=== PATIENT | female | born 1930 | race Caucasian/White ===

== ENCOUNTER → 2016-09-05 | Emergency (ER) | payer OTHER ==
[~2016-09-05] MED LIST: ACETAMINOPHEN 325 MG TABLET (FP) ONE; ACETAMINOPHEN 325 MG TABLET (FP) PO ONE; ACETAMINOPHEN 650 MG/20.3 ML ORAL SOLUTION (CUPS) ONE
[2016-09-05 19:20] VITALS: BMI 24.0
--- NOTE | 2016-09-05 19:20 | PDOC ---
Rapid Medical Evaluation Time Seen by Provider: 09/05/16 19:15 Medical Evaluation: Allergies Allergy/AdvReac Type Severity Reaction Status Date / Time No Known Allergies Allergy Verified 05/02/13 07:08 09/05/16 19:15 RME Note: I have performed a brief, in-person evaluation of this patient . This patient presents with CC: left occiput headache x 3 days 02/09; no NV; no vision changes; hx htn; cancer tonsils; hx brain tumor x 2years Pertinent PE findings are: VSS I have ordered: nothing The patient will proceed to ED for further evaluation. JR
--- NOTE | 2016-09-05 20:00 | PDOC ---
History of Present Illness - General History Source: Patient, Family Exam Limitations: No Limitations - History of Present Illness Initial Comments: 09/05/16 20:09 Patient is a 86 year old female with significant past medical history of pituitary tumor, tonsillar ca, hypertension and hyperlipidemia who presents to the ED with left sided [place] for 3 days. She reports the left sided [place] intermittent throbbing in nature Patient notes that she took advil this AM for her headache. She notes that she is compliant with her medication. 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 She denies fever, chills, cp, SOB, nausea or vomiting. No recent travel or recent sick contact. PCP - Dr. Rai <Do Curiel - Last Filed: 09/05/16 20:09> - General History Source: Patient <Kuldeep Jo - Last Filed: 09/05/16 22:07> - General Chief Complaint: Headache Stated Complaint: HEADACHE/PAIN IN BACK OF THE HEAD Time Seen by Provider: 09/05/16 19:15 Past History <Do Curiel - Last Filed: 09/05/16 20:09> - Past Medical History Cancer: Yes (tonsil ca) HTN: Yes Hypercholesterolemia: Yes Other medical history: dysphagia, brain tumor - Immunization History Immunization Up to Date: Yes - Psycho/Social/Smoking Cessation Hx Suicidal Ideation: No Smoking Status: No Smoking History: Never smoked Number of Cigarettes Smoked Daily: 0 Hx Alcohol Use: No Drug/Substance Use Hx: No <Kuldeep Jo - Last Filed: 09/05/16 22:07> - Past Medical History Allergies/Adverse Reactions: Allergies Allergy/AdvReac Type Severity Reaction Status Date / Time No Known Allergies Allergy Verified 09/05/16 19:16 Home Medications: Ambulatory Orders Metformin Xr [Glucophage Xr -] 500 mg PO DAILY@0700 02/08/13 Metoprolol Succinate [Toprol XL -] 50 mg PO DAILY 02/08/13 Mirtazapine [Remeron -] 15 mg PO DAILY 02/08/13 Pantoprazole Sodium [Protonix] 40 mg PO DAILY 02/08/13 Simvastatin [Zocor -] 20 mg PO HS 02/08/13 Clindamycin [Cleocin -] 150 mg PO BID #14 capsule 05/02/13 Review of Systems - Review of Systems Able to Perform ROS?: Yes Comments:: 09/05/16 20:09 CONSTITUTIONAL: Absent: fever, chills, diaphoresis, generalized weakness, malaise, loss of appetite HEENT: Absent: rhinorrhea, nasal congestion, throat pain, throat swelling, difficulty swallowing, mouth swelling, ear pain, eye pain, visual Changes CARDIOVASCULAR: Absent: chest pain, syncope, palpitations, irregular heart rate, lightheadedness , peripheral edema RESPIRATORY: Absent: cough, shortness of breath, dyspnea with exertion, orthopnea, wheezing, stridor, hemoptysis GASTROINTESTINAL: Absent: abdominal pain, abdominal distension, nausea, vomiting, diarrhea, constipation, melena, hematochezia GENITOURINARY: Absent: dysuria, frequency, urgency, hesitancy, hematuria, flank pain, genital pain MUSCULOSKELETAL: Absent: myalgia, arthralgia, joint swelling SKIN: Absent: rash, itching, pallor HEMATOLOGIC/IMMUNOLOGIC: Absent: easy bleeding, easy bruising, lymphadenopathy, frequent infections ENDOCRINE: Absent: unexplained weight gain, unexplained weight loss, heat intolerance, cold intolerance NEUROLOGIC: Present: headache Absent: focal weakness or paresthesias, dizziness, unsteady gait, seizure, mental status changes, bladder or bowel incontinence PSYCHIATRIC: Absent: anxiety, depression, suicidal or homicidal ideation, hallucinations. <Do Curiel - Last Filed: 09/05/16 20:09> *Physical Exam - Vital Signs Last Vital Signs Temp Pulse Resp BP Pulse Ox 97.8 F 97 H 20 151/75 97 09/05/16 19:16 09/05/16 19:16 09/05/16 19:16 09/05/16 19:16 09/05/16 19:16 - Physical Exam Comments: 09/05/16 20:12 GENERAL: Well developed, well nourished. Awake and alert. In no acute distress. HEENT: Normocephalic, atraumatic. PERRLA, EOMI. No conjunctival pallor. Sclerae are non -icteric. Moist mucous membranes. Oropharynx is clear. NECK: Supple. Full ROM. No JVD. Carotid pulses 2+ and symmetric, without bruits. No thyromegaly. No lymphadenopathy. CARDIOVASCULAR: Regular rate and rhythm. No murmurs, rubs, or gallops. Distal pulses are 2+ and symmetric. PULMONARY: No evidence of respiratory distress. Lungs clear to auscultation bilaterally. No wheezing, rales or rhonchi. ABDOMINAL: Soft. Non-tender. Non-distended. No rebound or guarding. No organomegaly. Normoactive bowel sounds. MUSCULOSKELETAL Normal range of motion at all joints. No bony deformities or tenderness. No CVA tenderness. EXTREMITIES: No cyanosis. No clubbing. No edema. No calf tenderness. SKIN: Warm and dry. Normal capillary refill. No rashes. No jaundice. NEUROLOGICAL: Alert, awake, appropriate. Cranial nerves 2-12 intact. No deficits to light touch and temperature in face, upper extremities and lower extremities. No motor deficits in the in face, upper extremities and lower extremities. Normoreflexic in the upper and lower extremities. Normal speech. Toes are downgoing bilaterally. PSYCHIATRIC: Cooperative. Good eye contact. Appropriate mood and affect. <Do Curiel - Last Filed: 09/05/16 20:09> - Vital Signs Last Vital Signs Temp Pulse Resp BP Pulse Ox 97.8 F 97 H 20 151/75 97 09/05/16 19:16 09/05/16 19:16 09/05/16 19:16 09/05/16 19:16 09/05/16 19:16 <Kuldeep Jo - Last Filed: 09/05/16 22:07> Medical Decision Making - Medical Decision Making 09/05/16 22:02 Dr. Jo: The scribe's documentation has been prepared under my direction and personally reviewed by me in its entirery. I confirm that the note above accurately reflects all work, treatment, procedures, and medical decision making performed by me. Patient's CAT SCAN DONE TODAY shows the same finds as MRI done on 04/10/15. Pt is neuroligicall intact. Headache improved with Tylenol. Pt family advised too follow up with her neurologist if symptoms become worse. <Kuldeep Jo - Last Filed: 09/05/16 22:07> *DC/Admit/Observation/Transfer - Attestations Scribe Attestion: 09/05/16 20:12 Documentation prepared by AIDEN Negro, acting as medical cash poster for Kuldeep Jo MD/DO. <Do Curiel - Last Filed: 09/05/16 20:09> - Discharge Dispostion Admit: No <Kuldeep Jo - Last Filed: 09/05/16 22:07> Diagnosis at time of Disposition: Intracranial tumor Headache Qualifiers: Headache type: unspecified Headache chronicity pattern: unspecified pattern Intractability: not intractable Qualified Code(s): R51 - Headache - Discharge Dispostion Disposition: HOME Condition at time of disposition: Stable - Referrals Referrals: Gisela Rai MD [Primary Care Provider] - - Patient Instructions Printed Discharge Instructions: DI for Headache, DI for Brain Tumor and Brain Cancer Additional Instructions: Please follow up with your neurologist as soon as possible. Return if any problems.
[2016-09-05 22:29] VITALS: BP 138/64; PULSE 70; TEMP 98.1
== END | disposition home or self-care (01) ==
LOC: JER 19:09
DX: D49.9 Neoplasm of unspecified behavior of unspecified site (principal); R13.10 Dysphagia, unspecified; I10 Essential (primary) hypertension; E78.00 Pure hypercholesterolemia, unspecified; Z85.89 Personal history of malignant neoplasm of other organs and systems
CPT/HCPCS: 70450-TC; 99281-25

== ENCOUNTER 2017-03-21 14:52 | Inpatient (IN) | payer OTHER ==
[2017-03-21] MEDS ORDERED: ONDANSETRON 4 MG/2 ML VIAL IVPB ONE (15:14)
[2017-03-21] MEDS ORDERED: SODIUM CHLORIDE 500 ML IV STA (15:14)
--- NOTE | 2017-03-21 15:27 | PDOC ---
History of Present Illness <Charlotte Zamora - Last Filed: 03/21/17 19:02> - General History Source: Patient, Family, Friend Exam Limitations: Clinical Condition, Language Barrier - History of Present Illness Initial Comments: 03/21/17 15:18 Patient is an 86F with history of benign pituitary mass, tonsilar cancers s/p resection (about 30 years ago), HTN and HLD here today complaining of upper abdominal pain with associated weakness, diarrhea, nausea and vomiting. Patient history is limited by her condition and mostly provided by her sister and friend , who report that she's had several episodes of vomiting starting about three hours ago. The patient denies blood in the vomit, blood in the stool, coffee ground emesis and melena. The patient denies chest pain, shortness of breath, dysuria, and frequency. The patient denies fevers and chills. The patient denies any sick contacts. <Mike Sierra - Last Filed: 03/21/17 19:10> - General Chief Complaint: Nausea/Vomiting Stated Complaint: NAUSEA WEAKNESS Time Seen by Provider: 03/21/17 15:00 Past History <Charlotte Zamora - Last Filed: 03/21/17 19:02> - Past Medical History Cancer: Yes (tonsil ca) HTN: Yes Hypercholesterolemia: Yes - Immunization History Immunization Up to Date: Yes - Suicide/Smoking/Psychosocial Hx Smoking Status: No Smoking History: Never smoked Number of Cigarettes Smoked Daily: 0 Hx Alcohol Use: No Drug/Substance Use Hx: No <Mike Sierra - Last Filed: 03/21/17 19:10> - Past Medical History Allergies/Adverse Reactions: Allergies Allergy/AdvReac Type Severity Reaction Status Date / Time No Known Allergies Allergy Verified 03/21/17 15:05 Home Medications: Ambulatory Orders Metformin Xr [Glucophage Xr -] 500 mg PO DAILY@0700 02/08/13 Metoprolol Succinate [Toprol XL -] 50 mg PO DAILY 02/08/13 Pantoprazole Sodium [Protonix] 40 mg PO DAILY 02/08/13 Simvastatin [Zocor -] 20 mg PO HS 02/08/13 Cabergoline [Dostinex -] 0.5 mg PO BID 03/21/17 [place]-3/Dha/Epa/Fish Oil [[place] 3 500 Softgel] 1 each PO DAILY 03/21/17 Review of Systems - Review of Systems Comments:: 03/21/17 15:27 GENERAL/CONSTITUTIONAL: No fever or chills. Positive for weakness. HEAD, EYES, EARS, NOSE AND THROAT: No change in vision. No sore throat. CARDIOVASCULAR: No chest pain or shortness of breath RESPIRATORY: No cough, wheezing, or hemoptysis. GASTROINTESTINAL: Positive for nausea, vomiting and diarrhea GENITOURINARY: No dysuria, frequency, or change in urination. MUSCULOSKELETAL: No joint or muscle swelling or pain. SKIN: No rash NEUROLOGIC: No headache, loss of consciousness, or change in strength/sensation. HEMATOLOGIC/LYMPHATIC: No anemia, easy bleeding, or history of blood clots. ALLERGIC/IMMUNOLOGIC: No hives or skin allergy. <Mike Sierra - Last Filed: 03/21/17 19:10> *Physical Exam - Vital Signs Last Vital Signs Temp Pulse Resp BP Pulse Ox 97.7 F 56 L 18 178/61 100 03/21/17 15:05 03/21/17 15:05 03/21/17 15:05 03/21/17 15:05 03/21/17 15:05 <Charlotte Zamora - Last Filed: 03/21/17 19:02> - Vital Signs Last Vital Signs Temp Pulse Resp BP Pulse Ox 97.7 F 56 L 18 178/61 100 03/21/17 15:05 03/21/17 15:05 03/21/17 15:05 03/21/17 15:05 03/21/17 15:05 - Physical Exam Comments: 03/21/17 15:30 GENERAL: Awake, alert, confused, in moderate distress HEAD: No signs of trauma, normocephalic, atraumatic EYES: PERRLA, EOMI, sclera anicteric, conjunctiva clear ENT: Auricles normal inspection, hearing grossly normal, nares patent, oropharynx clear without exudates. Dry mucosa LUNGS: No distress, speaks full sentences, clear to auscultation bilaterally HEART: Regular rate and rhythm, normal S1 and S2, no murmurs, rubs or gallops, peripheral pulses normal and equal bilaterally. ABDOMEN: Soft, nontender, normoactive bowel sounds. No guarding, no rebound. No masses EXTREMITIES: Normal inspection, Normal range of motion, no edema. No clubbing or cyanosis. NEUROLOGICAL: Cranial nerves II through XII grossly intact. Normal speech, no focal sensorimotor deficits SKIN: Warm, Dry, no rashes or lesions noted. <Mike Sierra - Last Filed: 03/21/17 19:10> ED Treatment Course - LABORATORY CBC & Chemistry Diagram: 03/21/17 15:25 03/21/17 15:27 - ADDITIONAL ORDERS Additional order review: Laboratory Results 03/21/17 03/21/17 03/21/17 18:26 15:27 15:27 Sodium Potassium Chloride Carbon Dioxide Anion Gap BUN Creatinine Creat Clearance w eGFR Random Glucose Lactic Acid 1.0 Calcium Total Bilirubin AST ALT Alkaline Phosphatase Creatine Kinase 91 Troponin I < 0.02 Total Protein Albumin Lipase Urine Color Straw Urine Appearance Clear Urine pH 7.0 D Urine Protein Negative Urine Glucose (UA) Negative Urine Ketones Trace H Urine Blood Negative Urine Nitrite Negative Urine Bilirubin Negative Urine Urobilinogen Negative Urine RBC 2 Urine WBC 5 Ur Epithelial Cells Rare Urine Mucus Rare 03/21/17 15:27 Sodium 140 Potassium 4.5 Chloride 104 Carbon Dioxide 26 Anion Gap 10 BUN 22 H Creatinine 0.8 Creat Clearance w eGFR > 60 Random Glucose 117 H D Lactic Acid Calcium 9.2 Total Bilirubin 0.4 AST 14 L D ALT 18 Alkaline Phosphatase 72 Creatine Kinase Troponin I Total Protein 7.8 Albumin 4.1 Lipase 105 Urine Color Urine Appearance Urine pH Urine Protein Urine Glucose (UA) Urine Ketones Urine Blood Urine Nitrite Urine Bilirubin Urine Urobilinogen Urine RBC Urine WBC Ur Epithelial Cells Urine Mucus 03/21/17 15:25 RBC 4.32 MCV 86.9 MCHC 33.4 RDW 15.1 MPV 7.4 L Neutrophils % 85.2 H Lymphocytes % 8.3 D Monocytes % 5.4 Eosinophils % 0.8 Basophils % 0.3 - Medications Given in the ED: ED Medications Discontinued Medications Generic Name Dose Route Start Last Admin Trade Name Freq PRN Reason Stop Dose Admin Sodium Chloride 500 mls @ 500 mls/hr 03/21/17 15:14 03/21/17 15:50 Normal Saline - IV 03/21/17 16:13 500 mls/hr ASDIR STA Administration Ondansetron HCl 4 mg 03/21/17 15:14 03/21/17 15:50 Zofran Injection IVPB 03/21/17 15:15 4 mg ONCE ONE Administration <NoahCharlotte A - Last Filed: 03/21/17 19:02> - LABORATORY CBC & Chemistry Diagram: 03/21/17 15:25 03/21/17 15:27 - RADIOLOGY Radiology Studies Ordered: Category Date Time Status HEAD CT WITHOUT CONTRAST [CT] Stat CT Scan 03/21/17 15:17 Ordered <Mike Sierra - Last Filed: 03/21/17 19:10> Medical Decision Making - Medical Decision Making 03/21/17 19:[address] Rai. [phone]. <NoahCharlotte A - Last Filed: 03/21/17 19:02> - Medical Decision Making 03/21/17 15:32 86F with history of pituitary brain mass, distant tonsillar cancer, htn, hld and hypothyroidism here today complaining of upper abdominal pain, nausea, and vomiting. Bradycardic to 56, hypertensive to 178/61, vital signs otherwise normal and stable. Differential diagnosis is broad, and includes: dehydration, acs, arrhythmia, gastroenteritis 03/21/17 16:03 ECG shows sinus bradycardia with 1st degree AV block, rate 52, ST inversions in II, III, aVF, V1-V6, no st elevations. Most recent prior ECG from 2010 shows no t-wave inversions and no av block. 03/21/17 16:21 Laboratory Tests 03/21/17 03/21/17 03/21/17 15:25 15:27 15:27 WBC 8.9 D Hgb 12.6 Hct 37.6 Plt Count 229 Neutrophils % 85.2 H Anion Gap 10 BUN 22 H Creatinine 0.8 Creat Clearance w eGFR > 60 Troponin I < 0.02 CBC normal, kidney function normal, trop neg. 03/21/17 16:56 CT shows pituitary macroadenoma, stable, and no acute changes. 03/21/17 17:30 CXR shows no free air under diaphram, patient's belly pain has worsened and she has had another episode of vomiting. Will evaluate with CT abdomen. 03/21/17 19:09 Mukesh consulted, accepted admission to med/surg inpatient. <Mike Sierra - Last Filed: 03/21/17 19:10> *DC/Admit/Observation/Transfer <Charlotte Zamora - Last Filed: 03/21/17 19:02> - Discharge Dispostion Admit: Yes <Mike Sierra - Last Filed: 03/21/17 19:10> Diagnosis at time of Disposition: Abdominal pain - Discharge Dispostion Condition at time of disposition: Stable - Referrals Referrals: Sarah Mujica MD [Primary Care Provider] -
[2017-03-21 15:42] LABS: BASOPHIL 0.3 % (0-2.0); EOSINOPHIL 0.8 % (0-4.5); MCH 29.1 pg (25.7-33.7); MCHC 33.4 g/dl (32.0-36.0); MEAN CELL VOLUME 86.9 fl (80-96); MEAN PLT VOLUME 7.4 fl (7.5-11.1); NEUTROPHILS 85.2 % (42.8-82.8); PLATELET COUNT 229 K/MM3 (134-434); RDW 15.1 % (11.6-15.6); WHITE BLOOD COUNT 8.9 K/mm3 (4.0-10.0)
[2017-03-21] MEDS ORDERED: ONDANSETRON 4 MG/2 ML VIAL ONE (15:45)
[2017-03-21 16:06] LABS: ALBUMIN 4.1 g/dl (3.4-5.0); ANION GAP 10 (8-16); BILIRUBIN,TOTAL 0.4 mg/dL (0.2-1.0); CALCIUM 9.2 mg/dL (8.5-10.1); CO2 26 mmol/L (21-32); CREATININE 0.8 mg/dL (0.55-1.02); GLUCOSE,RANDOM 117 mg/dL (74-106); SGOT/AST 14 U/L (15-37); SGPT/ALT 18 U/L (12-78); TOT PROT 7.8 g/dl (6.4-8.2)
[2017-03-21 16:07] LABS: ALK PHOS 72 U/L (45-117)
[2017-03-21 16:09] LABS: CPK 91 IU/L (26-192); TROPONIN I < 0.02 ng/ml (0.00-0.05)
[2017-03-21 18:45] LABS: URINE APPEARANCE CLEAR; URINE BILIRUBIN NEGATIVE (NEGATIVE); URINE BLOOD NEGATIVE (NEGATIVE); URINE COLOR STRAW; URINE GLUCOSE (UA) NEGATIVE (NEGATIVE); URINE KETONE TRACE (NEGATIVE); URINE LEUK ESTERASE TRACE (NEGATIVE); URINE NITRITE NEGATIVE (NEGATIVE); URINE PROTEIN NEGATIVE (NEGATIVE); URINE UROBILINOGEN NEGATIVE mg/dL (0.2-1.0)
[2017-03-21 18:51] LABS: URINE MUCUS RARE; URINE RBC 2 /hpf (0-3); URINE WBC 5 /hpf (3-5)
--- NOTE | 2017-03-21 19:10 | PDOC ---
Attending Attestation - HPI HPI: 03/21/17 19:10 86 y/o F with a PMHx of benign pituitary mass, tonsillar cancer s/p resection ( about 30 years ago), HTN and HLD presents to the ED with upper abdominal pain today. Sister and friend reports patient experienced associated weakness, nausea , vomiting, and diarrhea. Denies sick contacts. Patient denies complaints, but is a poor historian. Denies blood in stool or vomit. Denies chest pain, SOB. Denies fever, chills. - Medical Decision Making 03/21/17 19:10 Documentation prepared by Charlotte Zamora, acting as medical engineer for Yamilex Piper MD. <Charlotte Zamora - Last Filed: 03/21/17 19:10> - Resident Resident Name: Mike Sierra - ED Attending Attestation I have performed the following: I have examined & evaluated the patient, The case was reviewed & discussed with the resident, I agree w/resident's findings & plan, Exceptions are as noted - Physicial Exam PE: GENERAL: Awake, alert, and fully oriented, in no acute distress HEAD: No signs of trauma EYES: PERRLA, EOMI, sclera anicteric, conjunctiva clear ENT: Auricles normal inspection, hearing grossly normal, nares patent, oropharynx clear without exudates. Moist mucosa NECK: Normal ROM, supple, no lymphadenopathy, JVD, or masses LUNGS: Breath sounds equal, clear to auscultation bilaterally. No wheezes, and no crackles HEART: Regular rate and rhythm, normal S1 and S2, no murmurs, rubs or gallops ABDOMEN: Soft, diffusely tender, normoactive bowel sounds. No guarding, no rebound. No masses EXTREMITIES: Normal range of motion, no edema. No clubbing or cyanosis. No cords, erythema, or tenderness NEUROLOGICAL: Cranial nerves II through XII grossly intact. Normal speech, normal gait SKIN: Warm, Dry, normal turgor, no rashes or lesions noted. - Medical Decision Making Patient is awake, ill-appearing but nontoxic. Abd diffusely tender. Will obtain CT a/p to further evaluate. <Yamilex Piper - Last Filed: 03/24/17 10:30>
[2017-03-21] MEDS ORDERED: METOPROLOL SUCCINATE 25 MG TAB.SR.24H (FP) PO ONE (19:11)
[2017-03-21] MEDS ORDERED: ACETAMINOPHEN 1000 MG/100 ML VIAL (NON FORMULARY) IVPB PRN (19:11)
[2017-03-21] MEDS ORDERED: morphine CARPU-JECT 4 MG/1 ML DISP.SYRIN IVPUSH PRN (19:11)
[2017-03-21] MEDS ORDERED: ONDANSETRON 4 MG/2 ML VIAL IVPUSH PRN (19:11)
[2017-03-21] MEDS: SODIUM CHLORIDE 1,000 ML IV SCH ×2 (19:20→22:30)
[2017-03-21] MEDS ORDERED: PANTOPRAZOLE SODIUM 100 ML IVPB ONE (19:41)
[2017-03-21] MEDS: PANTOPRAZOLE SODIUM 40 MG in SODIUM CHLORIDE 100 ML IVPB SCH (19:47)
--- NOTE | 2017-03-21 20:11 | EKG ---
Test Reason : Blood Pressure : / mmHG Vent. Rate : 052 BPM Atrial Rate : 052 BPM P-R Int : 224 ms QRS Dur : 098 ms QT Int : 504 ms P-R-T Axes : 034 000 -40 degrees QTc Int : 468 ms SINUS BRADYCARDIA WITH 1ST DEGREE A-V BLOCK COMPARED TO 2010 CLINICAL CORRELATION AND FOLLOW UP TRACING IS RECOMMENDED Confirmed by SHAGGY FRAZIER MD ([id number] on 03/21/2017 8:10:56 PM Referred By: Confirmed By:SHAGGY FRAZIER MD
[2017-03-21] MEDS ORDERED: METOPROLOL SUCCINATE 50 MG TAB.SR.24H (FP) ONE (20:28)
--- NOTE | 2017-03-21 21:23 | CONSULT ---
Consult Consult Specialty:: General Surgery Referred by:: Dr. Mayorga Reason for Consultation:: possible SBO - History of Present Illness Chief Complaint: abdominal pain, N/V, diarrhea History of Present Illness: 86yoF with h/o tonsillar CA s/p radiation therapy only, HTN, HLD, pituitary macroadenoma (benign), possible hypothyroidism, s/p bilateral cataract surgery, no history of abdominal problems or surgery, presents with nausea beginning around noon today while at the store, associated with dizziness, "feeling terrible," then abdominal (epigastric) pain relieved by nausea and vomiting, diarrhea (multiple episodes) and diaphoresis. She blends all her food at home because of her trouble swallowing since XRT. She had cereal for breakfast and blended vegetables for dinner last night. She describes chronic sleep difficulties and takes Advil PM at night sometimes for back/shoulder pain and for help with sleeping. She needs to sleep fairly upright with pillows as well. In the ER, she was afebrile, with normal wbc and normal labs though slightly dehydrated; EKG with sinus bradycardia, T-wave inversions and 1st degree AV block. She had one episode of emesis in ER after moving around for a test, but has no nausea or pain anymore. CT showed a single loop of mildly dilated SB in the pelvis, no free air or fluid, diverticulosis, normal appendix. Patient is admitted to medicine; surgery is consulted to evaluate for possible obstruction. She has not voided since the CT scan and does feel like she needs to go, especially with palpation of her lower abdomen/pelvis. 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 ? thinks she takes med, not 100% certain) - Past Surgical History Past Surgical History: Yes: Cataract Removal (bilateral) - Alcohol/Substance Use Hx Alcohol Use: No History of Substance Use: reports: None - Smoking History Smoking history: Never smoked Have you smoked in the past 12 months: No Aproximately how many cigarettes per day: 0 - Social History Usual Living Arrangement: Alone ADL: Independent Home Medications - Allergies Allergies/Adverse Reactions: Allergies Allergy/AdvReac Type Severity Reaction Status Date / Time No Known Allergies Allergy Verified 03/21/17 15:05 - Home Medications Home Medications: Ambulatory Orders Metformin Xr [Glucophage Xr -] 500 mg PO DAILY@0700 02/08/13 Metoprolol Succinate [Toprol XL -] 50 mg PO DAILY 02/08/13 Pantoprazole Sodium [Protonix] 40 mg PO DAILY 02/08/13 Simvastatin [Zocor -] 20 mg PO HS 02/08/13 Cabergoline [Dostinex -] 0.5 mg PO BID 03/21/17 [place]-3/Dha/Epa/Fish Oil [[place] 3 500 Softgel] 1 each PO DAILY 03/21/17 Home Medications (free text): possibly thyroid medication Family Disease History - Family Disease History Family History: Unremarkable Review of Systems - Review of Systems Constitutional: reports: Diaphoresis (earlier today with hpi), Loss of Appetite (poor appetite in general) Eyes: reports: Blurred Vision, Recent Change in Vision (difficulty reading is getting worse), Other (uses reading glasses) HENT: reports: Difficult Swallowing (eats only pureed/blended food), Hearing Loss (bilateral hearing aids, but doesn't always use them). denies: Throat Pain Neck: denies: Swollen Glands, Tenderness Cardiovascular: denies: Chest Pain, Palpitations Respiratory: denies: Cough, SOB Gastrointestinal: reports: Abdominal Pain (with hpi only), Diarrhea (with hpi), Nausea (with hpi), Vomiting (with hpi). denies: Constipation, Melena, Rectal Bleeding, Vomiting Blood Genitourinary: denies: Burning, Dysuria Musculoskeletal: reports: Back Pain, Joint Pain (shoulders) Integumentary: denies: Change in Color, Rash Neurological: reports: Dizziness (with hpi). denies: Syncope Psychiatric: reports: Altered Sleep Pattern (chronic sleep issues - uses Advil PM), Depression (sometimes - not clinical/no meds) Physical Exam Vital Signs: Vital Signs Temperature 97.7 F 03/21/17 15:05 Pulse Rate 64 03/21/17 20:35 Respiratory Rate 20 03/21/17 20:35 Blood Pressure 147/60 03/21/17 20:35 O2 Sat by Pulse Oximetry (%) 94 L 03/21/17 20:35 Constitutional: Yes: Well Nourished, No Distress, Calm Eyes: Yes: Conjunctiva Clear, EOM Intact HENT: Yes: Atraumatic, Normocephalic, Other (limited mouth opening, affected speech without dentures and s/p XRT) Neck: Yes: Supple, Trachea Midline Cardiovascular: Yes: Bradycardia. No: Pulse Irregular Respiratory: Yes: Regular, CTA Bilaterally Gastrointestinal: Yes: Normal Bowel Sounds, Soft. No: Distention, Tenderness ...Rectal Exam: Yes: Deferred Renal/: Yes: Bladder Distention. No: CVA Tenderness - Left, CVA Tenderness - Right Musculoskeletal: No: Joint Stiffness, Joint Swelling Extremities: No: Cool, Cyanosis Edema: No Peripheral Pulses WNL: Yes Integumentary: Yes: Erythema (perioral). No: Rash Neurological: Yes: Alert, Oriented Psychiatric: Yes: Alert, Oriented Labs: CBCD WBC 8.9 K/mm3 (4.0-10.0) D 03/21/17 15:25 RBC 4.32 M/mm3 (3.60-5.2) 03/21/17 15:25 Hgb 12.6 GM/dL (10.7-15.3) 03/21/17 15:25 Hct 37.6 % (32.4-45.2) 03/21/17 15:25 MCV 86.9 fl (80-96) 03/21/17 15:25 MCHC 33.4 g/dl (32.0-36.0) 03/21/17 15:25 RDW 15.1 % (11.6-15.6) 03/21/17 15:25 Plt Count 229 K/MM3 (134-434) 03/21/17 15:25 MPV 7.4 fl (7.5-11.1) L 03/21/17 15:25 CMP Sodium 140 mmol/L (136-145) 03/21/17 15:27 Potassium 4.5 mmol/L (3.5-5.1) 03/21/17 15:27 Chloride 104 mmol/L (98-107) 03/21/17 15:27 Carbon Dioxide 26 mmol/L (21-32) 03/21/17 15:27 Anion Gap 10 (8-16) 03/21/17 15:27 BUN 22 mg/dL (7-18) H 03/21/17 15:27 Creatinine 0.8 mg/dL (0.55-1.02) 03/21/17 15:27 Creat Clearance w eGFR > 60 (>60) 03/21/17 15:27 Calcium 9.2 mg/dL (8.5-10.1) 03/21/17 15:27 Total Bilirubin 0.4 mg/dL (0.2-1.0) 03/21/17 15:27 AST 14 U/L (15-37) L D 03/21/17 15:27 ALT 18 U/L (12-78) 03/21/17 15:27 Alkaline Phosphatase 72 U/L (45-117) 03/21/17 15:27 Total Protein 7.8 g/dl (6.4-8.2) 03/21/17 15:27 Albumin 4.1 g/dl (3.4-5.0) 03/21/17 15:27 Imaging - Results Cat Scan: Report Reviewed (single mildly dilated SB loop in pelvis, no proximal distention, no free air or fluid; more likely incidental than ileus or early obstruction), Image Reviewed Problem List - Problems (1) Nausea and vomiting Assessment/Plan: Admitted to medicine SBO unlikely - gastroenteritis more likely Pt currently without N/V Zofran prn NPO/IVF Code(s): R11.2 - NAUSEA WITH VOMITING, UNSPECIFIED Qualifiers: Vomiting type: unspecified Vomiting Intractability: non-intractable Qualified Code(s): R11.2 - Nausea with vomiting, unspecified (2) Diarrhea Assessment/Plan: Possible gastroenteritis NPO/IVF Monitor for improvement Code(s): R19.7 - DIARRHEA, UNSPECIFIED Qualifiers: Diarrhea type: unspecified type Qualified Code(s): R19.7 - Diarrhea , unspecified (3) Abdominal pain Assessment/Plan: SBO unlikely Possible gastroenteritis Pt currently without pain or tenderness NPO/IVF May consider AXR pending clinical status tomorrow Tylenol (liquid or IV preferred to pills) prn, minimize narcotics as able Code(s): R10.9 - UNSPECIFIED ABDOMINAL PAIN Qualifiers: Abdominal location: epigastric Qualified Code(s): R10.13 - Epigastric pain (4) Pituitary macroadenoma Assessment/Plan: no change on CT - some impingement on optic chiasm - no acute issues Code(s): D35.2 - BENIGN NEOPLASM OF PITUITARY GLAND (5) History of cancer tonsil Assessment/Plan: s/p XRT chronic swallowing issues - pureed diet only when PO is resumed liquid over pills when able for PO meds no acute issues Code(s): Z85.818 - PRSNL HX OF MALIG NEOPLM OF SITE OF LIP, ORAL CAV, & PHARYNX (6) Hypertension Assessment/Plan: continue home meds Code(s): I10 - ESSENTIAL (PRIMARY) HYPERTENSION Qualifiers: Hypertension type: essential hypertension Qualified Code(s): I10 - Essential (primary) hypertension (7) Borderline diabetes Assessment/Plan: monitor glucose consider resuming metformin when PO resumes, 48+ hrs after CT Code(s): R73.03 - PREDIABETES
[2017-03-21 23:39] VITALS: BMI 22.7
[2017-03-22 08:22] LABS: MCHC 33.6 g/dl (32.0-36.0); MEAN CELL VOLUME 86.1 fl (80-96); MEAN PLT VOLUME 7.2 fl (7.5-11.1); PLATELET COUNT 209 K/MM3 (134-434); RDW 15.1 % (11.6-15.6)
--- NOTE | 2017-03-22 08:52 | HP ---
Admitting History and Physical - Admission History of Present Illness: 86F with history of benign pituitary mass, tonsilar cancers s/p resection ( about 30 years ago), HTN and HLD here today complaining of upper abdominal pain with associated weakness, diarrhea, nausea and vomiting. Patient history is limited by her condition and mostly provided by her sister and friend, who report that she's had several episodes of vomiting starting about three hours ago. The patient denies blood in the vomit, blood in the stool, coffee ground emesis and melena. The patient denies chest pain, shortness of breath, dysuria, and frequency. The patient denies fevers and chills. The patient denies any sick contacts. 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 ? thinks she takes med, not 100% certain) - Past Surgical History Past Surgical History: Yes: Cataract Removal (bilateral) - Smoking History Smoking history: Never smoked Have you smoked in the past 12 months: No Aproximately how many cigarettes per day: 0 - Alcohol/Substance Use Hx Alcohol Use: No History of Substance Use: reports: None - Social History ADL: Independent Home Medications - Allergies Allergies/Adverse Reactions: Allergies Allergy/AdvReac Type Severity Reaction Status Date / Time No Known Allergies Allergy Verified 03/21/17 15:05 - Home Medications Home Medications: Ambulatory Orders Metformin Xr [Glucophage Xr -] 500 mg PO DAILY@0700 02/08/13 Metoprolol Succinate [Toprol XL -] 50 mg PO DAILY 02/08/13 Pantoprazole Sodium [Protonix] 40 mg PO DAILY 02/08/13 Simvastatin [Zocor -] 20 mg PO HS 02/08/13 Cabergoline [Dostinex -] 0.5 mg PO BID 03/21/17 [place]-3/Dha/Epa/Fish Oil [[place] 3 500 Softgel] 1 each PO DAILY 03/21/17 Review of Systems - Review of Systems Cardiovascular: reports: No Symptoms Respiratory: reports: No Symptoms Gastrointestinal: reports: Abdominal Pain, Nausea, Vomiting Genitourinary: reports: No Symptoms Physical Examination Vital Signs: Vital Signs Temperature 98.3 F 03/22/17 06:00 Pulse Rate 54 L 03/22/17 06:00 Respiratory Rate 18 03/22/17 06:00 Blood Pressure 146/65 03/22/17 06:00 O2 Sat by Pulse Oximetry (%) 97 03/21/17 21:40 Cardiovascular: Yes: Regular Rate and Rhythm Respiratory: Yes: Regular, CTA Bilaterally Gastrointestinal: Yes: Normal Bowel Sounds, Soft. No: Tenderness Edema: No Labs: CBC, BMP 03/22/17 06:50 Imaging - Results Cat Scan: Report Reviewed Problem List - Problems (1) Abdominal pain Assessment/Plan: RESOLVED MAY HAVE BEEN AGE CLEAR LIQUIDS AND MONITOR IVF PPI Code(s): R10.9 - UNSPECIFIED ABDOMINAL PAIN Qualifiers: Abdominal location: epigastric Qualified Code(s): R10.13 - Epigastric pain (2) Diarrhea Assessment/Plan: ABOVE Code(s): R19.7 - DIARRHEA, UNSPECIFIED Qualifiers: Diarrhea type: unspecified type Qualified Code(s): R19.7 - Diarrhea , unspecified (3) Nausea and vomiting Assessment/Plan: ABOVE Code(s): R11.2 - NAUSEA WITH VOMITING, UNSPECIFIED Qualifiers: Vomiting type: unspecified Vomiting Intractability: non-intractable Qualified Code(s): R11.2 - Nausea with vomiting, unspecified (4) Diabetes Assessment/Plan: BGM Code(s): E11.9 - TYPE 2 DIABETES MELLITUS WITHOUT COMPLICATIONS
[2017-03-22 08:54] LABS: ALBUMIN 3.3 g/dl (3.4-5.0); ANION GAP 6 (8-16); BILIRUBIN,TOTAL 0.6 mg/dL (0.2-1.0); CALCIUM 8.3 mg/dL (8.5-10.1); CO2 26 mmol/L (21-32); CREATININE 0.7 mg/dL (0.55-1.02); GLUCOSE,RANDOM 70 mg/dL (74-106); SGOT/AST 15 U/L (15-37); SGPT/ALT 15 U/L (12-78); TOT PROT 6.4 g/dl (6.4-8.2)
[2017-03-22 08:55] LABS: ALK PHOS 62 U/L (45-117)
[2017-03-22 09:24] LABS: C-REACTIVE PROTEIN 1.1 MG/DL (0.00-0.3)
[2017-03-22] MEDS ORDERED: PT OWN MED DRAWER 7, Y5N ONE (10:26)
[2017-03-22] MEDS: PANTOPRAZOLE SODIUM 40 MG in SODIUM CHLORIDE 100 ML IVPB SCH (13:18)
--- NOTE | 2017-03-22 14:57 | PN ---
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, Physician Chief Complaint: epigastric pain, n/v, diarrhea History of Present Illness: Pt seen and examined sitting in chair, having liquids. Feels much better. No pain, no nausea or vomiting, no flatus or BM yet. Tolerating clears, "going slowly." She did not sleep well, though that is not unusual for her; she would like something to help. She has not needed pain medicine. - Current Medication List Current Medications: Active Medications Pantoprazole Sodium 40 mg/ (Sodium Chloride) 100 mls @ 200 mls/hr IVPB DAILY [facility] Last Admin: 03/22/17 13:18 Dose: 200 mls/hr Sodium Chloride (Normal Saline -) 1,000 mls @ 75 mls/hr IV ASDIR [facility] Last Admin: 03/21/17 22:30 Dose: 75 mls/hr Morphine Sulfate (Morphine Injection -) 4 mg IVPUSH Q4H PRN PRN Reason: PAIN Ondansetron HCl (Zofran Injection) 4 mg IVPUSH Q6H PRN PRN Reason: NAUSEA AND/OR VOMITING - Objective Vital Signs: Vital Signs Temperature 98.2 F 03/22/17 14:00 Pulse Rate 52 L 03/22/17 14:00 Respiratory Rate 17 03/22/17 14:00 Blood Pressure 148/58 03/22/17 14:00 O2 Sat by Pulse Oximetry (%) 96 03/22/17 09:00 Vital Signs Period Temp Pulse Resp BP Sys/Chandra Pulse Ox Last 24 Hr 97.7 F-98.6 F 52-64 15-20 123-178/57-66 94-100 Constitutional: Yes: Well Nourished, No Distress, Calm Eyes: Yes: Conjunctiva Clear, EOM Intact HENT: Yes: Other (mild perioral erythema s/p radiation; affected speech; edentulous) Cardiovascular: Yes: Bradycardia (mild). No: Pulse Irregular Respiratory: Yes: Regular, CTA Bilaterally Gastrointestinal: Yes: Normal Bowel Sounds, Soft. No: Distention, Tenderness Extremities: Yes: Other (nursing trying to replace left antecubital PIV). No: Cool, Cyanosis Neurological: Yes: Alert, Oriented Labs: CBC, BMP 03/22/17 06:50 03/22/17 07:00 Problem List - Problems (1) Nausea and vomiting Assessment/Plan: likely had gastroenteritis Pt currently without N/V or abdominal pain tolerating clears if doing well in am, will advance to pureed diet (as at home) no acute surgical issues Code(s): R11.2 - NAUSEA WITH VOMITING, UNSPECIFIED Qualifiers: Vomiting type: unspecified Vomiting Intractability: non-intractable Qualified Code(s): R11.2 - Nausea with vomiting, unspecified (2) Diarrhea Assessment/Plan: resolved, await resumption of bowel function Code(s): R19.7 - DIARRHEA, UNSPECIFIED Qualifiers: Diarrhea type: unspecified type Qualified Code(s): R19.7 - Diarrhea , unspecified (3) Abdominal pain Assessment/Plan: Resolved - pt currently without pain or tenderness Code(s): R10.9 - UNSPECIFIED ABDOMINAL PAIN Qualifiers: Abdominal location: epigastric Qualified Code(s): R10.13 - Epigastric pain (4) Pituitary macroadenoma Assessment/Plan: no change on CT - some impingement on optic chiasm - no acute issues Code(s): D35.2 - BENIGN NEOPLASM OF PITUITARY GLAND (5) History of cancer tonsil Assessment/Plan: s/p XRT chronic swallowing issues - pureed diet only when PO is resumed liquid over pills when able for PO meds no acute issues Code(s): Z85.818 - PRSNL HX OF MALIG NEOPLM OF SITE OF LIP, ORAL CAV, & PHARYNX (6) Hypertension Assessment/Plan: continue home meds Code(s): I10 - ESSENTIAL (PRIMARY) HYPERTENSION Qualifiers: Hypertension type: essential hypertension Qualified Code(s): I10 - Essential (primary) hypertension (7) Borderline diabetes Assessment/Plan: monitor glucose consider resuming metformin when PO resumes, 48+ hrs after CT Code(s): R73.03 - PREDIABETES
[2017-03-22] MEDS: SODIUM CHLORIDE 1,000 ML IV SCH (17:39)
--- NOTE | 2017-03-22 19:44 | CON.GI ---
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 She sees Dr Polanco on a regular basis. Now admitted with gastritis symptoms. She is feeling much better at this time. All symptoms on admission have resolved. She still works ( [employer]) and drives. She is a good historian. 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 ? thinks she takes med, not 100% certain) - Past Surgical History Past Surgical History: Yes: Cataract Removal (bilateral) - Alcohol/Substance Use Hx Alcohol Use: No History of Substance Use: reports: None - Smoking History Smoking history: Never smoked Have you smoked in the past 12 months: No Aproximately how many cigarettes per day: 0 - Social History Usual Living Arrangement: Alone ADL: Independent Home Medications - Allergies Allergies/Adverse Reactions: Allergies Allergy/AdvReac Type Severity Reaction Status Date / Time No Known Allergies Allergy Verified 03/21/17 15:05 - Home Medications Home Medications: Ambulatory Orders Metformin Xr [Glucophage Xr -] 500 mg PO DAILY@0700 02/08/13 Metoprolol Succinate [Toprol XL -] 50 mg PO DAILY 02/08/13 Pantoprazole Sodium [Protonix] 40 mg PO DAILY 02/08/13 Simvastatin [Zocor -] 20 mg PO HS 02/08/13 Cabergoline [Dostinex -] 0.5 mg PO BID 03/21/17 [place]-3/Dha/Epa/Fish Oil [[place] 3 500 Softgel] 1 each PO DAILY 03/21/17 Physical Exam-GI Vital Signs: Vital Signs Temperature 98.2 F 03/22/17 14:00 Pulse Rate 52 L 03/22/17 14:00 Respiratory Rate 17 03/22/17 14:00 Blood Pressure 148/58 03/22/17 14:00 O2 Sat by Pulse Oximetry (%) 96 03/22/17 09:00 Constitutional: Yes: Well Nourished, No Distress HENT: Yes: Other (nasal speech secondary to remote surgery) Neck: Yes: Supple Cardiovascular: Yes: Regular Rate and Rhythm Respiratory: Yes: CTA Bilaterally Gastrointestinal Inspection: Yes: WNL ...Auscultate: Yes: Normoactive Bowel Sounds ...Palpate: Yes: Soft. No: Tenderness Labs: CBC, BMP 03/22/17 06:50 03/22/17 07:00 Imaging - Results Cat Scan: Report Reviewed (negative for acute GI pathology) Assessment/Plan Gastroenteritis now resolved. Likely staph aureus as she feels left over beans caused the problem with symptoms starting 6-8 hours after eating left-over beans. Rec resume diet tomorrow and can d/c if tolerated
[2017-03-23] MEDS: SODIUM CHLORIDE 1,000 ML IV SCH (06:28)
[2017-03-23] MEDS ORDERED: PT OWN MED DRAWER 7, Y5N ONE (08:51)
[2017-03-23] MEDS: PANTOPRAZOLE SODIUM 40 MG in SODIUM CHLORIDE 100 ML IVPB SCH (09:00)
--- NOTE | 2017-03-23 09:22 | PN ---
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, Physician Chief Complaint: epigastric pain, n/v, diarrhea History of Present Illness: Pt seen and examined sitting in chair, having liquids. Had poor night's sleep, in part secondary to roommate and her usual shoulder discomfort. No abdominal pain, no nausea or vomiting; had flatus which relieved some gas/bloating, but no BM yet. Tolerating liquids, but complains that the jello and soup burn her throat; she would like oatmeal and regular Ensure (the Ensure clear burned as well). She feels ready to go home. - Current Medication List Current Medications: Active Medications Pantoprazole Sodium 40 mg/ (Sodium Chloride) 100 mls @ 200 mls/hr IVPB DAILY [facility] Last Admin: 03/23/17 09:00 Dose: 200 mls/hr Sodium Chloride (Normal Saline -) 1,000 mls @ 75 mls/hr IV ASDIR [facility] Last Admin: 03/23/17 06:28 Dose: 75 mls/hr Morphine Sulfate (Morphine Injection -) 4 mg IVPUSH Q4H PRN PRN Reason: PAIN Last Admin: 03/23/17 02:08 Dose: 4 mg Ondansetron HCl (Zofran Injection) 4 mg IVPUSH Q6H PRN PRN Reason: NAUSEA AND/OR VOMITING - Objective Vital Signs: Vital Signs Temperature 97.4 F L 03/23/17 06:00 Pulse Rate 48 L 03/23/17 06:00 Respiratory Rate 18 03/23/17 06:00 Blood Pressure 143/61 03/23/17 06:00 O2 Sat by Pulse Oximetry (%) 96 03/22/17 21:00 Constitutional: Yes: Well Nourished, No Distress, Calm HENT: Yes: Other (stable perioral erythema; affected speech from radiation pharyngitis) Gastrointestinal: Yes: Normal Bowel Sounds, Soft. No: Tenderness Extremities: No: Cold, Cyanosis Integumentary: Yes: Erythema (perioral (stable)). No: Rash Neurological: Yes: Alert, Oriented Labs: no new labs Problem List - Problems (1) Nausea and vomiting Assessment/Plan: likely had gastroenteritis Pt currently without N/V or abdominal pain tolerating liquids would advance to pureed diet (as at home) with oatmeal and regular Ensure no acute surgical issues Code(s): R11.2 - NAUSEA WITH VOMITING, UNSPECIFIED Qualifiers: Vomiting type: unspecified Vomiting Intractability: non-intractable Qualified Code(s): R11.2 - Nausea with vomiting, unspecified (2) Diarrhea Assessment/Plan: resolved, await resumption of bowel function Code(s): R19.7 - DIARRHEA, UNSPECIFIED Qualifiers: Diarrhea type: unspecified type Qualified Code(s): R19.7 - Diarrhea , unspecified (3) Pituitary macroadenoma Assessment/Plan: no change on CT - some impingement on optic chiasm - no acute issues Code(s): D35.2 - BENIGN NEOPLASM OF PITUITARY GLAND (4) History of cancer tonsil Assessment/Plan: s/p XRT chronic swallowing issues/radiation pharyngitis ok to resume home diet liquid over pills when able for PO meds no acute issues Code(s): Z85.818 - PRSNL HX OF MALIG NEOPLM OF SITE OF LIP, ORAL CAV, & PHARYNX (5) Hypertension Assessment/Plan: continue home meds Code(s): I10 - ESSENTIAL (PRIMARY) HYPERTENSION Qualifiers: Hypertension type: essential hypertension Qualified Code(s): I10 - Essential (primary) hypertension (6) Borderline diabetes Assessment/Plan: monitor glucose consider resuming metformin when indicated Code(s): R73.03 - PREDIABETES
--- NOTE | 2017-03-23 12:00 | PN ---
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, Physician Chief Complaint: patient tired did not sleep bc her roomate kept her awake has shoulder pain - Current Medication List Current Medications: Active Medications Pantoprazole Sodium 40 mg/ (Sodium Chloride) 100 mls @ 200 mls/hr IVPB DAILY [facility] Last Admin: 03/23/17 09:00 Dose: 200 mls/hr Sodium Chloride (Normal Saline -) 1,000 mls @ 75 mls/hr IV ASDIR [facility] Last Admin: 03/23/17 06:28 Dose: 75 mls/hr Morphine Sulfate (Morphine Injection -) 4 mg IVPUSH Q4H PRN PRN Reason: PAIN Last Admin: 03/23/17 02:08 Dose: 4 mg Ondansetron HCl (Zofran Injection) 4 mg IVPUSH Q6H PRN PRN Reason: NAUSEA AND/OR VOMITING - Objective Vital Signs: Vital Signs Temperature 97.8 F 03/23/17 09:48 Pulse Rate 53 L 03/23/17 09:48 Respiratory Rate 18 03/23/17 09:48 Blood Pressure 111/53 03/23/17 09:48 O2 Sat by Pulse Oximetry (%) 96 03/22/17 21:00 Constitutional: Yes: Calm, Thin Cardiovascular: Yes: Regular Rate and Rhythm, S1, S2 Respiratory: Yes: CTA Bilaterally Gastrointestinal: Yes: Normal Bowel Sounds, Soft Edema: No Neurological: Yes: Alert, Oriented Labs: CBC, BMP 03/22/17 06:50 03/22/17 07:00 Problem List - Problems (1) Abdominal pain Assessment/Plan: resolved Code(s): R10.9 - UNSPECIFIED ABDOMINAL PAIN Qualifiers: Abdominal location: epigastric Qualified Code(s): R10.13 - Epigastric pain (2) Nausea and vomiting Assessment/Plan: resovled maybe gastroenteritis Code(s): R11.2 - NAUSEA WITH VOMITING, UNSPECIFIED Qualifiers: Vomiting type: unspecified Vomiting Intractability: non-intractable Qualified Code(s): R11.2 - Nausea with vomiting, unspecified (3) Diabetes Assessment/Plan: metformin on hold for now and not to restart until monday given ct scan with contrast Code(s): E11.9 - TYPE 2 DIABETES MELLITUS WITHOUT COMPLICATIONS Qualifiers: Diabetes mellitus type: type 2 (4) History of cancer tonsil Assessment/Plan: s/p XRT chronic swallowing problems resume home diet purreed diet Code(s): Z85.818 - PRSNL HX OF MALIG NEOPLM OF SITE OF LIP, ORAL CAV, & PHARYNX (5) Pituitary macroadenoma Assessment/Plan: ct head done Code(s): D35.2 - BENIGN NEOPLASM OF PITUITARY GLAND
--- NOTE | 2017-03-23 12:06 | DS ---
Physical Examination Vital Signs: Vital Signs Temperature 97.8 F 03/23/17 09:48 Pulse Rate 53 L 03/23/17 09:48 Respiratory Rate 18 03/23/17 09:48 Blood Pressure 111/53 03/23/17 09:48 O2 Sat by Pulse Oximetry (%) 96 03/22/17 21:00 Constitutional: Yes: Calm, Thin Cardiovascular: Yes: Regular Rate and Rhythm, S1, S2 Respiratory: Yes: CTA Bilaterally Gastrointestinal: Yes: Normal Bowel Sounds, Soft Edema: No Neurological: Yes: Alert, Oriented Labs: CBC, BMP 03/22/17 06:50 03/22/17 07:00 Discharge Summary Reason For Visit: ABDOMINAL PAIN Current Active Problems Abdominal pain (Acute) Borderline diabetes (Acute) Diabetes (Acute) Diarrhea (Acute) History of cancer tonsil (Acute) Hypertension (Acute) Nausea and vomiting (Acute) Pituitary macroadenoma (Acute) Hospital Course: - Admission History of Present Illness: 86F with history of benign pituitary mass, tonsilar cancers s/p resection ( about 30 years ago), HTN and HLD here today complaining of upper abdominal pain with associated weakness, diarrhea, nausea and vomiting. Patient history is limited by her condition and mostly provided by her sister and friend, who report that she's had several episodes of vomiting starting about three hours ago. The patient denies blood in the vomit, blood in the stool, coffee ground emesis and melena. The patient denies chest pain, shortness of breath, dysuria, and frequency. The patient denies fevers and chills. The patient denies any sick contacts. 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 ? thinks she takes med, not 100% certain) - Past Surgical History Past Surgical History: Yes: Cataract Removal (bilateral) - Smoking History Smoking history: Never smoked Have you smoked in the past 12 months: No Aproximately how many cigarettes per day: 0 CT scan of head :no acute pathology pituatry macroadenoma as noted before ct abdomen fluid filled small loop of bowel in lateral pelvis seen by surgery abdominal pain and nausea vomitting resolved most likely AGE tolerated liquids ands restart home diet purreeed tonsilar cancer s/p XRT chronic swallowing problems DM hold metformin for another 2 days Condition: Stable - Instructions Referrals: Sarah Mujica MD [Primary Care Provider] - - Home Medications Comprehensive Discharge Medication List: Ambulatory Orders Metformin Xr [Glucophage Xr -] 500 mg PO DAILY@0700 02/08/13 Metoprolol Succinate [Toprol XL -] 50 mg PO DAILY 02/08/13 Pantoprazole Sodium [Protonix] 40 mg PO DAILY 02/08/13 Simvastatin [Zocor -] 20 mg PO HS 02/08/13 Cabergoline [Dostinex -] 0.5 mg PO BID 03/21/17 [place]-3/Dha/Epa/Fish Oil [[place] 3 500 Softgel] 1 each PO DAILY 03/21/17
[2017-03-23 14:18] VITALS: BP 125/56; PULSE 54; TEMP 98
== END 2017-03-23 02:30 | disposition home or self-care (01) | DRG 392 ==
LOC: JER 14:52 → JERBED 19:07 → J5S 21:24
PROVIDERS: ADMIT Family Medicine; ATTEND Family Medicine
DX: K52.9 Noninfective gastroenteritis and colitis, unspecified (principal); D35.2 Benign neoplasm of pituitary gland; I10 Essential (primary) hypertension; E78.5 Hyperlipidemia, unspecified; Z85.89 Personal history of malignant neoplasm of other organs and systems; E03.9 Hypothyroidism, unspecified; I44.0 Atrioventricular block, first degree; R73.03 Prediabetes; Z79.84 Long term (current) use of oral hypoglycemic drugs; R13.19 Other dysphagia
CPT/HCPCS: 36415; 70450-TC; 71010-TC; 74177-TC; 80053; 81003; 81015; 83605; 83690; 84484; 85025; 85027; 86140; 93005; 93010; 99283-25

== ENCOUNTER 2017-11-28 09:34 | Inpatient (IN) | payer OTHER ==
--- NOTE | 2017-11-28 09:45 | PDOC ---
History of Present Illness - General Chief Complaint: Lightheaded Stated Complaint: DIZZINESS Time Seen by Provider: 11/28/17 09:45 - History of Present Illness Initial Comments: 11/28/17 09:58 Ms. Perez is an 87 yo female w/ pmh of pituitary macroadenoma, tonsilar cancers s/p resection (distant), HTN, and HLD who represents from yesterday for evaluation of right sided pain after fall yesterday. Patient also reports new onset dizziness today in addition to her pain. She was evaluated with XR and found no acute fracture and was able to ambulate home previously, but today cannot walk by herself nor take any oral pain medication. The patient denies chest pain, shortness of breath, and headache. Denies fever, chills, nausea, vomit, diarrhea and constipation. Denies dysuria, frequency, urgency and hematuria. Allergies: NKDA Past History - Past Medical History Allergies/Adverse Reactions: Allergies Allergy/AdvReac Type Severity Reaction Status Date / Time No Known Allergies Allergy Verified 11/28/17 09:44 Home Medications: Ambulatory Orders Metoprolol Succinate [Toprol XL -] 50 mg PO DAILY 02/08/13 Cabergoline [Dostinex -] 0.5 mg PO MOFR 03/21/17 Famotidine [Pepcid] 20 mg PO DAILY PRN 11/27/17 Cancer: Yes (tonsil ca,30years ago) COPD: No HTN: Yes Hypercholesterolemia: Yes - Immunization History Immunization Up to Date: Yes - Suicide/Smoking/Psychosocial Hx Smoking Status: No Smoking History: Never smoked Have you smoked in the past 12 months: No Number of Cigarettes Smoked Daily: 0 Hx Alcohol Use: No Drug/Substance Use Hx: No Substance Use Type: None Review of Systems - Review of Systems Comments:: 11/28/17 10:17 GENERAL/CONSTITUTIONAL: No fever or chills. No weakness. HEAD, EYES, EARS, NOSE AND THROAT: No change in vision. No ear pain or discharge. No sore throat. CARDIOVASCULAR: No chest pain or shortness of breath RESPIRATORY: No cough, wheezing, or hemoptysis. GASTROINTESTINAL: No nausea, vomiting, diarrhea or constipation. GENITOURINARY: No dysuria, frequency, or change in urination. MUSCULOSKELETAL: +Right sided shoulder, chest, and hip pain. No joint or muscle swelling or pain. No neck or back pain. SKIN: No rash NEUROLOGIC: +Dizziness/light headedness today. No headache, vertigo, loss of consciousness, or change in strength/sensation. ENDOCRINE: No increased thirst. No abnormal weight change HEMATOLOGIC/LYMPHATIC: No anemia, easy bleeding, or history of blood clots. ALLERGIC/IMMUNOLOGIC: No hives or skin allergy. *Physical Exam - Physical Exam Comments: 11/28/17 10:17 GENERAL: Awake, alert, and fully oriented, in no acute distress HEAD: No signs of trauma, normocephalic, atraumatic EYES: PERRLA, EOMI, sclera anicteric, conjunctiva clear ENT: Auricles normal inspection, hearing grossly normal, nares patent, oropharynx clear without exudates. Moist mucosa NECK: Normal ROM, supple, no lymphadenopathy, JVD, or masses LUNGS: No distress, speaks full sentences, clear to auscultation bilaterally HEART: Regular rate and rhythm, normal S1 and S2, no murmurs, rubs or gallops, peripheral pulses normal and equal bilaterally. ABDOMEN: Soft, nontender, normoactive bowel sounds. No guarding, no rebound. No masses EXTREMITIES: +Patient ttp on R shoulder, right chest, and right hip. Will not allow testing for ROM. Unable to lift RLE. NEUROLOGICAL: Cranial nerves II through XII grossly intact. Normal speech, normal gait, no focal sensorimotor deficits SKIN: Warm, Dry, normal turgor, no rashes or lesions noted. ED Treatment Course - LABORATORY CBC & Chemistry Diagram: 11/28/17 10:09 11/28/17 10:09 Medical Decision Making - Medical Decision Making 11/28/17 14:06 Ms. Perez is an 87 yo female w/ pmh as described who presents for evaluation of difficulty ambulating post fall yesterday with dizziness. Additional Head/ neck/extremity CT and Chest/Shoulder XR ordered for further evaluation. Patient remains non-ambulatory at this time. Labs grossly-unconcerning as below. CT negative for acute process. 11/28/17 14:23 XR likewise unconcerning. Discussed with primary team who will admit for further observation and pain control. Laboratory Results - last 24 hr 11/28/17 11/28/17 11/28/17 10:09 10:09 11:09 WBC 7.8 RBC 4.30 Hgb 12.6 D Hct 38.1 MCV 88.6 MCH 29.4 MCHC 33.1 RDW 15.5 Plt Count 229 MPV 7.2 L Neutrophils % 85.9 H Lymphocytes % 6.7 L Monocytes % 6.1 Eosinophils % 0.9 Basophils % 0.4 Nucleated RBC % 0 Sodium 139 Potassium 5.1 Chloride 105 Carbon Dioxide 27 Anion Gap 7 L BUN 25 H Creatinine 1.0 Creat Clearance w eGFR 52.45 Random Glucose 107 H Calcium 8.5 Total Bilirubin 0.6 AST 21 ALT 16 Alkaline Phosphatase 67 Creatine Kinase 72 Troponin I < 0.02 Total Protein 7.5 Albumin 3.7 Urine Color Yellow Urine Appearance Clear Urine pH 7.0 Ur Specific [place] 1.020 Urine Protein Negative Urine Glucose (UA) Negative Urine Ketones Negative Urine Blood Negative Urine Nitrite Negative Urine Bilirubin Negative Urine Urobilinogen Negative Ur Leukocyte Esterase 1+ H Urine WBC (Auto) 9 Urine RBC (Auto) 1 Ur Epithelial Cells Rare Urine Mucus Rare *DC/Admit/Observation/Transfer Diagnosis at time of Disposition: Gait instability Contusion, hip Qualifiers: Encounter type: subsequent encounter Laterality: unspecified laterality Qualified Code(s): S70.00XD - Contusion of unspecified hip, subsequent encounter - Discharge Dispostion Decision to Admit order: Yes - Referrals Referrals: Gisela Rai MD [Primary Care Provider] - - Patient Instructions - Post Discharge Activity
--- NOTE | 2017-11-28 09:45 | PDOC ---
Attending Attestation - Resident Resident Name: Channing Mckenzie - HPI HPI: 11/28/17 10:37 Pt presents to the ED complaining of L hip pain and lightheadness after mechanical trip and fall. Patient was seen in the ED yesterday, had hip films that were negative and was discharged home. As per the patient and her friend, she has been completely unable to ambulate since the injury. Patient reports that she was completely independent and able to drive before yesterday. - Physicial Exam PE: 11/28/17 10:42 Agree with resident exam. Patient is alert and oriented and in no acute distress. L hip has no deformity but some tenderness. Patient is able to bend her knee to 90 degrees on the L, but does not have more ROM. - Medical Decision Making 11/28/17 10:44 Pt presents to the ED complaining of severe L hip pain and inability to ambulate. Xrays yesterday were negative. Will check CT pelvis to rule out occult fracture. If CT is negative, will give pain control and consider discharge if patient is able to ambulate. If patient is not able to ambulate, will admit to medicine for placement.
[2017-11-28] MEDS ORDERED: ACETAMINOPHEN 1000 MG/100 ML VIAL (NON FORMULARY) IVPB ONE (10:09)
[2017-11-28 10:38] LABS: BASO % 0.4 % (0-2.0); EOS % 0.9 % (0-4.5); HEMATOCRIT 38.1 % (32.4-45.2); HEMOGLOBIN 12.6 GM/dL (10.7-15.3); LYMPH % 6.7 % (8-40); MCH 29.4 pg (25.7-33.7); MCHC 33.1 g/dl (32.0-36.0); MEAN CELL VOLUME 88.6 fl (80-96); MEAN PLT VOLUME 7.2 fl (7.5-11.1); MONO % 6.1 % (3.8-10.2); NEUT % 85.9 % (42.8-82.8); PLATELET COUNT 229 K/MM3 (134-434); RDW 15.5 % (11.6-15.6); WHITE BLOOD COUNT 7.8 K/mm3 (4.0-10.0)
[2017-11-28] MEDS ORDERED: ACETAMINOPHEN INJECTION 100 ML IVPB ONE (10:50)
[2017-11-28 11:07] LABS: ALBUMIN 3.7 g/dl (3.4-5.0); ANION GAP 7 (8-16); BLOOD UREA NITROGEN 25 mg/dL (7-18); CALCIUM 8.5 mg/dL (8.5-10.1); CHLORIDE 105 mmol/L (98-107); CO2 27 mmol/L (21-32); GLUCOSE,RANDOM 107 mg/dL (74-106); SODIUM 139 mmol/L (136-145)
[2017-11-28 11:13] LABS: ALK PHOS 67 U/L (45-117); BILIRUBIN,TOTAL 0.6 mg/dL (0.2-1.0); SGPT/ALT 16 U/L (12-78); TOT PROT 7.5 g/dl (6.4-8.2)
[2017-11-28 11:35] LABS: URINE APPEARANCE CLEAR; URINE BILIRUBIN NEGATIVE (<2.0 mg/dL); URINE BLOOD NEGATIVE (NEGATIVE); URINE COLOR YELLOW; URINE GLUCOSE (UA) NEGATIVE (NEGATIVE); URINE KETONE NEGATIVE (NEGATIVE)
[2017-11-28 11:36] LABS: URINE NITRITE NEGATIVE (NEGATIVE); URINE PROTEIN NEGATIVE (NEGATIVE); URINE UROBILINOGEN NEGATIVE mg/dL (0.2-1.0)
[2017-11-28 11:38] LABS: URINE LEUK ESTERASE 1+ (NEGATIVE)
[2017-11-28 11:39] LABS: EPI CELLS RARE /HPF (FEW); URINE MUCUS RARE
[2017-11-28 12:05] LABS: POTASSIUM 5.1 mmol/L (3.5-5.1); SGOT/AST 21 U/L (15-37)
--- NOTE | 2017-11-28 14:45 | EKG ---
Test Reason : Blood Pressure : / mmHG Vent. Rate : 060 BPM Atrial Rate : 060 BPM P-R Int : 230 ms QRS Dur : 086 ms QT Int : 406 ms P-R-T Axes : 027 -07 041 degrees QTc Int : 406 ms SINUS RHYTHM WITH 1ST DEGREE A-V BLOCK NONSPECIFIC T WAVE ABNORMALITY ABNORMAL ECG WHEN COMPARED WITH ECG OF 27-NOV-2017 12:33, NO SIGNIFICANT CHANGE WAS FOUND Confirmed by MD Brien, Alex ([id number]) on 11/28/2017 2:44:55 PM Referred By: Confirmed By:Alex Tesfaye MD
[2017-11-28] MEDS ORDERED: morphine SULFATE 4 MG/ML VIAL IVPUSH PRN (16:04)
--- NOTE | 2017-11-28 16:06 | HP ---
Admitting History and Physical - Primary Care Physician PCP: Gisela Rai - Admission History of Present Illness: Ms. Perez is an 87 yo female w/ pmh of pituitary macroadenoma, tonsilar cancers s/p resection (distant), HTN, and HLD who represents from yesterday for evaluation of right sided pain after fall yesterday. Patient also reports new onset dizziness today in addition to her pain. She was evaluated with XR and found no acute fracture and was able to ambulate home previously, but today cannot walk by herself nor take any oral pain medication. 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 ? thinks she takes med, not 100% certain) - Past Surgical History Past Surgical History: Yes: Cataract Removal (bilateral) - Smoking History Smoking history: Never smoked Have you smoked in the past 12 months: No Aproximately how many cigarettes per day: 0 - Alcohol/Substance Use Hx Alcohol Use: No History of Substance Use: reports: None - Social History ADL: Independent Home Medications - Allergies Allergies/Adverse Reactions: Allergies Allergy/AdvReac Type Severity Reaction Status Date / Time No Known Allergies Allergy Verified 11/28/17 09:44 - Home Medications Home Medications: Ambulatory Orders Metoprolol Succinate [Toprol XL -] 50 mg PO DAILY 02/08/13 Cabergoline [Dostinex -] 0.5 mg PO MOFR 03/21/17 Famotidine [Pepcid] 20 mg PO DAILY PRN 11/27/17 Review of Systems - Review of Systems Musculoskeletal: reports: Other (right hip pain) Physical Examination Vital Signs: Vital Signs Temperature 97.9 F 11/28/17 09:55 Pulse Rate 58 L 11/28/17 15:12 Respiratory Rate 18 11/28/17 15:12 Blood Pressure 109/48 11/28/17 15:12 O2 Sat by Pulse Oximetry (%) 94 L 11/28/17 15:12 Constitutional: Yes: Calm Neck: Yes: Trachea Midline Cardiovascular: Yes: Regular Rate and Rhythm, S1, S2 Respiratory: Yes: CTA Bilaterally Gastrointestinal: Yes: Normal Bowel Sounds, Soft Extremities: Yes: Other (right hip tenderness) Edema: No Neurological: Yes: Alert, Oriented Labs: CBC, BMP 11/28/17 10:09 11/28/17 10:09 Imaging - Results Cat Scan: Report Reviewed (mild degenerative arthirits of the right hip) Assessment/Plan s/p fall unable to bear weight on right hip ct scan no fracture PMR and ortho eval pain control will need snf tonsillar cancer s/p resection can only have liquid diet milly rosalba eval heparin subq for dvt ppx
[2017-11-28] MEDS: HEPARIN NA (PORCINE) 5,000 UNITS/ML 1ML VIAL SQ SCH (21:18)
[2017-11-28 23:10] VITALS: BMI 24.0
[2017-11-29 07:23] LABS: BASO % 0.4 % (0-2.0); EOS % 3.4 % (0-4.5); HEMATOCRIT 36.6 % (32.4-45.2); HEMOGLOBIN 12.3 GM/dL (10.7-15.3); LYMPH % 16.9 % (8-40); MCH 29.4 pg (25.7-33.7); MCHC 33.5 g/dl (32.0-36.0); MEAN CELL VOLUME 87.7 fl (80-96); MEAN PLT VOLUME 7.1 fl (7.5-11.1); MONO % 8.8 % (3.8-10.2); NEUT % 70.5 % (42.8-82.8); PLATELET COUNT 210 K/MM3 (134-434); RBC 4.17 M/mm3 (3.60-5.2); RDW 15.8 % (11.6-15.6); WHITE BLOOD COUNT 6.3 K/mm3 (4.0-10.0)
[2017-11-29 07:58] LABS: ALBUMIN 3.4 g/dl (3.4-5.0); BLOOD UREA NITROGEN 22 mg/dL (7-18); CHLORIDE 105 mmol/L (98-107); PHOSPHOROUS 2.9 mg/dL (2.5-4.9); POTASSIUM 4.1 mmol/L (3.5-5.1); SGOT/AST 16 U/L (15-37); SODIUM 140 mmol/L (136-145)
[2017-11-29 08:01] LABS: ALK PHOS 64 U/L (45-117); ANION GAP 6 (8-16); BILIRUBIN,TOTAL 0.6 mg/dL (0.2-1.0); CALCIUM 8.2 mg/dL (8.5-10.1); CO2 29 mmol/L (21-32); CREATININE 0.9 mg/dL (0.55-1.02); GLUCOSE,RANDOM 73 mg/dL (74-106); MAGNESIUM 2.5 mg/dL (1.8-2.4); SGPT/ALT 14 U/L (12-78)
--- NOTE | 2017-11-29 08:50 | PN ---
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, Physician - Current Medication List Current Medications: Active Medications Heparin Sodium (Porcine) (Heparin -) 5,000 unit SQ BID JARET Last Admin: 11/28/17 21:18 Dose: 5,000 unit Morphine Sulfate (Morphine Sulfate) 1 mg IVPUSH Q4H PRN PRN Reason: PAIN LEVEL 7 - 10 Ranitidine HCl (Zantac Oral Solution -) 150 mg PO DAILY [facility] - Objective Vital Signs: Vital Signs Temperature 98.2 F 11/29/17 07:04 Pulse Rate 60 11/29/17 07:04 Respiratory Rate 20 11/29/17 07:04 Blood Pressure 155/75 11/29/17 07:04 O2 Sat by Pulse Oximetry (%) 97 11/29/17 06:00 Labs: CBC, BMP 11/29/17 06:00 11/29/17 06:00 Problem List - Problems (1) Hip pain Assessment/Plan: s/p fall unable to bear weight on right hip ct scan no fracture PMR and ortho eval pain control xray of ls and pelvis will need snf Code(s): M25.559 - PAIN IN UNSPECIFIED HIP (2) Gait instability Assessment/Plan: as above Code(s): R26.81 - UNSTEADINESS ON FEET (3) Diabetes Assessment/Plan: monitor Code(s): E11.9 - TYPE 2 DIABETES MELLITUS WITHOUT COMPLICATIONS Qualifiers: Diabetes mellitus type: type 2 (4) History of cancer tonsil Assessment/Plan: -swallow eval Code(s): Z85.818 - PRSNL HX OF MALIG NEOPLM OF SITE OF LIP, ORAL CAV, & PHARYNX (5) Pituitary macroadenoma Assessment/Plan: -endo Code(s): D35.2 - BENIGN NEOPLASM OF PITUITARY GLAND
--- NOTE | 2017-11-29 09:44 | CONSULT ---
Admitting History and Physical - Primary Care Physician PCP: Herminia White - Admission History of Present Illness: Per EMR: Ms. Perez is an 87 yo female w/ pmh of pituitary macroadenoma, tonsilar cancers s/p resection (distant), HTN, and HLD who represents from yesterday for evaluation of right sided pain after fall yesterday. Patient also reports new onset dizziness today in addition to her pain. She was evaluated with XR and found no acute fracture and was able to ambulate home previously, but today cannot walk by herself nor take any oral pain medication. patient says that she is not able to bear weight on her right leg also can only eat liquids and jello not solid food h/o tonsillar CA s/p radiation therapy many years ago Pt well known to me from MBS 2013 and 2017. There was increased severity of dysphagia from 2013 until 2017, with impaired transfer of pure and thick liquid as compared to the previous study. Patient did protect her airway well with self generation of multiple swallows, limited entry of contrast into the airway, and occasional brief cough and throat clear to clear penetrated food or liquid. 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 At that time it was recommended that she blenderize all of her food with added liquid to a thin liquid consistency in order to drink through a straw. She had been losing weight and was having a lot of trouble getting nutrition. It was suggested that she use dense, nutritional and caloric foods, possibly adding protein powder to the foods,and drinking supplements between meals. As recommended in 2014, it was recommended that she start swallowing therapy to improve laryngeal excursion and airway protection. additionally Therabite by [facility] was recommended to improve open mouth posture and reduce adverse affects of radiation and Trismus. It was suggested that she use Biotene products, for oral/ pharyngeal dryness. Unfortunately, the patient did not follow through with swallowing therapy or therabite and does not use Biotene, all of which would improve or at least help maintain function. She does, however, puree all food at home, which has improved PO intake and nutritional intake. 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 ? thinks she takes med, not 100% certain) - Past Surgical History Past Surgical History: Yes: Cataract Removal (bilateral) - Smoking History Smoking history: Never smoked Have you smoked in the past 12 months: No Aproximately how many cigarettes per day: 0 - Alcohol/Substance Use Hx Alcohol Use: No History of Substance Use: reports: None - Social History ADL: Independent History - Admission Reason For Visit: PAIN, UNSTEADY GAIT - Diagnostics X-ray: Report Reviewed CT Scan: Report Reviewed - General Mental Status: Alert and Oriented, Awake and Alert, Able to Follow Commands Attention: Intact Ability to Follow Directions: Excellent Head/Neck Control: WFL - Hearing Hearing: Functional Hearing: Impaired With Patient: No Speech Evaluation - Communication Primary Language: JAPANESE Oral Expression Ability: Yes: Mild Impairment - Speech Production Able to Make Needs Known: Yes: WNL Intelligibility: Yes: Mildly Impaired - Speech Characteristics Voice Loudness: Mildly Soft/Quiet Voice Pitch: Yes: Normal Voice Phonatory-based Quality: Yes: Normal Speech Pattern: Impaired Nasal Resonance: Hypernasal (Pt reports change in her speech over last year. I called Dr. Polanco's office. She was evaluated 08/2017 and tonsils are stable. No reoccurancwe of cancer identified.) Articulation: Yes: Precise Rate of Speech: Intact Voice, Other Observations: Yes: Disordered Intonation (Hypernasal sec h/o cancer of tonsils, RT, Trismus adversely affecting oral air flow.) - Language/Auditory Comprehension Follows: Yes: 2 Stage Simple Commands Observation: Able to respond to yes/no queries: Yes, Comprehends Conversational Speech: Yes - Language/Verbal Expression Able to Respond to Simple Queries: Yes: WNL Able to Communicate Wants and Needs: Yes: WNL Functional Communication Status: Yes: WNL - Swallow Evaluation/Bedside Assessment Current Nutritional Intake: Full Liquids Oral Secretions: Yes: WFL Dentition: Yes: Dental Appliance Upper, Dental Appliance Lower Facial Symmetry at Rest: Facial Droop Left Facial Movement: Controlled Jaw Position: Closed at Rest (Mod to Severe Trismus) Pucker Lips: Reduced ROM Smile: Reduced ROM Lingual Movement: Symmetric Labial Seal: WFL Chewing: Impaired Oral Prep Time: Increased A-P Transit: Impaired Coughing/Throat Clear: No Change in Voice: No Recommendations - Speech Evaluation, Impression/Plan Impression: Hypernasal sec h/o cancer of tonsils, RT, Trismus adversely affecting oral air flow. Last MBS 2017-At that time it was recommended that she blenderize all of her food with added liquid to a thin liquid consistency which she has been doing with improved nutritional intake. She reports that her swallowing has worsened. She denies recent [place]chitis/PNA. She reports that she needs to swallow carefully or she coughs and liquid comes out of her nose. She has never had swallowing tx which she would benefit from. - Disposition Discharge to: To be Determined (Swallow tx upon d/c) - Dysphagia Impressions/Plan Dysphagia Impressions: Mild Impairment, Moderate Impairment *Silent aspiration: cannot be R/O at bedside Recommendations: Modified Barium Swallow (Beneficial. Pt is deferring at this time) - Recommendations Diet Consistency: Dysphagia Pureed (thinned out with soup, ensure, milk, gravy) Medication Administration: Crushed with applesauce (in thin liquid) Liquids: Thin Liquids Supplement: Ensure
[2017-11-29] MEDS: RANITIDINE HCL 150 MG/10 ML UNIT-DOSE PO SCH (10:55)
[2017-11-29] MEDS: HEPARIN NA (PORCINE) 5,000 UNITS/ML 1ML VIAL SQ SCH ×2 (10:55→21:20)
[2017-11-29] MEDS: LIDOCAINE 5% TOPICAL PATCH TP SCH (13:31)
--- NOTE | 2017-11-29 15:18 | CON.ORTH ---
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 ? thinks she takes med, not 100% certain) - Past Surgical History Past Surgical History: Yes: Cataract Removal (bilateral) - Alcohol/Substance Use Hx Alcohol Use: No History of Substance Use: reports: None - Smoking History Smoking history: Never smoked Have you smoked in the past 12 months: No Aproximately how many cigarettes per day: 0 - Social History Usual Living Arrangement: Alone ADL: Independent Home Medications - Allergies Allergies/Adverse Reactions: Allergies Allergy/AdvReac Type Severity Reaction Status Date / Time No Known Allergies Allergy Verified 11/28/17 09:44 - Home Medications Home Medications: Ambulatory Orders Metoprolol Succinate [Toprol XL -] 50 mg PO DAILY 02/08/13 Cabergoline [Dostinex -] 0.5 mg PO MOFR 03/21/17 Famotidine [Pepcid] 20 mg PO DAILY PRN 11/27/17 Physical Exam for Ortho Vital Signs: Vital Signs Temperature 98.2 F 11/29/17 07:04 Pulse Rate 61 11/29/17 10:48 Respiratory Rate 20 11/29/17 10:48 Blood Pressure 132/75 11/29/17 10:48 O2 Sat by Pulse Oximetry (%) 95 11/29/17 14:00 Labs: CBC, BMP 11/29/17 06:00 11/29/17 06:00 - Lower Extremity Hip: Yes: Right, Pain, Other (equal limb lengths, no swelling/ecchymosis, + ttp over right GT, full rom of hip, nvi) Imaging - Results X-ray: Report Reviewed, Image Reviewed Cat Scan: Report Reviewed, Image Reviewed Assessment/Plan 87 yo female w/ pmh of pituitary macroadenoma, tonsilar cancers s/p resection ( distant), HTN, and HLD who represents from yesterday for evaluation of right sided pain after fall. Feeling better today, States that pain is more than 50% better. Denies any numbness or tingling. She was able to ambulate today with PT. a/p- right hip contusion/djd PT wbat pain control ok to d/c from ortho pov once medically stable d/w Dr. Basurto
[2017-11-29] MEDS: LIDOCAINE PATCH REMOVAL MC SCH (21:26)
--- NOTE | 2017-11-30 00:09 | CONSULT ---
Consult Consult Specialty:: endocrine Referred by:: dr.saba alves Reason for Consultation:: pituitary tumor - History of Present Illness Chief Complaint: dizzy and fell History of Present Illness: 87 yo female w/ pmh of pituitary macroadenoma, tonsilar cancers s/p resection ( distant), HTN, and HLD who was brought to ed for evaluation of right sided pain after fall yesterday. Patient also reports new onset dizziness today in addition to her pain. 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 ? thinks she takes med, not 100% certain) - Past Surgical History Past Surgical History: Yes: Cataract Removal (bilateral) - Alcohol/Substance Use Hx Alcohol Use: No History of Substance Use: reports: None - Smoking History Smoking history: Never smoked Have you smoked in the past 12 months: No Aproximately how many cigarettes per day: 0 - Social History Usual Living Arrangement: Alone ADL: Independent Home Medications - Allergies Allergies/Adverse Reactions: Allergies Allergy/AdvReac Type Severity Reaction Status Date / Time No Known Allergies Allergy Verified 11/28/17 09:44 - Home Medications Home Medications: Ambulatory Orders Metoprolol Succinate [Toprol XL -] 50 mg PO DAILY 02/08/13 Cabergoline [Dostinex -] 0.5 mg PO MOFR 03/21/17 Famotidine [Pepcid] 20 mg PO DAILY PRN 11/27/17 Review of Systems - Review of Systems Constitutional: reports: Lethargy, Unintentional Wgt. Loss, Weakness Eyes: reports: Blurred Vision HENT: reports: Difficult Swallowing, Mouth Swelling, Nasal Congestion, Throat Pain, Toothache, Ringing in Ears Neck: reports: Pain on Movement Cardiovascular: reports: No Symptoms Respiratory: reports: Exercise Intolerance, SOB on Exertion Gastrointestinal: reports: Bloating, Nausea Genitourinary: reports: No Symptoms Breasts: reports: No Symptoms Reported Musculoskeletal: reports: Muscle Pain, Muscle Cramps, Muscle Weakness Integumentary: reports: No Symptoms Neurological: reports: Dizziness, Weakness Endocrine: reports: No Symptoms Physical Exam Vital Signs: Vital Signs Temperature 98.6 F 11/29/17 15:23 Pulse Rate 67 11/29/17 15:23 Respiratory Rate 18 11/29/17 15:23 Blood Pressure 122/70 11/29/17 15:23 O2 Sat by Pulse Oximetry (%) 95 11/29/17 14:00 Constitutional: Yes: Anxious Eyes: Yes: EOM Intact HENT: Yes: Normocephalic Neck: Yes: Trachea Midline Cardiovascular: Yes: Regular Rate and Rhythm Respiratory: Yes: CTA Bilaterally Gastrointestinal: Yes: Normal Bowel Sounds ...Rectal Exam: Yes: Deferred Renal/: Yes: WNL Breast(s): Yes: WNL Musculoskeletal: Yes: Back Pain, Joint Stiffness, Joint Swelling, Muscle Pain, Muscle Weakness Extremities: Yes: Delayed Capillary Refill Edema: No Neurological: Yes: Alert, Oriented, Numbness, Weakness Labs: CBC, BMP 11/29/17 06:00 11/29/17 06:00 Problem List - Problems (1) Contusion, hip Code(s): S70.00XA - CONTUSION OF UNSPECIFIED HIP, INITIAL ENCOUNTER Qualifiers: Encounter type: subsequent encounter Laterality: unspecified laterality Qualified Code(s): S70.00XD - Contusion of unspecified hip, subsequent encounter (2) Gait instability Code(s): R26.81 - UNSTEADINESS ON FEET (3) Hip pain Code(s): M25.559 - PAIN IN UNSPECIFIED HIP (4) Abdominal pain Code(s): R10.9 - UNSPECIFIED ABDOMINAL PAIN Qualifiers: Abdominal location: epigastric Qualified Code(s): R10.13 - Epigastric pain (5) Borderline diabetes Code(s): R73.03 - PREDIABETES (6) Brain tumor Code(s): D49.6 - NEOPLASM OF UNSPECIFIED BEHAVIOR OF BRAIN (7) Diabetes Code(s): E11.9 - TYPE 2 DIABETES MELLITUS WITHOUT COMPLICATIONS Qualifiers: Diabetes mellitus type: type 2 Assessment/Plan Current Active Problems Contusion, hip (Acute) Gait instability (Acute) Hip pain (Acute) pituitary macroadenoma vertigo ballance difficulty diabetes mellitus Abnormal Lab Results 11/29/17 11/29/17 06:00 06:00 RDW 15.8 H MPV 7.1 L Anion Gap 6 L BUN 22 H Random Glucose 73 L Calcium 8.2 L Magnesium 2.5 H Laboratory Results - last 24 hr 11/29/17 11/29/17 06:00 06:00 WBC 6.3 RBC 4.17 Hgb 12.3 Hct 36.6 MCV 87.7 MCH 29.4 MCHC 33.5 RDW 15.8 H Plt Count 210 MPV 7.1 L Neutrophils % 70.5 Lymphocytes % 16.9 D Monocytes % 8.8 Eosinophils % 3.4 D Basophils % 0.4 Nucleated RBC % 0 Sodium 140 Potassium 4.1 Chloride 105 Carbon Dioxide 29 Anion Gap 6 L BUN 22 H Creatinine 0.9 Creat Clearance w eGFR 59.23 Random Glucose 73 L Calcium 8.2 L Phosphorus 2.9 Magnesium 2.5 H Total Bilirubin 0.6 AST 16 ALT 14 Alkaline Phosphatase 64 Total Protein 7.0 Albumin 3.4 Laboratory Tests 11/29/17 06:00 Sodium 140 Potassium 4.1 Chloride 105 Carbon Dioxide 29 Anion Gap 6 L BUN 22 H Creatinine 0.9 Creat Clearance w eGFR 59.23 Random Glucose 73 L Calcium 8.2 L plan: check prolactin check hba1c cabergoline .5mg biweekly bmd as outpatient
--- NOTE | 2017-11-30 09:33 | PN ---
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 (short form) - Note 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: Pt seen and examined. Pt doing very well, she is ambulating much better, much less pain with full weight bearing. B/L LE look great. Pt can be DC'd from an orthopedic pov
[2017-11-30] MEDS: RANITIDINE HCL 150 MG/10 ML UNIT-DOSE PO SCH (10:25)
[2017-11-30] MEDS: HEPARIN NA (PORCINE) 5,000 UNITS/ML 1ML VIAL SQ SCH ×2 (10:25→22:12)
[2017-11-30] MEDS: LIDOCAINE 5% TOPICAL PATCH TP SCH (10:25)
--- NOTE | 2017-11-30 11:28 | PN ---
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 Selected Entries 11/29/17 11/29/17 11/29/17 03:58 07:04 15:23 Breakfast 75% Lunch 75% Temperature 98.5 F 98.2 F 98.6 F 11/30/17 06:00 Breakfast Lunch Temperature 97.6 F - Recommendations Diet Consistency: Dysphagia Pureed (thinned out with soup, ensure, milk, gravy) Medication Administration: Crushed with applesauce (in thin liquid) Liquids: Thin Liquids Supplement: Ensure For STR for Dysphagia Rehabilitation.
--- NOTE | 2017-11-30 13:23 | PN ---
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, Physician Chief Complaint: patient is in chair today says she stil has right hip pain but it is much improved seen by milly schwab adjusted - Current Medication List Current Medications: Active Medications Docusate Sodium (Colace -) 300 mg PO HS [facility] Heparin Sodium (Porcine) (Heparin -) 5,000 unit SQ BID [facility] Last Admin: 11/30/17 10:25 Dose: 5,000 unit Lidocaine (Lidoderm Patch -) 1 patch TP DAILY [facility] Last Admin: 11/30/17 10:25 Dose: 1 patch Miscellaneous (Lidoderm Patch Removal) 1 each MC DAILY@2200 [facility] Last Admin: 11/29/17 21:26 Dose: 1 each Morphine Sulfate (Morphine Sulfate) 1 mg IVPUSH Q4H PRN PRN Reason: PAIN LEVEL 7 - 10 Ranitidine HCl (Zantac Oral Solution -) 150 mg PO DAILY [facility] Last Admin: 11/30/17 10:25 Dose: 150 mg - Objective Vital Signs: Vital Signs Temperature 97.6 F 11/30/17 06:00 Pulse Rate 72 11/30/17 06:00 Respiratory Rate 11/30/17 06:00 Blood Pressure 118/58 11/30/17 06:00 O2 Sat by Pulse Oximetry (%) 95 11/29/17 14:00 Constitutional: Yes: Calm Neck: Yes: Trachea Midline Cardiovascular: Yes: Regular Rate and Rhythm, S1, S2 Respiratory: Yes: CTA Bilaterally Gastrointestinal: Yes: Normal Bowel Sounds, Soft Edema: No Neurological: Yes: Alert, Oriented Labs: CBC, BMP 11/29/17 06:00 11/29/17 06:00 Problem List - Problems (1) Gait instability Assessment/Plan: PT/TO rehab placement on monday- seen by ortho - Code(s): R26.81 - UNSTEADINESS ON FEET (2) Hip pain Assessment/Plan: seen by ortho pain control Code(s): M25.559 - PAIN IN UNSPECIFIED HIP (3) Brain tumor Assessment/Plan: pitatury macroadenoma carbegoline 0.5 biweekly Code(s): D49.6 - NEOPLASM OF UNSPECIFIED BEHAVIOR OF BRAIN
[2017-11-30] MEDS ORDERED: ACETAMINOPHEN 325 MG TABLET (FP) PO PRN (13:27)
[2017-11-30] MEDS ORDERED: oxyCODONE HCL 5 MG TABLET PO PRN (13:28)
--- NOTE | 2017-11-30 16:02 | CONS ---
PHYSICAL MEDICINE AND REHABILITATION CONSULTATION DATE OF CONSULTATION: 11/30/2017 HISTORY OF PRESENT ILLNESS: The patient is an 87-year-old woman who was admitted after she fell and was unable to ambulate to [facility] on or about November 28, 2017. The patient suffered injury to her right hip, undergoing evaluation which included x-rays of the pelvis which showed minimal degenerative changes, but no fracture or underlying pathology; CT of the lower extremity, which also showed mild degenerative arthritis, but no dislocation or fracture. Patient did complain of more shoulder pain, although it sounds to be an old problem, and there was moderately severe degenerative arthritis in the right shoulder and probable rotator cuff tear. Other tests included cervical spine CAT scan, which showed no evidence of acute fracture with underlying spondylosis, multi-level canal and neuroforaminal narrowing, as well as a CT of the head, which showed no acute intracranial pathology. There was a macroadenoma noted and the patient apparently has a known pituitary macroadenoma, as well as tonsillar cancer status post resection possible radiation, also hypertension, and hyperlipidemia. The patient was seen by Speech Pathology and a modified-barium swallow was recommended. However, the patient has declined. She is on a dysphagia, pureed with medication crushed in applesauce, but thin liquids. Blood work showed a normal CBC on admission and followup study was normal with WBC of 6.3, hemoglobin 12.3, platelet count 210. Chemistry was also mainly within normal limits. She had an elevated BUN of 25 to a creatinine of 1.0. This slightly improved on followup study yesterday with a BUN 22, creatinine 0.9. Her magnesium was also slightly elevated at 2.1. Albumin the low side of normal at 3.4. Normal total protein. The patient was evaluated by Physical Therapy and was able to ambulate 45 feet with a rolling walker, contact guard, antalgic gait on the right on initial evaluation. In followup, today, she was able to ambulate 65 feet x2 with a rolling walker, contact guard of 1, antalgic gait on the right. The patient's [facility] plan [facility]. She does get a Lidoderm patch to the right hip, and is on Roxicodone, as well as subcutaneous heparin for DVT prophylaxis. REVIEW OF PAST MEDICAL AND SURGICAL HISTORY: As above. She has tonsillar cancer, status post resection, possibly radiation. Also, pituitary macroadenoma, hypertension, osteoarthritis of the shoulders. SOCIAL HISTORY: Lives alone. Pre-morbidly independent. Current function as above. REVIEW OF SYSTEMS: No headache. No lightheadedness or dizziness. No blurry vision, double vision. No nausea, vomiting. Again, she does have some difficulty with swallowing, as well as her speech, but this may be due to dentures. She has no bladder or bowel incontinence or retention. She has pain in both shoulders, as well as the right hip, but no numbness, tingling. No complaints of back pain. No radiating pain past the knee. She notes some swelling in her shoulder joints. No fever. No chills. No rash. No skin breakdown. No bruising. PHYSICAL EXAMINATION: General: On examination, the patient is an elderly woman who is seen lying in bed. She is awake, alert, and cooperative. She is in no acute distress. HEENT: She is normocephalic and atraumatic. Her extraocular muscles appear intact. She does have poor dentition, which makes her speech a little garbled at times, but she is easy to understand. She follows direction well. Neck: Supple with slightly diminished range of motion. Extremities: Without any pitting edema or calf tenderness. Skin: There is no bruising of the skin around the hip or in the shoulders. Neuromuscular: She is awake, alert, oriented x3. Cranial nerves 2 through 12 grossly intact. She has limited range in both of her shoulders, but at least 80 to 90 degrees of forward flexion. There are effusions in the right more than the left shoulder with crepitus. Good elbow flexion and elbow extension. 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 She has antigravity hip girdle strength on the right, but obviously painful. On the left, she has antigravity with at least 4 to 4+ out of 5 hip girdle strength, where the right side she cannot provide much resistance due to pain. Good knee flexion and extension. Good dorsiflexion and plantarflexion. Strength all 5/5. Normal sensation. Symmetric reflexes. Downgoing toes. OVERALL IMPRESSION: 1. Deficits in mobility, activities of daily living. 2. Right hip pain, status post fall, with negative CAT scan. Probable hip contusion. 3. Aggravation of underlying right more than left shoulder osteoarthritis with secondary adhesive capsulitis. 4. Elevated BUN to creatinine. 5. Underlying mild degenerative changes in the hip. 6. Dysphagia with a history of tonsillar cancer, status post resection and possibly radiation. 7. Hypermagnesemia. 8. Macroadenoma of the pituitary. 9. Elevated risk for DVT, due to immobility. 10. Increased risk for constipation, due to immobility and pain medication. 11. Increased risk for decubitus. PLAN/SUGGESTIONS: 1. Continue physical therapy at the bedside. Discuss with physical therapist. 2. Out of bed to chair. She was able to get out today. 3. I agree with subcutaneous heparin. 4. Skin precautions. 5. Continue pain medication. 6. Bowel regimen. 7. Agree with short-term rehab in a [facility] facility. 8. Continue dysphagia, pureed with medication crushed in applesauce, and follow up with Speech Pathology. Thank you very much for this consultation. YAMILET SIM M.D. [id number]
[2017-11-30] MEDS ORDERED: ACETAMINOPHEN 650 MG/20.3 ML ORAL SOLUTION (CUPS) PO PRN (19:17)
[2017-11-30] MEDS: DOCUSATE SODIUM 100 MG CAPSULE (FP) PO SCH (22:08)
[2017-11-30] MEDS: LIDOCAINE PATCH REMOVAL MC SCH (22:12)
--- NOTE | 2017-12-01 08:57 | PN ---
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, Physician - Current Medication List Current Medications: Active Medications Acetaminophen (Tylenol Oral Solution -) 650 mg PO Q4H PRN PRN Reason: PAIN LEVEL 4 - 6 Last Admin: 11/30/17 22:12 Dose: 650 mg Docusate Sodium (Colace -) 300 mg PO HS [facility] Last Admin: 11/30/17 22:08 Dose: 300 mg Heparin Sodium (Porcine) (Heparin -) 5,000 unit SQ BID [facility] Last Admin: 11/30/17 22:12 Dose: 5,000 unit Lidocaine (Lidoderm Patch -) 1 patch TP DAILY [facility] Last Admin: 11/30/17 10:25 Dose: 1 patch Miscellaneous (Lidoderm Patch Removal) 1 each MC DAILY@2200 [facility] Last Admin: 11/30/17 22:12 Dose: 1 each Oxycodone HCl (Roxicodone -) 5 mg PO Q6H PRN PRN Reason: PAIN LEVEL 7 - 10 Ranitidine HCl (Zantac Oral Solution -) 150 mg PO DAILY [facility] Last Admin: 11/30/17 10:25 Dose: 150 mg - Objective Vital Signs: Vital Signs Temperature 97.9 F 12/01/17 06:00 Pulse Rate 53 L 12/01/17 06:00 Respiratory Rate 18 12/01/17 06:00 Blood Pressure 140/59 12/01/17 06:00 O2 Sat by Pulse Oximetry (%) 95 11/30/17 22:00 Cardiovascular: Yes: Regular Rate and Rhythm Respiratory: Yes: Regular, CTA Bilaterally Gastrointestinal: Yes: Normal Bowel Sounds, Soft Labs: CBC, BMP 11/29/17 06:00 11/29/17 06:00 Problem List - Problems (1) Hip pain Assessment/Plan: s/p fall unable to bear weight on right hip ct scan no fracture PMR and ortho eval pain control xray of ls and pelvis will need snf Code(s): M25.559 - PAIN IN UNSPECIFIED HIP (2) Gait instability Assessment/Plan: as above Code(s): R26.81 - UNSTEADINESS ON FEET (3) Diabetes Assessment/Plan: monitor Code(s): E11.9 - TYPE 2 DIABETES MELLITUS WITHOUT COMPLICATIONS Qualifiers: Diabetes mellitus type: type 2 (4) History of cancer tonsil Assessment/Plan: -swallow eval Code(s): Z85.818 - PRSNL HX OF MALIG NEOPLM OF SITE OF LIP, ORAL CAV, & PHARYNX (5) Pituitary macroadenoma Assessment/Plan: -endo Code(s): D35.2 - BENIGN NEOPLASM OF PITUITARY GLAND
[2017-12-01] MEDS: HEPARIN NA (PORCINE) 5,000 UNITS/ML 1ML VIAL SQ SCH ×2 (11:19→21:28)
[2017-12-01] MEDS: LIDOCAINE 5% TOPICAL PATCH TP SCH (11:19)
[2017-12-01] MEDS: RANITIDINE HCL 150 MG/10 ML UNIT-DOSE PO SCH (11:20)
--- NOTE | 2017-12-01 12:30 | PN ---
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: Selected Entries 11/29/17 11/29/17 11/29/17 03:58 07:04 15:23 Breakfast 75% Lunch 75% Temperature 98.5 F 98.2 F 98.6 F 11/30/17 06:00 Breakfast Lunch Temperature 97.6 F Selected Entries 11/30/17 11/30/17 11/30/17 06:00 15:32 17:51 Breakfast 75% Lunch 75% Supper Temperature 97.6 F 98.4 F 98.2 F 11/30/17 12/01/17 12/01/17 22:31 01:00 06:00 Breakfast Lunch Supper 75% Temperature 98.0 F 97.9 F 12/01/17 09:25 Breakfast 50% Lunch Supper Temperature Diet Consistency: Dysphagia Pureed (thinned out with soup, ensure, milk, gravy) Medication Administration: Crushed with applesauce (in thin liquid) Liquids: Thin Liquids Supplement: Ensure Tolerating diet. Discussed thinning out puree to improve poserior oral transfer , as indicated. For STR for Dysphagia Rehabilitation.
[2017-12-01] MEDS: DOCUSATE SODIUM 100 MG CAPSULE (FP) PO SCH (21:28)
[2017-12-01] MEDS: LIDOCAINE PATCH REMOVAL MC SCH (21:34)
--- NOTE | 2017-12-02 08:04 | DS ---
Physical Examination Vital Signs: Vital Signs Temperature 98.5 F 12/02/17 06:00 Pulse Rate 64 12/02/17 06:00 Respiratory Rate 18 12/02/17 06:00 Blood Pressure 99/47 12/02/17 06:00 O2 Sat by Pulse Oximetry (%) 95 12/01/17 21:00 Cardiovascular: Yes: Regular Rate and Rhythm Respiratory: Yes: Regular, CTA Bilaterally Gastrointestinal: Yes: Normal Bowel Sounds, Soft Edema: No Labs: CBC, BMP 11/29/17 06:00 11/29/17 06:00 Discharge Summary Reason For Visit: PAIN, UNSTEADY GAIT Current Active Problems Contusion, hip (Acute) Gait instability (Acute) Hip pain (Acute) Hospital Course: 87 yo female w/ pmh of pituitary macroadenoma, tonsilar cancers s/p resection ( distant), HTN, and HLD who represents from yesterday for evaluation of right sided pain after fall yesterday. Patient also reports new onset dizziness today in addition to her pain. She was evaluated with XR and found no acute fracture and was able to ambulate home previously, but today cannot walk by herself nor take any oral pain medication. 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 ? thinks she takes med, not 100% certain) - Past Surgical History Past Surgical History: Yes: Cataract Removal (bilateral) Problems (1) Hip pain Assessment/Plan: s/p fall unable to bear weight on right hip ct scan no fracture PMR and ortho eval noted--pt--snf pain control xray of ls and pelvis-no fx will need snf Code(s): M25.559 - PAIN IN UNSPECIFIED HIP (2) Gait instability Assessment/Plan: as above Code(s): R26.81 - UNSTEADINESS ON FEET (3) Diabetes Assessment/Plan: monitor Code(s): E11.9 - TYPE 2 DIABETES MELLITUS WITHOUT COMPLICATIONS Qualifiers: Diabetes mellitus type: type 2 (4) History of cancer tonsil Assessment/Plan: -swallow eval Code(s): Z85.818 - PRSNL HX OF MALIG NEOPLM OF SITE OF LIP, ORAL CAV, & PHARYNX (5) Pituitary macroadenoma Assessment/Plan: -endo Code(s): D35.2 - BENIGN NEOPLASM OF PITUITARY GLAND Condition: Improved - Instructions Referrals: Gisela Rai MD [Primary Care Provider] - Disposition: RESIDENTIAL FACILITY - Home Medications Comprehensive Discharge Medication List: Ambulatory Orders Metoprolol Succinate [Toprol XL -] 50 mg PO DAILY 02/08/13 Acetaminophen [Tylenol .Regular Strength -] 650 mg PO Q4H PRN tablet 12/01/17 Docusate Sodium [Colace -] 300 mg PO HS capsule 12/01/17 Heparin - 5,000 unit SQ BID vial 12/01/17 Lidocaine 5% Patch [Lidoderm -] 1 patch TP DAILY patch 12/01/17 Ranitidine Oral Solution [Zantac Oral Solution -] 150 mg PO DAILY cup 12/01/17 oxyCODONE HCL [Roxicodone -] 5 mg PO Q6H PRN tablet MDD 4 12/01/17
[2017-12-02] MEDS: LIDOCAINE 5% TOPICAL PATCH TP SCH (09:53)
[2017-12-02] MEDS: RANITIDINE HCL 150 MG/10 ML UNIT-DOSE PO SCH (09:53)
[2017-12-02] MEDS: HEPARIN NA (PORCINE) 5,000 UNITS/ML 1ML VIAL SQ SCH (09:55)
[2017-12-02 13:23] VITALS: BP 108/51; PULSE 63; TEMP 98.2
== END 2017-12-02 14:00 | DRG 950 ==
LOC: JER 09:34 → JERBED 14:45 → J8W 20:28 → OBSVTOIN 11-29 08:50
PROVIDERS: ADMIT Family Medicine; ATTEND Family Medicine
DX: S70.01XD Contusion of right hip, subsequent encounter (principal); M16.11 Unilateral primary osteoarthritis, right hip; I10 Essential (primary) hypertension; E78.5 Hyperlipidemia, unspecified; R26.81 Unsteadiness on feet; Z85.818 Personal history of malignant neoplasm of other sites of lip, oral cavity, and pharynx; D35.2 Benign neoplasm of pituitary gland; W01.0XXA Fall on same level from slipping, tripping and stumbling without subsequent striking against object, initial encounter; Y93.89 Activity, other specified; Y92.098 Other place in other non-institutional residence as the place of occurrence of the external cause; Y99.8 Other external cause status; M75.02 Adhesive capsulitis of left shoulder; E83.41 Hypermagnesemia; E11.9 Type 2 diabetes mellitus without complications
CPT/HCPCS: 36415; 70450-TC; 71045-TC-FY; 72100-TC-FY; 72125-TC; 72170-TC-FY; 73030-TC-RT-FY; 73140-TC-LT-FY; 73523-TC-FY; 73552-TC-RT-FY; 73700-TC-RT; 80053; 81003; 81015; 82550; 83735; 84100; 84484; 85025; 87086; 87186; 93005; 93010; 97116-GP; 97161-GP; 99282-25; 99283-25; G0378; J0131; J1644

== ENCOUNTER 2018-02-05 07:59 | Inpatient (IN) | payer OTHER ==
--- NOTE | 2018-02-05 08:17 | PDOC ---
History of Present Illness - General Chief Complaint: SIRS, Suspected/Possible Stated Complaint: FEVER,WEAKNESS Time Seen by Provider: 02/05/18 08:16 - History of Present Illness Initial Comments: The patient is an 87F with a history of pituitary mass, resected tonsillar malignancy, T2DM, and HTN who presents with 4-5d of fevers/chills/cold sweats and several days of rash that started on her back and has now noticed on her her legs, arms, and chest. She reports fevers at home to the low 100s. She endorses possible mosquito bite but denies any outdoor activity, people around with similar symptoms, or changes in detergents/skin contacts. When asked about a demarcated lesion on her left scapular region, she did not know it was there. Additionally, there is a lesion on her right lateral lower leg that she states may have been there for 3-4 days. She denies pain with any of these lesions and only endorses pruritis. She denies having lesions like this before. In relation to PO intake, she has been having worsening PO tolerance and is now coughing intermittently with thin liquids. The patient denies aspiration. She endorses chronic decreased appetite. She reports Tmax to low 100s and took Tylenol at home for her symptoms. She also endorses chronic intermittent dizziness, weakness, and nausea attributed to her intracranial lesion and denies change in these symptoms. 02/05/18 08:49 Past History - Past Medical History Allergies/Adverse Reactions: Allergies Allergy/AdvReac Type Severity Reaction Status Date / Time No Known Allergies Allergy Verified 02/05/18 08:57 Home Medications: Ambulatory Orders Metoprolol Succinate [Toprol XL -] 50 mg PO DAILY 02/08/13 Acetaminophen [Tylenol .Regular Strength -] 650 mg PO Q4H PRN tablet 12/01/17 Ranitidine Oral Solution [Zantac Oral Solution -] 150 mg PO DAILY cup 12/01/17 oxyCODONE HCL [Roxicodone -] 5 mg PO Q6H PRN tablet MDD 4 12/01/17 Cancer: Yes (tonsil ca,30years ago) COPD: No HTN: Yes Hypercholesterolemia: Yes - Immunization History Immunization Up to Date: Yes - Suicide/Smoking/Psychosocial Hx Smoking Status: No Smoking History: Never smoked Have you smoked in the past 12 months: No Number of Cigarettes Smoked Daily: 0 Hx Alcohol Use: No Drug/Substance Use Hx: No Substance Use Type: None Review of Systems - Review of Systems Able to Perform ROS?: Yes Comments:: GENERAL/CONSTITUTIONAL: +subjective fevers/chills. +chronic weakness HEAD, EYES, EARS, NOSE AND THROAT: No change in vision. No ear pain or discharge. +chronic dysphagia CARDIOVASCULAR: No chest pain or shortness of breath RESPIRATORY: No cough, wheezing, or hemoptysis GASTROINTESTINAL: +chronic nausea. No. vomiting, diarrhea or constipation GENITOURINARY: No dysuria, frequency, or change in urination MUSCULOSKELETAL: No joint or muscle swelling or pain. No neck or back pain SKIN: +Back itching/rash with spread to chest and some lesions on all extremities; +lesion on RLE NEUROLOGIC: No headache, loss of consciousness. +intermittent BLE neuropathy ENDOCRINE: No increased thirst. No abnormal weight change HEMATOLOGIC/LYMPHATIC: No or history of blood clots 02/05/18 09:30 *Physical Exam - Physical Exam Comments: GENERAL: Awake, alert, and fully oriented, in no acute distress HEAD: No signs of trauma, normocephalic, atraumatic EYES: PERRL, EOMI, sclera anicteric, conjunctiva clear; arcus ENT: nares patent, oropharynx clear without exudates. Moist mucosa. Voice hoarse NECK: Normal ROM, supple LUNGS: No distress, speaks full sentences, clear to auscultation bilaterally HEART: Regular rate and rhythm, normal S1 and S2, no murmurs appreciated, peripheral pulses normal and equal bilaterally ABDOMEN: Soft, nontender, normoactive bowel sounds. No guarding, no rebound EXTREMITIES : Rash noted below, otherwise normal inspection, Normal range of motion, no edema NEUROLOGICAL: Cranial nerves II through XII grossly intact. No focal sensorimotor deficits SKIN: Left scapular outline, irregular lesion with central clearing; Right lower leg lateral lesion, approx 3cm x 3cm, erythematous, excoriated, indurated , without fluctuation or discharge. Diffuse rash, most dense in the upper back with some lesions on all extremities and upper chest 02/05/18 09:33 ED Treatment Course - LABORATORY CBC & Chemistry Diagram: 02/06/18 07:00 02/06/18 07:00 Medical Decision Making - Medical Decision Making The patient is an 87F with a history of pituitary mass, resected tonsillar malignancy, T2DM, and HTN who presents with 4-5d of fevers/chills/cold sweats and several days of rash that started on her back and has now noticed on her her legs, arms, and chest. ED Course CMP, CBC, UA, UCx, Lactate x2, Trop, Blood Cx, Coags ECG, CXR ECG with new T-wave inversions in V1-V5 since 11/28/2017 CXR without effusion or concern for PNA WBC without leukocytosis Trop I x1 negative 02/05/18 10:36 Plan for admission for observation for ACS and sepsis r/o and failure to thrive 02/05/18 10:43 *DC/Admit/Observation/Transfer Diagnosis at time of Disposition: ACS (acute coronary syndrome) Failure to thrive Qualifiers: Failure to thrive age range: in adult Qualified Code(s): R62.7 - Adult failure to thrive - Discharge Dispostion Condition at time of disposition: Guarded Decision to Admit order: Yes - Referrals - Patient Instructions - Post Discharge Activity
--- NOTE | 2018-02-05 08:41 | PDOC ---
Attending Attestation - HPI HPI: 02/05/18 09:22 The patient is a year old female, with a significant past medical history of vertigo, pituitary adenoma (inoperable), tonsillar cancers s/p resection (about 30 years ago), HTN and HLD, who presents to the emergency department with, several days of fever and chills. The patient endorses multiple days of a rash which is itchy and erythematous in nature. As per patients sister, she stayed at her home last night and she noticed the patient to be symptomatic. She reports a Tmax within the low 100s and she administered Tylenol. The sister also reports the patient experienced diarrhea yesterday. At baseline the patient is weak and has dysphagia due to her tonsillar mass (30 years). She denies recent headache or dizziness. She denies recent nausea, vomit or constipation. She denies recent dysuria, frequency, urgency or hematuria. She denies recent chest pain or shortness of breath. Allergies: NKA Social history: Nonsmoker. Denies EtOH use and recreational drug use. Primary Care Physician: Dr. Gisela Rai - Physicial Exam PE: 02/05/18 10:24 GENERAL: The patient is in no acute distress. HEAD: Normal with no signs of trauma. NECK: Normal range of motion, supple without lymphadenopathy, JVD, or masses. LUNGS: Breath sounds equal, clear to auscultation bilaterally. No wheezes, and no crackles. HEART:Regular rate and rhythm, normal S1 and S2 without murmur, rub or gallop. ABDOMEN: Soft, nontender, normoactive bowel sounds. No guarding, no rebound. No masses palpable. EXTREMITIES: Normal range of motion, no edema. No clubbing or cyanosis. No erythema, or tenderness. NEUROLOGICAL: Cranial nerves II through XII grossly intact. No focal neurological deficits. MUSCULOSKELETAL: Back non-tender to palpation, no CVA tenderness +SKIN: Erythematous macules throughout the back with a lesion above the left scapula 1cm in diameter with a central area, central ulceration and hyperpigmented outline. Erythematous lesion on the right lower extremity. Diffuse rash on the bilateral inner thighs. Warm, Dry. <Lissa Coronado - Last Filed: 02/05/18 15:09> - Resident Resident Name: Dean Santana - ED Attending Attestation I have performed the following: I have examined & evaluated the patient, The case was reviewed & discussed with the resident, I agree w/resident's findings & plan, Exceptions are as noted - Medical Decision Making 02/05/18 09:31 Laboratory Tests 02/05/18 09:10 Urine Blood 2+ H Urine Nitrite Negative Ur Leukocyte Esterase Negative EKG: Twelve-lead EKG was performed and reviewed by me. There is normal sinus rhythm with a normal rate of 72 bpm. The axis is normal. The intervals are abnormal - pr:206 ms, prolonged, QRS:90ms, QTc:473ms. There are no ST elevations, frequent PVCs, T wave inversions noted inferiorlaterally (not seen on EKG from October 2017 Laboratory Tests 02/05/18 02/05/18 02/05/18 09:10 09:30 09:30 WBC 4.0 Hgb 12.1 Hct 35.2 Plt Count 118 L D VBG pH POC VBG pCO2 BUN 26 H Creatinine 1.0 Troponin I Urine Blood 2+ H Urine Nitrite Negative Ur Leukocyte Esterase Negative Urine WBC (Auto) 1 Urine RBC (Auto) 2 02/05/18 02/05/18 09:30 09:31 WBC Hgb Hct Plt Count VBG pH 7.46 H POC VBG pCO2 31.3 L BUN Creatinine Troponin I < 0.02 Urine Blood Urine Nitrite Ur Leukocyte Esterase Urine WBC (Auto) Urine RBC (Auto) Pt unable to swallow even liquids at this point, repeatedly aspirates Unclear to me the etiology of this rash No fevers in the ER, per sister, pt had fever Call placed to PMD Will place on observation <Kira Lyon - Last Filed: 02/07/18 09:23> Heart Score/ECG Review #1 02/05/18 09:24 EKG performed at: 05 February 2018 at 9:15:03 Vent Rate 72 bpm IN interval 206 ms QRS duration 90 ms QT/QTc 432/473 ms P-R-T axes 36 -1 -29 Sinus rhythm with premature atrial complexes with aberrant conduction ST & T wave abnormality, consider anterolateral ischemia Prolonged QT Abnormal ECG <Lissa Coronado - Last Filed: 02/05/18 15:09> Attestations - Attestations 02/05/18 09:22 Documentation prepared by Lissa Coronado, acting as medical administrator for Kira Lyon MD. <Lissa Coronado - Last Filed: 02/05/18 15:09>
[2018-02-05 09:22] LABS: URINE APPEARANCE CLEAR; URINE BILIRUBIN NEGATIVE (<2.0 mg/dL); URINE COLOR YELLOW; URINE GLUCOSE (UA) NEGATIVE (NEGATIVE); URINE KETONE NEGATIVE (NEGATIVE); URINE LEUK ESTERASE NEGATIVE (NEGATIVE); URINE NITRITE NEGATIVE (NEGATIVE); URINE UROBILINOGEN NEGATIVE mg/dL (0.2-1.0)
[2018-02-05 09:27] LABS: URINE PROTEIN 1+ (NEGATIVE)
[2018-02-05 09:33] LABS: EPI CELLS RARE /HPF (FEW); URINE BACTERIA RARE /hpf (NONE SEEN); URINE MUCUS FEW
[2018-02-05 09:38] LABS: BASO % 0.3 % (0-2.0); HEMATOCRIT 35.2 % (32.4-45.2); HEMOGLOBIN 12.1 GM/dL (10.7-15.3); LYMPH % 16.9 % (8-40); MCH 29.8 pg (25.7-33.7); MCHC 34.4 g/dl (32.0-36.0); MEAN CELL VOLUME 86.6 fl (80-96); MEAN PLT VOLUME 7.2 fl (7.5-11.1); NEUT % 68.8 % (42.8-82.8); PLATELET COUNT 118 K/MM3 (134-434); RBC 4.06 M/mm3 (3.60-5.2); RDW 15.4 % (11.6-15.6)
[2018-02-05 09:41] LABS: VENOUS PC02 31.3 mmHg (38-52); VENOUS PH 7.46 (7.32-7.42); VENOUS PO2 77.5 mmHg (28-48)
[2018-02-05 09:52] LABS: INR 1.12 (0.83-1.09); PROTHROMBIN TIME (PATIENT) 12.6 SEC (9.7-13.0)
[2018-02-05 09:55] LABS: ACTIVATED PTT 26.6 SECONDS (25.2-36.5)
[2018-02-05 10:01] LABS: ALBUMIN 3.5 g/dl (3.4-5.0); ALK PHOS 70 U/L (45-117); ANION GAP 6 (8-16); BILIRUBIN,TOTAL 0.6 mg/dL (0.2-1.0); BLOOD UREA NITROGEN 26 mg/dL (7-18); CALCIUM 8.4 mg/dL (8.5-10.1); CHLORIDE 104 mmol/L (98-107); CO2 27 mmol/L (21-32); GLUCOSE,RANDOM 110 mg/dL (74-106); POTASSIUM 3.9 mmol/L (3.5-5.1); SGOT/AST 33 U/L (15-37); SGPT/ALT 29 U/L (12-78); SODIUM 137 mmol/L (136-145)
--- NOTE | 2018-02-05 11:35 | EKG ---
Test Reason : Blood Pressure : / mmHG Vent. Rate : 072 BPM Atrial Rate : 072 BPM P-R Int : 206 ms QRS Dur : 090 ms QT Int : 432 ms P-R-T Axes : 036 -01 -29 degrees QTc Int : 473 ms SINUS RHYTHM WITH PREMATURE VENTRICULAR COMPLEX PROLONGED QT ABNORMAL ECG WHEN COMPARED WITH ECG OF 28-NOV-2017 10:54, ABERRANT CONDUCTION IS NOW PRESENT T WAVE INVERSION NOW EVIDENT IN INFERIOR LEADS T WAVE INVERSION NOW EVIDENT IN ANTERIOR LEADS Confirmed by JENNA FIGUEROA MD ([id number]) on 02/05/2018 11:35:27 AM Referred By: Confirmed By:JENNA FIGUEROA MD
--- NOTE | 2018-02-05 14:29 | CON.CARD ---
Consult Consult Specialty:: Cardiology Referred by:: Dr Rai Reason for Consultation:: abnormal ECG - History of Present Illness Chief Complaint: fever and weakness History of Present Illness: The patient is an 87 year old woman with a history of pituitary mass, resected tonsillar malignancy, T2DM, and HTN who presents with 4-5d of fevers/chills/ cold sweats and several days of rash that started on her back and has now noticed on her her legs, arms, and chest. She reports fevers at home to the low 100s. Seen in ER noted with new T wave inversions in the inferolateral leads. No chest pain, sob, orthopnea, pnd or edema. She has chronic dizziness. No syncope. Exercise tolerance is poor. 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 ? thinks she takes med, not 100% certain) - Past Surgical History Past Surgical History: Yes: Cataract Removal (bilateral) - Alcohol/Substance Use Hx Alcohol Use: No History of Substance Use: reports: None - Smoking History Smoking history: Never smoked Have you smoked in the past 12 months: No Aproximately how many cigarettes per day: 0 - Social History Usual Living Arrangement: Alone ADL: Independent Home Medications - Allergies Allergies/Adverse Reactions: Allergies Allergy/AdvReac Type Severity Reaction Status Date / Time No Known Allergies Allergy Verified 02/05/18 08:57 - Home Medications Home Medications: Ambulatory Orders Metoprolol Succinate [Toprol XL -] 50 mg PO DAILY 02/08/13 Acetaminophen [Tylenol .Regular Strength -] 650 mg PO Q4H PRN tablet 12/01/17 Ranitidine Oral Solution [Zantac Oral Solution -] 150 mg PO DAILY cup 12/01/17 oxyCODONE HCL [Roxicodone -] 5 mg PO Q6H PRN tablet MDD 4 12/01/17 Review of Systems Unable to obtain ROS, reason: dementia Vital Signs: Vital Signs Temperature 98.4 F 02/05/18 08:55 Pulse Rate 68 02/05/18 10:52 Respiratory Rate 17 02/05/18 10:52 Blood Pressure 137/54 02/05/18 10:52 O2 Sat by Pulse Oximetry (%) 97 02/05/18 10:52 Constitutional: Yes: No Distress, Calm Eyes: Yes: Conjunctiva Clear, EOM Intact HENT: Yes: Normocephalic Neck: Yes: Trachea Midline Respiratory: Yes: CTA Bilaterally Gastrointestinal: Yes: Normal Bowel Sounds, Soft Renal/: Yes: WNL Cardiovascular: Yes: Regular Rate and Rhythm JVD: No Carotid Bruit: No PMI: Non-Displaced Heart Sounds: Yes: S1, S2 Musculoskeletal: Yes: WNL Extremities: Yes: WNL Edema: No Peripheral Pulses WNL: Yes - Other Data Labs, Other Data: CBC, BMP 02/05/18 09:30 02/05/18 09:30 INR, PTT INR 1.12 (0.83-1.09) H 02/05/18 09:30 Troponin, BNP 02/05/18 09:30 Troponin I < 0.02 Troponin, BNP 02/05/18 09:30 Troponin I < 0.02 Imaging - Results Chest X-ray: Report Reviewed EKG: Report Reviewed (nsr nssttw changes.) Problem List - Problems (1) Abnormal ECG Assessment/Plan: She is a very poor candidate for ischemia workup and has no symptoms at this time. Echo ordered. irvin is negative. Continue fever workup. Code(s): R94.31 - ABNORMAL ELECTROCARDIOGRAM [ECG] [EKG]
[2018-02-05] MEDS: ACETAMINOPHEN 325 MG TABLET (FP) PO PRN (20:01)
[2018-02-05] MEDS: HEPARIN NA (PORCINE) 5,000 UNITS/ML 1ML VIAL SQ SCH (21:39)
--- NOTE | 2018-02-06 08:13 | HP ---
Admitting History and Physical - Admission History of Present Illness: The patient is a 87 year old female, with a significant past medical history of vertigo, pituitary adenoma (inoperable), tonsillar cancers s/p resection (about 30 years ago), HTN and HLD, who presents to the emergency department with, several days of fever and chills. The patient endorses multiple days of a rash which is itchy and erythematous in nature. As per patients sister, she stayed at her home last night and she noticed the patient to be symptomatic. She reports a Tmax within the low 100s and she administered Tylenol. The sister also reports the patient experienced diarrhea yesterday. At baseline the patient is weak and has dysphagia due to her tonsillar mass (30 years). Patient c/o diaphoresis and weakness She denies recent headache or dizziness. She denies recent nausea, vomit or constipation. She denies recent dysuria, frequency, urgency or hematuria. She denies recent chest pain or shortness of breath. 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 ? thinks she takes med, not 100% certain) - Past Surgical History Past Surgical History: Yes: Cataract Removal (bilateral) - Smoking History Smoking history: Never smoked Have you smoked in the past 12 months: No Aproximately how many cigarettes per day: 0 - Alcohol/Substance Use Hx Alcohol Use: No History of Substance Use: reports: None - Social History ADL: Independent Home Medications - Allergies Allergies/Adverse Reactions: Allergies Allergy/AdvReac Type Severity Reaction Status Date / Time No Known Allergies Allergy Verified 02/05/18 08:57 - Home Medications Home Medications: Ambulatory Orders Metoprolol Succinate [Toprol XL -] 50 mg PO DAILY 02/08/13 Acetaminophen [Tylenol .Regular Strength -] 650 mg PO Q4H PRN tablet 12/01/17 Ranitidine Oral Solution [Zantac Oral Solution -] 150 mg PO DAILY cup 12/01/17 oxyCODONE HCL [Roxicodone -] 5 mg PO Q6H PRN tablet MDD 4 12/01/17 Review of Systems - Review of Systems Constitutional: reports: Chills, Diaphoresis, Fever Cardiovascular: denies: Chest Pain, Shortness of Breath Respiratory: reports: No Symptoms Gastrointestinal: reports: Diarrhea Genitourinary: reports: No Symptoms Neurological: reports: Weakness Physical Examination Vital Signs: Vital Signs Temperature 98.1 F 02/06/18 06:30 Pulse Rate 62 02/06/18 06:30 Respiratory Rate 20 02/06/18 06:30 Blood Pressure 139/59 02/06/18 06:30 O2 Sat by Pulse Oximetry (%) 97 02/05/18 22:10 Constitutional: Yes: Thin Cardiovascular: Yes: Regular Rate and Rhythm Respiratory: Yes: Regular, CTA Bilaterally Gastrointestinal: Yes: Normal Bowel Sounds, Soft Labs: CBC, BMP 02/05/18 09:30 02/05/18 09:30 Problem List - Problems (1) Diaphoresis Assessment/Plan: -r/o infectious etiology -cultures done -id consult -TFT Code(s): R61 - GENERALIZED HYPERHIDROSIS (2) Abnormal ECG Assessment/Plan: -Follow ce - -echo -cardio Code(s): R94.31 - ABNORMAL ELECTROCARDIOGRAM [ECG] [EKG] (3) Diarrhea Assessment/Plan: -resolved Code(s): R19.7 - DIARRHEA, UNSPECIFIED Qualifiers: Diarrhea type: unspecified type Qualified Code(s): R19.7 - Diarrhea, unspecified (4) History of cancer tonsil Code(s): Z85.818 - PRSNL HX OF MALIG NEOPLM OF SITE OF LIP, ORAL CAV, & PHARYNX
[2018-02-06 08:51] LABS: BASO % 0.4 % (0-2.0); EOS % 0.2 % (0-4.5); HEMATOCRIT 32.9 % (32.4-45.2); HEMOGLOBIN 11.3 GM/dL (10.7-15.3); LYMPH % 22.2 % (8-40); MCH 29.9 pg (25.7-33.7); MCHC 34.5 g/dl (32.0-36.0); MEAN CELL VOLUME 86.7 fl (80-96); MEAN PLT VOLUME 7.7 fl (7.5-11.1); MONO % 13.6 % (3.8-10.2); NEUT % 63.6 % (42.8-82.8); PLATELET COUNT 100 K/MM3 (134-434); RBC 3.79 M/mm3 (3.60-5.2); RDW 15.4 % (11.6-15.6); WHITE BLOOD COUNT 3.8 K/mm3 (4.0-10.0)
[2018-02-06 09:04] LABS: ALBUMIN 3.2 g/dl (3.4-5.0); ANION GAP 8 (8-16); BLOOD UREA NITROGEN 19 mg/dL (7-18); CALCIUM 8.1 mg/dL (8.5-10.1); CHLORIDE 104 mmol/L (98-107); CO2 26 mmol/L (21-32); CREATININE 0.8 mg/dL (0.55-1.02); GLUCOSE,RANDOM 67 mg/dL (74-106); POTASSIUM 3.7 mmol/L (3.5-5.1); SGOT/AST 31 U/L (15-37); SGPT/ALT 27 U/L (12-78); SODIUM 138 mmol/L (136-145)
[2018-02-06 09:08] LABS: ALK PHOS 70 U/L (45-117); BILIRUBIN,TOTAL 0.7 mg/dL (0.2-1.0); TOT PROT 6.4 g/dl (6.4-8.2)
[2018-02-06] MEDS: RANITIDINE HCL 150 MG/10 ML UNIT-DOSE PO SCH (09:37)
[2018-02-06] MEDS: HEPARIN NA (PORCINE) 5,000 UNITS/ML 1ML VIAL SQ SCH ×2 (09:37→21:32)
--- NOTE | 2018-02-06 11:43 | PN ---
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 (short form) - Note 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: ID CONSULT DICTATED Fever/ chills/ sweats Leukopenia/thrombpocytopenia ? viral illness ? Tick-related illness Await c/s Tick serologies Empiric ceftriaxone/ doxycycline
--- NOTE | 2018-02-06 11:51 | PN ---
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, Physician History of Present Illness: seen and examine today in [facility]. no overnight events. no new complaints. - Current Medication List Current Medications: Active Medications Acetaminophen (Tylenol -) 650 mg PO Q4H PRN PRN Reason: PAIN LEVEL 4 - 6 Last Admin: 02/05/18 20:01 Dose: 650 mg Heparin Sodium (Porcine) (Heparin -) 5,000 unit SQ BID [facility] Last Admin: 02/06/18 09:37 Dose: 5,000 unit Ceftriaxone Sodium (Ceftriaxone 2 Gm-D5w Bag) 2 gm in 50 mls @ 100 mls/hr IVPB DAILY [facility]; Protocol Doxycycline Hyclate 100 mg/ (Dextrose) 100 mls @ 100 mls/hr IVPB BID [facility] Metoprolol Succinate (Toprol Xl -) 50 mg PO DAILY [facility] Last Admin: 02/06/18 09:36 Dose: 50 mg Ranitidine HCl (Zantac Oral Solution -) 150 mg PO DAILY [facility] Last Admin: 02/06/18 09:37 Dose: 150 mg - Objective Vital Signs: Vital Signs Temperature 98.7 F 02/06/18 08:05 Pulse Rate 59 L 02/06/18 08:05 Respiratory Rate 18 02/06/18 08:05 Blood Pressure 118/59 02/06/18 08:05 O2 Sat by Pulse Oximetry (%) 97 02/05/18 22:10 Constitutional: Yes: Well Nourished, No Distress, Calm Eyes: Yes: Conjunctiva Clear, EOM Intact HENT: Yes: Atraumatic, Normocephalic Neck: Yes: Supple, Trachea Midline Cardiovascular: Yes: Regular Rate and Rhythm, S1, S2. No: Bradycardia, Tachycardia, Pulse Irregular, Bruit, JVD, Gallop, Murmur, Rub, S3, S4, Varicosities, Other Respiratory: Yes: Regular, CTA Bilaterally. No: Rales, Rhonchi, Wheezes Gastrointestinal: Yes: Normal Bowel Sounds, Soft. No: Distention, Tenderness Musculoskeletal: Yes: WNL Extremities: Yes: WNL Edema: No Peripheral Pulses WNL: Yes Peripheral Pulses: Left Doralis Pedis: 2+, Right Dorsalis Pedis: 2+ Integumentary: Yes: WNL Neurological: Yes: WNL, Alert, Oriented, Cran Nerves II-XII Intact ...Motor Strength: WNL Psychiatric: Yes: WNL, Alert, Oriented Labs: CBC, BMP 02/06/18 07:00 02/06/18 07:00 INR, PTT INR 1.12 (0.83-1.09) H 02/05/18 09:30 - ....Imaging Chest X-ray: Report Reviewed, Image Reviewed EKG: Report Reviewed, Image Reviewed Other: Report Reviewed, Image Reviewed Assessment/Plan 87 year old woman with a history of pituitary mass, resected tonsillar malignancy, T2DM, and HTN who presents with 4-5d of fevers/chills/cold sweats and several days of rash that started on her back and has now noticed on her her legs, arms, and chest. She reports fevers at home to the low 100s. Seen in ER noted with new T wave inversions in the inferolateral leads. No chest pain, sob, orthopnea, pnd or edema. She has chronic dizziness. No syncope. Exercise tolerance is poor. Abnormal EKG -unlikely ACS, no reported chest pain or sob -cardiac enzymes wnl -fup echo -would not pursue ischemic work up at this time -fever/rash work up in progress
[2018-02-06] MEDS ORDERED: DEXTROSE 5%-WATER 100 ML IVPB ONE (12:35)
[2018-02-06] MEDS: CEFTRIAXONE 2 GM in DEXTROSE 5%-WATER 100 ML IVPB SCH (12:48)
--- NOTE | 2018-02-06 13:05 | CONS ---
INFECTIOUS DISEASE CONSULTATION DATE OF CONSULTATION: DATE OF DICTATION: 02/06/2018 The patient is an 87-year-old [place] female who is evaluated for fever and rash. History was obtained from the patient as well as her sister who was present at the time of the examination. She reports that over the past 4 or 5 days she has had fevers, chills, and sweats. She had developed a rash on her back and her left lower extremity. She was taken to the emergency room where she was evaluated. She was admitted to the hospital where she was noted to have fever to 101.8. The sister reports that she recently was treated for a right ear infection which resolved. She denied any focal complaints. She denies any chest pain, shortness of breath, cough, sputum production. No vomiting, diarrhea, or dysuria. The patient spends time outdoors and may have been bitten by mosquitoes according to the sister. No known tick exposure. No recent travel. She denies any ill contacts. Patient has a history of a benign adenoma of the pituitary as well as a remote history of tonsillar malignancy treated with radiation therapy. She suffers from dysarthria and dysphagia as a result. PAST MEDICAL HISTORY: Also includes diabetes mellitus, hypertension. ALLERGIES: No known allergies. MEDICATIONS: Include Toprol, Tylenol, Zantac, oxycodone. SOCIAL HISTORY: She is originally from [place], came to the [facility] in [address]. She is a nonsmoker, nondrinker. No recent travel per sister. SYSTEMS REVIEW: Neurologic: No loss of consciousness, seizure activity, focal weakness. Cardiac: Negative chest pain or palpitations. Respiratory: Negative cough or sputum production. Gastrointestinal: Negative vomiting or diarrhea. Genitourinary: Negative for urinary tract infection. LABORATORY DATA: White count 3.8; neutrophils 63, lymphocytes 22, monocytes 13; hematocrit 32.9; platelet count 100. Urinalysis: White cells 1. Blood culture is pending. Chest x-ray: Negative for acute infiltrate. BUN 19, creatinine 0.8. Liver enzymes normal. PHYSICAL EXAMINATION: General: She is out of bed to chair. She is in no acute distress, not acutely toxic appearing. Vital Signs: Temperature 98.1; blood pressure 139/59; pulse 62, regular; respirations 20 per minute. HEENT: Sclerae are anicteric. Oropharynx negative. Unable to fully open mouth. Neck: Supple. Heart: Sounds S1, S2. Lungs: Clear. Abdomen: Soft, nontender. Extremities: Negative for edema. Skin: There is a blotchy rash present on the left flank area and left back, small annular lesions approximately 1 cm diameter. No vesicular or pustular lesions noted. There is a lesion on the right distal lower extremity, approximately 1-2 cm in diameter, erythematous suggestive of an insect bite. IMPRESSION: 1. Fever, chills, sweats; unclear source. 2. Leukopenia, thrombocytopenia; possible viral syndrome versus tick-related illness. 3. History of pituitary adenoma. 4. Status post tonsillar malignancy. Await cultures. Obtain Lyme titer, anaplasma PCR, babesia PCR, peripheral smear for babesia. Empiric antibiotic coverage with ceftriaxone and doxycycline for possible tick-related illness. Further recommendations pending cultures. Will follow. Thank you for the kind referral. XI KOHLI M.D. [id number]
[2018-02-06] MEDS: DOXYCYCLINE INJECTION 100 MG in DEXTROSE 5%-WATER - 100 ML IVPB SCH ×2 (13:18→21:32)
--- NOTE | 2018-02-06 15:47 | ECHO ---
Name: ROCAFORT, JOLIE Exam:Adult Echocardiogram Study Date: 02/06/2018 10:25 AM Age: 87 yrs Reason For Study: ABNORMAL ECG Height: 63 in Weight: 120 lb BSA: 1.6 m2 MMode/2D Measurements & Calculations IVSd: 0.97 cm Ao root diam: 2.6 cm LVIDd: 4.6 cm LA dimension: 4.8 cm LVIDs: 3.5 cm LVPWd: 0.98 cm EDV(Teich): 99.1 ml LAV (MOD-bp): 93.0 ml ESV(Teich): 49.9 ml TAPSE: 2.2 cm RV S Hans: 14.7 cm/sec Doppler Measurements & Calculations MV E max hans: 66.6 cm/sec MR max hans: 271.5 cm/sec MV A max hans: 85.8 cm/sec MR max P.5 mmHg MV E/A: 0.78 TR max hans: 216.7 cm/sec Med Peak E' Hans: 2.7 cm/sec TR max P.9 mmHg Med E/e': 24.9 Lat Peak E' Hans: 2.0 cm/sec Lat E/e': 32.9 Procedure A complete two-dimensional transthoracic echocardiogram was performed (2D, M-mode, Doppler and color flow Doppler). Left Ventricle The left ventricular size, thickness and function are normal. Ejection Fraction = 65%. The transmitra l spectral Doppler flow pattern is suggestive of impaired LV relaxation. Right Ventricle The right ventricle is normal in size and function. Atria The left atrium is moderately dilated. Borderline right atrial enlargement. Mitral Valve There is moderate mitral annular calcification. There is a trivial sized mobile calcific density on t he posterior MV leaflet. There is mild mitral regurgitation. Tricuspid Valve The tricuspid valve is not well visualized. There is mild tricuspid regurgitation. Right ventricular systolic pressure is 20 mmhg. Aortic Valve There is mild aortic valve thickening. No aortic regurgitation is present. Pulmonic Valve The pulmonic valve is not well seen, but is grossly normal. Great Vessels The aortic root is normal size. Normal aortic arch, descending and ascending aorta. Pericardium/Pleura There is no pericardial effusion. There is no pleural effusion. Interpretation Summary The left ventricular size, thickness and function are normal Ejection Fraction = 65%. The transmitral spectral Doppler flow pattern is suggestive of impaired LV relaxation. The right ventricle is normal in size and function. The left atrium is moderately dilated. Borderline right atrial enlargement. There is a trivial sized mobile calcific density on the posterior MV leaflet. There is moderate mitral annular calcification. There is mild mitral regurgitation. There is mild tricuspid regurgitation. Right ventricular systolic pressure is 20 mmhg. There is mild aortic valve thickening. MD Ryne Villela 02/06/2018 03:47 PM
--- NOTE | 2018-02-06 16:30 | CONSULT ---
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 ? thinks she takes med, not 100% certain) - Past Surgical History Past Surgical History: Yes: Cataract Removal (bilateral) - Alcohol/Substance Use Hx Alcohol Use: No History of Substance Use: reports: None - Smoking History Smoking history: Never smoked Have you smoked in the past 12 months: No Aproximately how many cigarettes per day: 0 - Social History Usual Living Arrangement: Alone ADL: Independent Home Medications - Allergies Allergies/Adverse Reactions: Allergies Allergy/AdvReac Type Severity Reaction Status Date / Time No Known Allergies Allergy Verified 02/05/18 08:57 - Home Medications Home Medications: Ambulatory Orders Metoprolol Succinate [Toprol XL -] 50 mg PO DAILY 02/08/13 Acetaminophen [Tylenol .Regular Strength -] 650 mg PO Q4H PRN tablet 12/01/17 Ranitidine Oral Solution [Zantac Oral Solution -] 150 mg PO DAILY cup 12/01/17 oxyCODONE HCL [Roxicodone -] 5 mg PO Q6H PRN tablet MDD 4 12/01/17 Physical Exam Vital Signs: Vital Signs Temperature 99.6 F 02/06/18 15:25 Pulse Rate 64 02/06/18 15:25 Respiratory Rate 18 02/06/18 15:25 Blood Pressure 102/53 02/06/18 15:25 O2 Sat by Pulse Oximetry (%) 97 02/05/18 22:10 Labs: CBC, BMP 02/06/18 07:00 02/06/18 07:00 Assessment/Plan Dermatology Consult Called to see patient for a rash on her back and legs. On exam the patient is in no acute distress and skin is not pruritic, she has faintly erythematous blanching macules on the back and very few scattered on thigh and ant neck . Overall the eruption is very faint and not symptomatic. She developed the eruption prior to developing a fever and weakness. the eruption is resolving and appears to have been a viral eruption. IN addition she has a pigmented lesion on the left scapular region which should be biopsied and treated as an outpatient . 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 Application of a mild cortisone will be sufficient for the full resolution of this eruption. patient is also being evaluated for Lyme DZ by infectious NUHA BARNETT
[2018-02-06] MEDS: TRIAMCINOLONE ACET 0.1% 60 ML LOTION TP SCH (17:31)
[2018-02-06] MEDS ORDERED: PT OWN MED DRAWER 7, Y5N ONE ×2 (17:41→20:52)
[2018-02-06] MEDS: ACETAMINOPHEN 325 MG TABLET (FP) PO PRN (18:57)
--- NOTE | 2018-02-07 08:52 | PN ---
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, Physician Chief Complaint: EVENTS AND NOTES REVIEWED NO ACUTE CHANGES COMFORTABLE EATING BREAKFAST - Current Medication List Current Medications: Active Medications Acetaminophen (Tylenol -) 650 mg PO Q4H PRN PRN Reason: PAIN LEVEL 4 - 6 Last Admin: 02/06/18 18:57 Dose: 650 mg Heparin Sodium (Porcine) (Heparin -) 5,000 unit SQ BID [facility] Last Admin: 02/06/18 21:32 Dose: 5,000 unit Ceftriaxone Sodium 2 gm/ (Dextrose) 100 mls @ 200 mls/hr IVPB DAILY [facility]; Protocol Last Admin: 02/06/18 12:48 Dose: 200 mls/hr Doxycycline Hyclate 100 mg/ (Dextrose) 100 mls @ 50 mls/hr IVPB BID [facility] Last Admin: 02/06/18 21:32 Dose: 50 mls/hr Metoprolol Succinate (Toprol Xl -) 50 mg PO DAILY [facility] Last Admin: 02/06/18 09:36 Dose: 50 mg Ranitidine HCl (Zantac Oral Solution -) 150 mg PO DAILY [facility] Last Admin: 02/06/18 09:37 Dose: 150 mg Triamcinolone Acetonide (Aristocort 0.1% Lotion -) 1 applic TP DAILY [facility] Last Admin: 02/06/18 17:31 Dose: 1 applic - Objective Vital Signs: Vital Signs Temperature 98.2 F 02/07/18 06:52 Pulse Rate 58 L 02/07/18 06:52 Respiratory Rate 20 02/07/18 06:52 Blood Pressure 148/62 02/07/18 06:52 O2 Sat by Pulse Oximetry (%) 97 02/06/18 21:00 Constitutional: Yes: No Distress Eyes: Yes: WNL HENT: Yes: WNL Neck: Yes: WNL Cardiovascular: Yes: WNL Respiratory: Yes: WNL Gastrointestinal: Yes: WNL Genitourinary: Yes: WNL Musculoskeletal: Yes: WNL Extremities: Yes: WNL Edema: No Peripheral Pulses WNL: Yes Integumentary: Yes: Erythema, Petechiae, Rash Wound/Incision: Yes: Clean/Dry Neurological: Yes: WNL ...Motor Strength: WNL Psychiatric: Yes: WNL Labs: CBC, BMP 02/06/18 07:00 02/06/18 07:00 INR, PTT INR 1.12 (0.83-1.09) H 02/05/18 09:30 Problem List - Problems (1) Rash and nonspecific skin eruption Code(s): R21 - RASH AND OTHER NONSPECIFIC SKIN ERUPTION (2) Hypertension Code(s): I10 - ESSENTIAL (PRIMARY) HYPERTENSION Qualifiers: Hypertension type: essential hypertension Qualified Code(s): I10 - Essential (primary) hypertension (3) Pituitary macroadenoma Code(s): D35.2 - BENIGN NEOPLASM OF PITUITARY GLAND Assessment/Plan DERMATOLOGY CONSULT APPRECIATED IV ABX CEFTRIAXONE CONT CULTURES NEGATIVE DC PLANNING TOMORROW
[2018-02-07] MEDS ORDERED: DEXTROSE 5%-WATER 100 ML IVPB ONE (10:27)
[2018-02-07] MEDS: RANITIDINE HCL 150 MG/10 ML UNIT-DOSE PO SCH (10:43)
[2018-02-07] MEDS: HEPARIN NA (PORCINE) 5,000 UNITS/ML 1ML VIAL SQ SCH ×2 (10:43→22:00)
[2018-02-07] MEDS: CEFTRIAXONE 2 GM in DEXTROSE 5%-WATER 100 ML IVPB SCH (10:43)
[2018-02-07] MEDS ORDERED: PT OWN MED DRAWER 7, Y5N ONE ×2 (11:55→23:08)
[2018-02-07] MEDS: TRIAMCINOLONE ACET 0.1% 60 ML LOTION TP SCH (11:57)
[2018-02-07] MEDS: DOXYCYCLINE INJECTION 100 MG in DEXTROSE 5%-WATER - 100 ML IVPB SCH ×2 (11:58→23:00)
--- NOTE | 2018-02-07 14:17 | PN ---
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, Physician History of Present Illness: seen and examined today in [facility]. c/o pain at IV site. no overnight events. no new complaints. - Current Medication List Current Medications: Active Medications Acetaminophen (Tylenol -) 650 mg PO Q4H PRN PRN Reason: PAIN LEVEL 4 - 6 Last Admin: 02/06/18 18:57 Dose: 650 mg Heparin Sodium (Porcine) (Heparin -) 5,000 unit SQ BID [facility] Last Admin: 02/07/18 10:43 Dose: 5,000 unit Ceftriaxone Sodium 2 gm/ (Dextrose) 100 mls @ 200 mls/hr IVPB DAILY [facility]; Protocol Last Admin: 02/07/18 10:43 Dose: 200 mls/hr Doxycycline Hyclate 100 mg/ (Dextrose) 100 mls @ 50 mls/hr IVPB BID [facility] Last Admin: 02/07/18 11:58 Dose: 50 mls/hr Metoprolol Succinate (Toprol Xl -) 50 mg PO DAILY [facility] Last Admin: 02/07/18 11:57 Dose: Not Given Ranitidine HCl (Zantac Oral Solution -) 150 mg PO DAILY [facility] Last Admin: 02/07/18 10:43 Dose: 150 mg Triamcinolone Acetonide (Aristocort 0.1% Lotion -) 1 applic TP DAILY [facility] Last Admin: 02/07/18 11:57 Dose: 1 applic - Objective Vital Signs: Vital Signs Temperature 97.4 F L 02/07/18 09:00 Pulse Rate 64 02/07/18 09:00 Respiratory Rate 18 02/07/18 09:00 Blood Pressure 108/56 02/07/18 09:00 O2 Sat by Pulse Oximetry (%) 97 02/06/18 21:00 Constitutional: Yes: Well Nourished, No Distress, Calm Eyes: Yes: WNL, Conjunctiva Clear, EOM Intact, PERRL HENT: Yes: Atraumatic, Normocephalic Neck: Yes: Supple, Trachea Midline Cardiovascular: Yes: Regular Rate and Rhythm, S1, S2. No: Bradycardia, Tachycardia, Pulse Irregular, Bruit, JVD, Gallop, Murmur, Rub, S3, S4, Varicosities Respiratory: Yes: Regular, CTA Bilaterally. No: Rales, Rhonchi, Wheezes Gastrointestinal: Yes: Normal Bowel Sounds, Soft. No: Distention, Tenderness Extremities: Yes: WNL Edema: No Peripheral Pulses WNL: Yes Peripheral Pulses: Left Doralis Pedis: 2+, Right Dorsalis Pedis: 2+ Integumentary: Yes: WNL Neurological: Yes: Alert, Oriented Psychiatric: Yes: Alert, Oriented Labs: CBC, BMP 02/06/18 07:00 02/06/18 07:00 INR, PTT INR 1.12 (0.83-1.09) H 02/05/18 09:30 - ....Imaging Chest X-ray: Report Reviewed, Image Reviewed EKG: Report Reviewed, Image Reviewed Other: Report Reviewed, Image Reviewed Assessment/Plan 87 year old woman with a history of pituitary mass, resected tonsillar malignancy, T2DM, and HTN who presents with 4-5d of fevers/chills/cold sweats and several days of rash that started on her back and has now noticed on her her legs, arms, and chest. She reports fevers at home to the low 100s. Seen in ER noted with new T wave inversions in the inferolateral leads. No chest pain, sob, orthopnea, pnd or edema. She has chronic dizziness. No syncope. Exercise tolerance is poor. Abnormal EKG -unlikely ACS, no reported chest pain or sob -cardiac enzymes wnl -ECHO 02/06/18 showed normal LV size and systolic function, impaired relaxation, moderate MAC, very small calcified mobile echodensity on posterior MV leaflet -Bcx wnl, being treated for viral vs tick borne illness -unlikely endocarditis -would not pursue ischemic work up at this time -fever/rash work up in progress -receiving Abx -no additional inpatient cardiac work up needed at this time Please call with any additional questions
[2018-02-07 16:08] VITALS: BMI 23.0
[2018-02-08 08:59] LABS: BASO % 0.5 % (0-2.0); EOS % 1.6 % (0-4.5); HEMATOCRIT 33.3 % (32.4-45.2); HEMOGLOBIN 11.3 GM/dL (10.7-15.3); LYMPH % 38.9 % (8-40); MCH 29.5 pg (25.7-33.7); MEAN CELL VOLUME 86.8 fl (80-96); MEAN PLT VOLUME 7.3 fl (7.5-11.1); PLATELET COUNT 160 K/MM3 (134-434); RBC 3.83 M/mm3 (3.60-5.2); RDW 15.4 % (11.6-15.6); WHITE BLOOD COUNT 4.2 K/mm3 (4.0-10.0)
[2018-02-08 09:31] LABS: ALBUMIN 3.7 g/dl (3.4-5.0); ANION GAP 11 (8-16); BILIRUBIN,TOTAL 0.4 mg/dL (0.2-1.0); BLOOD UREA NITROGEN 16 mg/dL (7-18); CALCIUM 8.6 mg/dL (8.5-10.1); CHLORIDE 107 mmol/L (98-107); CO2 24 mmol/L (21-32); CREATININE 0.8 mg/dL (0.55-1.02); GLUCOSE,RANDOM 78 mg/dL (74-106); POTASSIUM 4.2 mmol/L (3.5-5.1); SGOT/AST 36 U/L (15-37); SGPT/ALT 27 U/L (12-78); SODIUM 142 mmol/L (136-145); TOT PROT 7.5 g/dl (6.4-8.2)
[2018-02-08 09:32] LABS: ALK PHOS 76 U/L (45-117)
--- NOTE | 2018-02-08 09:58 | DS ---
Physical Examination Vital Signs: Vital Signs Temperature 98.1 F 02/08/18 06:52 Pulse Rate 58 L 02/08/18 06:52 Respiratory Rate 20 02/08/18 06:52 Blood Pressure 143/70 02/08/18 06:52 O2 Sat by Pulse Oximetry (%) 99 02/07/18 21:00 Constitutional: Yes: No Distress Eyes: Yes: WNL HENT: Yes: WNL Neck: Yes: WNL Cardiovascular: Yes: WNL Respiratory: Yes: WNL Gastrointestinal: Yes: WNL Renal/: Yes: WNL Musculoskeletal: Yes: WNL Extremities: Yes: WNL Edema: No Peripheral Pulses WNL: Yes Integumentary: Yes: WNL Wound/Incision: Yes: Clean/Dry Neurological: Yes: WNL ...Motor Strength: WNL Psychiatric: Yes: WNL Labs: CBC, BMP 02/08/18 08:30 02/08/18 08:30 Discharge Summary Reason For Visit: RASH IN ADULT; DYSPHAGIA Current Active Problems ACS (acute coronary syndrome) (Acute) Abnormal ECG (Acute) Diaphoresis (Acute) Failure to thrive (Acute) Rash and nonspecific skin eruption (Acute) Procedures: Principal: cultures/labs Hospital Course: admitted rash/systemic r/o sepsis vs viral contagium. cultures negative, dc home on doxycycline po and f/u titers with pmd in 2-3 days Condition: Improved - Instructions Diet, Activity, Other Instructions: low salt see dr kong in 2-3 days for serology follow up can stop doxycycline if serology negative Referrals: Gisela Kong MD [Primary Care Provider] - Disposition: HOME - Home Medications Comprehensive Discharge Medication List: Ambulatory Orders Metoprolol Succinate [Toprol XL -] 50 mg PO DAILY 02/08/13 Acetaminophen [Tylenol .Regular Strength -] 650 mg PO Q4H PRN tablet 12/01/17 Ranitidine Oral Solution [Zantac Oral Solution -] 150 mg PO DAILY cup 12/01/17 oxyCODONE HCL [Roxicodone -] 5 mg PO Q6H PRN tablet MDD 4 12/01/17 Doxycycline Hyclate [Vibramycin] 100 mg PO BID 21 Days #42 capsule 02/08/18 Triamcinolone 0.1% Lotion [Aristocort 0.1% Lotion -] 1 applic TP DAILY #90 lotion 02/08/18
[2018-02-08] MEDS ORDERED: DEXTROSE 5%-WATER 100 ML IVPB ONE (09:59)
[2018-02-08] MEDS: CEFTRIAXONE 2 GM in DEXTROSE 5%-WATER 100 ML IVPB SCH (10:07)
[2018-02-08] MEDS: TRIAMCINOLONE ACET 0.1% 60 ML LOTION TP SCH (10:08)
[2018-02-08] MEDS: DOXYCYCLINE INJECTION 100 MG in DEXTROSE 5%-WATER - 100 ML IVPB SCH (10:08)
[2018-02-08] MEDS: HEPARIN NA (PORCINE) 5,000 UNITS/ML 1ML VIAL SQ SCH (10:09)
[2018-02-08] MEDS: RANITIDINE HCL 150 MG/10 ML UNIT-DOSE PO SCH (10:10)
[2018-02-08 10:34] VITALS: BP 131/58; PULSE 57; TEMP 97.6
== END 2018-02-08 11:05 | disposition home or self-care (01) | DRG 607 ==
LOC: JER 07:59 → JERBED 10:15 → OBSVTOIN 15:05 → J8W 18:55
PROVIDERS: ADMIT Family Medicine; ATTEND Family Medicine
DX: R21 Rash and other nonspecific skin eruption (principal); E11.9 Type 2 diabetes mellitus without complications; I10 Essential (primary) hypertension; B34.9 Viral infection, unspecified; R62.7 Adult failure to thrive; E78.5 Hyperlipidemia, unspecified; D35.2 Benign neoplasm of pituitary gland; R61 Generalized hyperhidrosis; R19.7 Diarrhea, unspecified; Z85.818 Personal history of malignant neoplasm of other sites of lip, oral cavity, and pharynx; D69.6 Thrombocytopenia, unspecified
CPT/HCPCS: 36415; 71045-TC-FY; 80053; 81003; 81015; 82550; 82803; 82930; 83605; 84439; 84443; 84484; 85025; 85610; 85651; 85730; 86140; 86618; 87040; 87086; 87207; 93005; 93010; 93306-TC; 97116-GP; 97161-GP; 99284-25; G0378; J1644

== ENCOUNTER 2019-04-16 10:55 | Inpatient (IN) | payer OTHER ==
[2019-04-16] MEDS ORDERED: SODIUM CHLORIDE 500 ML IV STA (12:44)
--- NOTE | 2019-04-16 12:50 | PDOC ---
History of Present Illness - General Chief Complaint: Cold Symptoms Stated Complaint: DIZZINESS/ HEAD TUMOR Time Seen by Provider: 04/16/19 12:05 History Source: Patient, Family - History of Present Illness Initial Comments: 04/18/19 19:29 HPI: 89F PMH HTN, DM, ACS, unspecified brain tumor presenting with worsening dysphagia to liquids in the setting of 2 weeks of fevers/cough, increased dizziness, and generalized weakness. Patient was treated with liquid amoxicillin by PCP which resolved the fever. Productive cough remains. h/o chronic dysphagia on pureed diet 2/2 radiation therapy but has worsened since fever/cough/weakness started to the point that starts coughing immediately after having sips of Ensure. Pt states head "feels bigger." Denies recent fevers , sore throat, falls/trauma, cp/sob, n/v/d, new numbness/tingling (states existing chronic numbness of b/l le). Past History - Past Medical History Allergies/Adverse Reactions: Allergies Allergy/AdvReac Type Severity Reaction Status Date / Time No Known Allergies Allergy Verified 04/16/19 11:30 Home Medications: Ambulatory Orders NK [No Known Home Medication] 04/16/19 Cancer: Yes (tonsil ca,30years ago) COPD: No DVT: No HTN: Yes Hypercholesterolemia: Yes - Immunization History Immunization Up to Date: Yes - Psycho Social/Smoking Cessation Hx Smoking Status: No Smoking History: Never smoked Have you smoked in the past 12 months: No Number of Cigarettes Smoked Daily: 0 Hx Alcohol Use: No Drug/Substance Use Hx: No Substance Use Type: None Review of Systems - Review of Systems Able to Perform ROS?: Yes Comments:: 04/18/19 19:29 ROS: CONSTITUTIONAL: Endorses previous Fevers no current fevers, see hpi. Endorses generalized weakness. HEENT: Endorses dizziness and "head feeling big." Denies headache. RESP: Endorses cough. Denies SOB CARD: Denies chest pain, palpitations GI: Endorses failure to thrive, dysphagia, poor PO intake. Denies N / V / D, abdominal pain : Denies dysuria, hematuria, frequency NEURO: Denies falls, new numbness/tingling (endorses chronic numbness of b/l LE ) Is the patient limited Yemeni proficient: No *Physical Exam - Vital Signs Last Vital Signs Temp Pulse Resp BP Pulse Ox 98.5 F 65 18 107/43 L 94 L 04/16/19 11:26 04/16/19 11:26 04/16/19 11:26 04/16/19 11:26 04/16/19 11:26 - Physical Exam Comments: 04/18/19 19:30 PE: GEN: Cachetic, NAD. AAOx3 HEENT: NC/AT. No facial asymmetry. Limited ability to evaluate oropharynx (pt states jaw opening limited to scarring s/p radiation) Moist mucous membranes. Normal voice. Supple neck w/ FROM. Hard of hearing. CV: S1/S2, RRR, no m/r/g LUNG: Decreased b/l breaths sound - no wheezes, rales, rhonchi, crackles appreciated. Normal inspiratory effort on RA. GI: soft, ndnt, +BS, no guarding, no rebound. EXTREMITIES: No obvious deformities of all extremities. SKIN: warm, dry, normal turgor PSYCH: normal mood and affect NEURO: Moving all extremities well, ambulating well. ED Treatment Course - LABORATORY CBC & Chemistry Diagram: 04/17/19 07:16 04/17/19 07:16 Medical Decision Making - Medical Decision Making 04/16/19 12:30 89F presenting w/ failure to thrive and worsening dysphagia in setting of recent fevers/cough/dizziness/weakness. Failure to Thrive, cough - CBC, CMP - UA, UC - CXR, EKG - Fluids - Admit 04/16/19 13:59 - CBC reviewed, no leukocytosis or anemia - pending chem, rapid flu 04/16/19 14:53 flu neg chem reviewed: elevated BUN, K (slight hemolysis), and AST 04/16/19 16:[address] Rai office and provided extension, will receive callback 04/16/19 21:24 Admitted to Hospitalist team Discharge - Discharge Information Problems reviewed: Yes Clinical Impression/Diagnosis: Failure to thrive Qualifiers: Failure to thrive age range: in adult Qualified Code(s): R62.7 - Adult failure to thrive - Admission Yes - Follow up/Referral - Patient Discharge Instructions - Post Discharge Activity
[2019-04-16 13:35] LABS: BASO % 0.7 % (0-2.0); EOS % 2.7 % (0-4.5); HEMATOCRIT 37.8 % (32.4-45.2); HEMOGLOBIN 12.8 GM/dL (10.7-15.3); MCH 29.6 pg (25.7-33.7); MCHC 33.8 g/dl (32.0-36.0); MEAN CELL VOLUME 87.8 fl (80-96); MEAN PLT VOLUME 6.8 fl (7.5-11.1); MONO % 7.3 % (3.8-10.2); NEUT % 76.3 % (42.8-82.8); PLATELET COUNT 307 K/MM3 (134-434); RDW 14.4 % (11.6-15.6); WHITE BLOOD COUNT 7.6 K/mm3 (4.0-10.0)
--- NOTE | 2019-04-16 13:35 | PDOC ---
Documentation entered by Benjamin Rhoades SCRIBE, acting as scribe for Tank Awad MD. Tank Awad MD: This documentation has been prepared by the Jf camara Daniel, SCRIBE, under my direction and personally reviewed by me in its entirety. I confirm that the documentation accurately reflects all work, treatment, procedures, and medical decision making performed by me. Attending Attestation - Resident Resident Name: Jay Ricks - ED Attending Attestation I have performed the following: I have examined & evaluated the patient, The case was reviewed & discussed with the resident, I agree w/resident's findings & plan - HPI HPI: 04/16/19 12:48 The patient is an 89 year old female with a past medical history of HTN, diabetes, and chronic dysphagia here today for evaluation of cough and fever. The patient reports that 2 weeks ago she developed a cough, congestion, fever, headache, and generalized weakness. She states that she was given amoxicillin and her fever resolved. She also notes that since her cough started her dysphagia has worsened. Patient sister notes that the patient has not been as talkative or active as she usually is. Patient denies lightheadedness. Denies chills. Denies chest pain, shortness of breath. Denies nausea, vomiting, diarrhea, abdominal pain. Allergies: NKA PCP: Gisela Rai Neurologist: Jay Cherry - Physicial Exam PE: 04/16/19 13:17 GENERAL: The patient is awake, alert, and fully oriented, in no acute distress. HEAD: Normal with no signs of trauma. EYES: Pupils equal, round and reactive to light, extraocular movements intact, sclera anicteric, conjunctiva clear with no pallor. ENT: Ears normal, nares patent, oropharynx clear without exudates. Moist mucous membranes. NECK: Normal range of motion, supple without lymphadenopathy, JVD, or masses. LUNGS: +bibasilar crackles. Breath sounds equal. No wheezes. HEART: Regular rate and rhythm, normal S1 and S2 without murmur or rub. ABDOMEN: Soft/nontender/nondistended. BS wnl. No guarding or rebound. No palpable masses. No hepatosplenomegaly. EXTREMITIES: Normal range of motion, no edema. No clubbing or cyanosis. No cords, erythema, or tenderness. NEUROLOGICAL: Cranial nerves II through XII grossly intact. Normal speech, normal gait. PSYCH: Normal mood, normal affect. SKIN: Warm, Dry, normal turgor, no rashes or lesions noted. - Medical Decision Making 04/16/19 13:33 89-year-old female with history of brain CA, nasopharyngeal CA, recently diagnosed upper respiratory infection treated with antibiotics by her PCP brought in by sister for evaluation of progressive weakness, failure to thrive, decreased oral intake over the last week. Has been unable to follow-up with her PCP, has continued cough without measured fevers, increasing fatigue. Presentation most consistent with pneumonia versus dehydration, rule out endorgan injury. Labs, urinalysis EKG, chest x-ray IV fluid rehydration Reassess, likely admission Heart Score/ECG Review #1 ECG reviewed & interpreted by me at: 13:31 General ECG Interpretation: Sinus Rhythm, Normal Rate (59), Normal Intervals ( qtc 439), No acute ischemic changes (TWI I/AVL) Compared to previous ECG there are: Changes noted (c/w 02/17, I/AVL TWI new but V4-6 TWI resolved)
[2019-04-16 14:17] LABS: ALBUMIN 3.6 g/dl (3.4-5.0); BILIRUBIN,TOTAL 0.5 mg/dL (0.2-1); CALCIUM 8.9 mg/dL (8.5-10.1); CREATININE 1.1 mg/dL (0.55-1.3); POTASSIUM 5.6 mmol/L (3.5-5.1); TOT PROT 8.1 g/dl (6.4-8.2)
--- NOTE | 2019-04-16 15:43 | EKG ---
Test Reason : Blood Pressure : / mmHG Vent. Rate : 059 BPM Atrial Rate : 059 BPM P-R Int : 222 ms QRS Dur : 100 ms QT Int : 444 ms P-R-T Axes : 037 005 096 degrees QTc Int : 439 ms SINUS BRADYCARDIA WITH 1ST DEGREE A-V BLOCK ABNORMAL QRS-T ANGLE, CONSIDER PRIMARY T WAVE ABNORMALITY ABNORMAL ECG WHEN COMPARED WITH ECG OF 05-FEB-2018 09:15, T WAVE INVERSION NO LONGER EVIDENT IN INFERIOR LEADS T WAVE INVERSION LESS EVIDENT IN ANTEROLATERAL LEADS Confirmed by Wicho Arshad ([id number]) on 04/16/2019 3:43:08 PM Referred By: Confirmed By:Wicho Arshad
[2019-04-16 17:13] LABS: PH,URINE 5.5 (5.0-8.0); URINE APPEARANCE CLEAR; URINE BILIRUBIN NEGATIVE (NEGATIVE); URINE COLOR YELLOW; URINE GLUCOSE (UA) NEGATIVE (NEGATIVE); URINE KETONE NEGATIVE (NEGATIVE); URINE LEUK ESTERASE NEGATIVE (NEGATIVE); URINE NITRITE NEGATIVE (NEGATIVE); URINE PROTEIN NEGATIVE (NEGATIVE); URINE UROBILINOGEN 0.2 mg/dL (0.2-1.0)
--- NOTE | 2019-04-16 20:12 | HP ---
Admitting History and Physical - Primary Care Physician PCP: Gisela Rai - Admission Chief Complaint: Fever, Cough, Dizziness, Increased Dysphagia History of Present Illness: This is a 89 y/o woman with a PMHx of Tonsilar Ca (s/p RT, 30 yrs ago), Brain Tumor, HTN, HLD, Hearing Imparied. Who presents to the ED with fever, cough x 1 week, dizziness and increased dysphagia x today. Patient's sister was at bedside reports that the patient was at Urgent Care last week and was started on Amoxicillin now completed. The patient reports having generalized weakness and dizziness today. Patient denies SOB, ROBLES, CP, palpitations, AP, N/V/D, constipation, dysuria. Denies recent sick contacts or travel. 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 RESEARCH: Yes: Other (pituitary macroadenoma) Cardiovascular: Yes: HTN, Hyperlipdemia Heme/Onc: Yes: Cancer (TONSILAR CA--S/P RT Brain Ca) Musculoskeletal: Yes: Osteoarthritis (back, shoulders) ENT: Yes: Other (h/o tonsillar CA s/p radiation therapy only many years ago) Endocrine: Yes: Diabetes Mellitus (borderline, not on meds), Hypothyroidism ( not on meds) - Past Surgical History Past Surgical History: Yes: Cataract Removal (bilateral) - Smoking History Smoking history: Never smoked Have you smoked in the past 12 months: No Aproximately how many cigarettes per day: 0 - Alcohol/Substance Use Hx Alcohol Use: No History of Substance Use: reports: None - Social History ADL: Independent Home Medications - Allergies Allergies/Adverse Reactions: Allergies Allergy/AdvReac Type Severity Reaction Status Date / Time No Known Allergies Allergy Verified 04/16/19 11:30 - Home Medications Home Medications: Ambulatory Orders NK [No Known Home Medication] 04/16/19 Family Medical History Family History: Unable to Obtain Review of Systems - Review of Systems Constitutional: reports: Chills, Fever, Loss of Appetite, Weakness Eyes: reports: No Symptoms HENT: reports: Difficult Swallowing Neck: reports: No Symptoms Cardiovascular: reports: No Symptoms Respiratory: reports: Cough Gastrointestinal: reports: No Symptoms Genitourinary: reports: No Symptoms Breasts: reports: No Symptoms Reported Musculoskeletal: reports: No Symptoms Integumentary: reports: No Symptoms Neurological: reports: Dizziness Endocrine: reports: No Symptoms Hematology/Lymphatic: reports: No Symptoms Psychiatric: reports: No Symptoms Pain Intensity: 0 Physical Examination Vital Signs: Vital Signs Temperature 97.8 F 04/16/19 19:27 Pulse Rate 60 04/16/19 19:27 Respiratory Rate 18 04/16/19 19:27 Blood Pressure 149/64 04/16/19 19:27 O2 Sat by Pulse Oximetry (%) 96 04/16/19 19:27 Constitutional: Yes: No Distress, Calm, Thin Eyes: Yes: WNL, Conjunctiva Clear, EOM Intact, PERRL HENT: Yes: Atraumatic, Normocephalic, Other (white secretions to buccal aspect) Neck: Yes: WNL, Supple, Trachea Midline Cardiovascular: Yes: WNL, Regular Rate and Rhythm, S1, S2 Respiratory: Yes: Rhonchi (coarse) Gastrointestinal: Yes: WNL, Normal Bowel Sounds, Soft ...Rectal Exam: Yes: Deferred Renal/: Yes: WNL Breast(s): Yes: WNL Musculoskeletal: Yes: WNL Extremities: Yes: WNL Edema: No Peripheral Pulses WNL: Yes Neurological: Yes: WNL, Alert, Oriented, Cran Nerves II-XII Intact ...Motor Strength: WNL Psychiatric: Yes: WNL, Alert, Oriented Labs: CBC, BMP 04/16/19 13:15 04/16/19 13:15 Laboratory Results - last 24 hr 04/16/19 04/16/19 04/16/19 13:15 13:15 13:15 WBC 7.6 RBC 4.30 Hgb 12.8 Hct 37.8 MCV 87.8 MCH 29.6 MCHC 33.8 RDW 14.4 Plt Count 307 D MPV 6.8 L Absolute Neuts (auto) 5.8 Neutrophils % 76.3 D Lymphocytes % 13.0 D Monocytes % 7.3 Eosinophils % 2.7 Basophils % 0.7 Nucleated RBC % 0 Sodium 136 Potassium 5.6 H Chloride 102 Carbon Dioxide 27 Anion Gap 7 L BUN 21.0 H Creatinine 1.1 Est GFR (CKD-EPI)AfAm 51.55 Est GFR (CKD-EPI)NonAf 44.48 Random Glucose 84 Calcium 8.9 Total Bilirubin 0.5 AST 38 H ALT 18 Alkaline Phosphatase 74 Total Protein 8.1 Albumin 3.6 Urine Color Urine Appearance Urine pH Ur Specific [place] Urine Protein Urine Glucose (UA) Urine Ketones Urine Blood Urine Nitrite Urine Bilirubin Urine Urobilinogen Ur Leukocyte Esterase Influenza A (Rapid) Negative Influenza B (Rapid) Negative 04/16/19 16:50 WBC RBC Hgb Hct MCV MCH MCHC RDW Plt Count MPV Absolute Neuts (auto) Neutrophils % Lymphocytes % Monocytes % Eosinophils % Basophils % Nucleated RBC % Sodium Potassium Chloride Carbon Dioxide Anion Gap BUN Creatinine Est GFR (CKD-EPI)AfAm Est GFR (CKD-EPI)NonAf Random Glucose Calcium Total Bilirubin AST ALT Alkaline Phosphatase Total Protein Albumin Urine Color Yellow Urine Appearance Clear Urine pH 5.5 Ur Specific [place] 1.022 Urine Protein Negative Urine Glucose (UA) Negative Urine Ketones Negative Urine Blood Negative Urine Nitrite Negative Urine Bilirubin Negative Urine Urobilinogen 0.2 Ur Leukocyte Esterase Negative Influenza A (Rapid) Influenza B (Rapid) Intake & Output 04/13/19 04/14/19 04/15/19 04/16/19 23:59 23:59 23:59 23:59 Weight 56.699 kg Imaging - Results Chest X-ray: Report Reviewed, Image Reviewed EKG: Image Reviewed Problem List - Problems (1) Failure to thrive Code(s): [id number] - Qualifiers: Failure to thrive age range: in adult Qualified Code(s): R62.7 - Adult failure to thrive (2) Dysphagia Code(s): R13.10 - DYSPHAGIA, UNSPECIFIED (3) Brain tumor Code(s): D49.6 - NEOPLASM OF UNSPECIFIED BEHAVIOR OF BRAIN (4) Diabetes Code(s): E11.9 - TYPE 2 DIABETES MELLITUS WITHOUT COMPLICATIONS Qualifiers: Diabetes mellitus type: type 2 (5) History of cancer tonsil Code(s): Z85.818 - PRSNL HX OF MALIG NEOPLM OF SITE OF LIP, ORAL CAV, & PHARYNX (6) Hypertension Code(s): I10 - ESSENTIAL (PRIMARY) HYPERTENSION Qualifiers: Hypertension type: essential hypertension Qualified Code(s): I10 - Essential (primary) hypertension Assessment/Plan This is a 89 y/o woman with a PMHx of Tonsilar Ca (s/p RT), Brain Ca s/p RT, HTN , HLD, Dysphagia (Pureed Diet). Admitted to M/S for Failure to Thrive, Cough for further evaluation of their emergent condition. Plan: Admit Swallow Eval appreciated Aspiration Precautions Monitor CBC, BMP Monitor vitals Blood cultures-pending Urine Culture-pending FEN- NS@30ml/hr, replete lytes prn, Pureed Diet DVT ppx- SCDs, Heparin SQ Dispo: Requires Inpatient Care Visit type - Emergency Visit Emergency Visit: Yes ED Registration Date: 04/16/19 Care time: The patient presented to the Emergency Department on the above date and was hospitalized for further evaluation of their emergent condition. - New Patient This patient is new to me today: Yes Date on this admission: 04/16/19 - Critical Care Critical Care patient: No
[2019-04-16] MEDS ORDERED: SODIUM CHLORIDE 1,000 ML IV SCH (20:15)
[2019-04-16] MEDS ORDERED: ALBUTEROL SO4 0.083% IH SOL 2.5 MG/3 ML VIAL.NEB. NEB PRN (22:03)
[2019-04-16 22:17] LABS: BLOOD UREA NITROGEN 19.2 mg/dL (7-18); CALCIUM 8.6 mg/dL (8.5-10.1); CREATININE 0.9 mg/dL (0.55-1.3); POTASSIUM 4.2 mmol/L (3.5-5.1)
[2019-04-16] MEDS ORDERED: FLU VACCINE QUAD 60 MCG/0.5 ML (MDV 19-20) IM ONE (23:10)
[2019-04-16] MEDS: DEXTROSE 5%-NORMAL SALINE 1,000 ML IV SCH (23:39)
[2019-04-17 08:09] LABS: BASO % 0.7 % (0-2.0); EOS % 6.7 % (0-4.5); HEMATOCRIT 35.5 % (32.4-45.2); HEMOGLOBIN 11.8 GM/dL (10.7-15.3); LYMPH % 18.9 % (8-40); MCH 29.3 pg (25.7-33.7); MCHC 33.3 g/dl (32.0-36.0); MEAN PLT VOLUME 6.5 fl (7.5-11.1); MONO % 9.4 % (3.8-10.2); NEUT % 64.3 % (42.8-82.8); PLATELET COUNT 273 K/MM3 (134-434); RBC 4.03 M/mm3 (3.60-5.2); RDW 14.1 % (11.6-15.6); WHITE BLOOD COUNT 5.6 K/mm3 (4.0-10.0)
[2019-04-17 08:28] LABS: BLOOD UREA NITROGEN 17.1 mg/dL (7-18); CALCIUM 8.2 mg/dL (8.5-10.1); CREATININE 0.9 mg/dL (0.55-1.3); POTASSIUM 4.1 mmol/L (3.5-5.1)
--- NOTE | 2019-04-17 08:57 | PN ---
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, Physician - Current Medication List Current Medications: Active Medications Albuterol Sulfate (Ventolin 0.083% Nebulizer Soln -) 1 amp NEB Q6H PRN PRN Reason: SHORT OF BREATH/WHEEZING Guaifenesin (Robitussin -) 10 ml PO Q6H PRN PRN Reason: COUGH Heparin Sodium (Porcine) (Heparin -) 5,000 unit SQ BID JARET Dextrose/Sodium Chloride (D5-Ns -) 1,000 mls @ 30 mls/hr IV ASDIR JARET Last Admin: 04/16/19 23:39 Dose: 30 mls/hr Melatonin (Melatonin) 5 mg PO HS PRN PRN Reason: INSOMNIA - Objective Vital Signs: Vital Signs Temperature 97.3 F L 04/17/19 06:00 Pulse Rate 55 L 04/17/19 06:00 Respiratory Rate 18 04/17/19 06:00 Blood Pressure 134/74 04/17/19 06:00 O2 Sat by Pulse Oximetry (%) 94 L 04/16/19 19:59 Cardiovascular: Yes: Regular Rate and Rhythm Respiratory: Yes: Regular, CTA Bilaterally Gastrointestinal: Yes: Normal Bowel Sounds, Soft Labs: CBC, BMP 04/17/19 07:16 04/17/19 07:16 Problem List - Problems (1) Dysphagia Assessment/Plan: [facility] [place]NT CONSULT Code(s): R13.10 - DYSPHAGIA, UNSPECIFIED (2) Failure to thrive Assessment/Plan: IVF PENDING WORK UP LABS ORDERED Code(s): ZEH9196 - Qualifiers: Failure to thrive age range: in adult Qualified Code(s): R62.7 - Adult failure to thrive (3) History of cancer tonsil Assessment/Plan: ENT Code(s): Z85.818 - PRSNL HX OF MALIG NEOPLM OF SITE OF LIP, ORAL CAV, & PHARYNX
[2019-04-17] MEDS: HEPARIN NA (PORCINE) 5,000 UNITS/ML 1ML VIAL SQ SCH ×2 (11:06→21:40)
--- NOTE | 2019-04-17 11:46 | CONSULT ---
Admitting History and Physical - Primary Care Physician PCP: Gisela Rai - Admission History of Present Illness: 89 y/o woman with a PMHx of Tonsilar Ca (s/p RT), Brain Ca s/p RT, HTN, HLD, Dysphagia (Pureed Diet). Admitted to M/S for Failure to Thrive, Cough Selected Entries 04/16/19 04/16/19 04/16/19 11:26 16:14 19:27 Eating (Feeding ) Ability Temperature 98.5 F 98.4 F 97.8 F 04/16/19 04/17/19 04/17/19 19:59 02:05 06:00 Eating (Feeding Independent ) Ability Temperature 98 F 97.3 F L 97.3 F L Laboratory Tests 04/17/19 07:16 WBC 5.6 Puree/thin liquid. CXR-COPD. 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: Other (pituitary macroadenoma) Cardiovascular: Yes: HTN, Hyperlipdemia Heme/Onc: Yes: Cancer (TONSILAR CA--S/P RT Brain Ca) Musculoskeletal: Yes: Osteoarthritis (back, shoulders) ENT: Yes: Other (h/o tonsillar CA s/p radiation therapy only many years ago) Endocrine: Yes: Diabetes Mellitus (borderline, not on meds), Hypothyroidism ( not on meds) - Past Surgical History Past Surgical History: Yes: Cataract Removal (bilateral) - Smoking History Smoking history: Never smoked Have you smoked in the past 12 months: No Aproximately how many cigarettes per day: 0 - Alcohol/Substance Use Hx Alcohol Use: No History of Substance Use: reports: None - Social History ADL: Independent History - Admission Reason For Visit: FAILURE TO THRIVE - Diagnostics X-ray: Report Reviewed Modified Barium Swallow: Report Reviewed (last mbs 2017-Impaired oral pharyngeal transfer. Good airway protection. rec-blenderizing food, drink through straw.increased supplements, biotene for dry mouth. swallowing tx and therabite for trismus.) - General Mental Status: Alert and Oriented, Awake and Alert, Able to Follow Commands Attention: Intact Ability to Follow Directions: Excellent Head/Neck Control: WFL - Hearing Hearing: Impaired Hearing Aide: Yes With Patient: No Speech Evaluation - Communication Primary Language: TANZANIAN Secondary Language: PALESTINIAN Communication: Yes: Simple Responses Oral Expression Ability: Yes: Moderate Impairment, Severe Impairment - Speech Production Able to Make Needs Known: Yes: Moderately Impaired, Severely Impaired Intelligibility: Yes: Moderately Impaired, Severely Impaired - Speech Characteristics Voice Loudness: Mildly Soft/Quiet Voice Pitch: Yes: Normal Voice Phonatory-based Quality: Yes: Normal Speech Pattern: Impaired Speech Clarity: < 25% Nasal Resonance: Hypernasal Articulation: Yes: Precise - Language/Auditory Comprehension Follows: Yes: 2 Stage Simple Commands Observation: Comprehends Conversational Speech: Yes - Language/Verbal Expression Functional Communication Status: Yes: Moderately Impaired, Severely Impaired - Swallow Evaluation/Bedside Assessment Current Nutritional Intake: Dysphagia Pureed, Thin Liquids Oral Secretions: Yes: WFL Dentition: Yes: Adequate, Dental Appliance Upper (loose now, likely sec to weightloss) Facial Symmetry at Rest: Symmetrical Jaw Position: Closed at Rest, Other (Trismus since 2013) Lingual Movement: Symmetric Lingual Speed of Movement: Normal Lingual Movement Strgth Against Opposition: Normal Lingual Movement Characteristics: Normal Laryngeal Movement: Labored,delay initiation Rate of Intake: WFL Bolus Size: WFL Labial Seal: WFL A-P Transit: Impaired Timing of Swallow: Delayed Coughing/Throat Clear: Yes (cough on thin liquid) Recommendations - Speech Evaluation, Impression/Plan Impression: Responsive cough on thin liquid. r/o aspiration. Deterioration of swallowing function. Weight loss. Trismus, long standing since 2013. - Dysphagia Impressions/Plan Swallowing Skills: Impaired Dysphagia Impressions: Ongoing Evaluation, Suspect Aspiration *Silent aspiration: cannot be R/O at bedside Recommendations: MBS w Esophagus - Recommendations Diet Consistency: Dysphagia Pureed (thin out, drink via straw) Medication Administration: Crushed with applesauce Liquids: [place] Thick Supplement: Other (2cal hn)
[2019-04-17] MEDS ORDERED: FLU VACCINE QUAD 60 MCG/0.5 ML (MDV 19-20) IM ONE (12:00)
[2019-04-17 16:27] VITALS: BMI 21.2
--- NOTE | 2019-04-17 23:01 | CONSULT ---
Consult Consult Specialty:: endocrinology Referred by:: dr.iyad kong Reason for Consultation:: pituitary macro-adenoma - History of Present Illness Chief Complaint: weakness and difficulty swallowing History of Present Illness: 89 y/o woman with a PMHx of Pituitary Macroadenoma,with sella turcica invasion. Tonsilar Ca (s/p RT, 30 yrs ago), HTN, HLD, Hearing Imparied. Who presents with difficulty swallowing,weakness cough,trismus of the jaw.weight loss and recurrent aspiration of liquids upon attempts at swallowing. 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: Other (pituitary macroadenoma) Cardio/Vascular: Yes: HTN, Hyperlipdemia Musculoskeletal: Yes: Osteoarthritis (back, shoulders) ENT: Yes: Other (h/o tonsillar CA s/p radiation therapy only many years ago) Endocrine: Yes: Diabetes Mellitus (borderline, not on meds), Hypothyroidism ( not on meds) - Past Surgical History Past Surgical History: Yes: Cataract Removal (bilateral) - Alcohol/Substance Use Hx Alcohol Use: No History of Substance Use: reports: None - Smoking History Smoking history: Never smoked Have you smoked in the past 12 months: No Aproximately how many cigarettes per day: 0 - Social History Usual Living Arrangement: Alone ADL: Independent Home Medications - Allergies Allergies/Adverse Reactions: Allergies Allergy/AdvReac Type Severity Reaction Status Date / Time No Known Allergies Allergy Verified 04/16/19 11:30 - Home Medications Home Medications: Ambulatory Orders NK [No Known Home Medication] 04/16/19 Review of Systems - Review of Systems Constitutional: reports: Lethargy, Unintentional Wgt. Loss Eyes: reports: Blurred Vision HENT: reports: Difficult Swallowing, Ear Pain, Mouth Swelling, Nasal Congestion , Throat Pain Neck: reports: Decreased ROM, Swollen Glands, Tenderness Cardiovascular: reports: Palpitations, Shortness of Breath Respiratory: reports: Exercise Intolerance, SOB Gastrointestinal: reports: Indigestion, Nausea Genitourinary: reports: No Symptoms Musculoskeletal: reports: Joint Swelling, Muscle Cramps, Muscle Weakness Integumentary: reports: No Symptoms Neurological: reports: Headache, Numbness, Weakness Endocrine: reports: Intolerance to Cold, Unexplained Weight Loss Physical Exam Vital Signs: Vital Signs Temperature 98.1 F 04/17/19 21:00 Pulse Rate 75 04/17/19 21:00 Respiratory Rate 20 04/17/19 21:00 Blood Pressure 148/76 04/17/19 21:00 O2 Sat by Pulse Oximetry (%) 92 L 04/17/19 08:50 Constitutional: Yes: Anxious Eyes: Yes: EOM Intact HENT: Yes: Normocephalic, Drooling, Hoarseness, Nasal Congestion, Pharyngeal Erythema, Thrush Neck: Yes: Trachea Midline Cardiovascular: Yes: Regular Rate and Rhythm Respiratory: Yes: CTA Bilaterally Gastrointestinal: Yes: Normal Bowel Sounds Renal/: Yes: WNL Musculoskeletal: Yes: WNL Extremities: Yes: WNL Edema: No Neurological: Yes: Alert, Oriented Labs: CBC, BMP 04/17/19 07:16 04/17/19 07:16 Problem List - Problems (1) Dysphagia Code(s): R13.10 - DYSPHAGIA, UNSPECIFIED (2) Failure to thrive Code(s): [id number] - Qualifiers: Failure to thrive age range: in adult Qualified Code(s): R62.7 - Adult failure to thrive (3) Abnormal ECG Code(s): R94.31 - ABNORMAL ELECTROCARDIOGRAM [ECG] [EKG] (4) Borderline diabetes Code(s): R73.03 - PREDIABETES (5) Brain tumor (6) Pituitary macroadenoma with extrasellar extension (7) Contusion, hip Code(s): S70.00XA - CONTUSION OF UNSPECIFIED HIP, INITIAL ENCOUNTER Qualifiers: Laterality: unspecified laterality Qualified Code(s): S70.00XD - Contusion of unspecified hip, subsequent encounter Assessment/Plan Current Active Problems Dysphagia (Acute) Failure to thrive (Acute) pituitary macroadenoma dysphagia hypothyroidism central Laboratory Tests 04/17/19 04/17/19 04/17/19 07:16 07:16 12:30 WBC 5.6 RBC 4.03 Hgb 11.8 Hct 35.5 MCV 88.0 MCH 29.3 MCHC 33.3 RDW 14.1 Plt Count 273 MPV 6.5 L Neutrophils % 64.3 Lymphocytes % 18.9 D Monocytes % 9.4 Sodium 139 Potassium 4.1 Chloride 104 Carbon Dioxide 28 Anion Gap 7 L BUN 17.1 Creatinine 0.9 Est GFR (CKD-EPI)AfAm 65.70 Est GFR (CKD-EPI)NonAf 56.69 TSH 0.80 Free T4 0.67 L plan: synthroid 25mcg q am dostinex .5mcg weekly mri pituitary
[2019-04-18] MEDS: LEVOTHYROXINE NA 25 MCG TABLET (FP) PO SCH (06:11)
[2019-04-18] MEDS: DEXTROSE 5%-NORMAL SALINE 1,000 ML IV SCH (06:11)
--- NOTE | 2019-04-18 08:18 | CON.ENT ---
Consult Consult Specialty:: ENT Referred by:: Reason for Consultation:: dysphagia - History of Present Illness Chief Complaint: hard to swallow History of Present Illness: 89 yo F known to me from outpatient care hx tons cancer >20 yrs ago rx RT, has been free of disease clinically but has hx significant trismus has had trouble swallowing and significant recent weight loss because of this no throat pain some phlegm in throat, no productive cough has had referrral to [facility] for trismus management ears have no pain but are itchy no change in voice - History Source History Provided By: Patient, Medical Record Limitations to Obtaining History: No Limitations - 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: Other (pituitary macroadenoma) Cardio/Vascular: Yes: HTN, Hyperlipdemia Heme/Onc: Yes: Other (tonsil cancer, s/p RT, hx brain cancer?) Musculoskeletal: Yes: Osteoarthritis (back, shoulders) ENT: Yes: Other (h/o tonsillar CA s/p radiation therapy only many years ago) Endocrine: Yes: Diabetes Mellitus (borderline, not on meds), Hypothyroidism ( not on meds) - Past Surgical History Past Surgical History: Yes: Cataract Removal (bilateral) - Alcohol/Substance Use Hx Alcohol Use: No History of Substance Use: reports: None - Smoking History Smoking history: Never smoked Have you smoked in the past 12 months: No Aproximately how many cigarettes per day: 0 - Social History Usual Living Arrangement: Alone ADL: Independent Home Medications - Allergies Allergies/Adverse Reactions: Allergies Allergy/AdvReac Type Severity Reaction Status Date / Time No Known Allergies Allergy Verified 04/16/19 11:30 - Home Medications Home Medications: Ambulatory Orders NK [No Known Home Medication] 04/16/19 Physical Exam-ENT Vital Signs: Vital Signs Temperature 97.6 F 04/18/19 07:12 Pulse Rate 61 04/18/19 07:12 Respiratory Rate 20 04/18/19 07:12 Blood Pressure 131/67 04/18/19 07:12 O2 Sat by Pulse Oximetry (%) 94 L 04/17/19 21:00 Constitutional: Yes: No Distress, Calm, Thin Head: Yes: WNL Face: Yes: WNL Eyes: Yes: WNL Nose: Yes: Septum Deviated Nasal Passage: Yes: Other (no blood or pus, dry mucosa amelia right) Oral/Pharynx: Yes: Other (upper and lower dentures, tongue mobile, +trismus visualized oropharynx is clear without obstruction or lesion , voice) Outer Ear: Yes: WNL Ear Canal: Yes: Cerumen (some cerumen noted left ear medial canal posteriorly, dry, no signs of infection) Tympanic Membrane: Yes: WNL Neck: Yes: WNL, Other (no mass or nodes, no tenderness, salivary glands and thyroid gland WNL) Imaging - Results Chest X-ray: Report Reviewed Other: Report Reviewed (modified barium swallow +trismus (similar to 2014) trace penetration but no aspiration, limited laryngeal elevation, esophageal stage normal) Problem List - Problems (1) Dysphagia Assessment/Plan: hx dysphagia, weight loss swallowing evaluation noted, modified barium swallow findings reviewed flexible laryngoscopy deferred this morning because of patient nausea Recommend: diet as tolerated with modifications as per Mary Kate Candelaria supplements and PEG feedings considered Code(s): R13.10 - DYSPHAGIA, UNSPECIFIED (2) History of cancer tonsil Assessment/Plan: remote history ~25 years ago, s/p RT no evidence of disease Code(s): Z85.818 - PRSNL HX OF MALIG NEOPLM OF SITE OF LIP, ORAL CAV, & PHARYNX
[2019-04-18] MEDS: HEPARIN NA (PORCINE) 5,000 UNITS/ML 1ML VIAL SQ SCH ×2 (09:06→22:31)
--- NOTE | 2019-04-18 10:57 | PN ---
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, Physician Chief Complaint: FTT Dysphagia History of Present Illness: Previous notes and events reviewed awake and alert NAD c/o productive cough with yellow phlegm denies chest pain - Current Medication List Current Medications: Active Medications Albuterol Sulfate (Ventolin 0.083% Nebulizer Soln -) 1 amp NEB Q6H PRN PRN Reason: SHORT OF BREATH/WHEEZING Guaifenesin (Robitussin -) 10 ml PO Q6H PRN PRN Reason: COUGH Heparin Sodium (Porcine) (Heparin -) 5,000 unit SQ BID [facility] Last Admin: 04/18/19 09:06 Dose: 5,000 unit Dextrose/Sodium Chloride (D5-Ns -) 1,000 mls @ 30 mls/hr IV ASDIR [facility] Last Admin: 04/18/19 06:11 Dose: Not Given Levothyroxine Sodium (Synthroid -) 25 mcg PO DAILY@0700 [facility] Last Admin: 04/18/19 06:11 Dose: 25 mcg Melatonin (Melatonin) 5 mg PO HS PRN PRN Reason: INSOMNIA - Objective Vital Signs: Vital Signs Temperature 97.6 F 04/18/19 07:12 Pulse Rate 61 04/18/19 07:12 Respiratory Rate 20 04/18/19 07:12 Blood Pressure 131/67 04/18/19 07:12 O2 Sat by Pulse Oximetry (%) 94 L 04/17/19 21:00 Constitutional: Yes: No Distress, Calm Eyes: Yes: Conjunctiva Clear HENT: Yes: Atraumatic Cardiovascular: Yes: Regular Rate and Rhythm Respiratory: Yes: Regular, Diminished Gastrointestinal: Yes: Normal Bowel Sounds, Soft Genitourinary: Yes: Incontinence Musculoskeletal: Yes: Muscle Weakness Extremities: Yes: WNL Edema: No Neurological: Yes: Alert, Oriented Psychiatric: Yes: Alert, Oriented Labs: CBC, BMP 04/17/19 07:16 04/17/19 07:16 Microbiology 04/16/19 16:50 Urine - Urine Clean Catch Urine Culture - Final NO GROWTH OBTAINED Problem List - Problems (1) Dysphagia Assessment/Plan: -NETWORK CONTROL SUPERVISOR on board and recommendation appreciated -ENT on board -puree diet and nectar thick liquid -possible PEG tube if does not increase PO intake Code(s): R13.10 - DYSPHAGIA, UNSPECIFIED (2) Failure to thrive Assessment/Plan: -IV hydration -PT -possible SNF for discharge -possible PEG tube placement if does not increase PO intake Code(s): ASI1856 - Qualifiers: Failure to thrive age range: in adult Qualified Code(s): R62.7 - Adult failure to thrive (3) Pituitary macroadenoma with extrasellar extension Assessment/Plan: -Endo on board -MRI of pituitary Code(s): D35.2 - BENIGN NEOPLASM OF PITUITARY GLAND Assessment/Plan see problem list dvt ppx
--- NOTE | 2019-04-18 11:57 | PN ---
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, PRODUCTION ADMINISTRATIVE ASSISTANT - Note 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: Selected Entries 04/17/19 04/17/19 04/17/19 02:05 06:00 14:00 Breakfast 100% Lunch 75% Supper Temperature 97.3 F L 97.3 F L 98.9 F 04/17/19 04/17/19 04/18/19 18:00 21:00 02:00 Breakfast Lunch Supper 100% Temperature 98.5 F 98.1 F 98.1 F 04/18/19 07:12 Breakfast Lunch Supper Temperature 97.6 F On puree/nectarordered. Received thin liquid accidentally. Occasional cough. Appreciate ENT consult/recommendations Pt and sister would like to increase PO intake, and consider PEG in future if needed.
[2019-04-18] MEDS: MELATONIN 5 MG TABLETS PO PRN (22:30)
[2019-04-19] MEDS: LEVOTHYROXINE NA 25 MCG TABLET (FP) PO SCH (06:18)
[2019-04-19] MEDS: DEXTROSE 5%-NORMAL SALINE 1,000 ML IV SCH (06:19)
[2019-04-19 08:25] LABS: HEMATOCRIT 33.6 % (32.4-45.2); HEMOGLOBIN 11.1 GM/dL (10.7-15.3); MCH 28.8 pg (25.7-33.7); MCHC 33.1 g/dl (32.0-36.0); MEAN CELL VOLUME 87.1 fl (80-96); MEAN PLT VOLUME 6.7 fl (7.5-11.1); PLATELET COUNT 276 K/MM3 (134-434); RBC 3.86 M/mm3 (3.60-5.2); RDW 14.4 % (11.6-15.6); WHITE BLOOD COUNT 5.7 K/mm3 (4.0-10.0)
[2019-04-19 08:59] LABS: ALBUMIN 2.9 g/dl (3.4-5.0); BILIRUBIN,TOTAL 0.7 mg/dL (0.2-1); BLOOD UREA NITROGEN 14.3 mg/dL (7-18); CALCIUM 8.5 mg/dL (8.5-10.1); CREATININE 0.9 mg/dL (0.55-1.3); TOT PROT 6.5 g/dl (6.4-8.2)
[2019-04-19] MEDS: HEPARIN NA (PORCINE) 5,000 UNITS/ML 1ML VIAL SQ SCH ×2 (09:45→21:29)
--- NOTE | 2019-04-19 12:13 | PN ---
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, HPLC CHEMIST - Note 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: Selected Entries 04/18/19 04/18/19 04/18/19 02:00 07:12 13:02 Breakfast Lunch Temperature 98.1 F 97.6 F 98.6 F 04/18/19 04/18/19 04/18/19 14:00 18:00 21:00 Breakfast 75% Lunch 50% Temperature 98.8 F 98.1 F 99.3 F 04/19/19 07:29 Breakfast Lunch Temperature 97.9 F Laboratory Tests 04/19/19 06:50 WBC 5.7
--- NOTE | 2019-04-19 13:11 | PN ---
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, LABOR CONTRACT ANALYST - Note 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: Selected Entries 04/18/19 04/18/19 04/18/19 02:00 07:12 13:02 Breakfast Lunch Temperature 98.1 F 97.6 F 98.6 F 04/18/19 04/18/19 04/18/19 14:00 18:00 21:00 Breakfast 75% Lunch 50% Temperature 98.8 F 98.1 F 99.3 F 04/19/19 07:29 Breakfast Lunch Temperature 97.9 F Laboratory Tests 04/19/19 06:50 WBC 5.7 Pt c/o burning in chest when swallows- sec to remote RT vs marce. Limited po intake Pt on puree/nectar. Recieved Glucerna (thin) accidentally. Family/nursing/ Dietary made aware. Consider GI consult- Readdress PEG insert and burning when swallowing. . Coughing noted. Pt is full code. End of life wishes?
--- NOTE | 2019-04-19 15:19 | PN ---
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, Physician Chief Complaint: FTT Dysphagia History of Present Illness: Previous notes and events reviewed awake and alert NAD c/o productive cough with yellow phlegm denies chest pain RN state SpO2 86% on RA placed on O2 NC and SpO2 increase to 92-93% continue with poor appetite - Current Medication List Current Medications: Active Medications Albuterol Sulfate (Ventolin 0.083% Nebulizer Soln -) 1 amp NEB Q6H PRN PRN Reason: SHORT OF BREATH/WHEEZING Last Admin: 04/18/19 18:25 Dose: 1 amp Guaifenesin (Robitussin -) 10 ml PO Q6H PRN PRN Reason: COUGH Heparin Sodium (Porcine) (Heparin -) 5,000 unit SQ BID [facility] Last Admin: 04/19/19 09:45 Dose: 5,000 unit Dextrose/Sodium Chloride (D5-Ns -) 1,000 mls @ 30 mls/hr IV ASDIR [facility] Last Admin: 04/19/19 06:19 Dose: Not Given Levothyroxine Sodium (Synthroid -) 25 mcg PO DAILY@0700 [facility] Last Admin: 04/19/19 06:18 Dose: 25 mcg Melatonin (Melatonin) 5 mg PO HS PRN PRN Reason: INSOMNIA Last Admin: 04/18/19 22:30 Dose: 5 mg - Objective Vital Signs: Vital Signs Temperature 97.9 F 04/19/19 07:29 Pulse Rate 55 L 04/19/19 07:29 Respiratory Rate 18 04/19/19 09:00 Blood Pressure 151/67 04/19/19 07:29 O2 Sat by Pulse Oximetry (%) 93 L 04/19/19 09:00 Constitutional: Yes: No Distress, Calm Eyes: Yes: Conjunctiva Clear HENT: Yes: Atraumatic Cardiovascular: Yes: Regular Rate and Rhythm Respiratory: Yes: Regular, On Nasal O2, Rhonchi Gastrointestinal: Yes: Normal Bowel Sounds, Soft Musculoskeletal: Yes: Muscle Weakness Extremities: Yes: WNL Edema: No Neurological: Yes: Alert Psychiatric: Yes: Alert Labs: CBC, BMP 04/19/19 06:50 04/19/19 06:50 Microbiology 04/16/19 16:50 Urine - Urine Clean Catch Urine Culture - Final NO GROWTH OBTAINED - ....Imaging MRI: Report Reviewed Problem List - Problems (1) Dysphagia Assessment/Plan: -BLOCK PLACER on board and recommendation appreciated -ENT on board -rod diet and nectar thick liquid -possible PEG tube if does not increase PO intake Code(s): R13.10 - DYSPHAGIA, UNSPECIFIED (2) Failure to thrive Assessment/Plan: -IV hydration -PT -possible SNF for discharge -possible PEG tube placement if does not increase PO intake -calorie count -dietary consult Code(s): [id number] - Qualifiers: Failure to thrive age range: in adult Qualified Code(s): R62.7 - Adult failure to thrive (3) Pituitary macroadenoma with extrasellar extension Assessment/Plan: -Endo on board -MRI of pituitary shows increase in the size of the pituitary macroadenoma with again mass effect on optic chiasm, no hemorrhage within the adenoma Code(s): D35.2 - BENIGN NEOPLASM OF PITUITARY GLAND Assessment/Plan see problem list dvt ppx
--- NOTE | 2019-04-19 16:35 | PN ---
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 HTN HLD DM DYSPHAGIA PLAN O2 NEEDED TO MAINTAIN O2 SAT 90%OR GREATER INHALED BRONCHODILATORS CHEST CT ASPIRATION PRECAUTIONS CONSIDER PEG INSERTION DR TAN Problem List - Problems (1) Dysphagia Code(s): R13.10 - DYSPHAGIA, UNSPECIFIED (2) Failure to thrive Code(s): [id number] - Qualifiers: Failure to thrive age range: in adult Qualified Code(s): R62.7 - Adult failure to thrive (3) Pituitary macroadenoma with extrasellar extension Code(s): D35.2 - BENIGN NEOPLASM OF PITUITARY GLAND (4) Borderline diabetes Code(s): R73.03 - PREDIABETES (5) History of cancer tonsil Code(s): Z85.818 - PRSNL HX OF MALIG NEOPLM OF SITE OF LIP, ORAL CAV, & PHARYNX (6) Hypertension Code(s): I10 - ESSENTIAL (PRIMARY) HYPERTENSION Qualifiers: Hypertension type: essential hypertension Qualified Code(s): I10 - Essential (primary) hypertension (7) Acute hypoxemic respiratory failure Code(s): J96.01 - ACUTE RESPIRATORY FAILURE WITH HYPOXIA
--- NOTE | 2019-04-19 17:21 | PN ---
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 (short form) - Note 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: ENT: pt states throat is feeling a little better interim notes reviewed NAD nose: sl dry mucosa amelia left nose +trismus, dentures flexible laryngoscopy performed after topical anesthesia right nasal cavity: no pus or polyps, nasopharynx clear base of tongue normal vallecula normal epiglottis normal aryepiglottic folds normal, arytenoids slight edema false and true vocal folds WNL, no lesions vocal cord mobility WNL and symmetric pyriform sinuses clear no pooling airway patent, no foreign body or other process Impression: dysphagia, failure to thrive flexible laryngoscopy today shows no lesions and no obstruction hx carcinoma of tonsil, 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 Recommend: continue diet as recommended by Mary Kate Gaona monitor fluids and nutrition additional interventions as indicated. Azam Polanco MD FACS Problem List - Problems (1) Dysphagia Code(s): R13.10 - DYSPHAGIA, UNSPECIFIED (2) History of cancer tonsil Code(s): Z85.818 - PRSNL HX OF MALIG NEOPLM OF SITE OF LIP, ORAL CAV, & PHARYNX
--- NOTE | 2019-04-19 19:45 | CONS ---
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 Patient apparently was treated with liquid amoxicillin as an outpatient which improved the fever. Apparently, the cough remained, and the patient remained chronically dysphagic. Patient states that the dysphagia has worsened since development of the fever and the cough. Patient was admitted with the above. On admission, she was evaluated by Belkys Gaona MS, [facility], for speech pathology and underwent a barium swallow which revealed evidence of aspiration on liquids. Patient was also evaluated by ENT. Of note is today the patient was noted to be hypoxic with O2 saturations in the mid-80s. She denies any history of COPD or asthma. There is no history of occupational exposures, and she is a nonsmoker. There is no history of DVT or PE in the past. PAST MEDICAL HISTORY: Again includes tonsillar CA, status post RT years ago; aspiration; history of pituitary macroadenoma with extrasellar extension; hypertension; dysphagia; hyperlipidemia; diabetes. REVIEW OF SYSTEMS: Positive cough. Positive shortness of breath. No fever. No chills. No hemoptysis. No abdominal pain. Positive failure to thrive. CURRENT MEDICATIONS: Include heparin subcutaneous, albuterol, D5 half-normal, Robitussin, melatonin, and Synthroid. PHYSICAL EXAMINATION: General: Patient is an elderly female, awake, alert, in no acute distress. Vital Signs: She is afebrile. Blood pressure is 143/58. Respiratory rate is 18. O2 saturation is 96% on 2 L nasal cannula. HEENT: Normocephalic, atraumatic. Neck: Supple. Heart: Regular. S1, S2. Chest: Bilateral crackles and scattered rhonchi. Abdomen: Soft. Bowel sounds are positive. Extremities: No cyanosis or edema. LABORATORY DATA: BUN 14, creatinine 0.9. WBC is 5.7, hemoglobin 11.1, hematocrit 33.6, with a platelet count of 276,000. Chest x-ray on admission revealed COPD with no acute disease. Patient underwent an internal auditory canal MRI on April 18, which revealed increased size of the pituitary macroadenoma and mass effect of the optic chiasm. No hemorrhage within the adenoma. IMPRESSION: 1. Acute hypoxemic respiratory failure secondary to: A. Likely recurrent aspiration pneumonitis. B. History of tonsillar cancer, status post radiotherapy. C. History of pituitary macroadenoma with extrasellar extension. 2. Hypertension. 3. Dysphagia. 4. Hyperlipidemia. 5. Diabetes. PLAN: Supplemental O2 as needed to maintain O2 saturation 90% or greater, inhaled bronchodilators, CT scan of the chest, aspiration precautions. Consider PEG insertion. HODA TAN M.D. [id number] MTDD
[2019-04-19] MEDS: ALBUTEROL SO4 2.5/IPRATROPIUM 0.5 INH SOL 3 ML VIAL.NEB. NEB SCH (20:13)
[2019-04-19] MEDS: MELATONIN 5 MG TABLETS PO PRN (22:42)
[2019-04-20] MEDS: DEXTROSE 5%-NORMAL SALINE 1,000 ML IV SCH (01:24)
[2019-04-20] MEDS: LEVOTHYROXINE NA 25 MCG TABLET (FP) PO SCH (06:25)
[2019-04-20] MEDS: ALBUTEROL SO4 2.5/IPRATROPIUM 0.5 INH SOL 3 ML VIAL.NEB. NEB SCH ×4 (07:25→20:11)
[2019-04-20 08:42] LABS: HEMATOCRIT 32.1 % (32.4-45.2); HEMOGLOBIN 11.1 GM/dL (10.7-15.3); MCH 30.9 pg (25.7-33.7); MCHC 34.7 g/dl (32.0-36.0); MEAN CELL VOLUME 89.1 fl (80-96); MEAN PLT VOLUME 6.5 fl (7.5-11.1); PLATELET COUNT 269 K/MM3 (134-434); RDW 14.4 % (11.6-15.6); WHITE BLOOD COUNT 5.5 K/mm3 (4.0-10.0)
[2019-04-20 08:52] LABS: BILIRUBIN,TOTAL 0.3 mg/dL (0.2-1); BLOOD UREA NITROGEN 12.5 mg/dL (7-18); CALCIUM 8.4 mg/dL (8.5-10.1); CREATININE 0.8 mg/dL (0.55-1.3); POTASSIUM 4.1 mmol/L (3.5-5.1); TOT PROT 6.4 g/dl (6.4-8.2)
--- NOTE | 2019-04-20 11:49 | PN ---
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, Physician - Current Medication List Current Medications: Active Medications Albuterol Sulfate (Ventolin 0.083% Nebulizer Soln -) 1 amp NEB Q6H PRN PRN Reason: SHORT OF BREATH/WHEEZING Last Admin: 04/18/19 18:25 Dose: 1 amp Albuterol/Ipratropium (Duoneb -) 1 amp NEB RQID [facility] Last Admin: 04/20/19 07:25 Dose: 1 amp Guaifenesin (Robitussin -) 10 ml PO Q6H PRN PRN Reason: COUGH Heparin Sodium (Porcine) (Heparin -) 5,000 unit SQ BID [facility] Last Admin: 04/19/19 21:29 Dose: 5,000 unit Dextrose/Sodium Chloride (D5-Ns -) 1,000 mls @ 30 mls/hr IV ASDIR [facility] Last Admin: 04/20/19 01:24 Dose: 30 mls/hr Levothyroxine Sodium (Synthroid -) 25 mcg PO DAILY@0700 [facility] Last Admin: 04/20/19 06:25 Dose: 25 mcg Melatonin (Melatonin) 5 mg PO HS PRN PRN Reason: INSOMNIA Last Admin: 04/19/19 22:42 Dose: 5 mg - Objective Vital Signs: Vital Signs Temperature 97.9 F 04/20/19 06:23 Pulse Rate 57 L 04/20/19 06:23 Respiratory Rate 18 04/20/19 06:23 Blood Pressure 138/61 04/20/19 06:23 O2 Sat by Pulse Oximetry (%) 95 04/19/19 21:00 Cardiovascular: Yes: Regular Rate and Rhythm Respiratory: Yes: Regular, CTA Bilaterally Gastrointestinal: Yes: Normal Bowel Sounds, Soft Labs: CBC, BMP 04/20/19 07:10 04/20/19 07:10 Problem List - Problems (1) Dysphagia Code(s): R13.10 - DYSPHAGIA, UNSPECIFIED (2) Failure to thrive Code(s): [id number] - Qualifiers: Failure to thrive age range: in adult Qualified Code(s): R62.7 - Adult failure to thrive (3) History of cancer tonsil Code(s): Z85.818 - PRSNL HX OF MALIG NEOPLM OF SITE OF LIP, ORAL CAV, & PHARYNX Assessment/Plan - Problems (1) Dysphagia Assessment/Plan: -WEIGHER AND MIXER on board and recommendation appreciated -ENT on board -puree diet and nectar thick liquid -possible PEG tube if does not increase PO intake Code(s): R13.10 - DYSPHAGIA, UNSPECIFIED (2) Failure to thrive Assessment/Plan: -IV hydration -PT -possible SNF for discharge -possible PEG tube placement if does not increase PO intake -calorie count -dietary consult Code(s): [id number] - Qualifiers: Failure to thrive age range: in adult Qualified Code(s): R62.7 - Adult failure to thrive (3) Pituitary macroadenoma with extrasellar extension Assessment/Plan: -Endo on board -MRI of pituitary shows increase in the size of the pituitary macroadenoma with again mass effect on optic chiasm, no hemorrhage within the adenoma Code(s): D35.2 - BENIGN NEOPLASM OF PITUITARY GLAND
--- NOTE | 2019-04-20 12:15 | PN ---
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, Physician History of Present Illness: pulmonary alert,feeling better,less sob. - Current Medication List Current Medications: Active Medications Albuterol Sulfate (Ventolin 0.083% Nebulizer Soln -) 1 amp NEB Q6H PRN PRN Reason: SHORT OF BREATH/WHEEZING Last Admin: 04/18/19 18:25 Dose: 1 amp Albuterol/Ipratropium (Duoneb -) 1 amp NEB RQID [facility] Last Admin: 04/20/19 11:30 Dose: 1 amp Guaifenesin (Robitussin -) 10 ml PO Q6H PRN PRN Reason: COUGH Heparin Sodium (Porcine) (Heparin -) 5,000 unit SQ BID [facility] Last Admin: 04/19/19 21:29 Dose: 5,000 unit Dextrose/Sodium Chloride (D5-Ns -) 1,000 mls @ 30 mls/hr IV ASDIR [facility] Last Admin: 04/20/19 01:24 Dose: 30 mls/hr Levothyroxine Sodium (Synthroid -) 25 mcg PO DAILY@0700 [facility] Last Admin: 04/20/19 06:25 Dose: 25 mcg Melatonin (Melatonin) 5 mg PO HS PRN PRN Reason: INSOMNIA Last Admin: 04/19/19 22:42 Dose: 5 mg - Objective Vital Signs: Vital Signs Temperature 97.9 F 04/20/19 06:23 Pulse Rate 57 L 04/20/19 06:23 Respiratory Rate 18 04/20/19 06:23 Blood Pressure 138/61 04/20/19 06:23 O2 Sat by Pulse Oximetry (%) 95 04/19/19 21:00 Constitutional: Yes: Well Nourished, Calm Eyes: Yes: WNL HENT: Yes: WNL Neck: Yes: WNL Cardiovascular: Yes: Regular Rate and Rhythm, S1, S2 Respiratory: Yes: Rhonchi (scattered candelario rhonchi and rales) Gastrointestinal: Yes: Normal Bowel Sounds, Soft Extremities: Yes: WNL Edema: No Labs: CBC, BMP 04/20/19 07:10 04/20/19 07:10 - ....Imaging Cat Scan: Report Reviewed, Image Reviewed (bilateral lowr lobe infiltrates) Problem List - Problems (1) Dysphagia Code(s): R13.10 - DYSPHAGIA, UNSPECIFIED (2) Failure to thrive Code(s): [id number] - Qualifiers: Failure to thrive age range: in adult Qualified Code(s): R62.7 - Adult failure to thrive (3) Pituitary macroadenoma with extrasellar extension Code(s): D35.2 - BENIGN NEOPLASM OF PITUITARY GLAND (4) Borderline diabetes Code(s): R73.03 - PREDIABETES (5) History of cancer tonsil Code(s): Z85.818 - PRSNL HX OF MALIG NEOPLM OF SITE OF LIP, ORAL CAV, & PHARYNX (6) Hypertension Code(s): I10 - ESSENTIAL (PRIMARY) HYPERTENSION Qualifiers: Hypertension type: essential hypertension Qualified Code(s): I10 - Essential (primary) hypertension (7) Acute hypoxemic respiratory failure Code(s): J96.01 - ACUTE RESPIRATORY FAILURE WITH HYPOXIA Assessment/Plan IMP ACUTE HYPOXEMIC RESPIRATORY FAILURE LIKELY ASPIRATION H/O TONSILLAR CA S/P RT H/O PITUITARY MACROADENOMA WITH EXTRASELLAR EXTENTION HTN HLD DM DYSPHAGIA PNEUMONIA PLAN O2 NEEDED TO MAINTAIN O2 SAT 90% OR GREATER INHALED BRONCHODILATORS ASPIRATION PRECAUTIONS CONSIDER PEG INSERTION ABX CHEST PT DR TAN Problem List - Problems (1) Dysphagia Code(s): R13.10 - DYSPHAGIA, UNSPECIFIED (2) Failure to thrive Code(s): [id number] - Qualifiers: Failure to thrive age range: in adult Qualified Code(s): R62.7 - Adult failure to thrive (3) Pituitary macroadenoma with extrasellar extension Code(s): D35.2 - BENIGN NEOPLASM OF PITUITARY GLAND (4) Borderline diabetes Code(s): R73.03 - PREDIABETES (5) History of cancer tonsil Code(s): Z85.818 - PRSNL HX OF MALIG NEOPLM OF SITE OF LIP, ORAL CAV, & PHARYNX (6) Hypertension Code(s): I10 - ESSENTIAL (PRIMARY) HYPERTENSION Qualifiers: Hypertension type: essential hypertension Qualified Code(s): I10 - Essential (primary) hypertension (7) Acute hypoxemic respiratory failure Code(s): J96.01 - ACUTE RESPIRATORY FAILURE WITH HYPOXIA
[2019-04-20] MEDS ORDERED: PIPERACILLIN/TAZOB 2.25 GM 2.25 GM in DEXTROSE 5%-WATER - 50 ML IVPB SCH (12:30)
[2019-04-20] MEDS ORDERED: PIPERACILLIN/TAZOBACTAM 2.25 GM VIAL IVPB ONE (12:45)
[2019-04-20] MEDS ORDERED: DEXTROSE 5%-WATER - 50 ML IVPB ONE ×2 (12:45→14:44)
[2019-04-20] MEDS: HEPARIN NA (PORCINE) 5,000 UNITS/ML 1ML VIAL SQ SCH ×2 (12:53→22:13)
--- NOTE | 2019-04-20 14:03 | PN ---
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 (short form) - Note 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: ID consult dictated imp/reccd probable aspiration pneumonia noted on chest ct scan no fevers no leukocytosis mbs with silent aspiration on liquids seen by pulmonary started on inhaled bronchodilators with improvement yesterday antiibotics started today no recent admissions can switch to rocephin/flagyl legionella and pneumococal antigen
[2019-04-20] MEDS ORDERED: cefTRIAXone SODIUM 1 GM VIAL ONE (14:44)
[2019-04-20] MEDS: CEFTRIAXONE 1 GM in DEXTROSE 5%-WATER - 50 ML IVPB SCH (15:15)
--- NOTE | 2019-04-20 18:15 | CONS ---
DATE OF CONSULTATION: DATE OF DICTATION: 04/20/2019 INFECTIOUS DISEASE CONSULTATION HISTORY OF PRESENT ILLNESS: This is an 89-year-old woman with a past medical history of tonsillar cancer many, many years ago. She has a pituitary macroadenoma as well, and she is hearing impaired. She presented to the emergency room with fever and cough. She was apparently seen at [facility] last week and started on Amoxil, with resolution of her fever. She continued to have weakness and difficulty eating. She has not traveled. She has no sick contacts. PAST MEDICAL HISTORY: Notable for pituitary macroadenoma, hypertension, hyperlipidemia, tonsillar cancer, status post radiation therapy, osteoarthritis, diabetes, hypothyroidism. PAST SURGICAL HISTORY: Notable for cataract removal. SOCIAL HISTORY: She is originally from [place]. There is no history of any cigarette or substance use. ALLERGIES: She has no known drug allergies. MEDICATIONS: Her medications at home are not available. PRIMARY CARE PROVIDER: Gisela Rai M.D. HOSPITAL COURSE: She was admitted on the . She was evaluated by Speech and Swallowing, and she was noted to have trace silent aspiration on thin liquids. She was evaluated by ENT, who did flexible laryngoscopy. There was no evidence of any thrush. She was seen yesterday by Pulmonary, who placed her on bronchodilators, which she reports has helped her significantly and she had a CAT scan of her chest which revealed bibasilar infiltrates. She was started on piperacillin/tazobactam this morning. I am asked to see her for antibiotic recommendations. REVIEW OF SYSTEMS: She has no complaints other than this difficulty swallowing and her diet has been changed to dysphagia puree. Her sisters are present at the bedside. PHYSICAL EXAMINATION: General: She is a thin woman in no acute distress. Vital Signs: Her temperature is 98.1. Pulse is 75, blood pressure 112/58. Respiratory rate is 18. She is saturating 95% on 2 L. HEENT: She is normocephalic. Her eyes are anicteric. She cannot open her mouth beyond about an inch. Neck: Supple. Lungs: Crackles at the bases. Heart: Regular rate and rhythm. Abdomen: Soft and nontender. Extremities: Without edema. DIAGNOSTIC STUDIES: White count is 5.5, hemoglobin 11.1, platelets 269. Chemistries are normal, including LFTs. Albumin is 3. Urinalysis is negative. Influenza screen was negative. Chest CT which was done last night is notable for posterior bibasilar infiltrates. SUMMARY: This is an 89-year-old woman with tonsillar cancer, status post chemotherapy, status post radiation therapy many years ago, with also a history of macroadenoma, with a clinical history of aspiration per speaking with her family. I would suggest at this time that we treat her with ceftriaxone and Flagyl. She has no history of being in the hospital or resistant organisms, and she has no fever and looks well. For completeness, if possible would obtain Legionella and pneumococcal urinary antigens. Further recommendations to follow. ZEENAT BARRIGA M.D. [id number]
[2019-04-20] MEDS: MELATONIN 5 MG TABLETS PO PRN (22:15)
[2019-04-21] MEDS: DEXTROSE 5%-NORMAL SALINE 1,000 ML IV SCH ×2 (01:47→16:38)
[2019-04-21] MEDS: LEVOTHYROXINE NA 25 MCG TABLET (FP) PO SCH (06:08)
[2019-04-21] MEDS: ALBUTEROL SO4 2.5/IPRATROPIUM 0.5 INH SOL 3 ML VIAL.NEB. NEB SCH ×4 (07:30→19:55)
[2019-04-21] MEDS ORDERED: PIPERACILLIN/TAZOB 2.25 GM 2.25 GM in DEXTROSE 5%-WATER - 50 ML IVPB SCH (10:00)
[2019-04-21] MEDS ORDERED: DEXTROSE 5%-WATER - 50 ML IVPB ONE (10:30)
[2019-04-21] MEDS ORDERED: cefTRIAXone SODIUM 1 GM VIAL ONE (10:30)
[2019-04-21] MEDS: CEFTRIAXONE 1 GM in DEXTROSE 5%-WATER - 50 ML IVPB SCH (10:34)
[2019-04-21] MEDS: HEPARIN NA (PORCINE) 5,000 UNITS/ML 1ML VIAL SQ SCH ×2 (10:37→23:15)
--- NOTE | 2019-04-21 11:12 | PN ---
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, Physician - Current Medication List Current Medications: Active Medications Albuterol Sulfate (Ventolin 0.083% Nebulizer Soln -) 1 amp NEB Q6H PRN PRN Reason: SHORT OF BREATH/WHEEZING Last Admin: 04/18/19 18:25 Dose: 1 amp Albuterol/Ipratropium (Duoneb -) 1 amp NEB RQID [facility] Last Admin: 04/21/19 07:30 Dose: 1 amp Guaifenesin (Robitussin -) 10 ml PO Q6H PRN PRN Reason: COUGH Heparin Sodium (Porcine) (Heparin -) 5,000 unit SQ BID [facility] Last Admin: 04/21/19 10:37 Dose: 5,000 unit Dextrose/Sodium Chloride (D5-Ns -) 1,000 mls @ 30 mls/hr IV ASDIR [facility] Last Admin: 04/21/19 01:47 Dose: Not Given Ceftriaxone Sodium 1 gm/ (Dextrose) 50 mls @ 100 mls/hr IVPB DAILY [facility]; Protocol Last Admin: 04/21/19 10:34 Dose: 100 mls/hr Metronidazole (Flagyl 500mg Premixed Ivpb -) 500 mg in 100 mls @ 100 mls/hr IVPB Q8H-IV [facility] Last Admin: 04/21/19 01:48 Dose: 100 mls/hr Levothyroxine Sodium (Synthroid -) 25 mcg PO DAILY@0700 [facility] Last Admin: 04/21/19 06:08 Dose: 25 mcg Melatonin (Melatonin) 5 mg PO HS PRN PRN Reason: INSOMNIA Last Admin: 04/20/19 22:15 Dose: 5 mg - Objective Vital Signs: Vital Signs Temperature 98.4 F 04/21/19 10:13 Pulse Rate 71 04/21/19 10:13 Respiratory Rate 20 04/21/19 10:13 Blood Pressure 122/45 L 04/21/19 10:13 O2 Sat by Pulse Oximetry (%) 92 L 04/20/19 21:00 Cardiovascular: Yes: Regular Rate and Rhythm Respiratory: Yes: Regular, CTA Bilaterally Gastrointestinal: Yes: Normal Bowel Sounds, Soft Labs: CBC, BMP 04/20/19 07:10 04/20/19 07:10 Problem List - Problems (1) Dysphagia Assessment/Plan: -SOCIOLOGY INSTRUCTOR on board and recommendation appreciated -ENT on board -puree diet and nectar thick liquid -possible PEG tube if does not increase PO intake Code(s): R13.10 - DYSPHAGIA, UNSPECIFIED (2) Failure to thrive Assessment/Plan: -IV hydration -PT -possible SNF for discharge -possible PEG tube placement if does not increase PO intake -calorie count -dietary consult Code(s): [id number] - Qualifiers: Failure to thrive age range: in adult Qualified Code(s): R62.7 - Adult failure to thrive (3) History of cancer tonsil Assessment/Plan: ENT Code(s): Z85.818 - PRSNL HX OF MALIG NEOPLM OF SITE OF LIP, ORAL CAV, & PHARYNX (4) Pneumonia Assessment/Plan: noted on ct abx id consult Code(s): J18.9 - PNEUMONIA, UNSPECIFIED ORGANISM (5) Pituitary macroadenoma with extrasellar extension Assessment/Plan: -Endo on board -MRI of pituitary shows increase in the size of the pituitary macroadenoma with again mass effect on optic chiasm, no hemorrhage within the adenoma Code(s): D35.2 - BENIGN NEOPLASM OF PITUITARY GLAND
--- NOTE | 2019-04-21 12:01 | PN ---
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, Physician History of Present Illness: pulmonary alert,oob-chair,less congestion,o2 sat 96% on - Current Medication List Current Medications: Active Medications Albuterol Sulfate (Ventolin 0.083% Nebulizer Soln -) 1 amp NEB Q6H PRN PRN Reason: SHORT OF BREATH/WHEEZING Last Admin: 04/18/19 18:25 Dose: 1 amp Albuterol/Ipratropium (Duoneb -) 1 amp NEB RQID [facility] Last Admin: 04/21/19 11:30 Dose: 1 amp Guaifenesin (Robitussin -) 10 ml PO Q6H PRN PRN Reason: COUGH Heparin Sodium (Porcine) (Heparin -) 5,000 unit SQ BID [facility] Last Admin: 04/21/19 10:37 Dose: 5,000 unit Dextrose/Sodium Chloride (D5-Ns -) 1,000 mls @ 30 mls/hr IV ASDIR [facility] Last Admin: 04/21/19 01:47 Dose: Not Given Ceftriaxone Sodium 1 gm/ (Dextrose) 50 mls @ 100 mls/hr IVPB DAILY [facility]; Protocol Last Admin: 04/21/19 10:34 Dose: 100 mls/hr Metronidazole (Flagyl 500mg Premixed Ivpb -) 500 mg in 100 mls @ 100 mls/hr IVPB Q8H-IV [facility] Last Admin: 04/21/19 11:20 Dose: 100 mls/hr Levothyroxine Sodium (Synthroid -) 25 mcg PO DAILY@0700 [facility] Last Admin: 04/21/19 06:08 Dose: 25 mcg Melatonin (Melatonin) 5 mg PO HS PRN PRN Reason: INSOMNIA Last Admin: 04/20/19 22:15 Dose: 5 mg - Objective Vital Signs: Vital Signs Temperature 98.4 F 04/21/19 10:13 Pulse Rate 71 04/21/19 10:13 Respiratory Rate 20 04/21/19 10:13 Blood Pressure 122/45 L 04/21/19 10:13 O2 Sat by Pulse Oximetry (%) 92 L 04/20/19 21:00 Constitutional: Yes: Well Nourished, Calm Eyes: Yes: WNL HENT: Yes: WNL Neck: Yes: WNL Cardiovascular: Yes: Regular Rate and Rhythm, S1, S2 Respiratory: Yes: Rales (candelario crackles,few scattered rhonchi) Gastrointestinal: Yes: Normal Bowel Sounds, Soft Extremities: Yes: WNL Edema: No Labs: CBC, BMP Problem List - Problems (1) Dysphagia Code(s): R13.10 - DYSPHAGIA, UNSPECIFIED (2) Failure to thrive Code(s): [id number] - Qualifiers: Failure to thrive age range: in adult Qualified Code(s): R62.7 - Adult failure to thrive (3) Pituitary macroadenoma with extrasellar extension Code(s): D35.2 - BENIGN NEOPLASM OF PITUITARY GLAND (4) Borderline diabetes Code(s): R73.03 - PREDIABETES (5) History of cancer tonsil Code(s): Z85.818 - PRSNL HX OF MALIG NEOPLM OF SITE OF LIP, ORAL CAV, & PHARYNX (6) Hypertension Code(s): I10 - ESSENTIAL (PRIMARY) HYPERTENSION Qualifiers: Hypertension type: essential hypertension Qualified Code(s): I10 - Essential (primary) hypertension (7) Acute hypoxemic respiratory failure Code(s): J96.01 - ACUTE RESPIRATORY FAILURE WITH HYPOXIA Assessment/Plan IMP ACUTE HYPOXEMIC RESPIRATORY FAILURE BILATERAL PNEUMONIA LIKELY ASPIRATION H/O TONSILLAR CA S/P RT H/O PITUITARY MACROADENOMA WITH EXTRASELLAR EXTENTION HTN HLD DM DYSPHAGIA PNEUMONIA PLAN O2 NEEDED TO MAINTAIN O2 SAT 90% OR GREATER INHALED BRONCHODILATORS ASPIRATION PRECAUTIONS CONSIDER PEG INSERTION ABX PER ID CHEST PT F/U CHEST X-RAYS DR TAN Problem List - Problems (1) Dysphagia Code(s): R13.10 - DYSPHAGIA, UNSPECIFIED (2) Failure to thrive Code(s): [id number] - Qualifiers: Failure to thrive age range: in adult Qualified Code(s): R62.7 - Adult failure to thrive (3) Pituitary macroadenoma with extrasellar extension Code(s): D35.2 - BENIGN NEOPLASM OF PITUITARY GLAND (4) Borderline diabetes Code(s): R73.03 - PREDIABETES (5) History of cancer tonsil Code(s): Z85.818 - PRSNL HX OF MALIG NEOPLM OF SITE OF LIP, ORAL CAV, & PHARYNX (6) Hypertension Code(s): I10 - ESSENTIAL (PRIMARY) HYPERTENSION Qualifiers: Hypertension type: essential hypertension Qualified Code(s): I10 - Essential (primary) hypertension (7) Acute hypoxemic respiratory failure Code(s): J96.01 - ACUTE RESPIRATORY FAILURE WITH HYPOXIA
--- NOTE | 2019-04-21 12:51 | PN ---
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 dysphagia, failure to thrive CT chest noted-Bibasilar infiltrates ID-probable aspiration pneumonia noted on chest ct scan c/o burning in chest with potatoes? Considering PEG if necessary. Wants to wait. Reports she needs to push herself to eat and drink.
--- NOTE | 2019-04-22 00:10 | PN ---
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, Physician Chief Complaint: sitting in chair comfortable - Current Medication List Current Medications: Active Medications Albuterol/Ipratropium (Duoneb -) 1 amp NEB RQID [facility] Last Admin: 04/21/19 19:55 Dose: 1 amp Guaifenesin (Robitussin -) 10 ml PO Q6H PRN PRN Reason: COUGH Heparin Sodium (Porcine) (Heparin -) 5,000 unit SQ BID [facility] Last Admin: 04/21/19 23:15 Dose: 5,000 unit Dextrose/Sodium Chloride (D5-Ns -) 1,000 mls @ 30 mls/hr IV ASDIR [facility] Last Admin: 04/21/19 16:38 Dose: 30 mls/hr Ceftriaxone Sodium 1 gm/ (Dextrose) 50 mls @ 100 mls/hr IVPB DAILY [facility]; Protocol Last Admin: 04/21/19 10:34 Dose: 100 mls/hr Metronidazole (Flagyl 500mg Premixed Ivpb -) 500 mg in 100 mls @ 100 mls/hr IVPB Q8H-IV [facility] Last Admin: 04/21/19 18:29 Dose: 100 mls/hr Levothyroxine Sodium (Synthroid -) 25 mcg PO DAILY@0700 [facility] Last Admin: 04/21/19 06:08 Dose: 25 mcg Melatonin (Melatonin) 5 mg PO HS PRN PRN Reason: INSOMNIA Last Admin: 04/20/19 22:15 Dose: 5 mg - Objective Vital Signs: Vital Signs Temperature 98.2 F 04/21/19 23:13 Pulse Rate 69 04/21/19 23:13 Respiratory Rate 18 04/21/19 23:13 Blood Pressure 163/79 04/21/19 23:13 O2 Sat by Pulse Oximetry (%) 92 L 04/21/19 10:30 Constitutional: Yes: Calm Eyes: Yes: EOM Intact HENT: Yes: Normocephalic, Hoarseness, Nasal Congestion, Pharyngeal Erythema Neck: Yes: Trachea Midline, Tenderness Cardiovascular: Yes: Regular Rate and Rhythm Respiratory: Yes: CTA Bilaterally Gastrointestinal: Yes: Normal Bowel Sounds ...Rectal Exam: Yes: Deferred Musculoskeletal: Yes: Muscle Weakness Extremities: Yes: WNL Neurological: Yes: Alert, Oriented Labs: CBC, BMP 04/20/19 07:10 04/20/19 07:10 Problem List - Problems (1) Dysphagia Problems reviewed: Yes Code(s): R13.10 - DYSPHAGIA, UNSPECIFIED (2) Failure to thrive Code(s): [id number] - Qualifiers: Failure to thrive age range: in adult Qualified Code(s): R62.7 - Adult failure to thrive (3) Abnormal ECG Code(s): R94.31 - ABNORMAL ELECTROCARDIOGRAM [ECG] [EKG] (4) Borderline diabetes Code(s): R73.03 - PREDIABETES (5) Brain tumor (6) Pituitary macroadenoma with extrasellar extension (7) Contusion, hip Code(s): S70.00XA - CONTUSION OF UNSPECIFIED HIP, INITIAL ENCOUNTER Qualifiers: Laterality: unspecified laterality Qualified Code(s): S70.00XD - Contusion of unspecified hip, subsequent encounter Assessment/Plan Current Active Problems Acute hypoxemic respiratory failure (Acute) Dysphagia (Acute) Failure to thrive (Acute) Pituitary macroadenoma with extrasellar extension (Acute) Pneumonia (Acute) central hypothyroidism Laboratory Tests 04/17/19 04/17/19 04/19/19 12:30 12:30 06:50 TSH 0.80 Free T3 1.5 L Prolactin 0.2 L 0.3 L plan: ck acth,cortisol,gh,igf1 synthroid 25mcg qam
[2019-04-22] MEDS: DEXTROSE 5%-NORMAL SALINE 1,000 ML IV SCH (02:06)
[2019-04-22] MEDS: LEVOTHYROXINE NA 25 MCG TABLET (FP) PO SCH (06:50)
[2019-04-22] MEDS: ALBUTEROL SO4 2.5/IPRATROPIUM 0.5 INH SOL 3 ML VIAL.NEB. NEB SCH ×4 (08:05→21:14)
[2019-04-22] MEDS ORDERED: cefTRIAXone SODIUM 1 GM VIAL ONE (09:05)
[2019-04-22] MEDS ORDERED: DEXTROSE 5%-WATER - 50 ML IVPB ONE (09:05)
[2019-04-22] MEDS: HEPARIN NA (PORCINE) 5,000 UNITS/ML 1ML VIAL SQ SCH ×2 (09:16→21:54)
--- NOTE | 2019-04-22 10:20 | PN ---
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 (short form) - Note 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: day #3 antibiotics and nebs breathing is improved reports she has no appetite and has to push herself to eat (this is normal for her) oob in chair, alert Vital Signs Period Temp Pulse Resp BP Sys/Chandra Pulse Ox Last 24 Hr 98 F-98.6 F 62-76 18-20 124-163/63-90 92-97 cor-rrr lungs few crackles at the bases abd soft,nt ext no edema CBC, BMP 04/20/19 07:10 04/20/19 07:10 Microbiology 04/16/19 16:50 Urine - Urine Clean Catch Urine Culture - Final NO GROWTH OBTAINED a/p probable aspiration pneumonia noted on chest ct scan no fevers no leukocytosis mbs with silent aspiration on liquids seen by pulmonary started on inhaled bronchodilators with improvement yesterday respiratory status improved-day #3 antiiboitics if no plans for peg, can switch to po augmentin suspension and complete 7 days please call back if needed Problem List - Problems (1) Aspiration pneumonia Code(s): J69.0 - PNEUMONITIS DUE TO INHALATION OF FOOD AND VOMIT (2) History of cancer tonsil Code(s): Z85.818 - PRSNL HX OF MALIG NEOPLM OF SITE OF LIP, ORAL CAV, & PHARYNX
--- NOTE | 2019-04-22 12:35 | PN ---
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 (short form) - Note 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: PULMONARY Still some shortness of breath, cough, chest congestion. Vital Signs Period Temp Pulse Resp BP Sys/Chandra Pulse Ox Last 24 Hr 98 F-98.6 F 62-76 18-20 124-163/63-90 97 Gen: NAD at rest Heart: RRR Lung: decreased breath sounds at the bases Abd: soft, nontender Ext: no edema CBC, BMP 04/20/19 07:10 04/20/19 07:10 Active Medications Albuterol/Ipratropium (Duoneb -) 1 amp NEB RQID [facility] Last Admin: 04/22/19 11:25 Dose: 1 amp Guaifenesin (Robitussin -) 10 ml PO Q6H PRN PRN Reason: COUGH Heparin Sodium (Porcine) (Heparin -) 5,000 unit SQ BID [facility] Last Admin: 04/22/19 09:16 Dose: 5,000 unit Dextrose/Sodium Chloride (D5-Ns -) 1,000 mls @ 30 mls/hr IV ASDIR [facility] Last Admin: 04/22/19 02:06 Dose: Not Given Ceftriaxone Sodium 1 gm/ (Dextrose) 50 mls @ 100 mls/hr IVPB DAILY [facility]; Protocol Last Admin: 04/22/19 09:16 Dose: 100 mls/hr Metronidazole (Flagyl 500mg Premixed Ivpb -) 500 mg in 100 mls @ 100 mls/hr IVPB Q8H-IV [facility] Last Admin: 04/22/19 09:17 Dose: 100 mls/hr Levothyroxine Sodium (Synthroid -) 25 mcg PO DAILY@0700 [facility] Last Admin: 04/22/19 06:50 Dose: 25 mcg Melatonin (Melatonin) 5 mg PO HS PRN PRN Reason: INSOMNIA Last Admin: 04/20/19 22:15 Dose: 5 mg A/P Pneumonia likely Aspiration h/o Tonsillar Ca s/p RT Dysphagia HTN DM Hyperlipidemia - continue antibiotics - inhaled bronchodilators - O2 to keep SpO2 >90% - aspiration precautions - DVT prophylaxis
[2019-04-22] MEDS: CEFTRIAXONE 1 GM in DEXTROSE 5%-WATER - 50 ML IVPB SCH (14:45)
--- NOTE | 2019-04-22 16:24 | PN ---
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, Physician Chief Complaint: FTT Dysphagia History of Present Illness: Previous notes and events reviewed awake and alert NAD c/o productive cough with yellow phlegm denies chest pain continue with poor appetite palliative consult placed~possible G tube due to poor appetite - Current Medication List Current Medications: Active Medications Albuterol/Ipratropium (Duoneb -) 1 amp NEB RQID [facility] Last Admin: 04/22/19 11:25 Dose: 1 amp Guaifenesin (Robitussin -) 10 ml PO Q6H PRN PRN Reason: COUGH Heparin Sodium (Porcine) (Heparin -) 5,000 unit SQ BID [facility] Last Admin: 04/22/19 09:16 Dose: 5,000 unit Dextrose/Sodium Chloride (D5-Ns -) 1,000 mls @ 30 mls/hr IV ASDIR [facility] Last Admin: 04/22/19 02:06 Dose: Not Given Ceftriaxone Sodium 1 gm/ (Dextrose) 50 mls @ 100 mls/hr IVPB DAILY [facility]; Protocol Last Admin: 04/22/19 14:45 Dose: 100 mls/hr Metronidazole (Flagyl 500mg Premixed Ivpb -) 500 mg in 100 mls @ 100 mls/hr IVPB Q8H-IV [facility] Last Admin: 04/22/19 15:34 Dose: 100 mls/hr Levothyroxine Sodium (Synthroid -) 25 mcg PO DAILY@0700 [facility] Last Admin: 04/22/19 06:50 Dose: 25 mcg Melatonin (Melatonin) 5 mg PO HS PRN PRN Reason: INSOMNIA Last Admin: 04/20/19 22:15 Dose: 5 mg - Objective Vital Signs: Vital Signs Temperature 98.1 F 04/22/19 13:00 Pulse Rate 75 04/22/19 13:00 Respiratory Rate 18 04/22/19 13:00 Blood Pressure 122/51 L 04/22/19 13:00 O2 Sat by Pulse Oximetry (%) 97 04/21/19 21:00 Constitutional: Yes: No Distress, Calm Eyes: Yes: Conjunctiva Clear HENT: Yes: Atraumatic Cardiovascular: Yes: Regular Rate and Rhythm Respiratory: Yes: Regular, Diminished Gastrointestinal: Yes: Normal Bowel Sounds, Soft Genitourinary: Yes: Incontinence Musculoskeletal: Yes: Muscle Weakness Extremities: Yes: WNL Edema: No Neurological: Yes: Alert, Pre-Existing Deficit Psychiatric: Yes: Alert, Oriented Labs: CBC, BMP 04/20/19 07:10 04/20/19 07:10 Microbiology 04/21/19 17:37 Urine For Antigen Detection Legionella Antigen - Final 04/21/19 17:37 Urine For Antigen Detection Streptococcus pneumoniae Antigen (M - Final 04/16/19 16:50 Urine - Urine Clean Catch Urine Culture - Final NO GROWTH OBTAINED Problem List - Problems (1) Dysphagia Assessment/Plan: -ACCOUNTS COLLECTOR on board and recommendation appreciated -ENT on board -puree diet and nectar thick liquid -possible PEG tube if does not increase PO intake Code(s): R13.10 - DYSPHAGIA, UNSPECIFIED (2) Failure to thrive Assessment/Plan: -IV hydration -PT -possible SNF for discharge -possible PEG tube placement if does not increase PO intake -calorie count -dietary consult Code(s): [id number] - Qualifiers: Failure to thrive age range: in adult Qualified Code(s): R62.7 - Adult failure to thrive (3) Pituitary macroadenoma with extrasellar extension Assessment/Plan: -Endo on board -MRI of pituitary shows increase in the size of the pituitary macroadenoma with again mass effect on optic chiasm, no hemorrhage within the adenoma Code(s): D35.2 - BENIGN NEOPLASM OF PITUITARY GLAND (4) Aspiration pneumonia Assessment/Plan: -Pulm on board -Chest CT scan shows posterior bibasilar infiltrates -ID on board -Ceftriaxone, Flagyl -afebrile -no leukocytosis -O2 via NC -keep SpO2 >90% -Bronchodilators Code(s): J69.0 - PNEUMONITIS DUE TO INHALATION OF FOOD AND VOMIT Assessment/Plan see problem list dvt ppx
[2019-04-23] MEDS: MELATONIN 5 MG TABLETS PO PRN (00:17)
[2019-04-23] MEDS: DEXTROSE 5%-NORMAL SALINE 1,000 ML IV SCH ×2 (01:32→17:59)
[2019-04-23] MEDS: LEVOTHYROXINE NA 25 MCG TABLET (FP) PO SCH (06:41)
[2019-04-23] MEDS: ALBUTEROL SO4 2.5/IPRATROPIUM 0.5 INH SOL 3 ML VIAL.NEB. NEB SCH ×4 (10:17→20:20)
[2019-04-23] MEDS ORDERED: DEXTROSE 5%-WATER - 50 ML IVPB ONE (10:26)
[2019-04-23] MEDS ORDERED: cefTRIAXone SODIUM 1 GM VIAL ONE (10:26)
[2019-04-23] MEDS: HEPARIN NA (PORCINE) 5,000 UNITS/ML 1ML VIAL SQ SCH ×2 (10:28→22:06)
--- NOTE | 2019-04-23 10:40 | PN ---
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, Physician Chief Complaint: FTT Dysphagia metabolic encephalopathy History of Present Illness: OOB to chair Still some SOB poor PO intake worried about PEG insertion MBS showed silent aspiration with thin liquids - Current Medication List Current Medications: Active Medications Albuterol/Ipratropium (Duoneb -) 1 amp NEB RQID [facility] Last Admin: 04/23/19 10:17 Dose: 1 amp Guaifenesin (Robitussin -) 10 ml PO Q6H PRN PRN Reason: COUGH Heparin Sodium (Porcine) (Heparin -) 5,000 unit SQ BID [facility] Last Admin: 04/23/19 10:28 Dose: 5,000 unit Dextrose/Sodium Chloride (D5-Ns -) 1,000 mls @ 30 mls/hr IV ASDIR [facility] Last Admin: 04/23/19 01:32 Dose: Not Given Ceftriaxone Sodium 1 gm/ (Dextrose) 50 mls @ 100 mls/hr IVPB DAILY [facility]; Protocol Last Admin: 04/22/19 14:45 Dose: 100 mls/hr Metronidazole (Flagyl 500mg Premixed Ivpb -) 500 mg in 100 mls @ 100 mls/hr IVPB Q8H-IV [facility] Last Admin: 04/23/19 10:31 Dose: 100 mls/hr Levothyroxine Sodium (Synthroid -) 25 mcg PO DAILY@0700 [facility] Last Admin: 04/23/19 06:41 Dose: 25 mcg Melatonin (Melatonin) 5 mg PO HS PRN PRN Reason: INSOMNIA Last Admin: 04/23/19 00:17 Dose: 5 mg - Objective Vital Signs: Vital Signs Temperature 97.9 F 04/23/19 07:54 Pulse Rate 67 04/23/19 07:54 Respiratory Rate 18 04/23/19 07:54 Blood Pressure 147/80 04/23/19 07:54 O2 Sat by Pulse Oximetry (%) 94 L 04/22/19 21:00 Constitutional: Yes: No Distress, Calm, Thin Cardiovascular: Yes: Regular Rate and Rhythm Respiratory: Yes: Regular Gastrointestinal: Yes: WNL Genitourinary: Yes: WNL Musculoskeletal: Yes: Muscle Weakness Extremities: Yes: WNL Edema: No Peripheral Pulses WNL: Yes Neurological: Yes: Alert, Confusion Psychiatric: Yes: Alert Labs: CBC, BMP 04/20/19 07:10 04/20/19 07:10 Assessment/Plan (1) Dysphagia Assessment/Plan: -AIRPORT PLANNER on board and recommendation appreciated -ENT on board -puree diet and nectar thick liquid-tolerating, however her intake is still low -possible PEG tube if does not increase PO intake Code(s): R13.10 - DYSPHAGIA, UNSPECIFIED (2) Failure to thrive Assessment/Plan: -IV hydration -PT -possible SNF for discharge -possible PEG tube placement if does not increase PO intake -calorie count -dietary consult -Palliative care consult -Repeat labs today pending Code(s): [id number] - Qualifiers: Failure to thrive age range: in adult Qualified Code(s): R62.7 - Adult failure to thrive (3) Pituitary macroadenoma with extrasellar extension Assessment/Plan: -Endo on board -MRI of pituitary shows increase in the size of the pituitary macroadenoma with again mass effect on optic chiasm, no hemorrhage within the adenoma Code(s): D35.2 - BENIGN NEOPLASM OF PITUITARY GLAND (4) Aspiration pneumonia Assessment/Plan: -Pulm on board -Chest CT scan shows posterior bibasilar infiltrates -ID on board -Ceftriaxone, Flagyl---> switch to PO augmentin 1 tab BID x 7days -afebrile -no leukocytosis -O2 via NC -keep SpO2 >90% -Bronchodilators Code(s): J69.0 - PNEUMONITIS DUE TO INHALATION OF FOOD AND VOMIT
[2019-04-23 10:52] LABS: HEMATOCRIT 36.4 % (32.4-45.2); HEMOGLOBIN 11.7 GM/dL (10.7-15.3); MCH 27.8 pg (25.7-33.7); MCHC 32.2 g/dl (32.0-36.0); MEAN CELL VOLUME 86.2 fl (80-96); MEAN PLT VOLUME 6.7 fl (7.5-11.1); PLATELET COUNT 271 K/MM3 (134-434); RBC 4.22 M/mm3 (3.60-5.2); RDW 14.6 % (11.6-15.6); WHITE BLOOD COUNT 5.2 K/mm3 (4.0-10.0)
--- NOTE | 2019-04-23 10:55 | PN ---
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: Selected Entries 04/20/19 04/20/19 04/20/19 06:23 11:40 11:58 Breakfast 50% 75% Lunch Supper Temperature 97.9 F 04/20/19 04/20/19 04/20/19 14:49 18:20 20:38 Breakfast Lunch 50% Supper 75% Temperature 98.1 F 98.3 F 98.7 F 04/21/19 04/21/19 04/21/19 02:00 06:23 10:00 Breakfast 50% Lunch Supper Temperature 98.8 F 98.1 F 04/21/19 10:13 Breakfast Lunch Supper Temperature 98.4 F Laboratory Tests 04/20/19 07:10 WBC 5.5 Selected Entries 04/22/19 04/22/19 04/22/19 02:00 07:04 13:00 Breakfast 25% Lunch 25% Supper Temperature 98.6 F 98.5 F 98.1 F 04/22/19 04/22/19 04/23/19 18:00 18:30 07:54 Breakfast Lunch Supper 25% Temperature 98.2 F 97.9 F Laboratory Tests 04/20/19 04/23/19 07:10 10:25 WBC 5.5 Pending Appreciate ENT- flexible laryngoscopy today shows no lesions and no obstruction hx carcinoma of tonsil, 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 dysphagia, failure to thrive CT chest noted-Bibasilar infiltrates ID-probable aspiration pneumonia noted on chest ct scan Pulmonary- Aspiration likely Limited PO intake, although trying. Possible aspiration. Dysphagia. Considering PEG to supplement PO for pleasure. Palliative care consult pending
[2019-04-23 11:30] LABS: ALBUMIN 3.2 g/dl (3.4-5.0); BILIRUBIN,TOTAL 0.4 mg/dL (0.2-1); BLOOD UREA NITROGEN 13.3 mg/dL (7-18); CALCIUM 8.5 mg/dL (8.5-10.1); POTASSIUM 4.2 mmol/L (3.5-5.1); TOT PROT 6.9 g/dl (6.4-8.2)
[2019-04-23 12:13] LABS: ANISOCYTOSIS 0; MACROCYTOSIS 0; PLATELET ESTIMATE NORMAL
--- NOTE | 2019-04-23 12:13 | PN ---
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 (short form) - Note 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: PULMONARY Still some shortness of breath, cough, chest congestion. Feels stomach upset from antibiotics. Vital Signs Period Temp Pulse Resp BP Sys/Chandra Pulse Ox Last 24 Hr 97.9 F-98.2 F 67-82 18-20 122-147/51-100 94 Gen: NAD at rest Heart: RRR Lung: decreased breath sounds at the bases Abd: soft, nontender Ext: no edema CBC, BMP 04/23/19 10:45 04/23/19 10:25 Active Medications Albuterol/Ipratropium (Duoneb -) 1 amp NEB RQID [facility] Last Admin: 04/23/19 10:17 Dose: 1 amp Guaifenesin (Robitussin -) 10 ml PO Q6H PRN PRN Reason: COUGH Heparin Sodium (Porcine) (Heparin -) 5,000 unit SQ BID [facility] Last Admin: 04/23/19 10:28 Dose: 5,000 unit Dextrose/Sodium Chloride (D5-Ns -) 1,000 mls @ 30 mls/hr IV ASDIR [facility] Last Admin: 04/23/19 01:32 Dose: Not Given Ceftriaxone Sodium 1 gm/ (Dextrose) 50 mls @ 100 mls/hr IVPB DAILY [facility]; Protocol Last Admin: 04/22/19 14:45 Dose: 100 mls/hr Metronidazole (Flagyl 500mg Premixed Ivpb -) 500 mg in 100 mls @ 100 mls/hr IVPB Q8H-IV [facility] Last Admin: 04/23/19 10:31 Dose: 100 mls/hr Levothyroxine Sodium (Synthroid -) 25 mcg PO DAILY@0700 [facility] Last Admin: 04/23/19 06:41 Dose: 25 mcg Melatonin (Melatonin) 5 mg PO HS PRN PRN Reason: INSOMNIA Last Admin: 04/23/19 00:17 Dose: 5 mg A/P Pneumonia likely Aspiration h/o Tonsillar Ca s/p RT Dysphagia HTN DM Hyperlipidemia - complete antibiotics per ID - inhaled bronchodilators - O2 to keep SpO2 >90% - aspiration precautions - DVT prophylaxis
[2019-04-23] MEDS: CEFTRIAXONE 1 GM in DEXTROSE 5%-WATER - 50 ML IVPB SCH (12:35)
[2019-04-23] MEDS: PANTOPRAZOLE SODIUM 40 MG VIAL IVPUSH SCH (13:26)
[2019-04-23] MEDS ORDERED: ACETAMINOPHEN 325 MG TABLET (FP) PO PRN (18:01)
[2019-04-23] MEDS: guaiFENesin 200 MG/10 ML 10 ML UNIT-DOSE CUPS PO PRN (22:05)
[2019-04-24] MEDS: MELATONIN 5 MG TABLETS PO PRN ×2 (01:19→21:22)
[2019-04-24] MEDS: LEVOTHYROXINE NA 25 MCG TABLET (FP) PO SCH (06:25)
[2019-04-24] MEDS ORDERED: AMOX TR/POT CLAV 875MG/125MG TABLETS (FP) PO SCH (08:00)
[2019-04-24] MEDS: ALBUTEROL SO4 2.5/IPRATROPIUM 0.5 INH SOL 3 ML VIAL.NEB. NEB SCH ×4 (08:34→20:45)
--- NOTE | 2019-04-24 10:45 | PN ---
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, Physician Chief Complaint: FTT Dysphagia metabolic encephalopathy History of Present Illness: OOB to chair Sister at bedside poor PO intake worried about PEG insertion MBS showed silent aspiration with thin liquids - Current Medication List Current Medications: Active Medications Acetaminophen (Tylenol -) 650 mg PO Q4H PRN PRN Reason: PAIN Albuterol/Ipratropium (Duoneb -) 1 amp NEB RQID [facility] Last Admin: 04/24/19 08:34 Dose: 1 amp Amoxicillin/Clavulanate Potassium (Augmentin - 875mg Tablet) 1 tab PO BID@0800, 1730 [facility] Guaifenesin (Robitussin -) 10 ml PO Q6H PRN PRN Reason: COUGH Last Admin: 04/23/19 22:05 Dose: 10 ml Heparin Sodium (Porcine) (Heparin -) 5,000 unit SQ BID [facility] Last Admin: 04/23/19 22:06 Dose: Not Given Dextrose/Sodium Chloride (D5-Ns -) 1,000 mls @ 30 mls/hr IV ASDIR [facility] Last Admin: 04/23/19 17:59 Dose: 30 mls/hr Lactobacillus Acidophilus (Bacid -) 1 tab PO DAILY [facility] Levothyroxine Sodium (Synthroid -) 25 mcg PO DAILY@0700 [facility] Last Admin: 04/24/19 06:25 Dose: 25 mcg Melatonin (Melatonin) 5 mg PO HS PRN PRN Reason: INSOMNIA Last Admin: 04/24/19 01:19 Dose: 5 mg Pantoprazole Sodium (Protonix Iv) 40 mg IVPUSH DAILY [facility] Last Admin: 04/23/19 13:26 Dose: 40 mg - Objective Vital Signs: Vital Signs Temperature 98 F 04/24/19 06:00 Pulse Rate 70 04/24/19 06:00 Respiratory Rate 18 04/24/19 06:00 Blood Pressure 146/66 04/24/19 06:00 O2 Sat by Pulse Oximetry (%) 93 L 04/23/19 21:00 Constitutional: Yes: Well Nourished, No Distress, Calm Cardiovascular: Yes: Regular Rate and Rhythm Respiratory: Yes: Regular Gastrointestinal: Yes: WNL, Normal Bowel Sounds, Soft Musculoskeletal: Yes: WNL Extremities: Yes: WNL Edema: No Peripheral Pulses WNL: Yes Neurological: Yes: Alert, Oriented Psychiatric: Yes: Alert, Oriented Labs: CBC, BMP 04/23/19 10:45 04/23/19 10:25 Assessment/Plan (1) Dysphagia Assessment/Plan: -PLASTIC DESIGN APPLIER on board and recommendation appreciated -ENT on board -puree diet and nectar thick liquid-tolerating, however her intake is still low -Agrees to PEG, understands risks and benefits, will increase her quality of life, with bolus feeds -GI consult -will start remeron-to help with sleep, moods and appetite Code(s): R13.10 - DYSPHAGIA, UNSPECIFIED (2) Failure to thrive Assessment/Plan: -IV hydration -PT -walked well with PT -calorie count -dietary consult -Palliative care consult -Repeat labs today pending Code(s): [id number] - Qualifiers: Failure to thrive age range: in adult Qualified Code(s): R62.7 - Adult failure to thrive (3) Pituitary macroadenoma with extrasellar extension Assessment/Plan: -Endo on board -MRI of pituitary shows increase in the size of the pituitary macroadenoma with again mass effect on optic chiasm, no hemorrhage within the adenoma Code(s): D35.2 - BENIGN NEOPLASM OF PITUITARY GLAND (4) Aspiration pneumonia Assessment/Plan: -Pulm on board -Chest CT scan shows posterior bibasilar infiltrates -ID on board -PO augmentin 1 tab BID x 7days -afebrile -no leukocytosis -O2 via NC -keep SpO2 >90% -Bronchodilators -Added mucinex 2 tabs BID Code(s): J69.0 - PNEUMONITIS DUE TO INHALATION OF FOOD AND VOMIT
[2019-04-24] MEDS: LACTOBACILLUS ACIDOPHILUS 1 TABLET PO SCH (11:18)
[2019-04-24] MEDS: PANTOPRAZOLE SODIUM 40 MG VIAL IVPUSH SCH (11:18)
[2019-04-24] MEDS: HEPARIN NA (PORCINE) 5,000 UNITS/ML 1ML VIAL SQ SCH ×2 (11:18→21:38)
[2019-04-24] MEDS: DEXTROSE 5%-NORMAL SALINE 1,000 ML IV SCH (11:18)
--- NOTE | 2019-04-24 13:29 | PN ---
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, Physician History of Present Illness: PULMONARY ALERT,OOB-CHAIR.LESS CONGESTED - Current Medication List Current Medications: Active Medications Acetaminophen (Tylenol -) 650 mg PO Q4H PRN PRN Reason: PAIN Albuterol/Ipratropium (Duoneb -) 1 amp NEB RQID [facility] Last Admin: 04/24/19 12:51 Dose: 1 amp Amoxicillin/Clavulanate Potassium (Augmentin 600 Mg/5 Ml Oral Suspension -) 600 mg PO BID [facility] Guaifenesin (Robitussin -) 10 ml PO Q6H PRN PRN Reason: COUGH Last Admin: 04/23/19 22:05 Dose: 10 ml Guaifenesin (Mucinex Dm -) 2 tablet PO BID [facility] Heparin Sodium (Porcine) (Heparin -) 5,000 unit SQ BID [facility] Last Admin: 04/24/19 11:18 Dose: 5,000 unit Dextrose/Sodium Chloride (D5-Ns -) 1,000 mls @ 30 mls/hr IV ASDIR [facility] Last Admin: 04/24/19 11:18 Dose: Not Given Lactobacillus Acidophilus (Bacid -) 1 tab PO DAILY [facility] Last Admin: 04/24/19 11:18 Dose: 1 tab Levothyroxine Sodium (Synthroid -) 25 mcg PO DAILY@0700 [facility] Last Admin: 04/24/19 06:25 Dose: 25 mcg Melatonin (Melatonin) 5 mg PO HS PRN PRN Reason: INSOMNIA Last Admin: 04/24/19 01:19 Dose: 5 mg Mirtazapine (Remeron -) 7.5 mg PO HS [facility] Pantoprazole Sodium (Protonix Iv) 40 mg IVPUSH DAILY [facility] Last Admin: 04/24/19 11:18 Dose: 40 mg - Objective Vital Signs: Vital Signs Temperature 98 F 04/24/19 06:00 Pulse Rate 70 04/24/19 06:00 Respiratory Rate 18 04/24/19 06:00 Blood Pressure 146/66 04/24/19 06:00 O2 Sat by Pulse Oximetry (%) 93 L 04/23/19 21:00 Constitutional: Yes: Calm, Thin Eyes: Yes: WNL HENT: Yes: WNL Neck: Yes: WNL Cardiovascular: Yes: Regular Rate and Rhythm, S1, S2 Respiratory: Yes: Rhonchi (SCATTERED RHONCHI) Gastrointestinal: Yes: Normal Bowel Sounds, Soft Extremities: Yes: WNL Edema: No Labs: Problem List - Problems (1) Dysphagia Code(s): R13.10 - DYSPHAGIA, UNSPECIFIED (2) Failure to thrive Code(s): YCN5259 - Qualifiers: Failure to thrive age range: in adult Qualified Code(s): R62.7 - Adult failure to thrive (3) Pituitary macroadenoma with extrasellar extension Code(s): D35.2 - BENIGN NEOPLASM OF PITUITARY GLAND (4) Borderline diabetes Code(s): R73.03 - PREDIABETES (5) History of cancer tonsil Code(s): Z85.818 - PRSNL HX OF MALIG NEOPLM OF SITE OF LIP, ORAL CAV, & PHARYNX (6) Hypertension Code(s): I10 - ESSENTIAL (PRIMARY) HYPERTENSION Qualifiers: Hypertension type: essential hypertension Qualified Code(s): I10 - Essential (primary) hypertension (7) Acute hypoxemic respiratory failure Code(s): J96.01 - ACUTE RESPIRATORY FAILURE WITH HYPOXIA Assessment/Plan IMP ACUTE HYPOXEMIC RESPIRATORY FAILURE BILATERAL PNEUMONIA LIKELY ASPIRATION H/O TONSILLAR CA S/P RT H/O PITUITARY MACROADENOMA WITH EXTRASELLAR EXTENTION HTN HLD DM DYSPHAGIA PNEUMONIA PLAN O2 NEEDED TO MAINTAIN O2 SAT 90% OR GREATER INHALED BRONCHODILATORS ASPIRATION PRECAUTIONS PEG INSERTION ABX PER ID CHEST PT F/U CHEST X-RAYS DR TAN Problem List - Problems (1) Dysphagia Code(s): R13.10 - DYSPHAGIA, UNSPECIFIED (2) Failure to thrive Code(s): ZIS9117 - Qualifiers: Failure to thrive age range: in adult Qualified Code(s): R62.7 - Adult failure to thrive (3) Pituitary macroadenoma with extrasellar extension Code(s): D35.2 - BENIGN NEOPLASM OF PITUITARY GLAND (4) Borderline diabetes Code(s): R73.03 - PREDIABETES (5) History of cancer tonsil Code(s): Z85.818 - PRSNL HX OF MALIG NEOPLM OF SITE OF LIP, ORAL CAV, & PHARYNX (6) Hypertension Code(s): I10 - ESSENTIAL (PRIMARY) HYPERTENSION Qualifiers: Hypertension type: essential hypertension Qualified Code(s): I10 - Essential (primary) hypertension (7) Acute hypoxemic respiratory failure Code(s): J96.01 - ACUTE RESPIRATORY FAILURE WITH HYPOXIA
--- NOTE | 2019-04-24 13:30 | PN ---
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 Answered questions regarding continueing some PO for quality of life and to maintain swallowing function. Most nutrition , meds, hydration through PEG. Pt may benefit from hospital bed, depending on schedule of feeding, to maintain elevated HOB.
[2019-04-24] MEDS: AMOX TR/POTASSIUM CLAVULANATE 600 MG/5 ML PO SCH ×2 (17:45→21:23)
[2019-04-24] MEDS: guaiFENesin/D-METHORPHAN TAB.ER.12H PO SCH ×2 (17:46→22:35)
[2019-04-24] MEDS: guaiFENesin 200 MG/10 ML 10 ML UNIT-DOSE CUPS PO PRN (21:26)
[2019-04-24] MEDS ORDERED: MIRTAZAPINE 15 MG TABLET (FP) PO SCH (22:00)
[2019-04-25] MEDS: LEVOTHYROXINE NA 25 MCG TABLET (FP) PO SCH (06:14)
--- NOTE | 2019-04-25 07:43 | HOSP ---
Subjective - Review of Symptoms Musculoskeletal: Yes: Muscle Weakness Neurological: Yes: Weakness (distally to right UE) Physical Examination Vital Signs: Vital Signs Temperature 98.0 F 04/25/19 00:00 Pulse Rate 78 04/25/19 00:00 Respiratory Rate 18 04/25/19 00:00 Blood Pressure 133/61 04/25/19 00:00 O2 Sat by Pulse Oximetry (%) 92 L 04/24/19 21:00 Musculoskeletal: Yes: Muscle Weakness (R UE) Neurological: Yes: Weakness (to right distally UE. Sensation intact.) ...Motor Strength: RUE ( 4/5 distally, bicep 5/5) Psychiatric: Yes: WNL Labs: CBC, BMP 04/23/19 10:45 04/23/19 10:25 Hospitalist Encounter Recommendations/Interventions: Notified by RN that patient woke up with distal paralysis to right UE. Admitted for dysphasia and PEG placement. Full movement of all extrem last night.No IVs noted in right side. Sensation intact, able to distingish between hot and cold but drift noted to right arm. LE full sensation and motor intact. Non contrast HCT ordered and neurology notified-Dr Campa. If HCT is negative will proceed to MRI. Full dose ASA and statin given.
--- NOTE | 2019-04-25 07:47 | PN.NIHSS ---
NIH Stroke Scale - Last Known Well Date/Time & Onset Date Last Known Well: 04/25/19 Time Last Known Well: 00:01 - Initial Evaluation Level of consciousness: Alert Ask patient the month and their age: Answers both correctly Ask patient to open & close eyes; make fist and let go: Obeys both correctly Best gaze (horizontal eye movement): Normal Visual field testing: No visual field loss Facial paresis (Show teeth/raise eyebrows/close eyes tight): Normal symmetrical movement Motor Function: Left Arm: Normal Motor Function: Right Arm: Some effort against gravity Motor Function: Left Leg: Normal (extends leg 30 degrees for 5 seconds without drift) Motor Function: Right Leg: Normal (extends leg 30 degrees for 5 seconds without drift) (pt with baseline dysarthria) Limb Ataxia: Present in one limb Sensory(Use pinprick test arms,legs,trunk,face/side to side): Normal Best language (Describe picture, name items, read sentences): No Aphasia Dysarthria (read several words): Normal articulation Extinction and Inattention: No abnormality - Total Score NIH Stroke Scale Score: 3
[2019-04-25] MEDS: ALBUTEROL SO4 2.5/IPRATROPIUM 0.5 INH SOL 3 ML VIAL.NEB. NEB SCH ×3 (08:00→16:00)
[2019-04-25] MEDS ORDERED: ASPIRIN 325 MG ENTERIC COATED TABLET (FP) PO ONE (08:15)
[2019-04-25] MEDS ORDERED: ASPIRIN 81 MG CHEWABLE TABLETS PO ONE (09:15)
--- NOTE | 2019-04-25 09:23 | PN ---
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, Physician Chief Complaint: FTT Dysphagia History of Present Illness: Previous notes and events reviewed awake and alert NAD notified by on-call Symphony DEVELOPING MACHINE OPERATOR that patient had RUE weakness this morning upon waking, Head CT scan and Neuro consulted, Head CT scan shows no evidence of acute intracranial hemorrhage, edema, midline shift, or mass effect. Spoke with Dr Campa and Brain MRI ordered. On exam RUE noted to be flaccid with sensation intact, R side facial droop. Will transfer patient to Telemetry. - Current Medication List Current Medications: Active Medications Acetaminophen (Tylenol -) 650 mg PO Q4H PRN PRN Reason: PAIN Albuterol/Ipratropium (Duoneb -) 1 amp NEB RQID [facility] Last Admin: 04/25/19 08:00 Dose: 1 amp Amoxicillin/Clavulanate Potassium (Augmentin 600 Mg/5 Ml Oral Suspension -) 600 mg PO BID [facility] Last Admin: 04/24/19 21:23 Dose: 600 mg Atorvastatin Calcium (Lipitor -) 10 mg PO HS [facility] Guaifenesin (Robitussin -) 10 ml PO Q6H PRN PRN Reason: COUGH Last Admin: 04/24/19 21:26 Dose: 10 ml Guaifenesin (Mucinex Dm -) 2 tablet PO BID [facility] Last Admin: 04/24/19 22:35 Dose: Not Given Heparin Sodium (Porcine) (Heparin -) 5,000 unit SQ BID [facility] Last Admin: 04/24/19 21:38 Dose: Not Given Dextrose/Sodium Chloride (D5-Ns -) 1,000 mls @ 30 mls/hr IV ASDIR [facility] Last Admin: 04/24/19 11:18 Dose: Not Given Lactobacillus Acidophilus (Bacid -) 1 tab PO DAILY [facility] Last Admin: 04/24/19 11:18 Dose: 1 tab Levothyroxine Sodium (Synthroid -) 25 mcg PO DAILY@0700 [facility] Last Admin: 04/25/19 06:14 Dose: 25 mcg Melatonin (Melatonin) 5 mg PO HS PRN PRN Reason: INSOMNIA Last Admin: 04/24/19 21:22 Dose: 5 mg Mirtazapine (Remeron -) 7.5 mg PO HS [facility] Last Admin: 04/24/19 21:22 Dose: 7.5 mg Pantoprazole Sodium (Protonix Iv) 40 mg IVPUSH DAILY [facility] Last Admin: 04/24/19 11:18 Dose: 40 mg - Objective Vital Signs: Vital Signs Temperature 98.2 F 04/25/19 06:00 Pulse Rate 74 04/25/19 07:10 Respiratory Rate 18 04/25/19 07:10 Blood Pressure 152/79 04/25/19 07:10 O2 Sat by Pulse Oximetry (%) 92 L 04/24/19 21:00 Constitutional: Yes: No Distress, Calm Eyes: Yes: Conjunctiva Clear HENT: Yes: Atraumatic Cardiovascular: Yes: Regular Rate and Rhythm Respiratory: Yes: Regular, On Nasal O2, Rhonchi Gastrointestinal: Yes: Normal Bowel Sounds, Soft, Abdomen, Obese Genitourinary: Yes: Incontinence Musculoskeletal: Yes: Muscle Weakness Extremities: Yes: WNL Edema: No Neurological: Yes: Alert, Oriented, Facial Droop (R side), Weakness (RUE flaccid ) Psychiatric: Yes: Alert, Oriented (to person, place, time) Labs: CBC, BMP 04/23/19 10:45 04/23/19 10:25 Microbiology 04/21/19 17:37 Urine For Antigen Detection Legionella Antigen - Final 04/21/19 17:37 Urine For Antigen Detection Streptococcus pneumoniae Antigen (M - Final 04/16/19 16:50 Urine - Urine Clean Catch Urine Culture - Final NO GROWTH OBTAINED - ....Imaging Cat Scan: Report Reviewed Problem List - Problems (1) Dysphagia Assessment/Plan: -ARCHITECTURAL SALES CONSULTANT on board and recommendation appreciated -ENT on board -puree diet and nectar thick liquid -GI consult for PEG placement Code(s): R13.10 - DYSPHAGIA, UNSPECIFIED (2) Failure to thrive Assessment/Plan: -IV hydration -PT -GI cosult for PEG placement -possible PEG tube placement if does not increase PO intake -calorie count -dietary consult Code(s): [id number] - Qualifiers: Failure to thrive age range: in adult Qualified Code(s): R62.7 - Adult failure to thrive (3) Pituitary macroadenoma with extrasellar extension Assessment/Plan: -Endo on board -MRI of pituitary shows increase in the size of the pituitary macroadenoma with again mass effect on optic chiasm, no hemorrhage within the adenoma Code(s): D35.2 - BENIGN NEOPLASM OF PITUITARY GLAND (4) Aspiration pneumonia Assessment/Plan: -Pulm on board -Chest CT scan shows posterior bibasilar infiltrates -ID on board -Augmentin -afebrile -no leukocytosis -O2 via NC -keep SpO2 >90% -Bronchodilators Code(s): J69.0 - PNEUMONITIS DUE TO INHALATION OF FOOD AND VOMIT (5) RUE weakness Assessment/Plan: -Head CT scan shows no evidence of acute intracranial hemorrhage, edema, midline shift, mass effect, or skull fracture -Brain MRI ordered -Neurology on board -neuro checks q4h -lipid panel -Aspirin 324mg x 1 dose -Carotid US -Cardiology consult -transfer to Tele for cardiac monitoring -ICU consult Code(s): R29.898 - OTH SYMPTOMS AND SIGNS INVOLVING THE MUSCULOSKELETAL SYSTEM Assessment/Plan see problem list
--- NOTE | 2019-04-25 09:36 | CONSULT ---
Consult - text type - Consultation Consultation Note: Neurology Chief Complaint: Fever, Cough, Dizziness, Increased Dysphagia History of Present Illness: This is a 89 y/o woman with a PMHx of Tonsilar Ca (s/p RT, 30 yrs ago), Brain Tumor, HTN, HLD, Hearing Imparied. Who presents to the ED with fever, cough x 1 week, dizziness and increased dysphagia. Patient's sister reported that the patient was at Urgent Care week prior to amdission and was started on Amoxicillin now completed. The patient reported having generalized weakness and dizziness on day of admission. Patient denies SOB, ROBLES, CP, palpitations, AP, N/V /D, constipation, dysuria. Denies recent sick contacts or travel. This AM, ccontacted by hospitalist who was contacted by nurse due to patient having right upper extremity weakness. 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 further evaluation and management by neurosurgery can be considered. Patient was seen by me this morning and did demonstrate speech disturbance which nurse indicates was near baseline but flaccidity of right upper extremity including biceps, triceps, handgrip. advised MRI of the brain, ordered by hospitalist. Also recommended antiplatelet as well as statin. 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) Endocrine: Yes: Diabetes Mellitus (borderline, not on meds), Hypothyroidism ( not on meds) - Past Surgical History Past Surgical History: Yes: Cataract Removal (bilateral) - Smoking History Smoking history: Never smoked Have you smoked in the past 12 months: No Aproximately how many cigarettes per day: 0 - Alcohol/Substance Use Hx Alcohol Use: No History of Substance Use: reports: None - Social History ADL: Independent Home Medications - Allergies Allergies/Adverse Reactions: Allergies Allergy/AdvReac Type Severity Reaction Status Date / Time No Known Allergies Allergy Verified 04/16/19 11:30 - Home Medications Home Medications: Ambulatory Orders NK [No Known Home Medication] 04/16/19 Family Medical History Family History: hypertension Review of Systems - Review of Systems Constitutional: reports: Chills, Fever, Loss of Appetite, Weakness Eyes: reports: No Symptoms HENT: reports: Difficult Swallowing Neck: reports: No Symptoms Cardiovascular: reports: No Symptoms Respiratory: reports: Cough Gastrointestinal: reports: No Symptoms Genitourinary: reports: No Symptoms Breasts: reports: No Symptoms Reported Musculoskeletal: reports: No Symptoms Integumentary: reports: No Symptoms Neurological: reports: Dizziness Endocrine: reports: No Symptoms Hematology/Lymphatic: reports: No Symptoms Psychiatric: reports: No Symptoms Physical Examination Vital Signs Period Temp Pulse Resp BP Sys/Chandra Pulse Ox Last 24 Hr 98.0 F-98.9 F 68-79 18-20 112-152/53-79 92 Constitutional: Yes: No Distress, Calm, Thin Eyes: Yes: WNL, Conjunctiva Clear, EOM Intact, PERRL HENT: Yes: Atraumatic, Normocephalic, Other (white secretions to buccal aspect) Neck: Yes: WNL, Supple, Trachea Midline Cardiovascular: Yes: WNL, Regular Rate and Rhythm, S1, S2 Respiratory: Yes: Rhonchi (coarse) Gastrointestinal: Yes: WNL, Normal Bowel Sounds, Soft ...Rectal Exam: Yes: Deferred Renal/: Yes: WNL Breast(s): Yes: WNL Musculoskeletal: Yes: WNL Extremities: Yes: WNL Edema: No Peripheral Pulses WNL: Yes Neurological: awake, alert, right facial droop noted, dysarthric speech, righthand rubber engraver, biceps, triceps 1/5, sensation reduced on the right, finger to nose intact CBCD WBC 5.2 K/mm3 (4.0-10.0) 04/23/19 10:45 RBC 4.22 M/mm3 (3.60-5.2) 04/23/19 10:45 Hgb 11.7 GM/dL (10.7-15.3) 04/23/19 10:45 Hct 36.4 % (32.4-45.2) 04/23/19 10:45 MCV 86.2 fl (80-96) 04/23/19 10:45 MCHC 32.2 g/dl (32.0-36.0) 04/23/19 10:45 RDW 14.6 % (11.6-15.6) 04/23/19 10:45 Plt Count 271 K/MM3 (134-434) 04/23/19 10:45 MPV 6.7 fl (7.5-11.1) L 04/23/19 10:45 CMP Sodium 139 mmol/L (136-145) 04/23/19 10:25 Potassium 4.2 mmol/L (3.5-5.1) 04/23/19 10:25 Chloride 106 mmol/L (98-107) 04/23/19 10:25 Carbon Dioxide 26 mmol/L (21-32) 04/23/19 10:25 Anion Gap 7 MMOL/L (8-16) L 04/23/19 10:25 BUN 13.3 mg/dL (7-18) 04/23/19 10:25 Creatinine 1.0 mg/dL (0.55-1.3) 04/23/19 10:25 Random Glucose 102 mg/dL (74-106) 04/23/19 10:25 Calcium 8.5 mg/dL (8.5-10.1) 04/23/19 10:25 Total Bilirubin 0.4 mg/dL (0.2-1) 04/23/19 10:25 AST 16 U/L (15-37) 04/23/19 10:25 ALT 14 U/L (13-61) 04/23/19 10:25 Alkaline Phosphatase 65 U/L (45-117) 04/23/19 10:25 Total Protein 6.9 g/dl (6.4-8.2) 04/23/19 10:25 Albumin 3.2 g/dl (3.4-5.0) L 04/23/19 10:25 Plan: This is a 89 y/o woman with a PMHx of Tonsilar Ca (s/p RT, 30 yrs ago), Brain Tumor, HTN, HLD, Hearing Imparied. Who presents to the ED with fever, cough x 1 week, dizziness and increased dysphagia. Patient's sister reported that the patient was at Urgent Care week prior to amdission and was started on Amoxicillin now completed. The patient reported having generalized weakness and dizziness on day of admission. Patient denies SOB, ROBLES, CP, palpitations, AP, N/V /D, constipation, dysuria. Denies recent sick contacts or travel. This AM, ccontacted by hospitalist who was contacted by nurse due to patient having right upper extremity weakness. 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 further evaluation and management by neurosurgery can be considered. Patient was seen by me this morning and did demonstrate speech disturbance which nurse indicates was near baseline but flaccidity of right upper extremity including biceps, triceps, handgrip. advised MRI of the brain, ordered by hospitalist. Also recommended antiplatelet as well as statin. Continue medical optimization, monitor glucose an underlying diabetes. Physical therapy as tolerated, monitor blood pressure and can allow permissive hypertension up to 220/110. Telemetry onitoring, cardiology consult recommended.
[2019-04-25] MEDS: HEPARIN NA (PORCINE) 5,000 UNITS/ML 1ML VIAL SQ SCH ×2 (09:47→21:21)
[2019-04-25] MEDS: LACTOBACILLUS ACIDOPHILUS 1 TABLET PO SCH (09:47)
[2019-04-25] MEDS: AMOX TR/POTASSIUM CLAVULANATE 600 MG/5 ML PO SCH ×2 (09:47→21:44)
[2019-04-25] MEDS: guaiFENesin/D-METHORPHAN TAB.ER.12H PO SCH ×2 (09:48→21:50)
[2019-04-25] MEDS: PANTOPRAZOLE SODIUM 40 MG VIAL IVPUSH SCH (10:04)
--- NOTE | 2019-04-25 10:59 | CON.CARD ---
Consult Consult Specialty:: cardiology Referred by:: fabian holt Reason for Consultation:: RUE weakness - History of Present Illness Chief Complaint: RUE weakness History of Present Illness: 89 year old female with a 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 This am awoke with RUE weakness. Slight improvement so far. No chest pain, palpitations, or sob. No pnd, orthopnea, or edema. Denies any history of irregular heart beat/afib. CT head no acute changes. 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) Endocrine: Yes: Diabetes Mellitus (borderline, not on meds), Hypothyroidism ( not on meds) - Past Surgical History Past Surgical History: Yes: Cataract Removal (bilateral) - Alcohol/Substance Use Hx Alcohol Use: No History of Substance Use: reports: None - Smoking History Smoking history: Never smoked Have you smoked in the past 12 months: No Aproximately how many cigarettes per day: 0 - Social History Usual Living Arrangement: Alone ADL: Independent Home Medications - Allergies Allergies/Adverse Reactions: Allergies Allergy/AdvReac Type Severity Reaction Status Date / Time No Known Allergies Allergy Verified 04/16/19 11:30 - Home Medications Home Medications: Ambulatory Orders NK [No Known Home Medication] 04/16/19 Vital Signs: Vital Signs Temperature 98.2 F 04/25/19 06:00 Pulse Rate 74 04/25/19 07:10 Respiratory Rate 18 04/25/19 07:10 Blood Pressure 152/79 04/25/19 07:10 O2 Sat by Pulse Oximetry (%) 92 L 04/24/19 21:00 Constitutional: Yes: No Distress Neck: Yes: Supple Respiratory: Yes: CTA Bilaterally Gastrointestinal: Yes: Soft Cardiovascular: Yes: Regular Rate and Rhythm JVD: No Carotid Bruit: No PMI: Non-Displaced Heart Sounds: Yes: S1, S2 Murmur: No: Systolic Murmur Edema: No - Other Data Labs, Other Data: CBC, BMP 04/23/19 10:45 04/23/19 10:25 Imaging - Results EKG: Image Reviewed Assessment/Plan 89 year old female with a 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 This am awoke with RUE weakness. Slight improvement so far. No chest pain, palpitations, or sob. No pnd, orthopnea, or edema. Denies any history of irregular heart beat/afib. CT head no acute changes. 1) RUE weakness -r/o CVA F/u neuro rec's regarding aspirin/statin/bp parameters -Plan for MRI brain -Order echocardiogram Order carotid duplex -12 lead ekg Plan to transfer to tele to monitor for afib.
--- NOTE | 2019-04-25 11:25 | PN ---
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 (short form) - Note 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: PULMONARY Right arm flaccid this AM. Denies shortness of breath. +cough and chest congestion. Vital Signs Period Temp Pulse Resp BP Sys/Chandra Pulse Ox Last 24 Hr 98.0 F-98.9 F 68-79 18-20 112-152/53-79 92 Gen: NAD at rest Heart: RRR Lung: decreased breath sounds at the bases Abd: soft, nontender Ext: no edema CBC, BMP 04/23/19 10:45 04/23/19 10:25 Active Medications Acetaminophen (Tylenol -) 650 mg PO Q4H PRN PRN Reason: PAIN Albuterol/Ipratropium (Duoneb -) 1 amp NEB RQID [facility] Last Admin: 04/25/19 08:00 Dose: 1 amp Amoxicillin/Clavulanate Potassium (Augmentin 600 Mg/5 Ml Oral Suspension -) 600 mg PO BID [facility] Last Admin: 04/25/19 09:47 Dose: Not Given Atorvastatin Calcium (Lipitor -) 10 mg PO HS [facility] Guaifenesin (Robitussin -) 10 ml PO Q6H PRN PRN Reason: COUGH Last Admin: 04/24/19 21:26 Dose: 10 ml Guaifenesin (Mucinex Dm -) 2 tablet PO BID [facility] Last Admin: 04/25/19 09:48 Dose: Not Given Heparin Sodium (Porcine) (Heparin -) 5,000 unit SQ BID [facility] Last Admin: 04/25/19 09:47 Dose: Not Given Dextrose/Sodium Chloride (D5-Ns -) 1,000 mls @ 30 mls/hr IV ASDIR [facility] Last Admin: 04/24/19 11:18 Dose: Not Given Lactobacillus Acidophilus (Bacid -) 1 tab PO DAILY [facility] Last Admin: 04/25/19 09:47 Dose: Not Given Levothyroxine Sodium (Synthroid -) 25 mcg PO DAILY@0700 [facility] Last Admin: 04/25/19 06:14 Dose: 25 mcg Melatonin (Melatonin) 5 mg PO HS PRN PRN Reason: INSOMNIA Last Admin: 04/24/19 21:22 Dose: 5 mg Mirtazapine (Remeron -) 7.5 mg PO HS [facility] Last Admin: 04/24/19 21:22 Dose: 7.5 mg Pantoprazole Sodium (Protonix Iv) 40 mg IVPUSH DAILY [facility] Last Admin: 04/25/19 10:04 Dose: 40 mg A/P r/o Acute CVA Pneumonia likely Aspiration h/o Tonsillar Ca s/p RT Dysphagia HTN DM Hyperlipidemia - neuro work up on going - complete antibiotics per ID - inhaled bronchodilators - O2 to keep SpO2 >90% - aspiration precautions - DVT prophylaxis
[2019-04-25 11:47] LABS: CHOLESTEROL 136 mg/dL (50-200); HDL CHOLESTEROL 64 mg/dL (40-60); LDL CHOLESTEROL (ONLY SJRH) 60 mg/dL (5-100); TRIGLYCERIDES 54 mg/dL (0-150)
--- NOTE | 2019-04-25 12:27 | PN ---
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, PRIZE COORDINATOR - Note 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: Selected Entries 04/24/19 04/24/19 04/24/19 00:00 06:00 15:38 Temperature 98.0 F 98 F 98.2 F 04/24/19 04/25/19 04/25/19 18:00 00:00 06:00 Temperature 98.9 F 98.0 F 98.2 F Pt was pending PEG insertion. Found to have flaccidity of right upper extremity including biceps, triceps, handgrip. Ambulatory/speech reported at baseline. Pt sent for CTA/carotid u/s. Pending MRI of the brain
[2019-04-25] MEDS ORDERED: DEXTROSE 5%-NORMAL SALINE 1,000 ML IV SCH (20:20)
[2019-04-25] MEDS ORDERED: guaiFENesin 200 MG/10 ML 10 ML UNIT-DOSE CUPS PO PRN (20:20)
[2019-04-25] MEDS ORDERED: ACETAMINOPHEN 325 MG TABLET (FP) PO PRN (20:20)
[2019-04-25] MEDS ORDERED: MELATONIN 5 MG TABLETS PO PRN (20:20)
[2019-04-25] MEDS: MIRTAZAPINE 15 MG TABLET (FP) PO SCH (21:49)
[2019-04-25] MEDS: ATORVASTATIN CA 10 MG TABLET (FP) PO SCH (21:50)
[2019-04-25] MEDS ORDERED: ATORVASTATIN CA 10 MG TABLET (FP) PO SCH (22:00)
[2019-04-26] MEDS: LEVOTHYROXINE NA 25 MCG TABLET (FP) PO SCH (06:09)
[2019-04-26] MEDS: ALBUTEROL SO4 2.5/IPRATROPIUM 0.5 INH SOL 3 ML VIAL.NEB. NEB SCH ×4 (07:49→20:14)
--- NOTE | 2019-04-26 08:42 | PN ---
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 (short form) - Note 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: Neurology Chief Complaint: Fever, Cough, Dizziness, Increased Dysphagia History of Present Illness: This is a 89 y/o woman with a PMHx of Tonsilar Ca (s/p RT, 30 yrs ago), Brain Tumor, HTN, HLD, Hearing Imparied. Who presents to the ED with fever, cough x 1 week, dizziness and increased dysphagia. Patient's sister reported that the patient was at Urgent Care week prior to amdission and was started on Amoxicillin now completed. The patient reported having generalized weakness and dizziness on day of admission. Patient denies SOB, ROBLES, CP, palpitations, AP, N/V /D, constipation, dysuria. Denies recent sick contacts or travel. This AM, ccontacted by hospitalist who was contacted by nurse due to patient having right upper extremity weakness. 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 further evaluation and management by neurosurgery can be considered. Continued flaccidity of right upper extremity including biceps, triceps, handgrip. advised MRI of the brain, ordered by hospitalist, but thereafter completed CT of the head and neck which I reviewed and showed no evidence of large vessel occlusion, there was 20% stenosis of the bilateral internal carotid arteries at the origin. Discussed with hospitalist this morning, reordered MRI of the brain to evaluate for infarct. Was told yesterday that medication would be to be crushed and therefore enteric-coated aspirin was not able to be given. - Allergies Allergies/Adverse Reactions: Allergies Allergy/AdvReac Type Severity Reaction Status Date / Time No Known Allergies Allergy Verified 04/16/19 11:30 Active Medications Acetaminophen (Tylenol -) 650 mg PO Q4H PRN PRN Reason: PAIN Albuterol/Ipratropium (Duoneb -) 1 amp NEB RQID [facility] Last Admin: 04/26/19 07:49 Dose: 1 amp Amoxicillin/Clavulanate Potassium (Augmentin 600 Mg/5 Ml Oral Suspension -) 600 mg PO BID [facility] Last Admin: 04/25/19 21:44 Dose: 600 mg Atorvastatin Calcium (Lipitor -) 10 mg PO HS [facility] Last Admin: 04/25/19 21:50 Dose: 10 mg Guaifenesin (Robitussin -) 10 ml PO Q6H PRN PRN Reason: COUGH Guaifenesin (Mucinex Dm -) 2 tablet PO BID [facility] Last Admin: 04/25/19 21:50 Dose: 2 tablet Heparin Sodium (Porcine) (Heparin -) 5,000 unit SQ BID [facility] Last Admin: 04/25/19 21:21 Dose: 5,000 unit Dextrose/Sodium Chloride (D5-Ns -) 1,000 mls @ 30 mls/hr IV ASDIR [facility] Last Admin: 04/25/19 20:30 Dose: 30 mls/hr Lactobacillus Acidophilus (Bacid -) 1 tab PO DAILY [facility] Levothyroxine Sodium (Synthroid -) 25 mcg PO DAILY@0700 [facility] Last Admin: 04/26/19 06:09 Dose: 25 mcg Melatonin (Melatonin) 5 mg PO HS PRN PRN Reason: INSOMNIA Mirtazapine (Remeron -) 7.5 mg PO HS [facility] Last Admin: 04/25/19 21:49 Dose: 7.5 mg Pantoprazole Sodium (Protonix Iv) 40 mg IVPUSH DAILY [facility] Physical Examination Vital Signs Period Temp Pulse Resp BP Sys/Chandra Pulse Ox Last 24 Hr 97.9 F-99.1 F 60-76 18-24 126-156/62-76 95-96 Constitutional: Yes: No Distress, Calm, Thin Eyes: Yes: WNL, Conjunctiva Clear, EOM Intact, PERRL HENT: Yes: Atraumatic, Normocephalic, Other (white secretions to buccal aspect) Neck: Yes: WNL, Supple, Trachea Midline Cardiovascular: Yes: WNL, Regular Rate and Rhythm, S1, S2 Respiratory: Yes: Rhonchi (coarse) Gastrointestinal: Yes: WNL, Normal Bowel Sounds, Soft ...Rectal Exam: Yes: Deferred Renal/: Yes: WNL Breast(s): Yes: WNL Musculoskeletal: Yes: WNL Extremities: Yes: WNL Edema: No Peripheral Pulses WNL: Yes Neurological: awake, alert, right facial droop noted, dysarthric speech, 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 assurance assessor, biceps, triceps 1/5, sensation reduced on the right, finger to nose intact CBCD WBC 5.2 K/mm3 (4.0-10.0) 04/23/19 10:45 RBC 4.22 M/mm3 (3.60-5.2) 04/23/19 10:45 Hgb 11.7 GM/dL (10.7-15.3) 04/23/19 10:45 Hct 36.4 % (32.4-45.2) 04/23/19 10:45 MCV 86.2 fl (80-96) 04/23/19 10:45 MCHC 32.2 g/dl (32.0-36.0) 04/23/19 10:45 RDW 14.6 % (11.6-15.6) 04/23/19 10:45 Plt Count 271 K/MM3 (134-434) 04/23/19 10:45 MPV 6.7 fl (7.5-11.1) L 04/23/19 10:45 CMP Sodium 139 mmol/L (136-145) 04/23/19 10:25 Potassium 4.2 mmol/L (3.5-5.1) 04/23/19 10:25 Chloride 106 mmol/L (98-107) 04/23/19 10:25 Carbon Dioxide 26 mmol/L (21-32) 04/23/19 10:25 Anion Gap 7 MMOL/L (8-16) L 04/23/19 10:25 BUN 13.3 mg/dL (7-18) 04/23/19 10:25 Creatinine 1.0 mg/dL (0.55-1.3) 04/23/19 10:25 Random Glucose 102 mg/dL (74-106) 04/23/19 10:25 Calcium 8.5 mg/dL (8.5-10.1) 04/23/19 10:25 Total Bilirubin 0.4 mg/dL (0.2-1) 04/23/19 10:25 AST 16 U/L (15-37) 04/23/19 10:25 ALT 14 U/L (13-61) 04/23/19 10:25 Alkaline Phosphatase 65 U/L (45-117) 04/23/19 10:25 Total Protein 6.9 g/dl (6.4-8.2) 04/23/19 10:25 Albumin 3.2 g/dl (3.4-5.0) L 04/23/19 10:25 Plan: This is a 89 y/o woman with a PMHx of Tonsilar Ca (s/p RT, 30 yrs ago), Brain Tumor, HTN, HLD, Hearing Imparied. Who presents to the ED with fever, cough x 1 week, dizziness and increased dysphagia. Patient's sister reported that the patient was at Urgent Care week prior to amdission and was started on Amoxicillin now completed. The patient reported having generalized weakness and dizziness on day of admission. Patient denies SOB, ROBLES, CP, palpitations, AP, N/V /D, constipation, dysuria. Denies recent sick contacts or travel. This AM, ccontacted by hospitalist who was contacted by nurse due to patient having right upper extremity weakness. 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 further evaluation and management by neurosurgery can be considered. Continued flaccidity of right upper extremity including biceps, triceps, handgrip. advised MRI of the brain, ordered by hospitalist, but thereafter completed CT of the head and neck which I reviewed and showed no evidence of large vessel occlusion, there was 20% stenosis of the bilateral internal carotid arteries at the origin. Discussed with hospitalist this morning, reordered MRI of the brain to evaluate for infarct. Was told yesterday that medication would be to be crushed and therefore enteric-coated aspirin was not able to be given, messaged hospitalist regarding this today. Also recommended antiplatelet as well as statin. Continue medical optimization, monitor glucose an underlying diabetes. Physical therapy as tolerated, monitor blood pressure and can allow up to 160/ 90. Telemetry onitoring, cardiology follow up. physical therapy as tolerated
[2019-04-26] MEDS ORDERED: PT OWN MED DRAWER 7, Y5N ONE (09:10)
--- NOTE | 2019-04-26 09:14 | CON.GI ---
Consult Consult Specialty:: GI Referred by:: Darian Manuel NP Reason for Consultation:: PEG tube placement - History of Present Illness Chief Complaint: Poor appetite History of Present Illness: Patient is an 89 y/o female with past medical history of Tonsilar CA s/p RT 30 yrs ago, Brain Tumor, HTN, HLD, Hearing Impaired. Consult was placed for PEG tube placement. Patient has been experiencing poor appetite with dysphagia and nausea for 40yrs. She also states experiencing abnormal weight loss of 20 lbs but cannot say in how long of a time period. Patient was evaluated by [facility] and MBS was done with diet recommendations and PEG insertion to supplement PO intake. - History Source History Provided By: Patient Limitations to Obtaining History: No Limitations - Past Medical History FENCE RIDER: Yes: Other (pituitary macroadenoma) Cardio/Vascular: Yes: HTN, Hyperlipdemia Musculoskeletal: Yes: Osteoarthritis (back, shoulders) ENT: Yes: Other (h/o tonsillar CA s/p radiation therapy only many years ago) Endocrine: Yes: Diabetes Mellitus (borderline, not on meds), Hypothyroidism ( not on meds) - Past Surgical History Past Surgical History: Yes: Cataract Removal (bilateral) - Alcohol/Substance Use Hx Alcohol Use: No History of Substance Use: reports: None - Smoking History Smoking history: Never smoked Have you smoked in the past 12 months: No Aproximately how many cigarettes per day: 0 - Social History Usual Living Arrangement: Alone ADL: Independent Home Medications - Allergies Allergies/Adverse Reactions: Allergies Allergy/AdvReac Type Severity Reaction Status Date / Time No Known Allergies Allergy Verified 04/16/19 11:30 - Home Medications Home Medications: Ambulatory Orders NK [No Known Home Medication] 04/16/19 Review of Systems - Review of Systems Constitutional: reports: Loss of Appetite, Unintentional Wgt. Loss Eyes: reports: No Symptoms HENT: reports: Difficult Swallowing Neck: reports: No Symptoms Cardiovascular: reports: No Symptoms Respiratory: reports: No Symptoms Gastrointestinal: reports: Constipation, Dysphagia, Nausea Genitourinary: reports: No Symptoms Breasts: reports: No Symptoms Reported Musculoskeletal: reports: No Symptoms Integumentary: reports: No Symptoms Neurological: reports: No Symptoms Endocrine: reports: No Symptoms Hematology/Lymphatic: reports: No Symptoms Psychiatric: reports: No Symptoms Physical Exam-GI Vital Signs: Vital Signs Temperature 98.2 F 04/26/19 05:33 Pulse Rate 60 04/26/19 05:33 Respiratory Rate 18 04/26/19 05:33 Blood Pressure 139/62 04/26/19 05:33 O2 Sat by Pulse Oximetry (%) 96 04/25/19 21:00 Constitutional: Yes: No Distress, Calm Eyes: Yes: Conjunctiva Clear HENT: Yes: Atraumatic Cardiovascular: Yes: Regular Rate and Rhythm Respiratory: Yes: Regular, CTA Bilaterally Gastrointestinal Inspection: Yes: WNL. No: Ascites, Distention, Hernia, Scars, Other ...Auscultate: Yes: Normoactive Bowel Sounds. No: Hyperactive Bowel Sounds, Hypoactive Bowel Sounds, No Bowel Sounds, Other ...Palpate: No: Firm/Rigid, Guarding, Hepatomegaly, Mass, Pulsatile Mass, Soft, Splenomegaly, Tenderness, Tenderness, Epigastium, Tenderness, Rebound, Other ...Percussion: Yes: Tympanitic. No: Dullness, Fluid Wave, Other Neurological: Yes: Alert Psychiatric: Yes: Alert Labs: CBC, BMP 04/23/19 10:45 04/23/19 10:25 Problem List - Problems (1) Poor appetite Assessment/Plan: >PEG tube placement for when patient medically cleared Code(s): R63.0 - ANOREXIA
[2019-04-26] MEDS ORDERED: FLU VACCINE QUAD 60 MCG/0.5 ML (MDV 19-20) IM ONE (10:00)
[2019-04-26] MEDS: ASPIRIN 81 MG CHEWABLE TABLETS PO SCH (10:16)
[2019-04-26] MEDS: AMOX TR/POTASSIUM CLAVULANATE 600 MG/5 ML PO SCH (10:17)
[2019-04-26] MEDS: guaiFENesin/D-METHORPHAN TAB.ER.12H PO SCH ×2 (10:18→21:27)
[2019-04-26] MEDS: LACTOBACILLUS ACIDOPHILUS 1 TABLET PO SCH (10:18)
[2019-04-26] MEDS: HEPARIN NA (PORCINE) 5,000 UNITS/ML 1ML VIAL SQ SCH ×2 (10:18→21:26)
[2019-04-26] MEDS: PANTOPRAZOLE SODIUM 40 MG VIAL IVPUSH SCH (10:18)
--- NOTE | 2019-04-26 10:40 | PN ---
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, Physician History of Present Illness: pulmonary events noted,transferred to telemetry, acute left cva with r brent, pt less congested - Current Medication List Current Medications: Active Medications Acetaminophen (Tylenol -) 650 mg PO Q4H PRN PRN Reason: PAIN Albuterol/Ipratropium (Duoneb -) 1 amp NEB RQID [facility] Last Admin: 04/26/19 07:49 Dose: 1 amp Amoxicillin/Clavulanate Potassium (Augmentin 600 Mg/5 Ml Oral Suspension -) 600 mg PO BID [facility] Last Admin: 04/26/19 10:17 Dose: 600 mg Aspirin (Asa -) 81 mg PO DAILY [facility] Last Admin: 04/26/19 10:16 Dose: 81 mg Atorvastatin Calcium (Lipitor -) 10 mg PO HS [facility] Last Admin: 04/25/19 21:50 Dose: 10 mg Guaifenesin (Robitussin -) 10 ml PO Q6H PRN PRN Reason: COUGH Guaifenesin (Mucinex Dm -) 2 tablet PO BID [facility] Last Admin: 04/26/19 10:18 Dose: 2 tablet Heparin Sodium (Porcine) (Heparin -) 5,000 unit SQ BID [facility] Last Admin: 04/26/19 10:18 Dose: 5,000 unit Dextrose/Sodium Chloride (D5-Ns -) 1,000 mls @ 30 mls/hr IV ASDIR [facility] Last Admin: 04/25/19 20:30 Dose: 30 mls/hr Lactobacillus Acidophilus (Bacid -) 1 tab PO DAILY [facility] Last Admin: 04/26/19 10:18 Dose: 1 tab Levothyroxine Sodium (Synthroid -) 25 mcg PO DAILY@0700 [facility] Last Admin: 04/26/19 06:09 Dose: 25 mcg Melatonin (Melatonin) 5 mg PO HS PRN PRN Reason: INSOMNIA Mirtazapine (Remeron -) 7.5 mg PO HS [facility] Last Admin: 04/25/19 21:49 Dose: 7.5 mg Pantoprazole Sodium (Protonix Iv) 40 mg IVPUSH DAILY [facility] Last Admin: 04/26/19 10:18 Dose: 40 mg - Objective Vital Signs: Vital Signs Temperature 98 F 04/26/19 09:00 Pulse Rate 58 L 04/26/19 09:00 Respiratory Rate 18 04/26/19 09:00 Blood Pressure 133/64 04/26/19 09:00 O2 Sat by Pulse Oximetry (%) 96 04/25/19 21:00 Constitutional: Yes: Calm, Thin Eyes: Yes: WNL HENT: Yes: WNL Neck: Yes: WNL Cardiovascular: Yes: Regular Rate and Rhythm, S1, S2 Respiratory: Yes: Rhonchi (scattered candelario rhonchi) Gastrointestinal: Yes: Normal Bowel Sounds, Soft Extremities: Yes: WNL Edema: No Neurological: Yes: Other (r hemiparesis) Labs: CBC, BMP 04/23/19 10:45 04/23/19 10:25 Problem List - Problems (1) Dysphagia Code(s): R13.10 - DYSPHAGIA, UNSPECIFIED (2) Failure to thrive Code(s): [id number] - Qualifiers: Failure to thrive age range: in adult Qualified Code(s): R62.7 - Adult failure to thrive (3) Pituitary macroadenoma with extrasellar extension Code(s): D35.2 - BENIGN NEOPLASM OF PITUITARY GLAND (4) Borderline diabetes Code(s): R73.03 - PREDIABETES (5) History of cancer tonsil Code(s): Z85.818 - PRSNL HX OF MALIG NEOPLM OF SITE OF LIP, ORAL CAV, & PHARYNX (6) Hypertension Code(s): I10 - ESSENTIAL (PRIMARY) HYPERTENSION Qualifiers: Hypertension type: essential hypertension Qualified Code(s): I10 - Essential (primary) hypertension (7) Acute hypoxemic respiratory failure Code(s): J96.01 - ACUTE RESPIRATORY FAILURE WITH HYPOXIA Assessment/Plan IMP ACUTE HYPOXEMIC RESPIRATORY FAILURE IMPROVING LIKELY ACUTE CVA BILATERAL PNEUMONIA LIKELY ASPIRATION H/O TONSILLAR CA S/P RT H/O PITUITARY MACROADENOMA WITH EXTRASELLAR EXTENTION HTN HLD DM DYSPHAGIA PNEUMONIA PLAN O2 NEEDED TO MAINTAIN O2 SAT 90% OR GREATER INHALED BRONCHODILATORS ASPIRATION PRECAUTIONS PEG INSERTION ABX PER ID CHEST PT F/U CHEST X-RAYS FURTHER W/U PER NEURO DR TAN Problem List - Problems (1) Dysphagia Code(s): R13.10 - DYSPHAGIA, UNSPECIFIED (2) Failure to thrive Code(s): NQR5909 - Qualifiers: Failure to thrive age range: in adult Qualified Code(s): R62.7 - Adult failure to thrive (3) Pituitary macroadenoma with extrasellar extension Code(s): D35.2 - BENIGN NEOPLASM OF PITUITARY GLAND (4) Borderline diabetes Code(s): R73.03 - PREDIABETES (5) History of cancer tonsil Code(s): Z85.818 - PRSNL HX OF MALIG NEOPLM OF SITE OF LIP, ORAL CAV, & PHARYNX (6) Hypertension Code(s): I10 - ESSENTIAL (PRIMARY) HYPERTENSION Qualifiers: Hypertension type: essential hypertension Qualified Code(s): I10 - Essential (primary) hypertension (7) Acute hypoxemic respiratory failure Code(s): J96.01 - ACUTE RESPIRATORY FAILURE WITH HYPOXIA
--- NOTE | 2019-04-26 11:17 | PN ---
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 Pt now with mild Dysarthria/right facial as well as baseline speech impairment/ trismus/dysphagia sec to Tonsilar CA s/p RT 30 yrs ago, Brain Tumor. Pt is oriented, good historian, language intact/no Aphasia. Pt with mildly increased dysphagia reported and observed. Pt asking for PEG. Pt c/o burning when eats drinks in chest-scarring/dryness sec remote RT, marce ? IMP-r/o cva vs mets? MRI pending New dysarthria, increased Dysphagia REC- Can NGT be used with esophageal burning? Can PEG still be placed- by IR? Call placed to GI Reviewed with PMD- Will start Clinimix, determine if PEG can be inserted via GI/ IR
--- NOTE | 2019-04-26 11:33 | PN ---
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, Physician Chief Complaint: patient seen and examined RUE weakness and dyarthria - Current Medication List Current Medications: Active Medications Acetaminophen (Tylenol -) 650 mg PO Q4H PRN PRN Reason: PAIN Albuterol/Ipratropium (Duoneb -) 1 amp NEB RQID [facility] Last Admin: 04/26/19 07:49 Dose: 1 amp Amoxicillin/Clavulanate Potassium (Augmentin 600 Mg/5 Ml Oral Suspension -) 600 mg PO BID [facility] Last Admin: 04/26/19 10:17 Dose: 600 mg Aspirin (Asa -) 81 mg PO DAILY [facility] Last Admin: 04/26/19 10:16 Dose: 81 mg Atorvastatin Calcium (Lipitor -) 10 mg PO HS [facility] Last Admin: 04/25/19 21:50 Dose: 10 mg Guaifenesin (Robitussin -) 10 ml PO Q6H PRN PRN Reason: COUGH Guaifenesin (Mucinex Dm -) 2 tablet PO BID [facility] Last Admin: 04/26/19 10:18 Dose: 2 tablet Heparin Sodium (Porcine) (Heparin -) 5,000 unit SQ BID [facility] Last Admin: 04/26/19 10:18 Dose: 5,000 unit Dextrose/Sodium Chloride (D5-Ns -) 1,000 mls @ 30 mls/hr IV ASDIR [facility] Last Admin: 04/25/19 20:30 Dose: 30 mls/hr Lactobacillus Acidophilus (Bacid -) 1 tab PO DAILY [facility] Last Admin: 04/26/19 10:18 Dose: 1 tab Levothyroxine Sodium (Synthroid -) 25 mcg PO DAILY@0700 [facility] Last Admin: 04/26/19 06:09 Dose: 25 mcg Melatonin (Melatonin) 5 mg PO HS PRN PRN Reason: INSOMNIA Mirtazapine (Remeron -) 7.5 mg PO HS [facility] Last Admin: 04/25/19 21:49 Dose: 7.5 mg Pantoprazole Sodium (Protonix Iv) 40 mg IVPUSH DAILY [facility] Last Admin: 04/26/19 10:18 Dose: 40 mg - Objective Vital Signs: Vital Signs Temperature 98 F 04/26/19 09:00 Pulse Rate 58 L 04/26/19 09:00 Respiratory Rate 18 04/26/19 09:00 Blood Pressure 133/64 04/26/19 09:00 O2 Sat by Pulse Oximetry (%) 96 04/25/19 21:00 calm inbed Constitutional: Yes: Calm, Thin Cardiovascular: Yes: Regular Rate and Rhythm, S1, S2 Respiratory: Yes: Diminished Gastrointestinal: Yes: Normal Bowel Sounds, Soft Neurological: Yes: Dysarthria, Facial Droop, Weakness (RUE dy) Labs: CBC, BMP 04/23/19 10:45 04/23/19 10:25 Problem List - Problems (1) Dysphagia Assessment/Plan: peg tube to placed by gi on hold till neuro work complete for new RUE awaiting brain MRI NPO clinimix last day of augmetin suspension abx iv protonix Code(s): R13.10 - DYSPHAGIA, UNSPECIFIED (2) RUE weakness Assessment/Plan: MRI brain pending aspirin lipitor PT neurology on boar CT head negative Code(s): R29.898 - OTH SYMPTOMS AND SIGNS INVOLVING THE MUSCULOSKELETAL SYSTEM (3) Hypothyroid Assessment/Plan: on synthroid tsh in range Code(s): E03.9 - HYPOTHYROIDISM, UNSPECIFIED
[2019-04-26] MEDS: AMINO ACIDS 4.25%/D5W 1,000 ML IV SCH (13:41)
--- NOTE | 2019-04-26 13:52 | PN ---
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, Physician Chief Complaint: Still with RUE weakness No chest pain, sob, or palpitations Tele: sinus with no events History of Present Illness: 89 year old female with a 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 This am awoke with RUE weakness. Slight improvement so far. No chest pain, palpitations, or sob. No pnd, orthopnea, or edema. Denies any history of irregular heart beat/afib. CT head no acute changes. - Current Medication List Current Medications: Active Medications Acetaminophen (Tylenol -) 650 mg PO Q4H PRN PRN Reason: PAIN Albuterol/Ipratropium (Duoneb -) 1 amp NEB RQID [facility] Last Admin: 04/26/19 07:49 Dose: 1 amp Aspirin (Asa -) 81 mg PO DAILY [facility] Last Admin: 04/26/19 10:16 Dose: 81 mg Atorvastatin Calcium (Lipitor -) 10 mg PO HS [facility] Last Admin: 04/25/19 21:50 Dose: 10 mg Guaifenesin (Robitussin -) 10 ml PO Q6H PRN PRN Reason: COUGH Guaifenesin (Mucinex Dm -) 2 tablet PO BID [facility] Last Admin: 04/26/19 10:18 Dose: 2 tablet Heparin Sodium (Porcine) (Heparin -) 5,000 unit SQ BID [facility] Last Admin: 04/26/19 10:18 Dose: 5,000 unit Amino Acids (Clinimix -) 1,000 mls @ 42 mls/hr IV Q24H [facility] Last Admin: 04/26/19 13:41 Dose: 42 mls/hr Lactobacillus Acidophilus (Bacid -) 1 tab PO DAILY [facility] Last Admin: 04/26/19 10:18 Dose: 1 tab Levothyroxine Sodium (Synthroid -) 25 mcg PO DAILY@0700 [facility] Last Admin: 04/26/19 06:09 Dose: 25 mcg Melatonin (Melatonin) 5 mg PO HS PRN PRN Reason: INSOMNIA Mirtazapine (Remeron -) 7.5 mg PO HS [facility] Last Admin: 04/25/19 21:49 Dose: 7.5 mg Pantoprazole Sodium (Protonix Iv) 40 mg IVPUSH DAILY [facility] Last Admin: 10/25/19 10:18 Dose: 40 mg - Objective Vital Signs: Vital Signs Temperature 98 F 04/26/19 09:00 Pulse Rate 58 L 04/26/19 09:00 Respiratory Rate 18 04/26/19 09:00 Blood Pressure 133/64 04/26/19 09:00 O2 Sat by Pulse Oximetry (%) 96 04/25/19 21:00 Constitutional: Yes: No Distress Neck: Yes: Supple Cardiovascular: Yes: Regular Rate and Rhythm, S1, S2. No: JVD Respiratory: Yes: CTA Bilaterally Gastrointestinal: Yes: Soft Edema: No Labs: CBC, BMP 04/23/19 10:45 04/23/19 10:25 Assessment/Plan 89 year old female with a 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 This am awoke with RUE weakness. Slight improvement so far. No chest pain, palpitations, or sob. No pnd, orthopnea, or edema. Denies any history of irregular heart beat/afib. CT head no acute changes. 1) RUE weakness -r/o CVA F/u neuro rec's regarding aspirin/statin/bp parameters -Plan for MRI brain -Order echocardiogram Order imaging of carotids -So far no afib on tele. Continue to monitor for 72 hours on tele and if no afib noted than consider outpatient senior living monitoring. Please call as needed
[2019-04-26] MEDS: ATORVASTATIN CA 10 MG TABLET (FP) PO SCH (21:25)
[2019-04-26] MEDS: MIRTAZAPINE 15 MG TABLET (FP) PO SCH (21:26)
[2019-04-27] MEDS: LEVOTHYROXINE NA 25 MCG TABLET (FP) PO SCH (06:14)
[2019-04-27 07:58] LABS: ALBUMIN 3.1 g/dl (3.4-5.0); BILIRUBIN,TOTAL 0.4 mg/dL (0.2-1); CALCIUM 8.3 mg/dL (8.5-10.1); CREATININE 0.9 mg/dL (0.55-1.3); POTASSIUM 4.2 mmol/L (3.5-5.1); TOT PROT 6.6 g/dl (6.4-8.2)
[2019-04-27] MEDS: ALBUTEROL SO4 2.5/IPRATROPIUM 0.5 INH SOL 3 ML VIAL.NEB. NEB SCH ×4 (08:00→21:00)
[2019-04-27 08:03] LABS: BASO % 0.5 % (0-2.0); EOS % 8.9 % (0-4.5); HEMATOCRIT 34.8 % (32.4-45.2); HEMOGLOBIN 11.7 GM/dL (10.7-15.3); LYMPH % 22.7 % (8-40); MCH 28.9 pg (25.7-33.7); MCHC 33.5 g/dl (32.0-36.0); MEAN CELL VOLUME 86.2 fl (80-96); MONO % 9.6 % (3.8-10.2); NEUT % 58.3 % (42.8-82.8); PLATELET COUNT 255 K/MM3 (134-434); RBC 4.03 M/mm3 (3.60-5.2); WHITE BLOOD COUNT 5.2 K/mm3 (4.0-10.0)
--- NOTE | 2019-04-27 08:14 | PN ---
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, Physician Chief Complaint: FTT Dysphagia metabolic encephalopathy History of Present Illness: NPO at this time except meds crushed in apple sauce MBS showed silent aspiration with thin liquids PEG on hold until MRI brain is done and cleared by Neurology - Current Medication List Current Medications: Active Medications Acetaminophen (Tylenol -) 650 mg PO Q4H PRN PRN Reason: PAIN Albuterol/Ipratropium (Duoneb -) 1 amp NEB RQID [facility] Last Admin: 04/26/19 20:14 Dose: 1 amp Aspirin (Asa -) 81 mg PO DAILY [facility] Last Admin: 04/26/19 10:16 Dose: 81 mg Atorvastatin Calcium (Lipitor -) 10 mg PO HS [facility] Last Admin: 04/26/19 21:25 Dose: 10 mg Guaifenesin (Robitussin -) 10 ml PO Q6H PRN PRN Reason: COUGH Guaifenesin (Mucinex Dm -) 2 tablet PO BID [facility] Last Admin: 04/26/19 21:27 Dose: 2 tablet Heparin Sodium (Porcine) (Heparin -) 5,000 unit SQ BID [facility] Last Admin: 04/26/19 21:26 Dose: 5,000 unit Amino Acids (Clinimix -) 1,000 mls @ 42 mls/hr IV Q24H [facility] Last Admin: 04/26/19 13:41 Dose: 42 mls/hr Lactobacillus Acidophilus (Bacid -) 1 tab PO DAILY [facility] Last Admin: 04/26/19 10:18 Dose: 1 tab Levothyroxine Sodium (Synthroid -) 25 mcg PO DAILY@0700 [facility] Last Admin: 04/27/19 06:14 Dose: 25 mcg Melatonin (Melatonin) 5 mg PO HS PRN PRN Reason: INSOMNIA Last Admin: 04/26/19 21:26 Dose: 5 mg Mirtazapine (Remeron -) 7.5 mg PO HS [facility] Last Admin: 04/26/19 21:26 Dose: 7.5 mg Pantoprazole Sodium (Protonix Iv) 40 mg IVPUSH DAILY [facility] Last Admin: 04/26/19 10:18 Dose: 40 mg - Objective Vital Signs: Vital Signs Temperature 98.6 F 04/27/19 06:00 Pulse Rate 61 04/27/19 06:00 Respiratory Rate 20 04/27/19 06:00 Blood Pressure 137/65 04/27/19 06:00 O2 Sat by Pulse Oximetry (%) 98 04/26/19 21:00 Constitutional: Yes: No Distress, Calm, Thin Cardiovascular: Yes: Regular Rate and Rhythm Respiratory: Yes: Regular Gastrointestinal: Yes: WNL Genitourinary: Yes: WNL Musculoskeletal: Yes: Muscle Weakness Extremities: Yes: WNL Edema: No Peripheral Pulses WNL: Yes Integumentary: Yes: WNL Neurological: Yes: Alert, Oriented Psychiatric: Yes: Alert, Oriented Labs: CBC, BMP 04/27/19 06:28 Problem List - Problems (1) Constipation Assessment/Plan: -Add senna 2 tabs HS Problems reviewed: Yes Code(s): K59.00 - CONSTIPATION, UNSPECIFIED (2) Glossitis Assessment/Plan: -Magic mouthwash 5ml Q6h Problems reviewed: Yes Code(s): K14.0 - GLOSSITIS Assessment/Plan (3) Dysphagia Assessment/Plan: -INTEGRATION DIRECTOR on board and recommendation appreciated -ENT on board -puree diet and nectar thick liquid-tolerating, however her intake is still low -Agrees to PEG, understands risks and benefits, will increase her quality of life, with bolus feeds -GI consult -will start remeron-to help with sleep, moods and appetite -PEG insertion after MRI brain and Neurology clearance -On clinimix until surgery Code(s): R13.10 - DYSPHAGIA, UNSPECIFIED (4) Failure to thrive Assessment/Plan: -IV hydration -PT -walked well with PT -calorie count -dietary consult -Palliative care consult Code(s): YDG8166 - Qualifiers: Failure to thrive age range: in adult Qualified Code(s): R62.7 - Adult failure to thrive (5) Pituitary macroadenoma with extrasellar extension Assessment/Plan: -Endo on board -MRI of pituitary shows increase in the size of the pituitary macroadenoma with again mass effect on optic chiasm, no hemorrhage within the adenoma Code(s): D35.2 - BENIGN NEOPLASM OF PITUITARY GLAND (6) Aspiration pneumonia Assessment/Plan: -Pulm on board -Chest CT scan shows posterior bibasilar infiltrates -ID on board -PO augmentin susp BID x 7days- was started on 04/24/19, received 3 doses only since. -afebrile -no leukocytosis -O2 via NC -keep SpO2 >90% -Bronchodilators -Added mucinex 2 tabs BID Code(s): J69.0 - PNEUMONITIS DUE TO INHALATION OF FOOD AND VOMIT
[2019-04-27] MEDS: ASPIRIN 81 MG CHEWABLE TABLETS PO SCH (09:27)
[2019-04-27] MEDS: HEPARIN NA (PORCINE) 5,000 UNITS/ML 1ML VIAL SQ SCH ×2 (09:27→21:24)
[2019-04-27] MEDS: guaiFENesin/D-METHORPHAN TAB.ER.12H PO SCH ×2 (09:27→21:27)
[2019-04-27] MEDS: LACTOBACILLUS ACIDOPHILUS 1 TABLET PO SCH (09:27)
[2019-04-27] MEDS: PANTOPRAZOLE SODIUM 40 MG VIAL IVPUSH SCH (09:27)
--- NOTE | 2019-04-27 11:14 | PN ---
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 (short form) - Note 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: Neurology Chief Complaint: Fever, Cough, Dizziness, Increased Dysphagia History of Present Illness: This is a 89 y/o woman with a PMHx of Tonsilar Ca (s/p RT, 30 yrs ago), Brain Tumor, HTN, HLD, Hearing Imparied. Who presents to the ED with fever, cough x 1 week, dizziness and increased dysphagia. Patient's sister reported that the patient was at Urgent Care week prior to amdission and was started on Amoxicillin now completed. The patient reported having generalized weakness and dizziness on day of admission. Patient denies SOB, ROBLES, CP, palpitations, AP, N/V /D, constipation, dysuria. Denies recent sick contacts or travel. This AM, ccontacted by hospitalist who was contacted by nurse due to patient having right upper extremity weakness. 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 further evaluation and management by neurosurgery can be considered. Continued flaccidity of right upper extremity including biceps, triceps, handgrip. advised MRI of the brain, ordered by hospitalist, but thereafter completed CT of the head and neck which I reviewed and showed no evidence of large vessel occlusion, there was 20% stenosis of the bilateral internal carotid arteries at the origin. Discussed with hospitalist this morning, reordered MRI of the brain to evaluate for infarct, still awaiting MRI completion at this time. Discussed with nurse who called radiology this Am and reports she was told they would try to complete when able. PEG on hold and awaiting MRI brain, no improvement in RUE weakness. - Allergies Allergies/Adverse Reactions: Allergies Allergy/AdvReac Type Severity Reaction Status Date / Time No Known Allergies Allergy Verified 04/16/19 11:30 Active Medications Acetaminophen (Tylenol -) 650 mg PO Q4H PRN PRN Reason: PAIN Albuterol/Ipratropium (Duoneb -) 1 amp NEB RQID [facility] Last Admin: 04/27/19 08:00 Dose: 1 amp Amoxicillin (Amoxicillin Suspension -) 600 mg PO BID [facility] Aspirin (Asa -) 81 mg PO DAILY [facility] Last Admin: 04/27/19 09:27 Dose: 81 mg Atorvastatin Calcium (Lipitor -) 10 mg PO HS [facility] Last Admin: 04/26/19 21:25 Dose: 10 mg Guaifenesin (Robitussin -) 10 ml PO Q6H PRN PRN Reason: COUGH Guaifenesin (Mucinex Dm -) 2 tablet PO BID [facility] Last Admin: 04/27/19 09:27 Dose: 2 tablet Heparin Sodium (Porcine) (Heparin -) 5,000 unit SQ BID [facility] Last Admin: 04/27/19 09:27 Dose: 5,000 unit Amino Acids (Clinimix -) 1,000 mls @ 42 mls/hr IV Q24H [facility] Last Admin: 04/26/19 13:41 Dose: 42 mls/hr Lactobacillus Acidophilus (Bacid -) 1 tab PO DAILY [facility] Last Admin: 04/27/19 09:27 Dose: 1 tab Levothyroxine Sodium (Synthroid -) 25 mcg PO DAILY@0700 [facility] Last Admin: 04/27/19 06:14 Dose: 25 mcg Lidocaine/Aluminum/Magnesium/Simeth (Magic Mouthwash *Sjr Formula* -) 5 ml MM Q6HPO [facility] Melatonin (Melatonin) 5 mg PO HS PRN PRN Reason: INSOMNIA Last Admin: 04/26/19 21:26 Dose: 5 mg Mirtazapine (Remeron -) 7.5 mg PO HS [facility] Last Admin: 04/26/19 21:26 Dose: 7.5 mg Pantoprazole Sodium (Protonix Iv) 40 mg IVPUSH DAILY [facility] Last Admin: 04/27/19 09:27 Dose: 40 mg Senna (Senna -) 2 tab PO HS [facility] Physical Examination Vital Signs Period Temp Pulse Resp BP Sys/Chandra Pulse Ox Last 24 Hr 98.1 F-98.6 F 61-80 20-20 117-137/53-65 98 Constitutional: Yes: No Distress, Calm, Thin Eyes: Yes: WNL, Conjunctiva Clear, EOM Intact, PERRL HENT: Yes: Atraumatic, Normocephalic, Other (white secretions to buccal aspect) Neck: Yes: WNL, Supple, Trachea Midline Cardiovascular: Yes: WNL, Regular Rate and Rhythm, S1, S2 Respiratory: Yes: Rhonchi (coarse) Gastrointestinal: Yes: WNL, Normal Bowel Sounds, Soft ...Rectal Exam: Yes: Deferred Renal/: Yes: WNL Breast(s): Yes: WNL Musculoskeletal: Yes: WNL Extremities: Yes: WNL Edema: No Peripheral Pulses WNL: Yes Neurological: awake, alert, right facial droop noted, dysarthric speech, righthand teamcenter consultant, biceps, triceps 1/5, sensation reduced on the right, finger to nose intact CBCD WBC 5.2 K/mm3 (4.0-10.0) 04/27/19 06:55 RBC 4.03 M/mm3 (3.60-5.2) 04/27/19 06:55 Hgb 11.7 GM/dL (10.7-15.3) 04/27/19 06:55 Hct 34.8 % (32.4-45.2) 04/27/19 06:55 MCV 86.2 fl (80-96) 04/27/19 06:55 MCHC 33.5 g/dl (32.0-36.0) 04/27/19 06:55 RDW 15.0 % (11.6-15.6) 04/27/19 06:55 Plt Count 255 K/MM3 (134-434) 04/27/19 06:55 MPV 7.0 fl (7.5-11.1) L 04/27/19 06:55 CMP Sodium 137 mmol/L (136-145) 04/27/19 06:28 Potassium 4.2 mmol/L (3.5-5.1) 04/27/19 06:28 Chloride 104 mmol/L (98-107) 04/27/19 06:28 Carbon Dioxide 29 mmol/L (21-32) 04/27/19 06:28 Anion Gap 5 MMOL/L (8-16) L 04/27/19 06:28 BUN 21.0 mg/dL (7-18) H 04/27/19 06:28 Creatinine 0.9 mg/dL (0.55-1.3) 04/27/19 06:28 Random Glucose 98 mg/dL (74-106) 04/27/19 06:28 Calcium 8.3 mg/dL (8.5-10.1) L 04/27/19 06:28 Total Bilirubin 0.4 mg/dL (0.2-1) 04/27/19 06:28 AST 17 U/L (15-37) 04/27/19 06:28 ALT 16 U/L (13-61) 04/27/19 06:28 Alkaline Phosphatase 55 U/L (45-117) 04/27/19 06:28 Total Protein 6.6 g/dl (6.4-8.2) 04/27/19 06:28 Albumin 3.1 g/dl (3.4-5.0) L 04/27/19 06:28 Plan: This is a 89 y/o woman with a PMHx of Tonsilar Ca (s/p RT, 30 yrs ago), Brain Tumor, HTN, HLD, Hearing Imparied. Who presents to the ED with fever, cough x 1 week, dizziness and increased dysphagia. Patient's sister reported that the patient was at Urgent Care week prior to amdission and was started on Amoxicillin now completed. The patient reported having generalized weakness and dizziness on day of admission. Patient denies SOB, RBOLES, CP, palpitations, AP, N/V /D, constipation, dysuria. Denies recent sick contacts or travel. This AM, ccontacted by hospitalist who was contacted by nurse due to patient having right upper extremity weakness. 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 further evaluation and management by neurosurgery can be considered. Continued flaccidity of right upper extremity including biceps, triceps, handgrip. advised MRI of the brain, ordered by hospitalist, but thereafter completed CT of the head and neck which I reviewed and showed no evidence of large vessel occlusion, there was 20% stenosis of the bilateral internal carotid arteries at the origin. Discussed with nurse who called radiology this Am and reports she was told they would try to complete when able. PEG on hold and awaiting MRI brain, no improvement in RUE weakness. Continue antiplatelet as well as statin. Continue medical optimization, monitor glucose an underlying diabetes. Physical therapy as tolerated, monitor blood pressure and can allow up to 160/90. Telemetry onitoring, cardiology follow up. physical therapy as tolerated
[2019-04-27] MEDS: AMINO ACIDS 4.25%/D5W 1,000 ML IV SCH (11:45)
--- NOTE | 2019-04-27 12:06 | PN ---
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 (short form) - Note 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: PULMONARY Right arm still flaccid. Denies shortness of breath. +cough and chest congestion. Vital Signs Period Temp Pulse Resp BP Sys/Chandra Pulse Ox Last 24 Hr 98.1 F-98.6 F 61-80 20-20 117-151/53-81 95-98 Gen: NAD at rest Heart: RRR Lung: decreased breath sounds at the bases Abd: soft, nontender Ext: no edema CBC, BMP 04/27/19 06:55 04/27/19 06:28 Active Medications Acetaminophen (Tylenol -) 650 mg PO Q4H PRN PRN Reason: PAIN Albuterol/Ipratropium (Duoneb -) 1 amp NEB RQID [facility] Last Admin: 04/27/19 08:00 Dose: 1 amp Amoxicillin (Amoxicillin Suspension -) 600 mg PO BID [facility] Aspirin (Asa -) 81 mg PO DAILY [facility] Last Admin: 04/27/19 09:27 Dose: 81 mg Atorvastatin Calcium (Lipitor -) 10 mg PO HS [facility] Last Admin: 04/26/19 21:25 Dose: 10 mg Guaifenesin (Robitussin -) 10 ml PO Q6H PRN PRN Reason: COUGH Guaifenesin (Mucinex Dm -) 2 tablet PO BID [facility] Last Admin: 04/27/19 09:27 Dose: 2 tablet Heparin Sodium (Porcine) (Heparin -) 5,000 unit SQ BID [facility] Last Admin: 04/27/19 09:27 Dose: 5,000 unit Amino Acids (Clinimix -) 1,000 mls @ 42 mls/hr IV Q24H [facility] Last Admin: 04/26/19 13:41 Dose: 42 mls/hr Lactobacillus Acidophilus (Bacid -) 1 tab PO DAILY [facility] Last Admin: 04/27/19 09:27 Dose: 1 tab Levothyroxine Sodium (Synthroid -) 25 mcg PO DAILY@0700 [facility] Last Admin: 04/27/19 06:14 Dose: 25 mcg Lidocaine/Aluminum/Magnesium/Simeth (Magic Mouthwash *Sjr Formula* -) 5 ml MM Q6HPO [facility] Melatonin (Melatonin) 5 mg PO HS PRN PRN Reason: INSOMNIA Last Admin: 04/26/19 21:26 Dose: 5 mg Mirtazapine (Remeron -) 7.5 mg PO HS [facility] Last Admin: 04/26/19 21:26 Dose: 7.5 mg Pantoprazole Sodium (Protonix Iv) 40 mg IVPUSH DAILY [facility] Last Admin: 04/27/19 09:27 Dose: 40 mg Senna (Senna -) 2 tab PO HS [facility] A/P Acute CVA Pneumonia likely Aspiration h/o Tonsillar Ca s/p RT Dysphagia HTN DM Hyperlipidemia - neuro work up in progress - complete antibiotics per ID - inhaled bronchodilators - O2 to keep SpO2 >90% - aspiration precautions - DVT prophylaxis
[2019-04-27] MEDS ORDERED: PT OWN MED DRAWER 7, Y5N ONE ×3 (12:24→21:21)
[2019-04-27] MEDS: MAG HYDROX/ALH/SMC/DPHA/LIDO 240 ML MOUTHWASH MM SCH ×2 (12:32→17:05)
[2019-04-27] MEDS: AMOXICILLIN ORAL SUSPENSION - 250 MG/5 ML PO SCH ×2 (12:32→21:23)
[2019-04-27] MEDS: SENNOSIDES 8.6MG TABLET (FP) PO SCH (21:25)
[2019-04-27] MEDS: ATORVASTATIN CA 10 MG TABLET (FP) PO SCH (21:25)
[2019-04-27] MEDS: MIRTAZAPINE 15 MG TABLET (FP) PO SCH (21:25)
--- NOTE | 2019-04-27 22:01 | CONSULT ---
Consult - text type - Consultation Consultation Note: NEUROSURGERY CONSULTATION Keren Perez is a pleasant 89 year old female with a recent admission for cough, dizziness and dysphagia. She was recently treated for URI. Patient also with new Right upper extremity weakness and is undergoing stroke evaluation. CT and MRI of the brain reveal a large pituitary macroadenoma which elevates the chiasm. I agree with Dr. Campa that this is not likely directly contributing to her presenting complaints. Semi-elective evaluation with Endocrine panel and formal visual greene may be considered if this lesion is felt to be symptomatic, however, there is no acute Neurosurgical intervention which is indicated or planned.
[2019-04-28] MEDS: MAG HYDROX/ALH/SMC/DPHA/LIDO 240 ML MOUTHWASH MM SCH ×4 (02:15→17:02)
[2019-04-28] MEDS: LEVOTHYROXINE NA 25 MCG TABLET (FP) PO SCH (06:31)
[2019-04-28 06:56] LABS: BASO % 0.4 % (0-2.0); EOS % 7.1 % (0-4.5); HEMATOCRIT 37.3 % (32.4-45.2); HEMOGLOBIN 12.4 GM/dL (10.7-15.3); LYMPH % 23.8 % (8-40); MCH 28.7 pg (25.7-33.7); MCHC 33.2 g/dl (32.0-36.0); MEAN CELL VOLUME 86.6 fl (80-96); MEAN PLT VOLUME 6.7 fl (7.5-11.1); MONO % 10.8 % (3.8-10.2); NEUT % 57.9 % (42.8-82.8); PLATELET COUNT 271 K/MM3 (134-434); RDW 15.2 % (11.6-15.6); WHITE BLOOD COUNT 4.8 K/mm3 (4.0-10.0)
[2019-04-28] MEDS: ALBUTEROL SO4 2.5/IPRATROPIUM 0.5 INH SOL 3 ML VIAL.NEB. NEB SCH ×4 (07:01→19:38)
[2019-04-28 07:26] LABS: ALBUMIN 3.3 g/dl (3.4-5.0); BILIRUBIN,TOTAL 0.4 mg/dL (0.2-1); BLOOD UREA NITROGEN 24.3 mg/dL (7-18); CALCIUM 8.9 mg/dL (8.5-10.1); CREATININE 0.9 mg/dL (0.55-1.3); TOT PROT 7.2 g/dl (6.4-8.2)
[2019-04-28] MEDS: LACTOBACILLUS ACIDOPHILUS 1 TABLET PO SCH (10:30)
[2019-04-28] MEDS: PANTOPRAZOLE SODIUM 40 MG VIAL IVPUSH SCH (10:30)
[2019-04-28] MEDS: ASPIRIN 81 MG CHEWABLE TABLETS PO SCH (10:30)
[2019-04-28] MEDS: HEPARIN NA (PORCINE) 5,000 UNITS/ML 1ML VIAL SQ SCH ×2 (10:30→22:24)
[2019-04-28] MEDS: AMOXICILLIN ORAL SUSPENSION - 250 MG/5 ML PO SCH ×2 (10:30→22:24)
[2019-04-28] MEDS: guaiFENesin/D-METHORPHAN TAB.ER.12H PO SCH ×2 (10:31→22:23)
--- NOTE | 2019-04-28 10:50 | PN ---
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, Physician Chief Complaint: FTT Dysphagia metabolic encephalopathy History of Present Illness: NPO at this time except meds crushed in apple sauce MBS showed silent aspiration with thin liquids PEG on hold until MRI brain is done and cleared by Neurology Pending official read on the MRI - Current Medication List Current Medications: Active Medications Acetaminophen (Tylenol -) 650 mg PO Q4H PRN PRN Reason: PAIN Albuterol/Ipratropium (Duoneb -) 1 amp NEB RQID [facility] Last Admin: 04/28/19 07:01 Dose: 1 amp Amoxicillin (Amoxicillin Suspension -) 600 mg PO BID [facility] Last Admin: 04/28/19 10:30 Dose: 600 mg Aspirin (Asa -) 81 mg PO DAILY [facility] Last Admin: 04/28/19 10:30 Dose: 81 mg Atorvastatin Calcium (Lipitor -) 10 mg PO HS [facility] Last Admin: 04/27/19 21:25 Dose: Not Given Guaifenesin (Robitussin -) 10 ml PO Q6H PRN PRN Reason: COUGH Guaifenesin (Mucinex Dm -) 2 tablet PO BID [facility] Last Admin: 04/28/19 10:31 Dose: 2 tablet Heparin Sodium (Porcine) (Heparin -) 5,000 unit SQ BID [facility] Last Admin: 04/28/19 10:30 Dose: 5,000 unit Amino Acids (Clinimix -) 1,000 mls @ 42 mls/hr IV Q24H [facility] Last Admin: 04/27/19 11:45 Dose: 42 mls/hr Lactobacillus Acidophilus (Bacid -) 1 tab PO DAILY [facility] Last Admin: 04/28/19 10:30 Dose: 1 tab Levothyroxine Sodium (Synthroid -) 25 mcg PO DAILY@0700 [facility] Last Admin: 04/28/19 06:31 Dose: 25 mcg Lidocaine/Aluminum/Magnesium/Simeth (Magic Mouthwash *Sjr Formula* -) 5 ml MM Q6HPO [facility] Last Admin: 04/28/19 06:24 Dose: 5 ml Melatonin (Melatonin) 5 mg PO HS PRN PRN Reason: INSOMNIA Last Admin: 04/26/19 21:26 Dose: 5 mg Mirtazapine (Remeron -) 7.5 mg PO HS [facility] Last Admin: 04/27/19 21:25 Dose: Not Given Pantoprazole Sodium (Protonix Iv) 40 mg IVPUSH DAILY [facility] Last Admin: 04/28/19 10:30 Dose: 40 mg Senna (Senna -) 2 tab PO HS [facility] Last Admin: 04/27/19 21:25 Dose: Not Given - Objective Vital Signs: Vital Signs Temperature 97.5 F L 04/28/19 06:00 Pulse Rate 65 04/28/19 06:00 Respiratory Rate 20 04/28/19 06:00 Blood Pressure 123/95 04/28/19 06:00 O2 Sat by Pulse Oximetry (%) 95 04/27/19 21:00 Constitutional: Yes: No Distress, Calm, Thin Cardiovascular: Yes: Regular Rate and Rhythm Respiratory: Yes: Regular Gastrointestinal: Yes: WNL, Normal Bowel Sounds, Soft Genitourinary: Yes: WNL Musculoskeletal: Yes: WNL Extremities: Yes: WNL Edema: No Peripheral Pulses WNL: Yes Neurological: Yes: Alert, Oriented Psychiatric: Yes: Alert, Oriented Labs: CBC, BMP 04/28/19 06:30 04/28/19 06:30 Problem List - Problems (1) Constipation Assessment/Plan: -Add senna 2 tabs HS Problems reviewed: Yes Code(s): K59.00 - CONSTIPATION, UNSPECIFIED (2) Glossitis Assessment/Plan: -Magic mouthwash 5ml Q6h Problems reviewed: Yes Code(s): K14.0 - GLOSSITIS Assessment/Plan (3) Dysphagia Assessment/Plan: -CORPORATE STRATEGY ASSOCIATE on board and recommendation appreciated -ENT on board -puree diet and nectar thick liquid-tolerating, however her intake is still low -Agrees to PEG, understands risks and benefits, will increase her quality of life, with bolus feeds -GI consult -will start remeron-to help with sleep, moods and appetite -PEG insertion after MRI brain and Neurology clearance -On clinimix until surgery Code(s): R13.10 - DYSPHAGIA, UNSPECIFIED (4) Failure to thrive Assessment/Plan: -IV hydration -PT -walked well with PT -calorie count -dietary consult -Palliative care consult Code(s): TRN0103 - Qualifiers: Failure to thrive age range: in adult Qualified Code(s): R62.7 - Adult failure to thrive (5) Pituitary macroadenoma with extrasellar extension Assessment/Plan: -Endo on board -MRI of pituitary shows increase in the size of the pituitary macroadenoma with again mass effect on optic chiasm, no hemorrhage within the adenoma Code(s): D35.2 - BENIGN NEOPLASM OF PITUITARY GLAND (6) Aspiration pneumonia Assessment/Plan: -Pulm on board -Chest CT scan shows posterior bibasilar infiltrates -ID on board -PO augmentin susp BID x 7days- was started on 04/24/19, received 3 doses only since. -afebrile -no leukocytosis -O2 via NC -keep SpO2 >90% -Bronchodilators -Added mucinex 2 tabs BID Code(s): J69.0 - PNEUMONITIS DUE TO INHALATION OF FOOD AND VOMIT
--- NOTE | 2019-04-28 12:27 | PN ---
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 (short form) - Note 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: PULMONARY Right arm still flaccid. Denies shortness of breath. +cough and chest congestion. Vital Signs Period Temp Pulse Resp BP Sys/Chandra Pulse Ox Last 24 Hr 97.5 F-98.6 F 59-95 18-20 113-134/33-95 94-95 Gen: NAD at rest Heart: RRR Lung: decreased breath sounds at the bases Abd: soft, nontender Ext: no edema CBC, BMP 04/28/19 06:30 04/28/19 06:30 Active Medications Acetaminophen (Tylenol -) 650 mg PO Q4H PRN PRN Reason: PAIN Albuterol/Ipratropium (Duoneb -) 1 amp NEB RQID [facility] Last Admin: 04/28/19 12:01 Dose: 1 amp Amoxicillin (Amoxicillin Suspension -) 600 mg PO BID [facility] Last Admin: 04/28/19 10:30 Dose: 600 mg Aspirin (Asa -) 81 mg PO DAILY [facility] Last Admin: 04/28/19 10:30 Dose: 81 mg Atorvastatin Calcium (Lipitor -) 10 mg PO HS [facility] Last Admin: 04/27/19 21:25 Dose: Not Given Clopidogrel Bisulfate (Plavix -) 75 mg PO DAILY [facility] Guaifenesin (Robitussin -) 10 ml PO Q6H PRN PRN Reason: COUGH Guaifenesin (Mucinex Dm -) 2 tablet PO BID [facility] Last Admin: 04/28/19 10:31 Dose: 2 tablet Heparin Sodium (Porcine) (Heparin -) 5,000 unit SQ BID [facility] Last Admin: 04/28/19 10:30 Dose: 5,000 unit Amino Acids (Clinimix -) 1,000 mls @ 42 mls/hr IV Q24H [facility] Last Admin: 04/27/19 11:45 Dose: 42 mls/hr Lactobacillus Acidophilus (Bacid -) 1 tab PO DAILY [facility] Last Admin: 04/28/19 10:30 Dose: 1 tab Levothyroxine Sodium (Synthroid -) 25 mcg PO DAILY@0700 [facility] Last Admin: 04/28/19 06:31 Dose: 25 mcg Lidocaine/Aluminum/Magnesium/Simeth (Magic Mouthwash *Sjr Formula* -) 5 ml MM Q6HPO [facility] Last Admin: 04/28/19 06:24 Dose: 5 ml Melatonin (Melatonin) 5 mg PO HS PRN PRN Reason: INSOMNIA Last Admin: 04/26/19 21:26 Dose: 5 mg Mirtazapine (Remeron -) 7.5 mg PO HS [facility] Last Admin: 04/27/19 21:25 Dose: Not Given Pantoprazole Sodium (Protonix Iv) 40 mg IVPUSH DAILY [facility] Last Admin: 04/28/19 10:30 Dose: 40 mg Senna (Senna -) 2 tab PO HS [facility] Last Admin: 04/27/19 21:25 Dose: Not Given A/P Acute CVA Pneumonia likely Aspiration h/o Tonsillar Ca s/p RT Dysphagia HTN DM Hyperlipidemia - neuro work up in progress - complete antibiotics per ID - inhaled bronchodilators - O2 to keep SpO2 >90% - aspiration precautions - DVT prophylaxis
--- NOTE | 2019-04-28 12:28 | PN ---
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 (short form) - Note 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: Neurology Chief Complaint: Fever, Cough, Dizziness, Increased Dysphagia History of Present Illness: This is a 89 y/o woman with a PMHx of Tonsilar Ca (s/p RT, 30 yrs ago), Brain Tumor, HTN, HLD, Hearing Imparied. Who presents to the ED with fever, cough x 1 week, dizziness and increased dysphagia. Patient's sister reported that the patient was at Urgent Care week prior to amdission and was started on Amoxicillin now completed. The patient reported having generalized weakness and dizziness on day of admission. Patient denies SOB, ROBLES, CP, palpitations, AP, N/V /D, constipation, dysuria. Denies recent sick contacts or travel. This AM, ccontacted by hospitalist who was contacted by nurse due to patient having right upper extremity weakness. 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 further evaluation and management by neurosurgery can be considered. Continued flaccidity of right upper extremity including biceps, triceps, handgrip. advised MRI of the brain, ordered by hospitalist, but thereafter completed CT of the head and neck which I reviewed and showed no evidence of large vessel occlusion, there was 20% stenosis of the bilateral internal carotid arteries at the origin. 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 Discussed with hospitalist and patient to likely require PEG. Preference would be for her to be on Antiplatelet as she has recent acute CVA. Would not want her off ASA at this time (not on ASA at home). Hosptialist planning to connect with GI or Dr. Dillard about performing PEG with ASA (typically would be held) - Allergies Allergies/Adverse Reactions: Allergies Allergy/AdvReac Type Severity Reaction Status Date / Time No Known Allergies Allergy Verified 04/16/19 11:30 Active Medications Acetaminophen (Tylenol -) 650 mg PO Q4H PRN PRN Reason: PAIN Albuterol/Ipratropium (Duoneb -) 1 amp NEB RQID [facility] Last Admin: 04/28/19 12:01 Dose: 1 amp Amoxicillin (Amoxicillin Suspension -) 600 mg PO BID [facility] Last Admin: 04/28/19 10:30 Dose: 600 mg Aspirin (Asa -) 81 mg PO DAILY [facility] Last Admin: 04/28/19 10:30 Dose: 81 mg Atorvastatin Calcium (Lipitor -) 10 mg PO HS [facility] Last Admin: 04/27/19 21:25 Dose: Not Given Clopidogrel Bisulfate (Plavix -) 75 mg PO DAILY [facility] Guaifenesin (Robitussin -) 10 ml PO Q6H PRN PRN Reason: COUGH Guaifenesin (Mucinex Dm -) 2 tablet PO BID [facility] Last Admin: 04/28/19 10:31 Dose: 2 tablet Heparin Sodium (Porcine) (Heparin -) 5,000 unit SQ BID [facility] Last Admin: 04/28/19 10:30 Dose: 5,000 unit Amino Acids (Clinimix -) 1,000 mls @ 42 mls/hr IV Q24H [facility] Last Admin: 04/27/19 11:45 Dose: 42 mls/hr Lactobacillus Acidophilus (Bacid -) 1 tab PO DAILY [facility] Last Admin: 04/28/19 10:30 Dose: 1 tab Levothyroxine Sodium (Synthroid -) 25 mcg PO DAILY@0700 [facility] Last Admin: 04/28/19 06:31 Dose: 25 mcg Lidocaine/Aluminum/Magnesium/Simeth (Magic Mouthwash *Sjr Formula* -) 5 ml MM Q6HPO [facility] Last Admin: 04/28/19 06:24 Dose: 5 ml Melatonin (Melatonin) 5 mg PO HS PRN PRN Reason: INSOMNIA Last Admin: 04/26/19 21:26 Dose: 5 mg Mirtazapine (Remeron -) 7.5 mg PO HS [facility] Last Admin: 04/27/19 21:25 Dose: Not Given Pantoprazole Sodium (Protonix Iv) 40 mg IVPUSH DAILY [facility] Last Admin: 04/28/19 10:30 Dose: 40 mg Senna (Senna -) 2 tab PO HS [facility] Last Admin: 04/27/19 21:25 Dose: Not Given Physical Examination Vital Signs Period Temp Pulse Resp BP Sys/Chandra Pulse Ox Last 24 Hr 97.5 F-98.6 F 59-95 18-20 113-134/33-95 94-95 Constitutional: Yes: No Distress, Calm, Thin Eyes: Yes: WNL, Conjunctiva Clear, EOM Intact, PERRL HENT: Yes: Atraumatic, Normocephalic, Other (white secretions to buccal aspect) Neck: Yes: WNL, Supple, Trachea Midline Cardiovascular: Yes: WNL, Regular Rate and Rhythm, S1, S2 Respiratory: Yes: Rhonchi (coarse) Gastrointestinal: Yes: WNL, Normal Bowel Sounds, Soft ...Rectal Exam: Yes: Deferred Renal/: Yes: WNL Breast(s): Yes: WNL Musculoskeletal: Yes: WNL Extremities: Yes: WNL Edema: No Peripheral Pulses WNL: Yes Neurological: awake, alert, right facial droop noted, dysarthric speech, righthand operations manager station, biceps, triceps 1/5, sensation reduced on the right, finger to nose intact CBCD WBC 5.2 K/mm3 (4.0-10.0) 04/27/19 06:55 RBC 4.03 M/mm3 (3.60-5.2) 04/27/19 06:55 Hgb 11.7 GM/dL (10.7-15.3) 04/27/19 06:55 Hct 34.8 % (32.4-45.2) 04/27/19 06:55 MCV 86.2 fl (80-96) 04/27/19 06:55 MCHC 33.5 g/dl (32.0-36.0) 04/27/19 06:55 RDW 15.0 % (11.6-15.6) 04/27/19 06:55 Plt Count 255 K/MM3 (134-434) 04/27/19 06:55 MPV 7.0 fl (7.5-11.1) L 04/27/19 06:55 CMP Sodium 137 mmol/L (136-145) 04/27/19 06:28 Potassium 4.2 mmol/L (3.5-5.1) 04/27/19 06:28 Chloride 104 mmol/L (98-107) 04/27/19 06:28 Carbon Dioxide 29 mmol/L (21-32) 04/27/19 06:28 Anion Gap 5 MMOL/L (8-16) L 04/27/19 06:28 BUN 21.0 mg/dL (7-18) H 04/27/19 06:28 Creatinine 0.9 mg/dL (0.55-1.3) 04/27/19 06:28 Random Glucose 98 mg/dL (74-106) 04/27/19 06:28 Calcium 8.3 mg/dL (8.5-10.1) L 04/27/19 06:28 Total Bilirubin 0.4 mg/dL (0.2-1) 04/27/19 06:28 AST 17 U/L (15-37) 04/27/19 06:28 ALT 16 U/L (13-61) 04/27/19 06:28 Alkaline Phosphatase 55 U/L (45-117) 04/27/19 06:28 Total Protein 6.6 g/dl (6.4-8.2) 04/27/19 06:28 Albumin 3.1 g/dl (3.4-5.0) L 04/27/19 06:28 Plan: This is a 89 y/o woman with a PMHx of Tonsilar Ca (s/p RT, 30 yrs ago), Brain Tumor, HTN, HLD, Hearing Imparied. Who presents to the ED with fever, cough x 1 week, dizziness and increased dysphagia. Patient's sister reported that the patient was at Urgent Care week prior to amdission and was started on Amoxicillin now completed. The patient reported having generalized weakness and dizziness on day of admission. Patient denies SOB, ROBLES, CP, palpitations, AP, N/V /D, constipation, dysuria. Denies recent sick contacts or travel. This AM, ccontacted by hospitalist who was contacted by nurse due to patient having right upper extremity weakness. 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 further evaluation and management by neurosurgery can be considered. Continued flaccidity of right upper extremity including biceps, triceps, handgrip. advised MRI of the brain, ordered by hospitalist, but thereafter completed CT of the head and neck which I reviewed and showed no evidence of large vessel occlusion, there was 20% stenosis of the bilateral internal carotid arteries at the origin. 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 Discussed with hospitalist and patient to likely require PEG. Preference would be for her to be on Antiplatelet as she has recent acute CVA. Would not want her off ASA at this time (not on ASA at home). Hosptialist planning to connect with GI or Dr. Dillard about performing PEG with ASA (typically would be held). Continue antiplatelet as well as statin. Continue medical optimization, monitor glucose an underlying diabetes. Physical therapy as tolerated, monitor blood pressure prefer less than 140/90. Telemetry onitoring, cardiology follow up. May need rehab placement.
[2019-04-28] MEDS ORDERED: CLOPIDOGREL BISULFATE 75 MG TABLET (FP) PO SCH (12:30)
--- NOTE | 2019-04-28 12:45 | PN ---
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, Physician Chief Complaint: generalized weakness History of Present Illness: 89 year old female with a 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 This am awoke with RUE weakness. Slight improvement so far. No chest pain, palpitations, or sob. No pnd, orthopnea, or edema. Denies any history of irregular heart beat/afib. CT head no acute changes. - Current Medication List Current Medications: Active Medications Acetaminophen (Tylenol -) 650 mg PO Q4H PRN PRN Reason: PAIN Albuterol/Ipratropium (Duoneb -) 1 amp NEB RQID [facility] Last Admin: 04/28/19 12:01 Dose: 1 amp Amoxicillin (Amoxicillin Suspension -) 600 mg PO BID [facility] Last Admin: 04/28/19 10:30 Dose: 600 mg Aspirin (Asa -) 81 mg PO DAILY [facility] Last Admin: 04/28/19 10:30 Dose: 81 mg Atorvastatin Calcium (Lipitor -) 10 mg PO HS [facility] Last Admin: 04/27/19 21:25 Dose: Not Given Clopidogrel Bisulfate (Plavix -) 75 mg PO DAILY [facility] Guaifenesin (Robitussin -) 10 ml PO Q6H PRN PRN Reason: COUGH Guaifenesin (Mucinex Dm -) 2 tablet PO BID [facility] Last Admin: 04/28/19 10:31 Dose: 2 tablet Heparin Sodium (Porcine) (Heparin -) 5,000 unit SQ BID [facility] Last Admin: 04/28/19 10:30 Dose: 5,000 unit Amino Acids (Clinimix -) 1,000 mls @ 42 mls/hr IV Q24H [facility] Last Admin: 04/27/19 11:45 Dose: 42 mls/hr Lactobacillus Acidophilus (Bacid -) 1 tab PO DAILY [facility] Last Admin: 04/28/19 10:30 Dose: 1 tab Levothyroxine Sodium (Synthroid -) 25 mcg PO DAILY@0700 [facility] Last Admin: 04/28/19 06:31 Dose: 25 mcg Lidocaine/Aluminum/Magnesium/Simeth (Magic Mouthwash *Sjr Formula* -) 5 ml MM Q6HPO [facility] Last Admin: 04/28/19 06:24 Dose: 5 ml Melatonin (Melatonin) 5 mg PO HS PRN PRN Reason: INSOMNIA Last Admin: 04/26/19 21:26 Dose: 5 mg Mirtazapine (Remeron -) 7.5 mg PO HS [facility] Last Admin: 04/27/19 21:25 Dose: Not Given Pantoprazole Sodium (Protonix Iv) 40 mg IVPUSH DAILY [facility] Last Admin: 04/28/19 10:30 Dose: 40 mg Senna (Senna -) 2 tab PO HS [facility] Last Admin: 04/27/19 21:25 Dose: Not Given - Objective Vital Signs: Vital Signs Temperature 97.5 F L 04/28/19 10:00 Pulse Rate 59 L 04/28/19 10:00 Respiratory Rate 20 04/28/19 10:00 Blood Pressure 134/67 04/28/19 10:00 O2 Sat by Pulse Oximetry (%) 94 L 04/28/19 09:00 Constitutional: Yes: No Distress, Calm, Cachectic Eyes: Yes: WNL HENT: Yes: WNL Neck: Yes: WNL, Supple, Trachea Midline Cardiovascular: Yes: WNL, Regular Rate and Rhythm, S1, S2 Respiratory: Yes: WNL, Regular, CTA Bilaterally Gastrointestinal: Yes: WNL, Normal Bowel Sounds, Soft ...Rectal Exam: Yes: Deferred Musculoskeletal: Yes: Muscle Weakness Extremities: Yes: WNL Edema: No Peripheral Pulses: Left Radial: 1+, Right Radial: 1+, Left Doralis Pedis: 1+, Right Dorsalis Pedis: 1+, Left Femoral: 1+, Right Femoral: 1+ Integumentary: Yes: WNL Neurological: Yes: Alert, Aphasia Psychiatric: Yes: WNL Labs: CBC, BMP 04/28/19 06:30 04/28/19 06:30 Assessment/Plan 89 year old female with a 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 This am awoke with RUE weakness. Slight improvement so far. No chest pain, palpitations, or sob. No pnd, orthopnea, or edema. Denies any history of irregular heart beat/afib. CT head no acute changes. carotid Doppler was unremarkable. Echocardiogram is pending.No important events on telemetry. please arrange for an echocardiogram. Continue current regimen. continue cardiac monitoring for now. Cardiac stable.
[2019-04-28] MEDS: AMINO ACIDS 4.25%/D5W 1,000 ML IV SCH (13:04)
[2019-04-28] MEDS ORDERED: PT OWN MED DRAWER 7, Y5N ONE (22:03)
--- NOTE | 2019-04-28 22:18 | HOSP ---
Physical Examination Vital Signs: Vital Signs Temperature 98.3 F 04/28/19 18:00 Pulse Rate 59 L 04/28/19 18:00 Respiratory Rate 18 04/28/19 18:00 Blood Pressure 116/55 L 04/28/19 18:00 O2 Sat by Pulse Oximetry (%) 99 04/28/19 20:20 Labs: CBC, BMP 04/28/19 06:30 04/28/19 06:30 Hospitalist Encounter Assessment: received Microblog from nursing, pt was c/o right arm pain and wanted to see a Dr. Saw patient at bedside, pt reports she had sharp right arm pain that started at AC down to hand, pain has resolved. pt advised to call for nurse if pain reoccurs. pt with Acute CVA, on asa, statin, plavix.
[2019-04-28] MEDS: ATORVASTATIN CA 10 MG TABLET (FP) PO SCH (22:22)
[2019-04-28] MEDS: SENNOSIDES 8.6MG TABLET (FP) PO SCH (22:22)
[2019-04-28] MEDS: MIRTAZAPINE 15 MG TABLET (FP) PO SCH (22:23)
[2019-04-29] MEDS: MAG HYDROX/ALH/SMC/DPHA/LIDO 240 ML MOUTHWASH MM SCH ×4 (00:20→17:12)
[2019-04-29] MEDS: LEVOTHYROXINE NA 25 MCG TABLET (FP) PO SCH (06:43)
[2019-04-29] MEDS: ALBUTEROL SO4 2.5/IPRATROPIUM 0.5 INH SOL 3 ML VIAL.NEB. NEB SCH ×4 (07:35→20:50)
--- NOTE | 2019-04-29 08:22 | PN.GI ---
GI 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 Subjective: Patient complaints of constipation. Denies nausea, vomiting, abdominal pain, rectal bleeding. - Objective Vital Signs: Vital Signs Temperature 97.2 F L 04/29/19 06:00 Pulse Rate 58 L 04/29/19 02:00 Respiratory Rate 20 04/29/19 06:00 Blood Pressure 103/74 04/29/19 06:00 O2 Sat by Pulse Oximetry (%) 99 04/28/19 20:20 Constitutional: No Distress, Calm Eyes: Yes: Conjunctiva Clear HENT: Yes: Atraumatic Cardiovascular: Yes: Regular Rate and Rhythm Respiratory: Yes: Regular, CTA Bilaterally Gastrointestinal Inspection: Yes: WNL ...Auscultate: Yes: Normoactive Bowel Sounds. No: Hyperactive Bowel Sounds, Hypoactive Bowel Sounds, No Bowel Sounds, Other ...Palpate: Yes: Soft. No: Firm/Rigid, Guarding, Hepatomegaly, Mass, Pulsatile Mass, Splenomegaly, Tenderness, Tenderness, Epigastium, Tenderness, Rebound, Other ...Percussion: Yes: Tympanitic. No: Dullness, Fluid Wave, Other Neurological: Yes: Alert, Weakness (RUE) Psychiatric: Yes: Alert, Oriented Labs: CBC, BMP 04/28/19 06:30 04/28/19 06:30 Active Medications Generic Name Dose Route Start Last Admin Trade Name Freq PRN Reason Stop Dose Admin Acetaminophen 650 mg 04/25/19 20:20 Tylenol - PO Q4H PRN PAIN Albuterol/Ipratropium 1 amp 04/26/19 08:00 04/29/19 07:35 Duoneb - NEB 1 amp RQID [facility] Administration Amoxicillin 600 mg 04/27/19 12:00 04/28/19 22:24 Amoxicillin Suspension - PO 600 mg BID [facility] Administration Aspirin 81 mg 04/26/19 10:15 04/28/19 10:30 Asa - PO 81 mg DAILY [facility] Administration Atorvastatin Calcium 10 mg 04/25/19 22:00 04/28/19 22:22 Lipitor - PO 10 mg HS [facility] Administration Guaifenesin 10 ml 04/25/19 20:20 Robitussin - PO Q6H PRN COUGH Guaifenesin 2 tablet 04/25/19 22:00 04/28/19 22:23 Mucinex Dm - PO 2 tablet BID [facility] Administration Heparin Sodium (Porcine) 5,000 unit 04/25/19 22:00 04/28/19 22:24 Heparin - SQ 5,000 unit BID [facility] Administration Amino Acids 1,000 mls @ 42 mls/hr 04/26/19 11:45 04/28/19 13:04 Clinimix - IV 42 mls/hr Q24H [facility] Administration Lactobacillus Acidophilus 1 tab 04/26/19 10:00 04/28/19 10:30 Bacid - PO 1 tab DAILY [facility] Administration Levothyroxine Sodium 25 mcg 04/26/19 07:00 04/29/19 06:43 Synthroid - PO 25 mcg DAILY@0700 [facility] Administration Lidocaine/Aluminum/Magnesium/Simeth 5 ml 04/27/19 12:00 04/29/19 06:43 Magic Mouthwash *Sjr Formula* - MM 5 ml Q6HPO [facility] Administration Melatonin 5 mg 04/25/19 20:20 04/26/19 21:26 Melatonin PO 5 mg HS PRN Administration INSOMNIA Mirtazapine 7.5 mg 04/25/19 22:00 04/28/19 22:23 Remeron - PO 7.5 mg HS [facility] Administration Pantoprazole Sodium 40 mg 04/26/19 10:00 04/28/19 10:30 Protonix Iv IVPUSH 40 mg DAILY [facility] Administration Senna 2 tab 04/27/19 22:00 04/28/19 22:22 Senna - PO 2 tab HS [facility] Administration Problem List - Problems (1) Poor appetite Assessment/Plan: >PEG tube placement for when patient medically cleared >will need cardiology and neurology clearance prior to procedure Code(s): R63.0 - ANOREXIA (2) Constipation Assessment/Plan: >Senna HS Code(s): K59.00 - CONSTIPATION, UNSPECIFIED
--- NOTE | 2019-04-29 08:49 | PN ---
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 (short form) - Note 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: Neurology Chief Complaint: Fever, Cough, Dizziness, Increased Dysphagia History of Present Illness: This is a 89 y/o woman with a PMHx of Tonsilar Ca (s/p RT, 30 yrs ago), Brain Tumor, HTN, HLD, Hearing Imparied. Who presents to the ED with fever, cough x 1 week, dizziness and increased dysphagia. Patient's sister reported that the patient was at Urgent Care week prior to amdission and was started on Amoxicillin now completed. The patient reported having generalized weakness and dizziness on day of admission. Patient denies SOB, ROBLES, CP, palpitations, AP, N/V /D, constipation, dysuria. Denies recent sick contacts or travel. This AM, ccontacted by hospitalist who was contacted by nurse due to patient having right upper extremity weakness. 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 further evaluation and management by neurosurgery can be considered. Continued flaccidity of right upper extremity including biceps, triceps, handgrip. advised MRI of the brain, ordered by hospitalist, but thereafter completed CT of the head and neck which I reviewed and showed no evidence of large vessel occlusion, there was 20% stenosis of the bilateral internal carotid arteries at the origin. 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 Discussed with hospitalist and patient to likely require PEG. Preference would be for her to be on Antiplatelet as she has recent acute CVA. Would not want her off ASA at this time (not on ASA at home). Spoke to GERONTOLOGY AIDE and confirmed that I would be agreeable to PEG but would request ASA be continued in light of recent CVA which is almost 1 week old now. Is reporting increasing strength in RUE now and performing more biceps flexion, no longer flacid paralysis. - Allergies Allergies/Adverse Reactions: Allergies Allergy/AdvReac Type Severity Reaction Status Date / Time No Known Allergies Allergy Verified 04/16/19 11:30 Active Medications Acetaminophen (Tylenol -) 650 mg PO Q4H PRN PRN Reason: PAIN Albuterol/Ipratropium (Duoneb -) 1 amp NEB RQID [facility] Last Admin: 04/29/19 07:35 Dose: 1 amp Amoxicillin (Amoxicillin Suspension -) 600 mg PO BID [facility] Last Admin: 04/28/19 22:24 Dose: 600 mg Aspirin (Asa -) 81 mg PO DAILY [facility] Last Admin: 04/28/19 10:30 Dose: 81 mg Atorvastatin Calcium (Lipitor -) 10 mg PO HS [facility] Last Admin: 04/28/19 22:22 Dose: 10 mg Guaifenesin (Robitussin -) 10 ml PO Q6H PRN PRN Reason: COUGH Guaifenesin (Mucinex Dm -) 2 tablet PO BID [facility] Last Admin: 04/28/19 22:23 Dose: 2 tablet Heparin Sodium (Porcine) (Heparin -) 5,000 unit SQ BID [facility] Last Admin: 04/28/19 22:24 Dose: 5,000 unit Amino Acids (Clinimix -) 1,000 mls @ 42 mls/hr IV Q24H [facility] Last Admin: 04/28/19 13:04 Dose: 42 mls/hr Lactobacillus Acidophilus (Bacid -) 1 tab PO DAILY [facility] Last Admin: 04/28/19 10:30 Dose: 1 tab Levothyroxine Sodium (Synthroid -) 25 mcg PO DAILY@0700 [facility] Last Admin: 04/29/19 06:43 Dose: 25 mcg Lidocaine/Aluminum/Magnesium/Simeth (Magic Mouthwash *Sjr Formula* -) 5 ml MM Q6HPO [facility] Last Admin: 04/29/19 06:43 Dose: 5 ml Melatonin (Melatonin) 5 mg PO HS PRN PRN Reason: INSOMNIA Last Admin: 04/26/19 21:26 Dose: 5 mg Mirtazapine (Remeron -) 7.5 mg PO HS [facility] Last Admin: 04/28/19 22:23 Dose: 7.5 mg Pantoprazole Sodium (Protonix Iv) 40 mg IVPUSH DAILY [facility] Last Admin: 04/28/19 10:30 Dose: 40 mg Senna (Senna -) 2 tab PO HS [facility] Last Admin: 04/28/19 22:22 Dose: 2 tab Physical Examination Vital Signs Period Temp Pulse Resp BP Sys/Chandra Pulse Ox Last 24 Hr 97 F-98.3 F 58-70 18-20 103-134/55-74 94-99 Constitutional: Yes: No Distress, Calm, Thin Eyes: Yes: WNL, Conjunctiva Clear, EOM Intact, PERRL HENT: Yes: Atraumatic, Normocephalic, Other (white secretions to buccal aspect) Neck: Yes: WNL, Supple, Trachea Midline Cardiovascular: Yes: WNL, Regular Rate and Rhythm, S1, S2 Respiratory: Yes: Rhonchi (coarse) Gastrointestinal: Yes: WNL, Normal Bowel Sounds, Soft ...Rectal Exam: Yes: Deferred Renal/: Yes: WNL Breast(s): Yes: WNL Musculoskeletal: Yes: WNL Extremities: Yes: WNL Edema: No Peripheral Pulses WNL: Yes Neurological: awake, alert, right facial droop noted, dysarthric speech, 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 career technology teacher, biceps, triceps 3+/5, sensation reduced on the right, finger to nose intact CBCD WBC 4.8 K/mm3 (4.0-10.0) 04/28/19 06:30 RBC 4.30 M/mm3 (3.60-5.2) 04/28/19 06:30 Hgb 12.4 GM/dL (10.7-15.3) 04/28/19 06:30 Hct 37.3 % (32.4-45.2) 04/28/19 06:30 MCV 86.6 fl (80-96) 04/28/19 06:30 MCHC 33.2 g/dl (32.0-36.0) 04/28/19 06:30 RDW 15.2 % (11.6-15.6) 04/28/19 06:30 Plt Count 271 K/MM3 (134-434) 04/28/19 06:30 MPV 6.7 fl (7.5-11.1) L 04/28/19 06:30 CMP Sodium 138 mmol/L (136-145) 04/28/19 06:30 Potassium 4.0 mmol/L (3.5-5.1) 04/28/19 06:30 Chloride 103 mmol/L (98-107) 04/28/19 06:30 Carbon Dioxide 30 mmol/L (21-32) 04/28/19 06:30 Anion Gap 6 MMOL/L (8-16) L 04/28/19 06:30 BUN 24.3 mg/dL (7-18) H 04/28/19 06:30 Creatinine 0.9 mg/dL (0.55-1.3) 04/28/19 06:30 Random Glucose 92 mg/dL (74-106) 04/28/19 06:30 Calcium 8.9 mg/dL (8.5-10.1) 04/28/19 06:30 Total Bilirubin 0.4 mg/dL (0.2-1) 04/28/19 06:30 AST 17 U/L (15-37) 04/28/19 06:30 ALT 16 U/L (13-61) 04/28/19 06:30 Alkaline Phosphatase 57 U/L (45-117) 04/28/19 06:30 Total Protein 7.2 g/dl (6.4-8.2) 04/28/19 06:30 Albumin 3.3 g/dl (3.4-5.0) L 04/28/19 06:30 Plan: This is a 89 y/o woman with a PMHx of Tonsilar Ca (s/p RT, 30 yrs ago), Brain Tumor, HTN, HLD, Hearing Imparied. Who presents to the ED with fever, cough x 1 week, dizziness and increased dysphagia. Patient's sister reported that the patient was at Urgent Care week prior to amdission and was started on Amoxicillin now completed. The patient reported having generalized weakness and dizziness on day of admission. Patient denies SOB, ROBLES, CP, palpitations, AP, N/V /D, constipation, dysuria. Denies recent sick contacts or travel. This AM, ccontacted by hospitalist who was contacted by nurse due to patient having right upper extremity weakness. 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 further evaluation and management by neurosurgery can be considered. Continued flaccidity of right upper extremity including biceps, triceps, handgrip. advised MRI of the brain, ordered by hospitalist, but thereafter completed CT of the head and neck which I reviewed and showed no evidence of large vessel occlusion, there was 20% stenosis of the bilateral internal carotid arteries at the origin. 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 Spoke to GERONTOLOGY AIDE and confirmed that I would be agreeable to PEG but would request ASA be continued in light of recent CVA which is almost 1 week old now. Is reporting increasing strength in RUE now and performing more biceps flexion, no longer flacid paralysis. Continue antiplatelet as well as statin. Continue medical optimization, monitor glucose an underlying diabetes. Physical therapy as tolerated, monitor blood pressure prefer less than 140/90. Telemetry onitoring, cardiology follow up. May need rehab placement.
[2019-04-29] MEDS: LACTOBACILLUS ACIDOPHILUS 1 TABLET PO SCH (10:20)
[2019-04-29] MEDS: ASPIRIN 81 MG CHEWABLE TABLETS PO SCH (10:20)
[2019-04-29] MEDS: HEPARIN NA (PORCINE) 5,000 UNITS/ML 1ML VIAL SQ SCH ×2 (10:20→21:26)
[2019-04-29] MEDS: AMOXICILLIN ORAL SUSPENSION - 250 MG/5 ML PO SCH (10:23)
[2019-04-29] MEDS: PANTOPRAZOLE SODIUM 40 MG VIAL IVPUSH SCH (11:38)
[2019-04-29] MEDS: guaiFENesin/D-METHORPHAN TAB.ER.12H PO SCH (11:38)
--- NOTE | 2019-04-29 12:33 | PN ---
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, Physician Chief Complaint: patient seen and examined sitting up in chair on clinimx - Current Medication List Current Medications: Active Medications Acetaminophen (Tylenol -) 650 mg PO Q4H PRN PRN Reason: PAIN Albuterol/Ipratropium (Duoneb -) 1 amp NEB RQID [facility] Last Admin: 04/29/19 07:35 Dose: 1 amp Amoxicillin (Amoxicillin Suspension -) 600 mg PO BID [facility] Last Admin: 04/29/19 10:23 Dose: 600 mg Aspirin (Asa -) 81 mg PO DAILY [facility] Last Admin: 04/29/19 10:20 Dose: 81 mg Atorvastatin Calcium (Lipitor -) 10 mg PO HS [facility] Last Admin: 04/28/19 22:22 Dose: 10 mg Guaifenesin (Robitussin -) 10 ml PO Q6H PRN PRN Reason: COUGH Guaifenesin (Mucinex Dm -) 2 tablet PO BID [facility] Last Admin: 04/29/19 11:38 Dose: Not Given Heparin Sodium (Porcine) (Heparin -) 5,000 unit SQ BID [facility] Last Admin: 04/29/19 10:20 Dose: 5,000 unit Amino Acids (Clinimix -) 1,000 mls @ 42 mls/hr IV Q24H [facility] Last Admin: 04/28/19 13:04 Dose: 42 mls/hr Lactobacillus Acidophilus (Bacid -) 1 tab PO DAILY [facility] Last Admin: 04/29/19 10:20 Dose: 1 tab Levothyroxine Sodium (Synthroid -) 25 mcg PO DAILY@0700 [facility] Last Admin: 04/29/19 06:43 Dose: 25 mcg Lidocaine/Aluminum/Magnesium/Simeth (Magic Mouthwash *Sjr Formula* -) 5 ml MM Q6HPO [facility] Last Admin: 04/29/19 11:59 Dose: 5 ml Melatonin (Melatonin) 5 mg PO HS PRN PRN Reason: INSOMNIA Last Admin: 04/26/19 21:26 Dose: 5 mg Mirtazapine (Remeron -) 7.5 mg PO HS [facility] Last Admin: 04/28/19 22:23 Dose: 7.5 mg Pantoprazole Sodium (Protonix Iv) 40 mg IVPUSH DAILY [facility] Last Admin: 04/29/19 11:38 Dose: 40 mg Senna (Senna -) 2 tab PO HS [facility] Last Admin: 04/28/19 22:22 Dose: 2 tab - Objective Vital Signs: Vital Signs Temperature 97.2 F L 04/29/19 06:00 Pulse Rate 58 L 04/29/19 02:00 Respiratory Rate 20 04/29/19 09:00 Blood Pressure 103/74 04/29/19 06:00 O2 Sat by Pulse Oximetry (%) 98 04/29/19 09:00 Constitutional: Yes: Calm, Thin Cardiovascular: Yes: Regular Rate and Rhythm, S1, S2 Respiratory: Yes: Diminished Gastrointestinal: Yes: Normal Bowel Sounds, Soft Edema: No ...Motor Strength: RUE (weakness) Labs: CBC, BMP 04/28/19 06:30 04/28/19 06:30 Problem List - Problems (1) Dysphagia Assessment/Plan: peg tube to placed by gi tmw morning brain MRI non hemorrhagic infarct in left parietal lobe NPO clinimix iv protonix Code(s): R13.10 - DYSPHAGIA, UNSPECIFIED (2) RUE weakness Assessment/Plan: MRI brain noted left pariatal infarct aspirin lipitor PT neurology on board CT head negative Code(s): R29.898 - OTH SYMPTOMS AND SIGNS INVOLVING THE MUSCULOSKELETAL SYSTEM (3) Hypothyroid Assessment/Plan: on synthroid tsh in range Code(s): E03.9 - HYPOTHYROIDISM, UNSPECIFIED Assessment/Plan ambulated the hallway with PT awiating peg placement by GI Tmw
--- NOTE | 2019-04-29 12:40 | PN ---
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 (short form) - Note 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: Resting in NAD. Denies shortness of breath but some congested cough. No acute events overnight. Intake & Output 04/26/19 04/27/19 04/28/19 04/29/19 23:59 23:59 23:59 23:59 Intake Total 480 1158 524 Balance 480 1158 524 Last Vital Signs Temp Pulse Resp BP Pulse Ox 97.2 F L 58 L 20 103/74 98 04/29/19 06:00 04/29/19 02:00 04/29/19 09:00 04/29/19 06:00 04/29/19 09:00 Active Medications Acetaminophen (Tylenol -) 650 mg PO Q4H PRN PRN Reason: PAIN Albuterol/Ipratropium (Duoneb -) 1 amp NEB RQID [facility] Last Admin: 04/29/19 07:35 Dose: 1 amp Aspirin (Asa -) 81 mg PO DAILY [facility] Last Admin: 04/29/19 10:20 Dose: 81 mg Atorvastatin Calcium (Lipitor -) 10 mg PO HS [facility] Last Admin: 04/28/19 22:22 Dose: 10 mg Guaifenesin (Robitussin -) 10 ml PO Q6H PRN PRN Reason: COUGH Guaifenesin (Mucinex Dm -) 2 tablet PO BID [facility] Last Admin: 04/29/19 11:38 Dose: Not Given Heparin Sodium (Porcine) (Heparin -) 5,000 unit SQ BID [facility] Last Admin: 04/29/19 10:20 Dose: 5,000 unit Amino Acids (Clinimix -) 1,000 mls @ 42 mls/hr IV Q24H [facility] Last Admin: 04/28/19 13:04 Dose: 42 mls/hr Lactobacillus Acidophilus (Bacid -) 1 tab PO DAILY [facility] Last Admin: 04/29/19 10:20 Dose: 1 tab Levothyroxine Sodium (Synthroid -) 25 mcg PO DAILY@0700 [facility] Last Admin: 04/29/19 06:43 Dose: 25 mcg Lidocaine/Aluminum/Magnesium/Simeth (Magic Mouthwash *Sjr Formula* -) 5 ml MM Q6HPO [facility] Last Admin: 04/29/19 11:59 Dose: 5 ml Melatonin (Melatonin) 5 mg PO HS PRN PRN Reason: INSOMNIA Last Admin: 04/26/19 21:26 Dose: 5 mg Mirtazapine (Remeron -) 7.5 mg PO HS [facility] Last Admin: 04/28/19 22:23 Dose: 7.5 mg Pantoprazole Sodium (Protonix Iv) 40 mg IVPUSH DAILY [facility] Last Admin: 04/29/19 11:38 Dose: 40 mg Senna (Senna -) 2 tab PO HS [facility] Last Admin: 04/28/19 22:22 Dose: 2 tab Gen: NAD at rest Heart: RRR Lung: decreased breath sounds at the bases Abd: soft, nontender Ext: no edema A/P Acute CVA Pneumonia likely Aspiration h/o Tonsillar Ca s/p RT Dysphagia HTN DM Hyperlipidemia - neuro work up in progress - completed antibiotics course - inhaled bronchodilators - O2 to keep SpO2 >90% - aspiration precautions - DVT prophylaxis Dr Melendrez
--- NOTE | 2019-04-29 13:06 | PN ---
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, SKI MOLDER - Note 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: Selected Entries 04/28/19 04/28/19 04/28/19 02:00 06:00 10:00 Breakfast Temperature 98.6 F 97.5 F L 97.5 F L 04/28/19 04/28/19 04/28/19 11:49 14:20 18:00 Breakfast NPO Temperature 97.8 F 98.3 F 04/29/19 04/29/19 02:00 06:00 Breakfast Temperature 97 F L 97.2 F L Laboratory Tests 04/28/19 06:30 WBC 4.8
--- NOTE | 2019-04-29 13:25 | PN ---
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, FORMING DEPARTMENT SUPERVISOR - Note 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: Selected Entries 04/29/19 04/29/19 02:00 06:00 Temperature 97 F L 97.2 F L Blood Pressure 120/58 L 103/74 Laboratory Tests 04/28/19 06:30 WBC 4.8 Acute Left parietal infarct consistent with her RUE weakness NPO Seen by GI- Pending medical clearance for PEG. Verbal, oriented, looks sad. Right US flaccid/RLE weak. Coughing on saliva. Maintain HOB elevated/mouth care, as possible, with trismus. For STR.
--- NOTE | 2019-04-29 13:50 | PN ---
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 This am awoke with RUE weakness. Slight improvement so far. No chest pain, palpitations, or sob. No pnd, orthopnea, or edema. Denies any history of irregular heart beat/afib. CT head no acute changes. carotid Doppler was unremarkable. Echocardiogram is pending. No important events on telemetry. - Current Medication List Current Medications: Active Medications Acetaminophen (Tylenol -) 650 mg PO Q4H PRN PRN Reason: PAIN Albuterol/Ipratropium (Duoneb -) 1 amp NEB RQID [facility] Last Admin: 04/29/19 11:35 Dose: 1 amp Aspirin (Asa -) 81 mg PO DAILY [facility] Last Admin: 04/29/19 10:20 Dose: 81 mg Atorvastatin Calcium (Lipitor -) 10 mg PO HS [facility] Last Admin: 04/28/19 22:22 Dose: 10 mg Guaifenesin (Robitussin -) 10 ml PO Q6H PRN PRN Reason: COUGH Guaifenesin (Mucinex Dm -) 2 tablet PO BID [facility] Last Admin: 04/29/19 11:38 Dose: Not Given Heparin Sodium (Porcine) (Heparin -) 5,000 unit SQ BID [facility] Last Admin: 04/29/19 10:20 Dose: 5,000 unit Amino Acids (Clinimix -) 1,000 mls @ 42 mls/hr IV Q24H [facility] Last Admin: 04/28/19 13:04 Dose: 42 mls/hr Lactobacillus Acidophilus (Bacid -) 1 tab PO DAILY [facility] Last Admin: 04/29/19 10:20 Dose: 1 tab Levothyroxine Sodium (Synthroid -) 25 mcg PO DAILY@0700 [facility] Last Admin: 04/29/19 06:43 Dose: 25 mcg Lidocaine/Aluminum/Magnesium/Simeth (Magic Mouthwash *Sjr Formula* -) 5 ml MM Q6HPO [facility] Last Admin: 04/29/19 11:59 Dose: 5 ml Melatonin (Melatonin) 5 mg PO HS PRN PRN Reason: INSOMNIA Last Admin: 04/26/19 21:26 Dose: 5 mg Mirtazapine (Remeron -) 7.5 mg PO HS [facility] Last Admin: 04/28/19 22:23 Dose: 7.5 mg Pantoprazole Sodium (Protonix Iv) 40 mg IVPUSH DAILY [facility] Last Admin: 04/29/19 11:38 Dose: 40 mg Senna (Senna -) 2 tab PO HS [facility] Last Admin: 04/28/19 22:22 Dose: 2 tab - Objective Vital Signs: Vital Signs Temperature 97.2 F L 04/29/19 06:00 Pulse Rate 58 L 04/29/19 02:00 Respiratory Rate 20 04/29/19 09:00 Blood Pressure 103/74 04/29/19 06:00 O2 Sat by Pulse Oximetry (%) 98 04/29/19 09:00 Constitutional: Yes: No Distress, Calm Eyes: Yes: Conjunctiva Clear, EOM Intact HENT: Yes: Atraumatic, Normocephalic Neck: Yes: Supple, Trachea Midline Cardiovascular: Yes: Regular Rate and Rhythm Respiratory: Yes: CTA Bilaterally Gastrointestinal: Yes: Normal Bowel Sounds, Soft Extremities: Yes: WNL Edema: No Peripheral Pulses WNL: Yes Labs: CBC, BMP 04/28/19 06:30 04/28/19 06:30 Assessment/Plan 89 year old female with a 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 This am awoke with RUE weakness. Slight improvement so far. No chest pain, palpitations, or sob. No pnd, orthopnea, or edema. Denies any history of irregular heart beat/afib. CT head no acute changes. carotid Doppler was unremarkable. Echocardiogram is pending.No important events on telemetry. Plan: continue neuro evaluation continue telemetry. continue current medication for now.
[2019-04-29] MEDS: AMINO ACIDS 4.25%/D5W 1,000 ML IV SCH (14:23)
[2019-04-29] MEDS ORDERED: guaiFENesin/D-M SUGAR-FREE/ACLHOL-FREE 118 ML BOTTLE PO PRN (16:02)
[2019-04-29] MEDS: MIRTAZAPINE 15 MG TABLET (FP) PO SCH (21:27)
[2019-04-29] MEDS: ATORVASTATIN CA 10 MG TABLET (FP) PO SCH (21:27)
[2019-04-29] MEDS: SENNOSIDES 8.6MG TABLET (FP) PO SCH (21:27)
[2019-04-30] MEDS: MAG HYDROX/ALH/SMC/DPHA/LIDO 240 ML MOUTHWASH MM SCH ×4 (00:16→18:46)
[2019-04-30 06:38] LABS: BASO % 0.6 % (0-2.0); EOS % 6.6 % (0-4.5); HEMATOCRIT 35.6 % (32.4-45.2); HEMOGLOBIN 11.9 GM/dL (10.7-15.3); LYMPH % 18.4 % (8-40); MCH 28.9 pg (25.7-33.7); MCHC 33.5 g/dl (32.0-36.0); MEAN CELL VOLUME 86.4 fl (80-96); MEAN PLT VOLUME 6.9 fl (7.5-11.1); MONO % 10.2 % (3.8-10.2); NEUT % 64.2 % (42.8-82.8); PLATELET COUNT 267 K/MM3 (134-434); RBC 4.12 M/mm3 (3.60-5.2); RDW 14.9 % (11.6-15.6); WHITE BLOOD COUNT 5.6 K/mm3 (4.0-10.0)
[2019-04-30] MEDS: LEVOTHYROXINE NA 25 MCG TABLET (FP) PO SCH (07:15)
[2019-04-30] MEDS: ALBUTEROL SO4 2.5/IPRATROPIUM 0.5 INH SOL 3 ML VIAL.NEB. NEB SCH ×4 (07:30→21:05)
--- NOTE | 2019-04-30 08:47 | PN ---
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 (short form) - Note 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: Neurology Chief Complaint: Fever, Cough, Dizziness, Increased Dysphagia History of Present Illness: This is a 89 y/o woman with a PMHx of Tonsilar Ca (s/p RT, 30 yrs ago), Brain Tumor, HTN, HLD, Hearing Imparied. Who presents to the ED with fever, cough x 1 week, dizziness and increased dysphagia. Patient's sister reported that the patient was at Urgent Care week prior to amdission and was started on Amoxicillin now completed. The patient reported having generalized weakness and dizziness on day of admission. Patient denies SOB, ROBLES, CP, palpitations, AP, N/V /D, constipation, dysuria. Denies recent sick contacts or travel. This AM, ccontacted by hospitalist who was contacted by nurse due to patient having right upper extremity weakness. 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 further evaluation and management by neurosurgery can be considered. Continued flaccidity of right upper extremity including biceps, triceps, handgrip. advised MRI of the brain, ordered by hospitalist, but thereafter completed CT of the head and neck which I reviewed and showed no evidence of large vessel occlusion, there was 20% stenosis of the bilateral internal carotid arteries at the origin. MRI brain completed, contacted by radiologist multi mission helicopter aircrewman and informed acute L parietal infarct (harris radiata) consitent with RUE weakness. 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 Discussed with hospitalist and patient to likely require PEG. Preference would be for her to be on Antiplatelet as she has recent acute CVA. Would not want her off ASA at this time (not on ASA at home). Spoke to WRECKER DRIVER and confirmed that I would be agreeable to PEG but would request ASA be continued in light of recent CVA which is almost 1 week old now. Is reporting increasing strength in RUE now and performing more biceps flexion, no longer flacid paralysis. Discussed with family at bedside about possible rehabilitation placement and they are interested in doing so in hopes that it would improve her right upper extremity strength. Active Medications Acetaminophen (Tylenol -) 650 mg PO Q4H PRN PRN Reason: PAIN Albuterol/Ipratropium (Duoneb -) 1 amp NEB RQID [facility] Last Admin: 04/30/19 07:30 Dose: 1 amp Aspirin (Asa -) 81 mg PO DAILY [facility] Last Admin: 04/29/19 10:20 Dose: 81 mg Atorvastatin Calcium (Lipitor -) 10 mg PO HS [facility] Last Admin: 04/29/19 21:27 Dose: 10 mg Guaifenesin (Diabetic Tussin Dm -) 10 ml PO Q6H PRN PRN Reason: COUGH Heparin Sodium (Porcine) (Heparin -) 5,000 unit SQ BID [facility] Last Admin: 04/29/19 21:26 Dose: 5,000 unit Amino Acids (Clinimix -) 1,000 mls @ 42 mls/hr IV Q24H [facility] Last Admin: 04/29/19 14:23 Dose: 42 mls/hr Lactobacillus Acidophilus (Bacid -) 1 tab PO DAILY [facility] Last Admin: 04/29/19 10:20 Dose: 1 tab Levothyroxine Sodium (Synthroid -) 25 mcg PO DAILY@0700 [facility] Last Admin: 04/30/19 07:15 Dose: 25 mcg Lidocaine/Aluminum/Magnesium/Simeth (Magic Mouthwash *Sjr Formula* -) 5 ml MM Q6HPO [facility] Last Admin: 04/30/19 07:15 Dose: 5 ml Melatonin (Melatonin) 5 mg PO HS PRN PRN Reason: INSOMNIA Last Admin: 04/26/19 21:26 Dose: 5 mg Mirtazapine (Remeron -) 7.5 mg PO HS [facility] Last Admin: 04/29/19 21:27 Dose: 7.5 mg Pantoprazole Sodium (Protonix Iv) 40 mg IVPUSH DAILY [facility] Last Admin: 04/29/19 11:38 Dose: 40 mg Senna (Senna -) 2 tab PO HS [facility] Last Admin: 04/29/19 21:27 Dose: 2 tab Physical Examination Vital Signs Period Temp Pulse Resp BP Sys/Chandra Pulse Ox Last 24 Hr 98.1 F-98.5 F 58-65 18-20 119-132/54-62 96-98 Constitutional: Yes: No Distress, Calm, Thin Eyes: Yes: WNL, Conjunctiva Clear, EOM Intact, PERRL HENT: Yes: Atraumatic, Normocephalic, Other (white secretions to buccal aspect) Neck: Yes: WNL, Supple, Trachea Midline Cardiovascular: Yes: WNL, Regular Rate and Rhythm, S1, S2 Respiratory: Yes: Rhonchi (coarse) Gastrointestinal: Yes: WNL, Normal Bowel Sounds, Soft ...Rectal Exam: Yes: Deferred Renal/: Yes: WNL Breast(s): Yes: WNL Musculoskeletal: Yes: WNL Extremities: Yes: WNL Edema: No Peripheral Pulses WNL: Yes Neurological: awake, alert, right facial droop noted, dysarthric speech, 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 installer metal 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, biceps, triceps 3+/5, sensation reduced on the right, finger to nose intact CBCD WBC 5.6 K/mm3 (4.0-10.0) 04/30/19 06:00 RBC 4.12 M/mm3 (3.60-5.2) 04/30/19 06:00 Hgb 11.9 GM/dL (10.7-15.3) 04/30/19 06:00 Hct 35.6 % (32.4-45.2) 04/30/19 06:00 MCV 86.4 fl (80-96) 04/30/19 06:00 MCHC 33.5 g/dl (32.0-36.0) 04/30/19 06:00 RDW 14.9 % (11.6-15.6) 04/30/19 06:00 Plt Count 267 K/MM3 (134-434) 04/30/19 06:00 MPV 6.9 fl (7.5-11.1) L 04/30/19 06:00 CMP Sodium 138 mmol/L (136-145) 04/28/19 06:30 Potassium 4.0 mmol/L (3.5-5.1) 04/28/19 06:30 Chloride 103 mmol/L (98-107) 04/28/19 06:30 Carbon Dioxide 30 mmol/L (21-32) 04/28/19 06:30 Anion Gap 6 MMOL/L (8-16) L 04/28/19 06:30 BUN 24.3 mg/dL (7-18) H 04/28/19 06:30 Creatinine 0.9 mg/dL (0.55-1.3) 04/28/19 06:30 Random Glucose 92 mg/dL (74-106) 04/28/19 06:30 Calcium 8.9 mg/dL (8.5-10.1) 04/28/19 06:30 Total Bilirubin 0.4 mg/dL (0.2-1) 04/28/19 06:30 AST 17 U/L (15-37) 04/28/19 06:30 ALT 16 U/L (13-61) 04/28/19 06:30 Alkaline Phosphatase 57 U/L (45-117) 04/28/19 06:30 Total Protein 7.2 g/dl (6.4-8.2) 04/28/19 06:30 Albumin 3.3 g/dl (3.4-5.0) L 04/28/19 06:30 Plan: This is a 89 y/o woman with a PMHx of Tonsilar Ca (s/p RT, 30 yrs ago), Brain Tumor, HTN, HLD, Hearing Imparied. Who presents to the ED with fever, cough x 1 week, dizziness and increased dysphagia. Patient's sister reported that the patient was at Urgent Care week prior to amdission and was started on Amoxicillin now completed. The patient reported having generalized weakness and dizziness on day of admission. Patient denies SOB, ROBLES, CP, palpitations, AP, N/V /D, constipation, dysuria. Denies recent sick contacts or travel. This AM, ccontacted by hospitalist who was contacted by nurse due to patient having right upper extremity weakness. 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 further evaluation and management by neurosurgery can be considered. Continued flaccidity of right upper extremity including biceps, triceps, handgrip. advised MRI of the brain, ordered by hospitalist, but thereafter completed CT of the head and neck which I reviewed and showed no evidence of large vessel occlusion, there was 20% stenosis of the bilateral internal carotid arteries at the origin. MRI brain completed, contacted by radiologist multi mission helicopter aircrewman and informed acute L parietal infarct (harris radiata) consitent with RUE weakness. 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 Spoke to WRECKER DRIVER and confirmed that I would be agreeable to PEG but would request ASA be continued in light of recent CVA which is almost 1 week old now. Is reporting increasing strength in RUE now and performing more biceps flexion, no longer flacid paralysis. Continue antiplatelet as well as statin. Continue medical optimization, monitor glucose an underlying diabetes. Physical therapy as tolerated, monitor blood pressure prefer less than 140/90. Telemetry onitoring, cardiology follow up. Discussed with family at bedside about possible rehabilitation placement and they are interested in doing so in hopes that it would improve her right upper extremity strength.
--- NOTE | 2019-04-30 08:50 | PN ---
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, Physician - Current Medication List Current Medications: Active Medications Acetaminophen (Tylenol -) 650 mg PO Q4H PRN PRN Reason: PAIN Albuterol/Ipratropium (Duoneb -) 1 amp NEB RQID [facility] Last Admin: 04/30/19 07:30 Dose: 1 amp Aspirin (Asa -) 81 mg PO DAILY [facility] Last Admin: 04/29/19 10:20 Dose: 81 mg Atorvastatin Calcium (Lipitor -) 10 mg PO HS [facility] Last Admin: 04/29/19 21:27 Dose: 10 mg Guaifenesin (Diabetic Tussin Dm -) 10 ml PO Q6H PRN PRN Reason: COUGH Heparin Sodium (Porcine) (Heparin -) 5,000 unit SQ BID [facility] Last Admin: 04/29/19 21:26 Dose: 5,000 unit Amino Acids (Clinimix -) 1,000 mls @ 42 mls/hr IV Q24H [facility] Last Admin: 04/29/19 14:23 Dose: 42 mls/hr Lactobacillus Acidophilus (Bacid -) 1 tab PO DAILY [facility] Last Admin: 04/29/19 10:20 Dose: 1 tab Levothyroxine Sodium (Synthroid -) 25 mcg PO DAILY@0700 [facility] Last Admin: 04/30/19 07:15 Dose: 25 mcg Lidocaine/Aluminum/Magnesium/Simeth (Magic Mouthwash *Sjr Formula* -) 5 ml MM Q6HPO [facility] Last Admin: 04/30/19 07:15 Dose: 5 ml Melatonin (Melatonin) 5 mg PO HS PRN PRN Reason: INSOMNIA Last Admin: 04/26/19 21:26 Dose: 5 mg Mirtazapine (Remeron -) 7.5 mg PO HS [facility] Last Admin: 04/29/19 21:27 Dose: 7.5 mg Pantoprazole Sodium (Protonix Iv) 40 mg IVPUSH DAILY [facility] Last Admin: 04/29/19 11:38 Dose: 40 mg Senna (Senna -) 2 tab PO HS [facility] Last Admin: 04/29/19 21:27 Dose: 2 tab - Objective Vital Signs: Vital Signs Temperature 98.2 F 04/30/19 06:00 Pulse Rate 58 L 04/30/19 06:00 Respiratory Rate 18 04/30/19 06:00 Blood Pressure 130/54 L 04/30/19 06:00 O2 Sat by Pulse Oximetry (%) 96 04/29/19 21:00 Cardiovascular: Yes: S1, S2 Respiratory: Yes: Regular, CTA Bilaterally Gastrointestinal: Yes: Normal Bowel Sounds, Soft Edema: No Neurological: Yes: Alert, Oriented, Weakness (RUE) Labs: CBC, BMP 04/30/19 06:00 04/28/19 06:30 Problem List - Problems (1) Dysphagia Assessment/Plan: -MANAGER CONSUMER on board and recommendation appreciated peg tube to placed NPO clinimix iv protonix Code(s): R13.10 - DYSPHAGIA, UNSPECIFIED (2) Failure to thrive Assessment/Plan: -IV hydration -PT -possible SNF for discharge -For PEG tube placement Code(s): HHD5241 - Qualifiers: Failure to thrive age range: in adult Qualified Code(s): R62.7 - Adult failure to thrive (3) History of cancer tonsil Assessment/Plan: ENT Noted Code(s): Z85.818 - PRSNL HX OF MALIG NEOPLM OF SITE OF LIP, ORAL CAV, & PHARYNX (4) Pituitary macroadenoma with extrasellar extension Assessment/Plan: -Endo on board -MRI of pituitary shows increase in the size of the pituitary macroadenoma with again mass effect on optic chiasm, no hemorrhage within the adenoma Code(s): D35.2 - BENIGN NEOPLASM OF PITUITARY GLAND (5) CVA (cerebral vascular accident) Assessment/Plan: MRI brain non hemorrhagic infarct in left parietal lobe aspirin lipitor PT neurology on board CT head negative Code(s): I63.9 - CEREBRAL INFARCTION, UNSPECIFIED
--- NOTE | 2019-04-30 09:01 | PN ---
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 This am awoke with RUE weakness. Slight improvement so far. No chest pain, palpitations, or sob. No pnd, orthopnea, or edema. Denies any history of irregular heart beat/afib. CT head no acute changes. carotid Doppler was unremarkable. Echocardiogram is pending. No important events on telemetry. - Current Medication List Current Medications: Active Medications Acetaminophen (Tylenol -) 650 mg PO Q4H PRN PRN Reason: PAIN Albuterol/Ipratropium (Duoneb -) 1 amp NEB RQID [facility] Last Admin: 04/30/19 07:30 Dose: 1 amp Aspirin (Asa -) 81 mg PO DAILY [facility] Last Admin: 04/29/19 10:20 Dose: 81 mg Atorvastatin Calcium (Lipitor -) 10 mg PO HS [facility] Last Admin: 04/29/19 21:27 Dose: 10 mg Guaifenesin (Diabetic Tussin Dm -) 10 ml PO Q6H PRN PRN Reason: COUGH Heparin Sodium (Porcine) (Heparin -) 5,000 unit SQ BID [facility] Last Admin: 04/29/19 21:26 Dose: 5,000 unit Amino Acids (Clinimix -) 1,000 mls @ 42 mls/hr IV Q24H [facility] Last Admin: 04/29/19 14:23 Dose: 42 mls/hr Lactobacillus Acidophilus (Bacid -) 1 tab PO DAILY [facility] Last Admin: 04/29/19 10:20 Dose: 1 tab Levothyroxine Sodium (Synthroid -) 25 mcg PO DAILY@0700 [facility] Last Admin: 04/30/19 07:15 Dose: 25 mcg Lidocaine/Aluminum/Magnesium/Simeth (Magic Mouthwash *Sjr Formula* -) 5 ml MM Q6HPO [facility] Last Admin: 04/30/19 07:15 Dose: 5 ml Melatonin (Melatonin) 5 mg PO HS PRN PRN Reason: INSOMNIA Last Admin: 04/26/19 21:26 Dose: 5 mg Mirtazapine (Remeron -) 7.5 mg PO HS [facility] Last Admin: 10/28/19 21:27 Dose: 7.5 mg Pantoprazole Sodium (Protonix Iv) 40 mg IVPUSH DAILY [facility] Last Admin: 04/29/19 11:38 Dose: 40 mg Senna (Senna -) 2 tab PO HS [facility] Last Admin: 04/29/19 21:27 Dose: 2 tab - Objective Vital Signs: Vital Signs Temperature 98.2 F 04/30/19 06:00 Pulse Rate 58 L 04/30/19 06:00 Respiratory Rate 18 04/30/19 06:00 Blood Pressure 130/54 L 04/30/19 06:00 O2 Sat by Pulse Oximetry (%) 96 04/29/19 21:00 Constitutional: Yes: No Distress, Calm Eyes: Yes: Conjunctiva Clear, EOM Intact HENT: Yes: Atraumatic, Normocephalic Neck: Yes: Trachea Midline Cardiovascular: Yes: Regular Rate and Rhythm Respiratory: Yes: CTA Bilaterally Gastrointestinal: Yes: Normal Bowel Sounds, Soft Musculoskeletal: Yes: WNL Extremities: Yes: WNL Edema: No Labs: CBC, BMP 04/30/19 06:00 04/28/19 06:30 Assessment/Plan 89 year old female with a 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 This am awoke with RUE weakness. Slight improvement so far. No chest pain, palpitations, or sob. No pnd, orthopnea, or edema. Denies any history of irregular heart beat/afib. CT head no acute changes. MRI acute CVA. carotid Doppler was unremarkable. Echocardiogram is pending. No important events on telemetry. Plan: neuro evaluation read and appreciated. continue telemetry. continue current medication for now. she is awaiting PEG placement. She is stable and low risk for the procedure without cardiac contraindications. Continue asa due to recent acute stroke.
--- NOTE | 2019-04-30 10:27 | PN ---
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, TRANSFER CLERK - Note 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: Selected Entries 04/30/19 04/30/19 02:00 06:00 Supper NPO Temperature 98.5 F 98.2 F Laboratory Tests 04/30/19 06:00 WBC 5.6 Pending PEG. Pt cognitively intact, motivated. Excellent candidate for rehabilitation.
--- NOTE | 2019-04-30 10:54 | PN ---
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, Physician History of Present Illness: pulmonary alert,comfortable,-resp distress. r arm remains flaccid,less congestion - Current Medication List Current Medications: Active Medications Acetaminophen (Tylenol -) 650 mg PO Q4H PRN PRN Reason: PAIN Albuterol/Ipratropium (Duoneb -) 1 amp NEB RQID [facility] Last Admin: 04/30/19 07:30 Dose: 1 amp Aspirin (Asa -) 81 mg PO DAILY [facility] Last Admin: 04/29/19 10:20 Dose: 81 mg Atorvastatin Calcium (Lipitor -) 10 mg PO HS [facility] Last Admin: 04/29/19 21:27 Dose: 10 mg Guaifenesin (Diabetic Tussin Dm -) 10 ml PO Q6H PRN PRN Reason: COUGH Heparin Sodium (Porcine) (Heparin -) 5,000 unit SQ BID [facility] Last Admin: 04/29/19 21:26 Dose: 5,000 unit Amino Acids (Clinimix -) 1,000 mls @ 42 mls/hr IV Q24H [facility] Last Admin: 04/29/19 14:23 Dose: 42 mls/hr Lactobacillus Acidophilus (Bacid -) 1 tab PO DAILY [facility] Last Admin: 04/29/19 10:20 Dose: 1 tab Levothyroxine Sodium (Synthroid -) 25 mcg PO DAILY@0700 [facility] Last Admin: 04/30/19 07:15 Dose: 25 mcg Lidocaine/Aluminum/Magnesium/Simeth (Magic Mouthwash *Sjr Formula* -) 5 ml MM Q6HPO [facility] Last Admin: 04/30/19 07:15 Dose: 5 ml Melatonin (Melatonin) 5 mg PO HS PRN PRN Reason: INSOMNIA Last Admin: 04/26/19 21:26 Dose: 5 mg Mirtazapine (Remeron -) 7.5 mg PO HS [facility] Last Admin: 04/29/19 21:27 Dose: 7.5 mg Pantoprazole Sodium (Protonix Iv) 40 mg IVPUSH DAILY [facility] Last Admin: 04/29/19 11:38 Dose: 40 mg Senna (Senna -) 2 tab PO HS [facility] Last Admin: 04/29/19 21:27 Dose: 2 tab - Objective Vital Signs: Vital Signs Temperature 98.2 F 04/30/19 06:00 Pulse Rate 58 L 04/30/19 06:00 Respiratory Rate 18 04/30/19 06:00 Blood Pressure 130/54 L 04/30/19 06:00 O2 Sat by Pulse Oximetry (%) 96 04/29/19 21:00 Constitutional: Yes: Calm, Thin Eyes: Yes: WNL HENT: Yes: WNL Neck: Yes: WNL Cardiovascular: Yes: Regular Rate and Rhythm, S1, S2 Respiratory: Yes: Rhonchi (few scattered rhonchi) Gastrointestinal: Yes: Normal Bowel Sounds, Soft Extremities: Yes: WNL Edema: No Labs: CBC, BMP 04/30/19 06:00 04/28/19 06:30 Problem List - Problems (1) Dysphagia Code(s): R13.10 - DYSPHAGIA, UNSPECIFIED (2) Failure to thrive Code(s): IVN5556 - Qualifiers: Failure to thrive age range: in adult Qualified Code(s): R62.7 - Adult failure to thrive (3) Pituitary macroadenoma with extrasellar extension Code(s): D35.2 - BENIGN NEOPLASM OF PITUITARY GLAND (4) Borderline diabetes Code(s): R73.03 - PREDIABETES (5) History of cancer tonsil Code(s): Z85.818 - PRSNL HX OF MALIG NEOPLM OF SITE OF LIP, ORAL CAV, & PHARYNX (6) Hypertension Code(s): I10 - ESSENTIAL (PRIMARY) HYPERTENSION Qualifiers: Hypertension type: essential hypertension Qualified Code(s): I10 - Essential (primary) hypertension (7) Acute hypoxemic respiratory failure Code(s): J96.01 - ACUTE RESPIRATORY FAILURE WITH HYPOXIA Assessment/Plan A/P Acute CVA Pneumonia likely Aspiration h/o Tonsillar Ca s/p RT Dysphagia HTN DM Hyperlipidemia - inhaled bronchodilators - O2 to keep SpO2 >90% - aspiration precautions - DVT prophylaxis - GT DR TAN
[2019-04-30] MEDS: ASPIRIN 81 MG CHEWABLE TABLETS PO SCH (10:59)
[2019-04-30] MEDS: LACTOBACILLUS ACIDOPHILUS 1 TABLET PO SCH (10:59)
[2019-04-30] MEDS: HEPARIN NA (PORCINE) 5,000 UNITS/ML 1ML VIAL SQ SCH ×2 (10:59→21:29)
[2019-04-30] MEDS: PANTOPRAZOLE SODIUM 40 MG VIAL IVPUSH SCH (10:59)
--- NOTE | 2019-04-30 11:51 | ECHO ---
Name: JOLIE GARLAND Exam:Adult Echocardiogram Study Date: 04/30/2019 09:36 AM Age: 89 yrs Reason For Study: LOOK AT EJECTION FRACTION Height: 63 in Weight: 120 lb BSA: 1.6 m2 MMode/2D Measurements & Calculations IVSd: 0.91 cm Ao root diam: 2.5 cm LVIDd: 4.0 cm LA dimension: 4.5 cm LVIDs: 3.0 cm LVPWd: 0.91 cm EDV(Teich): 71.3 ml LVOT diam: 2.0 cm ESV(Teich): 34.4 ml Doppler Measurements & Calculations MV E max hans: 61.9 cm/sec Ao V2 max: 124.9 cm/sec MV A max hans: 91.4 cm/sec Ao max P.2 mmHg MV E/A: 0.68 Ao V2 mean: 94.5 cm/sec MV dec time: 0.33 sec Ao mean P.8 mmHg Ao V2 VTI: 28.3 cm JESSY(I,D): 1.8 cm2 JESSY(V,D): 1.6 cm2 LV V1 max P.8 mmHg SV(LVOT): 51.3 ml LV V1 mean P.2 mmHg LV V1 max: 67.6 cm/sec LV V1 mean: 53.9 cm/sec LV V1 VTI: 16.9 cm TR max hans: 181.2 cm/sec Med Peak E' Hans: 1.6 cm/sec TR max P.2 mmHg Med E/e': 38.3 Lat Peak E' Hans: 1.4 cm/sec Lat E/e': 44.5 Procedure A complete two-dimensional transthoracic echocardiogram was performed (2D, M-mode, Doppler and color flow Doppler). Left Ventricle The left ventricular size, thickness and function are normal. Ejection Fraction = 60%. E/A reversal c onsistent with but not diagnostic of poor LV compliance. The left ventricular wall motion is normal. Right Ventricle The right ventricle is normal in size and function. Atria The left atrium is moderately dilated. Right atrial size is normal. Mitral Valve There is mild mitral annular calcification. There is trace to mild mitral regurgitation. Tricuspid Valve The tricuspid valve is normal in structure and function. There is trace tricuspid regurgitation. Righ t ventricular systolic pressure is 18 mmhg. Aortic Valve There is mild to moderate aortic valve thickening. Pulmonic Valve The pulmonic valve is normal in structure and function. Trace pulmonic valvular regurgitation. Great Vessels The aortic root is normal size. Pericardium/Pleura There is no pericardial effusion. There is no pleural effusion. Interpretation Summary The left ventricular size, thickness and function are normal Ejection Fraction = 60%. The right ventricle is normal in size and function. The left atrium is moderately dilated. There is mild mitral annular calcification. There is trace to mild mitral regurgitation. There is trace tricuspid regurgitation. There is mild to moderate aortic valve thickening. Trace pulmonic valvular regurgitation. MD Ryne Villela 04/30/2019 11:50 AM
[2019-04-30] MEDS ORDERED: TETRACAINE/BENZOCAINE/BUTAMBEN 20 GM SPR TP ONE (13:05)
[2019-04-30] MEDS ORDERED: MIDAZOLAM HCL 2 MG/2 ML SINGLE DOSE VIAL ONE (13:12)
[2019-04-30] MEDS: AMINO ACIDS 4.25%/D5W 1,000 ML IV SCH (15:00)
[2019-04-30] MEDS ORDERED: HYDROmorphone HCl 2 MG/ML VIAL IVPUSH ONE (17:00)
--- NOTE | 2019-04-30 18:14 | HOSP ---
Physical Examination Vital Signs: Vital Signs Temperature 97.0 F L 04/30/19 14:11 Pulse Rate 62 04/30/19 14:11 Respiratory Rate 20 04/30/19 14:11 Blood Pressure 134/81 04/30/19 14:11 O2 Sat by Pulse Oximetry (%) 96 04/30/19 14:11 Labs: CBC, BMP 04/30/19 06:00 04/28/19 06:30 Hospitalist Encounter Assessment: called by nurse, pt c/o dull chest pressure, pt s/p Peg placement today, 1x dilaudid given, ordered earlier today by Attending, pt seen at bedside, asleep, NAD. oxygen nc on, EKG done, no ST elevation noted.
[2019-04-30] MEDS: ATORVASTATIN CA 10 MG TABLET (FP) PO SCH (21:28)
[2019-04-30] MEDS: MIRTAZAPINE 15 MG TABLET (FP) PO SCH (21:29)
[2019-04-30] MEDS: SENNOSIDES 8.6MG TABLET (FP) PO SCH (21:53)
[2019-05-01] MEDS: MAG HYDROX/ALH/SMC/DPHA/LIDO 240 ML MOUTHWASH MM SCH ×3 (00:10→13:00)
[2019-05-01] MEDS: LEVOTHYROXINE NA 25 MCG TABLET (FP) PO SCH (06:09)
[2019-05-01] MEDS: ALBUTEROL SO4 2.5/IPRATROPIUM 0.5 INH SOL 3 ML VIAL.NEB. NEB SCH ×4 (08:00→20:27)
--- NOTE | 2019-05-01 09:10 | PN ---
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 (short form) - Note 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: Neurology Chief Complaint: Fever, Cough, Dizziness, Increased Dysphagia History of Present Illness: This is a 89 y/o woman with a PMHx of Tonsilar Ca (s/p RT, 30 yrs ago), Brain Tumor, HTN, HLD, Hearing Imparied. Who presents to the ED with fever, cough x 1 week, dizziness and increased dysphagia. Patient's sister reported that the patient was at Urgent Care week prior to amdission and was started on Amoxicillin now completed. The patient reported having generalized weakness and dizziness on day of admission. Patient denies SOB, ROBLES, CP, palpitations, AP, N/V /D, constipation, dysuria. Denies recent sick contacts or travel. This AM, ccontacted by hospitalist who was contacted by nurse due to patient having right upper extremity weakness. 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 further evaluation and management by neurosurgery can be considered. Continued flaccidity of right upper extremity including biceps, triceps, handgrip. advised MRI of the brain, ordered by hospitalist, but thereafter completed CT of the head and neck which I reviewed and showed no evidence of large vessel occlusion, there was 20% stenosis of the bilateral internal carotid arteries at the origin. MRI brain completed, contacted by radiologist residential sales consultant and informed acute L parietal infarct ([facility] radiata) consitent with RUE weakness. 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 PEG insertion completed and reviewed notes including hospice no mentioning chest pain but no EKG changes per notes. Patient without new complaints this morning but right upper extremity remainsessentially the same in strength,awaiting placement once patient stabilized. Active Medications Acetaminophen (Tylenol -) 650 mg PO Q4H PRN PRN Reason: PAIN Albuterol/Ipratropium (Duoneb -) 1 amp NEB RQID [facility] Last Admin: 05/01/19 08:00 Dose: 1 amp Aspirin (Asa -) 81 mg PO DAILY [facility] Last Admin: 04/30/19 10:59 Dose: 81 mg Atorvastatin Calcium (Lipitor -) 10 mg PO HS [facility] Last Admin: 04/30/19 21:28 Dose: Not Given Guaifenesin (Diabetic Tussin Dm -) 10 ml PO Q6H PRN PRN Reason: COUGH Heparin Sodium (Porcine) (Heparin -) 5,000 unit SQ BID [facility] Last Admin: 04/30/19 21:29 Dose: 5,000 unit Amino Acids (Clinimix -) 1,000 mls @ 42 mls/hr IV Q24H [facility] Last Admin: 04/30/19 15:00 Dose: 42 mls/hr Lactobacillus Acidophilus (Bacid -) 1 tab PO DAILY [facility] Last Admin: 04/30/19 10:59 Dose: 1 tab Levothyroxine Sodium (Synthroid -) 25 mcg PO DAILY@0700 [facility] Last Admin: 05/01/19 06:09 Dose: Not Given Lidocaine/Aluminum/Magnesium/Simeth (Magic Mouthwash *Sjr Formula* -) 5 ml MM Q6HPO [facility] Last Admin: 05/01/19 05:17 Dose: Not Given Melatonin (Melatonin) 5 mg PO HS PRN PRN Reason: INSOMNIA Last Admin: 04/26/19 21:26 Dose: 5 mg Mirtazapine (Remeron -) 7.5 mg PO HS [facility] Last Admin: 04/30/19 21:29 Dose: Not Given Pantoprazole Sodium (Protonix Iv) 40 mg IVPUSH DAILY [facility] Last Admin: 04/30/19 10:59 Dose: 40 mg Senna (Senna -) 2 tab PO HS [facility] Last Admin: 04/30/19 21:53 Dose: Not Given Physical Examination Vital Signs Period Temp Pulse Resp BP Sys/Chandra Pulse Ox Last 24 Hr 97.0 F-98.8 F 58-68 16-20 116-147/55-81 92-97 Constitutional: Yes: No Distress, Calm, Thin Eyes: Yes: WNL, Conjunctiva Clear, EOM Intact, PERRL HENT: Yes: Atraumatic, Normocephalic, Other (white secretions to buccal aspect) Neck: Yes: WNL, Supple, Trachea Midline Cardiovascular: Yes: WNL, Regular Rate and Rhythm, S1, S2 Respiratory: Yes: Rhonchi (coarse) Gastrointestinal: Yes: WNL, Normal Bowel Sounds, Soft ...Rectal Exam: Yes: Deferred Renal/: Yes: WNL Breast(s): Yes: WNL Musculoskeletal: Yes: WNL Extremities: Yes: WNL Edema: No Peripheral Pulses WNL: Yes Neurological: awake, alert, right facial droop noted, dysarthric speech, 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 hand 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 executive sales representative, biceps, triceps 3+/5, sensation reduced on the right, finger to nose intact CBCD WBC 5.6 K/mm3 (4.0-10.0) 04/30/19 06:00 RBC 4.12 M/mm3 (3.60-5.2) 04/30/19 06:00 Hgb 11.9 GM/dL (10.7-15.3) 04/30/19 06:00 Hct 35.6 % (32.4-45.2) 04/30/19 06:00 MCV 86.4 fl (80-96) 04/30/19 06:00 MCHC 33.5 g/dl (32.0-36.0) 04/30/19 06:00 RDW 14.9 % (11.6-15.6) 04/30/19 06:00 Plt Count 267 K/MM3 (134-434) 04/30/19 06:00 MPV 6.9 fl (7.5-11.1) L 04/30/19 06:00 CMP Sodium 138 mmol/L (136-145) 04/28/19 06:30 Potassium 4.0 mmol/L (3.5-5.1) 04/28/19 06:30 Chloride 103 mmol/L (98-107) 04/28/19 06:30 Carbon Dioxide 30 mmol/L (21-32) 04/28/19 06:30 Anion Gap 6 MMOL/L (8-16) L 04/28/19 06:30 BUN 24.3 mg/dL (7-18) H 04/28/19 06:30 Creatinine 0.9 mg/dL (0.55-1.3) 04/28/19 06:30 Random Glucose 92 mg/dL (74-106) 04/28/19 06:30 Calcium 8.9 mg/dL (8.5-10.1) 04/28/19 06:30 Total Bilirubin 0.4 mg/dL (0.2-1) 04/28/19 06:30 AST 17 U/L (15-37) 04/28/19 06:30 ALT 16 U/L (13-61) 04/28/19 06:30 Alkaline Phosphatase 57 U/L (45-117) 04/28/19 06:30 Total Protein 7.2 g/dl (6.4-8.2) 04/28/19 06:30 Albumin 3.3 g/dl (3.4-5.0) L 04/28/19 06:30 Plan: This is a 89 y/o woman with a PMHx of Tonsilar Ca (s/p RT, 30 yrs ago), Brain Tumor, HTN, HLD, Hearing Imparied. Who presents to the ED with fever, cough x 1 week, dizziness and increased dysphagia. Patient's sister reported that the patient was at Urgent Care week prior to amdission and was started on Amoxicillin now completed. The patient reported having generalized weakness and dizziness on day of admission. Patient denies SOB, ROBLES, CP, palpitations, AP, N/V /D, constipation, dysuria. Denies recent sick contacts or travel. This AM, ccontacted by hospitalist who was contacted by nurse due to patient having right upper extremity weakness. 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 further evaluation and management by neurosurgery can be considered. Continued flaccidity of right upper extremity including biceps, triceps, handgrip. advised MRI of the brain, ordered by hospitalist, but thereafter completed CT of the head and neck which I reviewed and showed no evidence of large vessel occlusion, there was 20% stenosis of the bilateral internal carotid arteries at the origin. MRI brain completed, contacted by radiologist residential sales consultant and informed acute L parietal infarct ([facility] radiata) consitent with RUE weakness. 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 PEG insertion completed and reviewed notes including hospice no mentioning chest pain but no EKG changes per notes. Patient without new complaints this morning but right upper extremity remainsessentially the same in strength,awaiting placement once patient stabilized.. Physical therapy as tolerated, monitor blood pressure prefer less than 140/90. Continue antiplatelet regiment.
--- NOTE | 2019-05-01 10:03 | PN ---
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, Physician History of Present Illness: pulmonary alert,comfortable,-resp distress,-sob,less cough.pt s/p peg insertion - Current Medication List Current Medications: Active Medications Acetaminophen (Tylenol -) 650 mg PO Q4H PRN PRN Reason: PAIN Albuterol/Ipratropium (Duoneb -) 1 amp NEB RQID [facility] Last Admin: 05/01/19 08:00 Dose: 1 amp Aspirin (Asa -) 81 mg PO DAILY [facility] Last Admin: 04/30/19 10:59 Dose: 81 mg Atorvastatin Calcium (Lipitor -) 10 mg PO HS [facility] Last Admin: 04/30/19 21:28 Dose: Not Given Guaifenesin (Diabetic Tussin Dm -) 10 ml PO Q6H PRN PRN Reason: COUGH Heparin Sodium (Porcine) (Heparin -) 5,000 unit SQ BID [facility] Last Admin: 04/30/19 21:29 Dose: 5,000 unit Amino Acids (Clinimix -) 1,000 mls @ 42 mls/hr IV Q24H [facility] Last Admin: 04/30/19 15:00 Dose: 42 mls/hr Lactobacillus Acidophilus (Bacid -) 1 tab PO DAILY [facility] Last Admin: 04/30/19 10:59 Dose: 1 tab Levothyroxine Sodium (Synthroid -) 25 mcg PO DAILY@0700 [facility] Last Admin: 05/01/19 06:09 Dose: Not Given Lidocaine/Aluminum/Magnesium/Simeth (Magic Mouthwash *Sjr Formula* -) 5 ml MM Q6HPO [facility] Last Admin: 05/01/19 05:17 Dose: Not Given Melatonin (Melatonin) 5 mg PO HS PRN PRN Reason: INSOMNIA Last Admin: 04/26/19 21:26 Dose: 5 mg Mirtazapine (Remeron -) 7.5 mg PO HS [facility] Last Admin: 04/30/19 21:29 Dose: Not Given Pantoprazole Sodium (Protonix Iv) 40 mg IVPUSH DAILY [facility] Last Admin: 04/30/19 10:59 Dose: 40 mg Senna (Senna -) 2 tab PO HS [facility] Last Admin: 04/30/19 21:53 Dose: Not Given - Objective Vital Signs: Vital Signs Temperature 97.4 F L 05/01/19 06:00 Pulse Rate 58 L 05/01/19 06:00 Respiratory Rate 20 05/01/19 06:00 Blood Pressure 136/61 05/01/19 06:00 O2 Sat by Pulse Oximetry (%) 96 04/30/19 21:00 Constitutional: Yes: Calm, Thin Eyes: Yes: WNL HENT: Yes: WNL Neck: Yes: WNL Cardiovascular: Yes: Pulse Irregular, S1, S2 Respiratory: Yes: Diminished, Rhonchi (few rhonchi) Gastrointestinal: Yes: Normal Bowel Sounds, Soft Extremities: Yes: WNL Edema: No Neurological: Yes: Other (min increase movement left arm) Labs: CBC, BMP 04/30/19 06:00 04/28/19 06:30 Problem List - Problems (1) Dysphagia Code(s): R13.10 - DYSPHAGIA, UNSPECIFIED (2) Failure to thrive Code(s): [id number] - Qualifiers: Failure to thrive age range: in adult Qualified Code(s): R62.7 - Adult failure to thrive (3) Pituitary macroadenoma with extrasellar extension Code(s): D35.2 - BENIGN NEOPLASM OF PITUITARY GLAND (4) Borderline diabetes Code(s): R73.03 - PREDIABETES (5) History of cancer tonsil Code(s): Z85.818 - PRSNL HX OF MALIG NEOPLM OF SITE OF LIP, ORAL CAV, & PHARYNX (6) Hypertension Code(s): I10 - ESSENTIAL (PRIMARY) HYPERTENSION Qualifiers: Hypertension type: essential hypertension Qualified Code(s): I10 - Essential (primary) hypertension (7) Acute hypoxemic respiratory failure Code(s): J96.01 - ACUTE RESPIRATORY FAILURE WITH HYPOXIA Assessment/Plan A/P Acute CVA Pneumonia likely Aspiration clinically improved h/o Tonsillar Ca s/p RT Dysphagia HTN DM Hyperlipidemia - inhaled bronchodilators - O2 to keep SpO2 >90% - aspiration precautions - DVT prophylaxis - gt feeding DR TAN
[2019-05-01] MEDS: HEPARIN NA (PORCINE) 5,000 UNITS/ML 1ML VIAL SQ SCH ×2 (10:56→22:40)
[2019-05-01] MEDS: PANTOPRAZOLE SODIUM 40 MG VIAL IVPUSH SCH (10:56)
[2019-05-01] MEDS: LACTOBACILLUS ACIDOPHILUS 1 TABLET PO SCH (10:56)
[2019-05-01] MEDS: ASPIRIN 81 MG CHEWABLE TABLETS PO SCH (10:56)
--- NOTE | 2019-05-01 11:07 | PN ---
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, Physician Chief Complaint: FTT Dysphagia metabolic encephalopathy History of Present Illness: NPO at this time except meds crushed in apple sauce MBS showed silent aspiration with thin liquids Denies any pain - Current Medication List Current Medications: Active Medications Acetaminophen (Tylenol -) 650 mg PO Q4H PRN PRN Reason: PAIN Albuterol/Ipratropium (Duoneb -) 1 amp NEB RQID [facility] Last Admin: 05/01/19 08:00 Dose: 1 amp Aspirin (Asa -) 81 mg PO DAILY [facility] Last Admin: 04/30/19 10:59 Dose: 81 mg Atorvastatin Calcium (Lipitor -) 10 mg PO HS [facility] Last Admin: 04/30/19 21:28 Dose: Not Given Guaifenesin (Diabetic Tussin Dm -) 10 ml PO Q6H PRN PRN Reason: COUGH Heparin Sodium (Porcine) (Heparin -) 5,000 unit SQ BID [facility] Last Admin: 04/30/19 21:29 Dose: 5,000 unit Amino Acids (Clinimix -) 1,000 mls @ 42 mls/hr IV Q24H [facility] Last Admin: 04/30/19 15:00 Dose: 42 mls/hr Lactobacillus Acidophilus (Bacid -) 1 tab PO DAILY [facility] Last Admin: 04/30/19 10:59 Dose: 1 tab Levothyroxine Sodium (Synthroid -) 25 mcg PO DAILY@0700 [facility] Last Admin: 05/01/19 06:09 Dose: Not Given Lidocaine/Aluminum/Magnesium/Simeth (Magic Mouthwash *Sjr Formula* -) 5 ml MM Q6HPO [facility] Last Admin: 05/01/19 05:17 Dose: Not Given Melatonin (Melatonin) 5 mg PO HS PRN PRN Reason: INSOMNIA Last Admin: 04/26/19 21:26 Dose: 5 mg Mirtazapine (Remeron -) 7.5 mg PO HS [facility] Last Admin: 04/30/19 21:29 Dose: Not Given Pantoprazole Sodium (Protonix Iv) 40 mg IVPUSH DAILY [facility] Last Admin: 04/30/19 10:59 Dose: 40 mg Senna (Senna -) 2 tab PO HS [facility] Last Admin: 04/30/19 21:53 Dose: Not Given - Objective Vital Signs: Vital Signs Temperature 97.4 F L 05/01/19 06:00 Pulse Rate 58 L 05/01/19 06:00 Respiratory Rate 20 05/01/19 06:00 Blood Pressure 136/61 05/01/19 06:00 O2 Sat by Pulse Oximetry (%) 96 04/30/19 21:00 Constitutional: Yes: No Distress, Calm, Thin Cardiovascular: Yes: Regular Rate and Rhythm Respiratory: Yes: Regular Gastrointestinal: Yes: WNL, Normal Bowel Sounds, Soft Genitourinary: Yes: WNL Musculoskeletal: Yes: WNL Extremities: Yes: WNL Edema: No Peripheral Pulses WNL: Yes Neurological: Yes: Alert, Oriented Psychiatric: Yes: Alert, Oriented Labs: CBC, BMP 04/30/19 06:00 04/28/19 06:30 Problem List - Problems (1) Constipation Assessment/Plan: -Last BM 4-5 days ago -Continue senna 2 tabs HS -Add miralax po daily Problems reviewed: Yes Code(s): K59.00 - CONSTIPATION, UNSPECIFIED (2) Glossitis Assessment/Plan: -Magic mouthwash 5ml Q6h PRN -Feeling much better Problems reviewed: Yes Code(s): K14.0 - GLOSSITIS Assessment/Plan (3) Dysphagia Assessment/Plan: -TRAINING ASSOCIATE on board and recommendation appreciated -ENT on board -Spoke to speech therapy, balaji re-evaluate to see if patient can continue pleasure feeds by mouth -S/P PEG- awaiting dietary recommendations for bolus PEG feeding to increase quality of life. Pt is ambulatory. -GI consult -Continue remeron-to help with sleep, moods and appetite Code(s): R13.10 - DYSPHAGIA, UNSPECIFIED (4) Failure to thrive Assessment/Plan: -PT -walked well with PT -calorie count -dietary consult -Palliative care consult appreciated Code(s): PGK2789 - Qualifiers: Failure to thrive age range: in adult Qualified Code(s): R62.7 - Adult failure to thrive (5) Pituitary macroadenoma with extrasellar extension Assessment/Plan: -Endo on board -MRI of pituitary shows increase in the size of the pituitary macroadenoma with again mass effect on optic chiasm, no hemorrhage within the adenoma -Seen by Neurosurgery, no surgical intervention recommended at this time Code(s): D35.2 - BENIGN NEOPLASM OF PITUITARY GLAND (6) Aspiration pneumonia Assessment/Plan: -Pulm on board -Chest CT scan shows posterior bibasilar infiltrates -ID on board -afebrile -no leukocytosis -O2 via NC -keep SpO2 >90% -Bronchodilators -Robitussin DM PRN -Pre and post ambulatory SpO2 Code(s): J69.0 - PNEUMONITIS DUE TO INHALATION OF FOOD AND VOMIT
[2019-05-01] MEDS ORDERED: POLYETHYLENE GLYCOL 3350 119 GM BTL PO SCH (11:15)
[2019-05-01] MEDS ORDERED: PT OWN MED DRAWER 7, Y5N ONE (12:54)
[2019-05-01] MEDS ORDERED: FLUCONAZOLE 40 MG/ML SUSPENSION GT ONE (13:08)
--- NOTE | 2019-05-01 13:10 | PN ---
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, NAVIGATION OFFICER - Note 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: Selected Entries 05/01/19 06:00 Lunch NPO Laboratory Tests 04/30/19 06:00 WBC 5.6 PEG placed. OOB in chair. Asked to reassess for PO intake. Responsive cough with puree-Stasis/Aspiration? Also c/o oral burning and in chest/esophagus with PO intake. Mucositis. On Magic mouth wash, which may increase aspiration risk with depressed sensation. Discussed with SLOT FLOOR PERSON re: tx for mucositis? Oncology/ENT input? Last MBS was before CVA MBS to r/o aspiration,initiate PO trials if possible PEG feedings scheduled.
[2019-05-01] MEDS ORDERED: ACETAMINOPHEN 650 MG/20.3 ML ORAL SOLUTION (CUPS) PO PRN (13:12)
[2019-05-01] MEDS ORDERED: ASPIRIN 81 MG CHEWABLE TABLETS GT SCH (13:15)
[2019-05-01] MEDS ORDERED: POLYETHYLENE GLYCOL 3350 119 GM BTL GT SCH (13:15)
[2019-05-01] MEDS ORDERED: LACTOBACILLUS ACIDOPHILUS 1 TABLET GT SCH (13:15)
[2019-05-01] MEDS ORDERED: guaiFENesin/D-M SUGAR-FREE/ACLHOL-FREE 118 ML BOTTLE GT PRN (13:15)
[2019-05-01] MEDS ORDERED: FLUCONAZOLE 150 MG TABLET PO ONE (13:45)
--- NOTE | 2019-05-01 13:51 | PN ---
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 This am awoke with RUE weakness. Slight improvement so far. No chest pain, palpitations, or sob. No pnd, orthopnea, or edema. Denies any history of irregular heart beat/afib. CT head no acute changes. carotid Doppler was unremarkable. Echocardiogram is pending. No important events on telemetry. - Current Medication List Current Medications: Active Medications Acetaminophen (Tylenol Oral Solution -) 650 mg PO Q4H PRN PRN Reason: FEVER Albuterol/Ipratropium (Duoneb -) 1 amp NEB RQID [facility] Last Admin: 05/01/19 11:43 Dose: Not Given Aspirin (Asa -) 81 mg GT DAILY [facility] Atorvastatin Calcium (Lipitor -) 10 mg GT HS [facility] Guaifenesin (Diabetic Tussin Dm -) 10 ml GT Q6H PRN PRN Reason: COUGH Heparin Sodium (Porcine) (Heparin -) 5,000 unit SQ BID [facility] Last Admin: 05/01/19 10:56 Dose: 5,000 unit Lactobacillus Acidophilus (Bacid -) 1 tab GT DAILY [facility] Levothyroxine Sodium (Synthroid -) 25 mcg PO DAILY@0700 [facility] Last Admin: 05/01/19 06:09 Dose: Not Given Melatonin (Melatonin) 5 mg PO HS PRN PRN Reason: INSOMNIA Mirtazapine (Remeron -) 7.5 mg GT HS [facility] Pantoprazole Sodium (Protonix Iv) 40 mg IVPUSH DAILY [facility] Last Admin: 05/01/19 10:56 Dose: 40 mg Polyethylene Glycol (Miralax (For Daily Use) -) 17 gm GT DAILY [facility] Senna (Senna Oral Solution -) 8.8 mg GT HS [facility] - Objective Vital Signs: Vital Signs Temperature 97.4 F L 05/01/19 06:00 Pulse Rate 58 L 05/01/19 06:00 Respiratory Rate 20 05/01/19 06:00 Blood Pressure 136/61 05/01/19 06:00 O2 Sat by Pulse Oximetry (%) 96 04/30/19 21:00 Constitutional: Yes: No Distress, Calm Eyes: Yes: EOM Intact HENT: Yes: Atraumatic, Normocephalic Neck: Yes: Trachea Midline Cardiovascular: Yes: Regular Rate and Rhythm Respiratory: Yes: Regular, CTA Bilaterally Gastrointestinal: Yes: Normal Bowel Sounds, Soft Edema: No Peripheral Pulses WNL: Yes Labs: CBC, BMP 04/30/19 06:00 04/28/19 06:30 Assessment/Plan 89 year old female with a 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 This am awoke with RUE weakness. Slight improvement so far. No chest pain, palpitations, or sob. No pnd, orthopnea, or edema. Denies any history of irregular heart beat/afib. CT head no acute changes. MRI acute CVA. carotid Doppler was unremarkable. Echocardiogram nlef, no significant valvular abnormalities. No important events on telemetry. DC telemetry. Plan: neuro evaluation read and appreciated. dc telemetry. continue current medication for now. she is s/p PEG placement. Continue asa due to recent acute stroke. will see as needed.
[2019-05-01] MEDS: AMINO ACIDS 4.25%/D5W 1,000 ML IV SCH (15:36)
[2019-05-01] MEDS ORDERED: MIRTAZAPINE 15 MG TABLET (FP) GT SCH (22:00)
[2019-05-01] MEDS ORDERED: ATORVASTATIN CA 10 MG TABLET (FP) GT SCH (22:00)
[2019-05-01] MEDS ORDERED: MELATONIN 5 MG TABLETS PO PRN (22:00)
[2019-05-01] MEDS ORDERED: SENNOSIDES 8.8 MG/5 ML BULK BOTTLE GT SCH (22:00)
[2019-05-02] MEDS ORDERED: guaiFENesin/D-M SUGAR-FREE/ACLHOL-FREE 118 ML BOTTLE GT PRN (01:58)
[2019-05-02] MEDS ORDERED: MELATONIN 5 MG TABLETS PO PRN (01:58)
[2019-05-02] MEDS ORDERED: ACETAMINOPHEN 650 MG/20.3 ML ORAL SOLUTION (CUPS) PO PRN (01:58)
[2019-05-02] MEDS: LEVOTHYROXINE NA 25 MCG TABLET (FP) PO SCH (06:32)
[2019-05-02] MEDS: ALBUTEROL SO4 2.5/IPRATROPIUM 0.5 INH SOL 3 ML VIAL.NEB. NEB SCH ×4 (07:30→20:26)
--- NOTE | 2019-05-02 08:54 | PN ---
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 (short form) - Note 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: Neurology Chief Complaint: Fever, Cough, Dizziness, Increased Dysphagia History of Present Illness: This is a 89 y/o woman with a PMHx of Tonsilar Ca (s/p RT, 30 yrs ago), Brain Tumor, HTN, HLD, Hearing Imparied. Who presents to the ED with fever, cough x 1 week, dizziness and increased dysphagia. Patient's sister reported that the patient was at Urgent Care week prior to amdission and was started on Amoxicillin now completed. The patient reported having generalized weakness and dizziness on day of admission. Patient denies SOB, ROBLES, CP, palpitations, AP, N/V /D, constipation, dysuria. Denies recent sick contacts or travel. This AM, ccontacted by hospitalist who was contacted by nurse due to patient having right upper extremity weakness. 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 further evaluation and management by neurosurgery can be considered. Continued flaccidity of right upper extremity including biceps, triceps, handgrip. advised MRI of the brain, ordered by hospitalist, but thereafter completed CT of the head and neck which I reviewed and showed no evidence of large vessel occlusion, there was 20% stenosis of the bilateral internal carotid arteries at the origin. MRI brain completed, contacted by radiologist animal control licensing worker and informed acute L parietal infarct ([facility] radiata) consitent with RUE weakness. 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 PEG insertion completed. Patient without new complaints this morning but right upper extremity stable, seen with nurse at bedside who was inquiring about clinical course which I provided her with synopsis. Awaiting possible placement. Active Medications Acetaminophen (Tylenol Oral Solution -) 650 mg PO Q4H PRN PRN Reason: FEVER Last Admin: 05/02/19 06:30 Dose: 650 mg Albuterol/Ipratropium (Duoneb -) 1 amp NEB RQID [facility] Last Admin: 05/02/19 07:30 Dose: Not Given Aspirin (Asa -) 81 mg GT DAILY [facility] Atorvastatin Calcium (Lipitor -) 10 mg GT HS [facility] Guaifenesin (Diabetic Tussin Dm -) 10 ml GT Q6H PRN PRN Reason: COUGH Heparin Sodium (Porcine) (Heparin -) 5,000 unit SQ BID [facility] Lactobacillus Acidophilus (Bacid -) 1 tab GT DAILY [facility] Levothyroxine Sodium (Synthroid -) 25 mcg PO DAILY@0700 [facility] Last Admin: 05/02/19 06:32 Dose: 25 mcg Melatonin (Melatonin) 5 mg PO HS PRN PRN Reason: INSOMNIA Mirtazapine (Remeron -) 7.5 mg GT HS [facility] Pantoprazole Sodium (Protonix Iv) 40 mg IVPUSH DAILY [facility] Polyethylene Glycol (Miralax (For Daily Use) -) 17 gm GT DAILY [facility] Senna (Senna Oral Solution -) 8.8 mg GT HS [facility] Physical Examination Vital Signs Period Temp Pulse Resp BP Sys/Chandra Pulse Ox Last 24 Hr 97.8 F-98.7 F 57-77 18-20 115-128/56-73 92-96 Constitutional: Yes: No Distress, Calm, Thin Eyes: Yes: WNL, Conjunctiva Clear, EOM Intact, PERRL HENT: Yes: Atraumatic, Normocephalic, Other (white secretions to buccal aspect) Neck: Yes: WNL, Supple, Trachea Midline Cardiovascular: Yes: WNL, Regular Rate and Rhythm, S1, S2 Respiratory: Yes: Rhonchi (coarse) Gastrointestinal: Yes: WNL, Normal Bowel Sounds, Soft ...Rectal Exam: Yes: Deferred Renal/: Yes: WNL Breast(s): Yes: WNL Musculoskeletal: Yes: WNL Extremities: Yes: WNL Edema: No Peripheral Pulses WNL: Yes Neurological: awake, alert, right facial droop noted, dysarthric speech, 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, biceps, triceps 3+/5, sensation reduced on the right, finger to nose intact CBCD WBC 5.6 K/mm3 (4.0-10.0) 04/30/19 06:00 RBC 4.12 M/mm3 (3.60-5.2) 04/30/19 06:00 Hgb 11.9 GM/dL (10.7-15.3) 04/30/19 06:00 Hct 35.6 % (32.4-45.2) 04/30/19 06:00 MCV 86.4 fl (80-96) 04/30/19 06:00 MCHC 33.5 g/dl (32.0-36.0) 04/30/19 06:00 RDW 14.9 % (11.6-15.6) 04/30/19 06:00 Plt Count 267 K/MM3 (134-434) 04/30/19 06:00 MPV 6.9 fl (7.5-11.1) L 04/30/19 06:00 CMP Sodium 138 mmol/L (136-145) 04/28/19 06:30 Potassium 4.0 mmol/L (3.5-5.1) 04/28/19 06:30 Chloride 103 mmol/L (98-107) 04/28/19 06:30 Carbon Dioxide 30 mmol/L (21-32) 04/28/19 06:30 Anion Gap 6 MMOL/L (8-16) L 04/28/19 06:30 BUN 24.3 mg/dL (7-18) H 04/28/19 06:30 Creatinine 0.9 mg/dL (0.55-1.3) 04/28/19 06:30 Random Glucose 92 mg/dL (74-106) 04/28/19 06:30 Calcium 8.9 mg/dL (8.5-10.1) 04/28/19 06:30 Total Bilirubin 0.4 mg/dL (0.2-1) 04/28/19 06:30 AST 17 U/L (15-37) 04/28/19 06:30 ALT 16 U/L (13-61) 04/28/19 06:30 Alkaline Phosphatase 57 U/L (45-117) 04/28/19 06:30 Total Protein 7.2 g/dl (6.4-8.2) 04/28/19 06:30 Albumin 3.3 g/dl (3.4-5.0) L 04/28/19 06:30 Plan: This is a 89 y/o woman with a PMHx of Tonsilar Ca (s/p RT, 30 yrs ago), Brain Tumor, HTN, HLD, Hearing Imparied. Who presents to the ED with fever, cough x 1 week, dizziness and increased dysphagia. Patient's sister reported that the patient was at Urgent Care week prior to amdission and was started on Amoxicillin now completed. The patient reported having generalized weakness and dizziness on day of admission. Patient denies SOB, ROBLES, CP, palpitations, AP, N/V /D, constipation, dysuria. Denies recent sick contacts or travel. This AM, ccontacted by hospitalist who was contacted by nurse due to patient having right upper extremity weakness. 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 further evaluation and management by neurosurgery can be considered. Continued flaccidity of right upper extremity including biceps, triceps, handgrip. advised MRI of the brain, ordered by hospitalist, but thereafter completed CT of the head and neck which I reviewed and showed no evidence of large vessel occlusion, there was 20% stenosis of the bilateral internal carotid arteries at the origin. MRI brain completed, contacted by radiologist animal control licensing worker and informed acute L parietal infarct ([facility] radiata) consitent with RUE weakness. 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 PEG insertion completed Patient without new complaints this morning but right upper extremity stable, seen with nurse at bedside who was inquiring about clinical course which I provided her with synopsis. Awaiting possible placement. Physical therapy as tolerated, monitor blood pressure prefer less than 140/90. Continue antiplatelet regiment.
--- NOTE | 2019-05-02 10:07 | PN ---
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 (short form) - Note 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: Resting in NAD. No acute events overnight. Intake & Output 04/29/19 04/30/19 05/01/19 05/02/19 23:59 23:59 23:59 23:59 Intake Total 142 964 876 20 Balance 142 964 876 20 Weight 113 lb Last Vital Signs Temp Pulse Resp BP Pulse Ox 98.0 F 61 20 128/68 92 L 05/02/19 06:00 05/02/19 06:00 05/02/19 06:00 05/02/19 06:00 05/01/19 13:10 Active Medications Acetaminophen (Tylenol Oral Solution -) 650 mg PO Q4H PRN PRN Reason: FEVER Last Admin: 05/02/19 06:30 Dose: 650 mg Albuterol/Ipratropium (Duoneb -) 1 amp NEB RQID [facility] Last Admin: 05/02/19 07:30 Dose: Not Given Aspirin (Asa -) 81 mg GT DAILY [facility] Atorvastatin Calcium (Lipitor -) 10 mg GT HS [facility] Guaifenesin (Diabetic Tussin Dm -) 10 ml GT Q6H PRN PRN Reason: COUGH Heparin Sodium (Porcine) (Heparin -) 5,000 unit SQ BID [facility] Lactobacillus Acidophilus (Bacid -) 1 tab GT DAILY [facility] Levothyroxine Sodium (Synthroid -) 25 mcg PO DAILY@0700 [facility] Last Admin: 05/02/19 06:32 Dose: 25 mcg Melatonin (Melatonin) 5 mg PO HS PRN PRN Reason: INSOMNIA Mirtazapine (Remeron -) 7.5 mg GT HS [facility] Pantoprazole Sodium (Protonix Iv) 40 mg IVPUSH DAILY [facility] Polyethylene Glycol (Miralax (For Daily Use) -) 17 gm GT DAILY [facility] Senna (Senna Oral Solution -) 8.8 mg GT HS [facility] Constitutional: Yes: NAD Eyes: Yes: WNL HENT: Yes: WNL Neck: Yes: WNL Cardiovascular: Yes: Pulse Irregular, S1, S2 Respiratory: Yes: Diminished, Rhonchi (few rhonchi) Gastrointestinal: Yes: Normal Bowel Sounds, Soft Extremities: Yes: WNL Edema: No Neurological: Yes: (+) weakness Labs: Problem List - Problems (1) Dysphagia Code(s): R13.10 - DYSPHAGIA, UNSPECIFIED (2) Failure to thrive Code(s): YMA3418 - Qualifiers: Failure to thrive age range: in adult Qualified Code(s): R62.7 - Adult failure to thrive (3) Pituitary macroadenoma with extrasellar extension Code(s): D35.2 - BENIGN NEOPLASM OF PITUITARY GLAND (4) Borderline diabetes Code(s): R73.03 - PREDIABETES (5) History of cancer tonsil Code(s): Z85.818 - PRSNL HX OF MALIG NEOPLM OF SITE OF LIP, ORAL CAV, & PHARYNX (6) Hypertension Code(s): I10 - ESSENTIAL (PRIMARY) HYPERTENSION Qualifiers: Hypertension type: essential hypertension Qualified Code(s): I10 - Essential (primary) hypertension (7) Acute hypoxemic respiratory failure Code(s): J96.01 - ACUTE RESPIRATORY FAILURE WITH HYPOXIA Assessment/Plan A/P Acute CVA Pneumonia likely Aspiration clinically improved h/o Tonsillar Ca s/p RT Dysphagia HTN DM Hyperlipidemia - inhaled bronchodilators PRN - O2 to keep SpO2 >90% - aspiration precautions - DVT prophylaxis - GT feeding - DC planning Dr Melendrez
--- NOTE | 2019-05-02 10:57 | PN ---
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, Physician Chief Complaint: FTT Dysphagia History of Present Illness: Previous notes and events reviewed awake and alert NAD s/p PEG tube insertion complain of pain to surgical site repeat MBS results reviewed - Current Medication List Current Medications: Active Medications Acetaminophen (Tylenol Oral Solution -) 650 mg PO Q4H PRN PRN Reason: FEVER Last Admin: 05/02/19 06:30 Dose: 650 mg Albuterol/Ipratropium (Duoneb -) 1 amp NEB RQID [facility] Last Admin: 05/02/19 07:30 Dose: Not Given Aspirin (Asa -) 81 mg GT DAILY [facility] Atorvastatin Calcium (Lipitor -) 10 mg GT HS [facility] Guaifenesin (Diabetic Tussin Dm -) 10 ml GT Q6H PRN PRN Reason: COUGH Heparin Sodium (Porcine) (Heparin -) 5,000 unit SQ BID [facility] Lactobacillus Acidophilus (Bacid -) 1 tab GT DAILY [facility] Levothyroxine Sodium (Synthroid -) 25 mcg PO DAILY@0700 [facility] Last Admin: 05/02/19 06:32 Dose: 25 mcg Melatonin (Melatonin) 5 mg PO HS PRN PRN Reason: INSOMNIA Mirtazapine (Remeron -) 7.5 mg GT HS [facility] Pantoprazole Sodium (Protonix Iv) 40 mg IVPUSH DAILY [facility] Polyethylene Glycol (Miralax (For Daily Use) -) 17 gm GT DAILY [facility] Senna (Senna Oral Solution -) 8.8 mg GT HS [facility] - Objective Vital Signs: Vital Signs Temperature 97.9 F 05/02/19 10:00 Pulse Rate 62 05/02/19 10:00 Respiratory Rate 18 05/02/19 10:00 Blood Pressure 109/59 L 05/02/19 10:00 O2 Sat by Pulse Oximetry (%) 92 L 05/01/19 13:10 Constitutional: Yes: No Distress, Calm Eyes: Yes: Conjunctiva Clear HENT: Yes: Atraumatic Cardiovascular: Yes: Regular Rate and Rhythm Respiratory: Yes: Regular, Diminished Gastrointestinal: Yes: Normal Bowel Sounds, Soft, Other (g tube) Musculoskeletal: Yes: Muscle Weakness Extremities: Yes: WNL Edema: No Wound/Incision: Yes: Dressing Dry and Intact Neurological: Yes: Alert, Oriented, Weakness (RUE) Psychiatric: Yes: Alert, Oriented Labs: CBC, BMP 04/30/19 06:00 04/28/19 06:30 Microbiology 04/21/19 17:37 Urine For Antigen Detection Legionella Antigen - Final 04/21/19 17:37 Urine For Antigen Detection Streptococcus pneumoniae Antigen (M - Final 04/16/19 16:50 Urine - Urine Clean Catch Urine Culture - Final NO GROWTH OBTAINED Problem List - Problems (1) Dysphagia Assessment/Plan: -KEG FILLER on board and recommendation appreciated -ENT on board -S/p PEG tube -repeat MBS reviewed and recommends intensive swallowing therapy at short term rehab to improve airway protection and swallowing function -HONEY THICKENED LIQUIDS/THINNED OUT PUREE -Bolus G tube feedings as per dietary recommendations -aspiration precaution Code(s): R13.10 - DYSPHAGIA, UNSPECIFIED (2) Failure to thrive Assessment/Plan: -IV hydration -PT -G tube with bolus feedings -calorie count -dietary consult Code(s): [id number] - Qualifiers: Failure to thrive age range: in adult Qualified Code(s): R62.7 - Adult failure to thrive (3) Pituitary macroadenoma with extrasellar extension Assessment/Plan: -Endo on board -MRI of pituitary shows increase in the size of the pituitary macroadenoma with again mass effect on optic chiasm, no hemorrhage within the adenoma -Neurosurgery on board, no surgical intervention needed at this time Code(s): D35.2 - BENIGN NEOPLASM OF PITUITARY GLAND (4) Aspiration pneumonia Assessment/Plan: -Pulm on board -Chest CT scan shows posterior bibasilar infiltrates -ID on board -afebrile -no leukocytosis -O2 via NC -keep SpO2 >90% -Bronchodilators Code(s): J69.0 - PNEUMONITIS DUE TO INHALATION OF FOOD AND VOMIT (5) RUE weakness Assessment/Plan: -Head CT scan shows no evidence of acute intracranial hemorrhage, edema, midline shift, mass effect, or skull fracture -Brain MRI shows acute nonhemorrhagic infarction white matter left parietal lobe 1.7cm -Neurology on board -neuro checks q4h -Atorvastatin -Aspirin -Carotid US -Cardiology on board -PT Code(s): R29.898 - OTH SYMPTOMS AND SIGNS INVOLVING THE MUSCULOSKELETAL SYSTEM Assessment/Plan see problem list will need SNF for discharge
[2019-05-02] MEDS: HEPARIN NA (PORCINE) 5,000 UNITS/ML 1ML VIAL SQ SCH ×2 (11:07→21:14)
[2019-05-02] MEDS: POLYETHYLENE GLYCOL 3350 119 GM BTL GT SCH (11:07)
[2019-05-02] MEDS: ASPIRIN 81 MG CHEWABLE TABLETS GT SCH (11:07)
[2019-05-02] MEDS: LACTOBACILLUS ACIDOPHILUS 1 TABLET GT SCH (11:07)
[2019-05-02] MEDS: PANTOPRAZOLE SODIUM 40 MG VIAL IVPUSH SCH (11:09)
--- NOTE | 2019-05-02 11:51 | PN ---
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, DIVING JUDGE - Note 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: MBS reviewed with family and medical team. Defer PO intake at this time with PEG for nutrition, hydration, medication for now. Swallowing tx upon d/c per rec in MBS [facility]
[2019-05-02] MEDS ORDERED: PT OWN MED DRAWER 7, Y5N ONE (20:41)
[2019-05-02] MEDS ORDERED: SENNOSIDES 8.8 MG/5 ML BULK BOTTLE GT SCH (22:00)
[2019-05-02] MEDS ORDERED: ATORVASTATIN CA 10 MG TABLET (FP) GT SCH (22:00)
[2019-05-02] MEDS ORDERED: MIRTAZAPINE 15 MG TABLET (FP) GT SCH (22:00)
[2019-05-03] MEDS: LEVOTHYROXINE NA 25 MCG TABLET (FP) PO SCH (06:54)
[2019-05-03] MEDS: ALBUTEROL SO4 2.5/IPRATROPIUM 0.5 INH SOL 3 ML VIAL.NEB. NEB SCH ×2 (08:29→11:35)
--- NOTE | 2019-05-03 09:22 | PN ---
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 (short form) - Note 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: Neurology Chief Complaint: Fever, Cough, Dizziness, Increased Dysphagia History of Present Illness: This is a 89 y/o woman with a PMHx of Tonsilar Ca (s/p RT, 30 yrs ago), Brain Tumor, HTN, HLD, Hearing Imparied. Who presents to the ED with fever, cough x 1 week, dizziness and increased dysphagia. Patient's sister reported that the patient was at Urgent Care week prior to amdission and was started on Amoxicillin now completed. The patient reported having generalized weakness and dizziness on day of admission. Patient denies SOB, ROBLES, CP, palpitations, AP, N/V /D, constipation, dysuria. Denies recent sick contacts or travel. This AM, ccontacted by hospitalist who was contacted by nurse due to patient having right upper extremity weakness. 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 further evaluation and management by neurosurgery can be considered. Continued flaccidity of right upper extremity including biceps, triceps, handgrip. advised MRI of the brain, ordered by hospitalist, but thereafter completed CT of the head and neck which I reviewed and showed no evidence of large vessel occlusion, there was 20% stenosis of the bilateral internal carotid arteries at the origin. MRI brain completed, contacted by radiologist multifocal button grinder and informed acute L parietal infarct ([facility] radiata) consitent with RUE weakness. 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 PEG insertion completed. Patient without new complaints this morning but right upper extremity stable, spoke to [facility], trying to get admission to [facility]. Active Medications Acetaminophen (Tylenol Oral Solution -) 650 mg PO Q4H PRN PRN Reason: FEVER Last Admin: 05/02/19 06:30 Dose: 650 mg Albuterol/Ipratropium (Duoneb -) 1 amp NEB RQID [facility] Last Admin: 05/03/19 08:29 Dose: 1 amp Aspirin (Asa -) 81 mg GT DAILY [facility] Last Admin: 05/02/19 11:07 Dose: 81 mg Atorvastatin Calcium (Lipitor -) 10 mg GT HS [facility] Last Admin: 05/02/19 21:14 Dose: 10 mg Guaifenesin (Diabetic Tussin Dm -) 10 ml GT Q6H PRN PRN Reason: COUGH Heparin Sodium (Porcine) (Heparin -) 5,000 unit SQ BID [facility] Last Admin: 05/02/19 21:14 Dose: 5,000 unit Lactobacillus Acidophilus (Bacid -) 1 tab GT DAILY [facility] Last Admin: 05/02/19 11:07 Dose: 1 tab Levothyroxine Sodium (Synthroid -) 25 mcg PO DAILY@0700 [facility] Last Admin: 05/03/19 06:54 Dose: 25 mcg Melatonin (Melatonin) 5 mg PO HS PRN PRN Reason: INSOMNIA Last Admin: 05/02/19 21:14 Dose: 5 mg Mirtazapine (Remeron -) 7.5 mg GT HS [facility] Last Admin: 05/02/19 21:14 Dose: 7.5 mg Pantoprazole Sodium (Protonix Iv) 40 mg IVPUSH DAILY [facility] Last Admin: 05/02/19 11:09 Dose: 40 mg Polyethylene Glycol (Miralax (For Daily Use) -) 17 gm GT DAILY [facility] Last Admin: 05/02/19 11:07 Dose: 17 grams Senna (Senna Oral Solution -) 8.8 mg GT HS [facility] Last Admin: 05/02/19 21:14 Dose: 8.8 mg Physical Examination Vital Signs Period Temp Pulse Resp BP Sys/Chandra Pulse Ox Last 24 Hr 97.9 F-98.8 F 62-71 18-18 109-133/54-79 Constitutional: Yes: No Distress, Calm, Thin Eyes: Yes: WNL, Conjunctiva Clear, EOM Intact, PERRL HENT: Yes: Atraumatic, Normocephalic, Other (white secretions to buccal aspect) Neck: Yes: WNL, Supple, Trachea Midline Cardiovascular: Yes: WNL, Regular Rate and Rhythm, S1, S2 Respiratory: Yes: Rhonchi (coarse) Gastrointestinal: Yes: WNL, Normal Bowel Sounds, Soft ...Rectal Exam: Yes: Deferred Renal/: Yes: WNL Breast(s): Yes: WNL Musculoskeletal: Yes: WNL Extremities: Yes: WNL Edema: No Peripheral Pulses WNL: Yes Neurological: awake, alert, right facial droop noted, dysarthric speech, 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, biceps, triceps 3+/5, sensation reduced on the right, finger to nose intact CBCD WBC 5.6 K/mm3 (4.0-10.0) 04/30/19 06:00 RBC 4.12 M/mm3 (3.60-5.2) 04/30/19 06:00 Hgb 11.9 GM/dL (10.7-15.3) 04/30/19 06:00 Hct 35.6 % (32.4-45.2) 04/30/19 06:00 MCV 86.4 fl (80-96) 04/30/19 06:00 MCHC 33.5 g/dl (32.0-36.0) 04/30/19 06:00 RDW 14.9 % (11.6-15.6) 04/30/19 06:00 Plt Count 267 K/MM3 (134-434) 04/30/19 06:00 MPV 6.9 fl (7.5-11.1) L 04/30/19 06:00 CMP Sodium 138 mmol/L (136-145) 04/28/19 06:30 Potassium 4.0 mmol/L (3.5-5.1) 04/28/19 06:30 Chloride 103 mmol/L (98-107) 04/28/19 06:30 Carbon Dioxide 30 mmol/L (21-32) 04/28/19 06:30 Anion Gap 6 MMOL/L (8-16) L 04/28/19 06:30 BUN 24.3 mg/dL (7-18) H 04/28/19 06:30 Creatinine 0.9 mg/dL (0.55-1.3) 04/28/19 06:30 Random Glucose 92 mg/dL (74-106) 04/28/19 06:30 Calcium 8.9 mg/dL (8.5-10.1) 04/28/19 06:30 Total Bilirubin 0.4 mg/dL (0.2-1) 04/28/19 06:30 AST 17 U/L (15-37) 04/28/19 06:30 ALT 16 U/L (13-61) 04/28/19 06:30 Alkaline Phosphatase 57 U/L (45-117) 04/28/19 06:30 Total Protein 7.2 g/dl (6.4-8.2) 04/28/19 06:30 Albumin 3.3 g/dl (3.4-5.0) L 04/28/19 06:30 Plan: This is a 89 y/o woman with a PMHx of Tonsilar Ca (s/p RT, 30 yrs ago), Brain Tumor, HTN, HLD, Hearing Imparied. Who presents to the ED with fever, cough x 1 week, dizziness and increased dysphagia. Patient's sister reported that the patient was at Urgent Care week prior to amdission and was started on Amoxicillin now completed. The patient reported having generalized weakness and dizziness on day of admission. Patient denies SOB, ROBLES, CP, palpitations, AP, N/V /D, constipation, dysuria. Denies recent sick contacts or travel. This AM, ccontacted by hospitalist who was contacted by nurse due to patient having right upper extremity weakness. 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 further evaluation and management by neurosurgery can be considered. Continued flaccidity of right upper extremity including biceps, triceps, handgrip. advised MRI of the brain, ordered by hospitalist, but thereafter completed CT of the head and neck which I reviewed and showed no evidence of large vessel occlusion, there was 20% stenosis of the bilateral internal carotid arteries at the origin. MRI brain completed, contacted by radiologist multifocal button grinder and informed acute L parietal infarct ([facility] radiata) consitent with RUE weakness. 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 PEG insertion completed Patient without new complaints this morning but right upper extremity stable, seen with nurse at bedside who was inquiring about clinical course which I provided her with synopsis. Patient without new complaints this morning but right upper extremity stable, spoke to [facility], trying to get admission to [facility]. Physical therapy as tolerated, monitor blood pressure prefer less than 140/90. Continue antiplatelet regiment.
[2019-05-03] MEDS: LACTOBACILLUS ACIDOPHILUS 1 TABLET GT SCH (10:17)
[2019-05-03] MEDS: ASPIRIN 81 MG CHEWABLE TABLETS GT SCH (10:17)
[2019-05-03] MEDS: POLYETHYLENE GLYCOL 3350 119 GM BTL GT SCH (10:38)
[2019-05-03] MEDS: PANTOPRAZOLE SODIUM 40 MG VIAL IVPUSH SCH (11:17)
--- NOTE | 2019-05-03 11:51 | DS ---
Physical Examination Vital Signs: Vital Signs Temperature 98.3 F 05/03/19 05:57 Pulse Rate 64 05/03/19 05:57 Respiratory Rate 18 05/03/19 05:57 Blood Pressure 123/54 L 05/03/19 05:57 O2 Sat by Pulse Oximetry (%) 92 L 05/01/19 13:10 Findings/Remarks: Active Medications Generic Name Dose Route Start Last Admin Trade Name Freq PRN Reason Stop Dose Admin Acetaminophen 650 mg 05/02/19 01:58 05/02/19 06:30 Tylenol Oral Solution - PO 650 mg Q4H PRN Administration FEVER Albuterol/Ipratropium 1 amp 05/02/19 08:00 05/03/19 11:35 Duoneb - NEB 1 amp RQID [facility] Administration Aspirin 81 mg 05/02/19 10:00 05/03/19 10:17 Asa - GT 81 mg DAILY [facility] Administration Atorvastatin Calcium 10 mg 05/02/19 22:00 05/02/19 21:14 Lipitor - GT 10 mg HS [facility] Administration Guaifenesin 10 ml 05/02/19 01:58 Diabetic Tussin Dm - GT Q6H PRN COUGH Heparin Sodium (Porcine) 5,000 unit 05/02/19 10:00 05/02/19 21:14 Heparin - SQ 5,000 unit BID [facility] Administration Lactobacillus Acidophilus 1 tab 05/02/19 10:00 05/03/19 10:17 Bacid - GT 1 tab DAILY [facility] Administration Levothyroxine Sodium 25 mcg 05/02/19 07:00 05/03/19 06:54 Synthroid - PO 25 mcg DAILY@0700 [facility] Administration Melatonin 5 mg 05/02/19 01:58 05/02/19 21:14 Melatonin PO 5 mg HS PRN Administration INSOMNIA Mirtazapine 7.5 mg 05/02/19 22:00 05/02/19 21:14 Remeron - GT 7.5 mg HS [facility] Administration Pantoprazole Sodium 40 mg 05/02/19 10:00 05/03/19 11:17 Protonix Iv IVPUSH 40 mg DAILY [facility] Administration Polyethylene Glycol 17 gm 05/02/19 10:00 05/03/19 10:38 Miralax (For Daily Use) - GT 17 grams DAILY [facility] Administration Senna 8.8 mg 05/02/19 22:00 05/02/19 21:14 Senna Oral Solution - GT 8.8 mg HS [facility] Administration Constitutional: Yes: No Distress, Calm Eyes: Yes: Conjunctiva Clear HENT: Yes: Atraumatic Cardiovascular: Yes: Regular Rate and Rhythm Respiratory: Yes: Regular, CTA Bilaterally Gastrointestinal: Yes: Normal Bowel Sounds, Soft, Other (PEG tube) Musculoskeletal: Yes: Muscle Weakness Extremities: Yes: WNL Edema: No Neurological: Yes: Alert, Oriented, Weakness (RUW) Psychiatric: Yes: Alert, Oriented Labs: CBC, BMP 04/30/19 06:00 04/28/19 06:30 Discharge Summary Problems reviewed: Yes Reason For Visit: FAILURE TO THRIVE Current Active Problems Acute hypoxemic respiratory failure (Acute) Aspiration pneumonia (Acute) CVA (cerebral vascular accident) (Acute) Constipation (Acute) Dysphagia (Acute) Failure to thrive (Acute) Glossitis (Acute) Hypothyroid (Acute) Pituitary macroadenoma with extrasellar extension (Acute) Poor appetite (Acute) RUE weakness (Acute) Hospital Course: This is a 89 y/o woman with a PMHx of Tonsilar Ca (s/p RT, 30 yrs ago), Brain Tumor, HTN, HLD, Hearing Imparied. Who presents to the ED with fever, cough x 1 week, dizziness and increased dysphagia x today. Patient's sister was at bedside reports that the patient was at Urgent Care last week and was started on Amoxicillin now completed. The patient reports having generalized weakness and dizziness today. Patient denies SOB, ROBLES, CP, palpitations, AP, N/V/D, constipation, dysuria. Denies recent sick contacts or travel. On 04/25/19 had RUE weakness Head CT scan and Neuro consulted, Head CT scan shows no evidence of acute intracranial hemorrhage, edema, midline shift, or mass effect. Spoke with Dr Camap and Brain MRI ordered. On exam RUE noted to be flaccid with sensation intact, R side facial droop. Transfer patient to Telemetry. Brain MRI shows acute nonhemorrhagic infarction white matter left parietal lobe 1.7cm. When medically improved patient had PEG tube placed. Has been receiving bolus feeds and tolerating. Will need Rehab placement for intense swallowing therapy at short term rehab and PT for RUE extremity weakness due to CVA. Condition: Stable - Instructions Diet, Activity, Other Instructions: Follow up [facility] PMD 1 week after discharge continue with medication as prescribed via PEG tube PEG tube feeding bolus aspiration precaution return to ER if develop severe pain, respiratory distress, chest pain, AMS Referrals: Gisela Rai MD [Staff Physician] - Disposition: [facility] - Home Medications Comprehensive Discharge Medication List: Ambulatory Orders Acetaminophen [Tylenol .Regular Strength -] 650 mg PO Q4H PRN tablet 05/01/19 Albuterol 2.5/Ipratropium 0.5 [Duoneb -] 1 amp NEB RQID amp 05/01/19 Aspirin [ASA -] 81 mg PO DAILY tab.chew 05/01/19 Atorvastatin Ca [Lipitor] 10 mg PO HS tablet 05/01/19 Famotidine [Pepcid -] 20 mg PO DAILY #30 tablet 05/01/19 Guaifenesin/D-Methorphan Hb [Diabetic Tussin Dm -] 10 ml PO Q6H PRN ml Heparin - 5,000 unit SQ BID vial 05/01/19 Lactobacillus Acidophilus [Bacid -] 1 tab PO DAILY tab 05/01/19 Levothyroxine [Synthroid -] 25 mcg PO DAILY@0700 tablet 05/01/19 Mag Hydrox/Alh/Smc/Dpha/Lido [Magic Mouthwash *Sjr Formula* -] 5 ml MM Q6HPO bottle 05/01/19 Melatonin 5 mg PO HS PRN tab 05/01/19 Mirtazapine [Remeron -] 7.5 mg PO HS tablet 05/01/19 Polyethylene Glycol 3350 [Miralax 119 gm Btl -] 17 gm PO DAILY bottle 05/01/19 Sennosides [Senna -] 2 tab PO HS tablet 05/01/19
[2019-05-03] MEDS: HEPARIN NA (PORCINE) 5,000 UNITS/ML 1ML VIAL SQ SCH (12:21)
[2019-05-03 14:06] VITALS: BP 123/59; PULSE 79; TEMP 98.7
--- NOTE | 2019-05-08 11:39 | EKG ---
Test Reason : Blood Pressure : / mmHG Vent. Rate : 067 BPM Atrial Rate : 067 BPM P-R Int : 242 ms QRS Dur : 104 ms QT Int : 376 ms P-R-T Axes : 017 -05 100 degrees QTc Int : 397 ms SINUS RHYTHM WITH 1ST DEGREE A-V BLOCK NONSPECIFIC T WAVE ABNORMALITY ABNORMAL ECG WHEN COMPARED WITH ECG OF 16-APR-2019 13:31, NO SIGNIFICANT CHANGE WAS FOUND Confirmed by JS BARNETT, MADISON ([id number]) on 05/08/2019 11:38:53 AM Referred By: Confirmed By:MADISON WEINSTEIN MD
== END 2019-05-03 14:13 | DRG 640 ==
LOC: JER 10:55 → JERBED 15:57 → J5S 19:45 → J4W 04-25 20:11 → J8W 05-01 21:40
PROVIDERS: ADMIT Internal Medicine; ATTEND Family Medicine
PROC: 0CJS8ZZ Inspection of Larynx, Via Natural or Artificial Opening Endoscopic (ICD-10-PCS; 2019-04-19)
PROC: 3E0G76Z Introduction of Nutritional Substance into Upper GI, Via Natural or Artificial Opening (ICD-10-PCS; 2019-04-30)
PROC: 0DH63UZ Insertion of Feeding Device into Stomach, Percutaneous Approach (ICD-10-PCS; principal; 2019-04-30 13:00)
DX: R62.7 Adult failure to thrive (principal); J96.01 Acute respiratory failure with hypoxia; J69.0 Pneumonitis due to inhalation of food and vomit; G93.41 Metabolic encephalopathy; I63.9 Cerebral infarction, unspecified; G81.91 Hemiplegia, unspecified affecting right dominant side; I10 Essential (primary) hypertension; E11.9 Type 2 diabetes mellitus without complications; Z68.20 Body mass index [BMI] 20.0-20.9, adult; R13.10 Dysphagia, unspecified; Z85.818 Personal history of malignant neoplasm of other sites of lip, oral cavity, and pharynx; D35.2 Benign neoplasm of pituitary gland; E78.5 Hyperlipidemia, unspecified; R94.31 Abnormal electrocardiogram [ECG] [EKG]; E03.9 Hypothyroidism, unspecified; R29.703 NIHSS score 3; R47.1 Dysarthria and anarthria; K59.00 Constipation, unspecified; K14.0 Glossitis; K44.9 Diaphragmatic hernia without obstruction or gangrene
CPT/HCPCS: 36415; 70450-TC; 70496-TC; 70498-TC; 70542; 70551-TC; 71046-TC-FY; 71250-TC; 74230-TC-FY; 80048; 80053; 80061; 81003; 82024; 82533; 82607; 82728; 83003; 83520; 83540; 83550; 83721; 84146; 84305; 84439; 84443; 84481; 85025; 85027; 87086; 87804; 87899; 92611-GN; 93005; 93010; 93306-TC; 93880-TC; 94640; 94761; 97116-GP; 97161-GP; 99283-25; A9579; J1644; J7030